=== PATIENT | female | born 1980 | race Caucasian/White ===

== ENCOUNTER 2016-11-30 18:49 | Emergency (ER) | payer MEDICARE, MEDICAID ==
[~2016-11-30] VITALS: Ht 172.7 cm; Wt 117.9 kg
[~2016-11-30 18:49] MED LIST: ESOM40CA PO; LEVO125T5 PO; NORG1TAB10 PO; PRED20TA PO; PROAIR HFA8.5 GM INH; SERT100T PO; SULF1TAB24 PO; UNABLE MC
[2016-11-30 20:35] LABS: BILIRUBIN,URINE SMALL (NEG); GLUCOSE,URINE NEGATIVE (NEG); NITRITE,URINE NEGATIVE (NEG); PROTEIN,URINE 30 mg/dL (NEG-TRACE)
[2016-11-30 20:41] VITALS: BP 133/77
[2016-11-30 20:45] LABS: BACTERIA,URINE FEW /HPF (0-FEW); RBC,URINE 20-40 /HPF (0-2); SQUAMOUS EPITHELIAL CELL,UR MANY /LPF
== END 2016-11-30 20:42 | disposition left against medical advice (07) ==
LOC: ER 18:49
DX: R10.9 Unspecified abdominal pain (principal); R11.10 Vomiting, unspecified
CPT/HCPCS: 81001; 81025; 87086

== ENCOUNTER → 2017-01-07 | Outpatient (CLI) | payer MEDICARE, MEDICAID ==
--- NOTE | 2017-01-07 10:45 | KCIC ---
PROCEDURE Upper GI HISTORY Nausea and vomiting after eating and drinking for 1 year, gastroesophageal reflux disease without esophagitis COMPARISON None FINDINGS Upper GI examination was performed. Patient had difficulty swallowing the crystals as well as slow to drink the barium. Esophageal caliber and motility is considered within normal limits. There were a few episodes of reflux of contrast into the esophagus during the exam, most notable to the level of the proximal 1/3 of the esophagus. No esophageal stricture was identified. There is no significant hiatal hernia. No appreciable duodenal or gastric ulcer was identified. Fluoroscopy time: 5 minutes 25 seconds; 29 images IMPRESSION 1. There were episodes of reflux of contrast into the esophagus, most notable to the proximal 1/3 of the esophagus. Electronically signed by: Jens Hills MD (Jan 07, 2017 10:44:23)
== END | disposition home or self-care (01) ==
LOC: KCIC 07:44
PROVIDERS: ATTEND Family Medicine
DX: K21.9 Gastro-esophageal reflux disease without esophagitis (principal)
CPT/HCPCS: 74246

== ENCOUNTER 2017-01-11 12:24 | Emergency (ER) | payer MEDICARE, MEDICAID ==
[~2017-01-11] VITALS: Ht 175.3 cm; Wt 116.1 kg
[2017-01-11 12:28] VITALS: BP 120/86
[2017-01-11] MEDS ORDERED: HYDROCODONE/APAP 5/325MG TABLET. PO ONE (13:30)
--- NOTE | 2017-01-11 14:06 | RAD ---
Indication injury yesterday. Pain particularly associated with the fourth metacarpal. AP oblique and lateral views of the left hand were obtained. No bony abnormality is seen
--- NOTE | 2017-01-11 14:57 | PHYS DOC ---
Past Medical History Past Medical History: Depression, GERD, Hypothyroid Additional Past Medical Histor: OVARIAN CYST Past Surgical History: Tubal ligation Additional Past Surgical Histo: THYROIDECTOMY "with a pill" Alcohol Use: None Drug Use: None Adult General Chief Complaint Chief Complaint: WRIST PAIN HPI HPI Patient is a 36 year old female who presents with moderate left lateral hand pain that began after she tripped on a cord while running at [place] and fell. Patient denies any loss of consciousness. Review of Systems Review of Systems Constitutional: Denies fever or chills [] Eyes: Denies change in visual acuity, redness, or eye pain [] Musculoskeletal: Left lateral hand pain Integument: Denies rash or skin lesions [] Neurologic: Denies headache, focal weakness or sensory changes [] Endocrine: Denies polyuria or polydipsia [] Current Medications Current Medications Current Medications Medications (Trade) Dose Ordered Sig/Shirley Start Time Stop Time Status Last Admin Dose Admin Acetaminophen/ Hydrocodone Bitart (Lortab 5/325) 1 tab 1X ONCE 01/11/17 13:30 01/11/17 13:31 DC Allergies Allergies Allergies Coded Allergies Type Severity Reaction Last Updated Verified No Known Drug Allergies 12/14/13 No Physical Exam Physical Exam Constitutional: Well developed, well nourished, no acute distress, non-toxic appearance. [] HENT: Normocephalic, atraumatic, bilateral external ears normal, oropharynx moist, no oral exudates, nose normal. [] Eyes: PERRLA, EOMI, conjunctiva normal, no discharge. [] Skin: Warm, dry, no erythema, no rash. [] Back: No tenderness, no CVA tenderness. [] Extremities: Left hand with no obvious deformity. Slight soft tissue swelling noted on the left lateral hand. Full range of motion to the left hand and fingers. Adequate ulnar medial radial sensation to the left hand and fingers. + 2 left radial pulse. Cap refill less than 2 seconds the left upper extremity. Sensation intact Neurologic: Alert and oriented X 3, normal motor function, normal sensory function, no focal deficits noted. [] Psychologic: Affect normal, judgement normal, mood normal. [] Current Patient Data Vital Signs Vital Signs Date Time Temp Pulse Resp B/P Pulse Ox O2 Delivery O2 Flow Rate FiO2 01/11/17 12:28 98.1 82 16 120/86 99 Room Air 98.1 EKG EKG [] Radiology/Procedures Radiology/Procedures []PROCEDURE: HAND LEFT 3V Indication injury yesterday. Pain particularly associated with the fourth metacarpal. AP oblique and lateral views of the left hand were obtained. No bony abnormality is seen DICTATED and SIGNED BY: ROSITA MCNEAL MD DATE: 01/11/17 1401 CC: MARSHALL PITT MD; ALEKSANDR HAWTHORNE APRN ~ Course & Med Decision Making Course & Med Decision Making Pertinent Labs and Imaging studies reviewed. (See chart for details) Patient is in the ED with left hand contusion after falling on the hand. Left hand x-rays interpreted by radiologist are negative for any acute findings. Tarun wrap applied to the left eye by the ED RN, neurovascular exam done by me is normal, cap refill is 2 seconds. Ice elevation encouraged. Naproxen for pain. Follow-up with orthopedic doctor in a week if pain continues. Dragon Disclaimer Dragon Disclaimer This electronic medical record was generated, in whole or in part, using a voice recognition dictation system. Departure Departure Impression: Primary Impression: Contusion of hand, left Additional Impression: Fall from standing Disposition: 01 HOME, SELF-CARE Condition: STABLE Referrals: MARSHALL PITT MD (PCP) Follow-up with him in one week if pain ELY DAWSON II, MD Patient Instructions: Contusion, Fall Prevention and Home Safety Additional Instructions: You were seen for left hand contusion after falling on it. Your X-rays of the left hand are negative for any acute findings. Wear the Tarun wrap as tolerated and needed. Ice and elevate the extremity. Follow-up with orthopedic doctor in a week if pain continues. Problem Qualifiers Additional Impression: Fall from standing Encounter type: initial encounter Qualified Code: W19.XXXA - Unspecified fall, initial encounter ALEKSANDR HAWTHORNE APRN Jan 11, 2017 14:56
== END 2017-01-11 15:13 | disposition home or self-care (01) ==
LOC: ER 12:24
DX: S60.222A Contusion of left hand, initial encounter (principal); F32.9 Major depressive disorder, single episode, unspecified; K21.9 Gastro-esophageal reflux disease without esophagitis; E89.0 Postprocedural hypothyroidism; Z98.51 Tubal ligation status; W01.0XXA Fall on same level from slipping, tripping and stumbling without subsequent striking against object, initial encounter; Y93.89 Activity, other specified; Y92.89 Other specified places as the place of occurrence of the external cause; Y99.8 Other external cause status
CPT/HCPCS: 73130; 99284

== ENCOUNTER → 2017-02-01 | Outpatient (CLI) | payer MEDICARE, MEDICAID ==
[2017-01-11 12:28] VITALS: BP 120/86
[~2017-02-01] MED LIST changes: +ONDA4TAB10 PO; +OXYC-323 PO
--- NOTE | 2017-02-01 11:24 | KCIC ---
PROCEDURE Limited abdomen ultrasound HISTORY Right upper quadrant pain and nausea for 1 year. COMPARISON None FINDINGS The exam is limited due to body habitus and bowel gas. Liver unremarkable Inferior vena cava is poorly visualized. No evidence of cholelithiasis or gallbladder wall thickening. Note that pressure applied to the gallbladder with transducer did elicit tenderness from the patient. Common bile duct measures 6 millimeters Pancreas is poorly visualized Right kidney measures 9.7 cm longitudinal without hydronephrosis. IMPRESSION No evidence of cholelithiasis. However, there is a positive sonographic Coburn sign. Mild common bile duct dilatation at 6 mm. Electronically signed by: Brandon Alejandre MD (February 01, 2017 11:22:32)
== END | disposition home or self-care (01) ==
LOC: KCIC US 10:44
PROVIDERS: ATTEND Family Medicine
DX: R10.11 Right upper quadrant pain (principal)
CPT/HCPCS: 76705

== ENCOUNTER 2017-02-04 11:58 | Emergency (ER) | payer MEDICARE, MEDICAID ==
[~2017-02-04] VITALS: Ht 177.8 cm; Wt 117.9 kg
[~2017-02-04 11:58] MED LIST changes: -ONDA4TAB10 PO; -OXYC-323 PO
--- NOTE | 2017-02-04 12:28 | PHYS DOC ---
Past Medical History Past Medical History: Depression, GERD, Hypothyroid Additional Past Medical Histor: OVARIAN CYST Past Surgical History: Tonsillectomy, Tubal ligation Additional Past Surgical Histo: THYROIDECTOMY "with a pill" Alcohol Use: None Drug Use: None Adult General Chief Complaint Chief Complaint: CONSTIPATION HPI HPI Patient is a 36 year old female presenting to the emergency department for evaluation of right upper quadrant pain nausea and vomiting that has been ongoing issue for months. She says that very shortly after she eats within minutes she has nonbloody nonbilious emesis and that she even pretreats with Zofran but still has emesis. She says that her pain is primarily in her right upper quadrant but also occurs in her epigastrium as well. She feels constipated but denies any dysuria hematuria vaginal bleeding and vaginal discharge or diarrhea. She has had a tubal ligation but no other abdominal surgeries. She has not had any workup for this pain. She is in no obvious distress with normal vital signs. Review of Systems Review of Systems Constitutional: Denies fever or chills [] Eyes: Denies change in visual acuity, redness, or eye pain [] HENT: Denies nasal congestion or sore throat [] Respiratory: Denies cough or shortness of breath [] Cardiovascular: No additional information not addressed in HPI [] GI: + abdominal pain, nausea, vomiting. No diarrhea [] : Denies dysuria or hematuria [] Musculoskeletal: Denies back pain or joint pain [] Integument: Denies rash or skin lesions [] Neurologic: Denies headache, focal weakness or sensory changes [] Current Medications Current Medications Current Medications Medications (Trade) Dose Ordered Sig/Shirley Start Time Stop Time Status Last Admin Dose Admin Info (Do NOT chart on this entry -- for MONITORING) 1 each PRN DAILY PRN 02/04/17 12:45 02/04/17 14:18 DC Iohexol (Omnipaque 300 Mg/ml) 75 ml 1X ONCE 02/04/17 12:45 02/04/17 12:46 DC 02/04/17 12:50 75 ML Morphine Sulfate 5 mg 1X ONCE 02/04/17 12:30 02/04/17 12:31 DC 02/04/17 12:38 5 MG Ondansetron HCl (Zofran) 4 mg 1X ONCE 02/04/17 12:30 02/04/17 12:31 DC 02/04/17 12:36 4 MG Sodium Chloride 1,000 ml @ 1,000 mls/hr 1X ONCE 02/04/17 12:30 02/04/17 13:29 DC 02/04/17 12:34 1,000 MLS/HR Allergies Allergies Allergies Coded Allergies Type Severity Reaction Last Updated Verified No Known Drug Allergies 12/14/13 No Physical Exam Physical Exam Constitutional: Well developed, well nourished, no acute distress, non-toxic appearance. [] HENT: Normocephalic, atraumatic, bilateral external ears normal, oropharynx moist, no oral exudates, nose normal. [] Eyes: PERRLA, EOMI, conjunctiva normal, no discharge. [] Neck: Normal range of motion, no tenderness, supple, no stridor. [] Cardiovascular:Heart rate regular rhythm, no murmur [] Lungs & Thorax: Bilateral breath sounds clear to auscultation [] Abdomen: Bowel sounds normal, soft, + epigastric and RUQ tenderness, no masses, no pulsatile masses. [] Skin: Warm, dry, no erythema, no rash. [] Back: No tenderness, no CVA tenderness. [] Extremities: No tenderness, no cyanosis, no clubbing, ROM intact, no edema. [] Neurologic: Alert and oriented X 3, normal motor function, normal sensory function, no focal deficits noted. [] Current Patient Data Vital Signs Vital Signs Date Time Temp Pulse Resp B/P (MAP) Pulse Ox O2 Delivery O2 Flow Rate FiO2 02/04/17 12:41 70 12 132/72 (92) 99 Room Air 02/04/17 12:07 99.1 99.1 Lab Values Laboratory Tests Test 02/04/17 11:14 02/04/17 12:20 POC Urine HCG, Qualitative Hcg negative (Negative) White Blood Count 11.9 x10^3/uL (4.0-11.0) H Red Blood Count 4.27 x10^6/uL (3.50-5.40) Hemoglobin 13.2 g/dL (12.0-15.5) Hematocrit 38.8 % (36.0-47.0) Mean Corpuscular Volume 91 fL (79-100) Mean Corpuscular Hemoglobin 31 pg (25-35) Mean Corpuscular Hemoglobin Concent 34 g/dL (31-37) Red Cell Distribution Width 13.1 % (11.5-14.5) Platelet Count 254 x10^3/uL (140-400) Neutrophils (%) (Auto) 64 % (31-73) Lymphocytes (%) (Auto) 27 % (24-48) Monocytes (%) (Auto) 7 % (0-9) Eosinophils (%) (Auto) 1 % (0-3) Basophils (%) (Auto) 1 % (0-3) Neutrophils # (Auto) 7.6 x10^3uL (1.8-7.7) Lymphocytes # (Auto) 3.2 x10^3/uL (1.0-4.8) Monocytes # (Auto) 0.8 x10^3/uL (0.0-1.1) Eosinophils # (Auto) 0.1 x10^3/uL (0.0-0.7) Basophils # (Auto) 0.1 x10^3/uL (0.0-0.2) Urine Collection Type Unknown Urine Color Yellow Urine Clarity Clear Urine pH 6.0 Urine Specific [place] 1.025 Urine Protein Negative mg/dL (NEG-TRACE) Urine Glucose (UA) Negative mg/dL (NEG) Urine Ketones (Stick) Negative mg/dL (NEG) Urine Blood Large (NEG) Urine Nitrite Negative (NEG) Urine Bilirubin Negative (NEG) Urine Urobilinogen Dipstick 1.0 mg/dL (0.2 mg/dL) Urine Leukocyte Esterase Small (NEG) Urine RBC 6-10 /HPF (0-2) Urine WBC 1-4 /HPF (0-4) Urine Squamous Epithelial Cells Mod /LPF Urine Bacteria Few /HPF (0-FEW) Urine Mucus Slight /LPF Sodium Level 135 mmol/L (136-145) L Potassium Level 3.7 mmol/L (3.5-5.1) Chloride Level 101 mmol/L (98-107) Carbon Dioxide Level 27 mmol/L (21-32) Anion Gap 7 (6-14) Blood Urea Nitrogen 13 mg/dL (7-20) Creatinine 0.9 mg/dL (0.6-1.0) Estimated GFR (Cockcroft-Gault) 71.3 BUN/Creatinine Ratio 14 (6-20) Glucose Level 94 mg/dL (70-99) Calcium Level 8.6 mg/dL (8.5-10.1) Total Bilirubin 0.3 mg/dL (0.2-1.0) Aspartate Amino Transferase (AST) 14 U/L (15-37) L Alanine Aminotransferase (ALT) 16 U/L (14-59) Alkaline Phosphatase 62 U/L (46-116) Total Protein 7.4 g/dL (6.4-8.2) Albumin 3.0 g/dL (3.4-5.0) L Albumin/Globulin Ratio 0.7 (1.0-1.7) L Lipase 212 U/L (73-393) Laboratory Tests 02/04/17 12:20 Laboratory Tests 02/04/17 12:20 EKG EKG [] Radiology/Procedures Radiology/Procedures Exam performed: CT scan of the abdomen and pelvis with contrast Clinical Indication:Right upper quadrant abdominal pain, constipation Date of Service:02/04/17 Limited abdominal ultrasound from 02/01/17 was reviewed. Technique: Contiguous helical acquisitions are obtained from the lung bases to the pelvis during intravenous administration of [75 mL of Isovue-320]. Sagittal and coronal reformatted images were obtained and reviewed. CT abdomen findings: The lung bases appear essentially clear. Visualized heart is normal. The liver, spleen ,gall bladder and pancreas appears unremarkable. Both adrenal glands and bilateral kidneys appear normal with symmetric excretion of contrast via both kidneys. Aorta is normal in caliber without aneurysm. No retroperitoneal or mesenteric lymphadenopathy is seen. The small bowel loops appear nondilated and unremarkable. There is no retroperitoneal lymphadenopathy or mass lesions. Visualized appendix is normal. There is a small appendicolith. No bowel related inflammatory stranding is noted. No obvious stranding is seen in the pericecal region. There is diffuse scattered stool throughout the colon. CT pelvis findings: The pelvic bowel loops are nondilated and unremarkable. The urinary bladder is well distended and normal . Uterus is anteverted. No adnexal masses seen. Trace amount of free fluid in the posterior cul-de-sac is likely physiological. Interrogation of bone windows demonstrates no obvious bony abnormality. Sagittal and coronal reformatted images were obtained and reviewed which demonstrate no additional findings. Impression abdomen and pelvis : 1. No acute intra-abdominal or pelvic process is detected. PQRS Compliance Statement: One or more of the following individualized dose reduction techniques were utilized for this examination: 1. Automated exposure control 2. Adjustment of the mA and/or kV according to patient size 3. Use of iterative reconstruction technique DICTATED and SIGNED BY: KEDAR SAWYER MD DATE: 02/04/17 1310 Course & Med Decision Making Course & Med Decision Making Patient with right upper quadrant pain and epigastric pain which is possibly gallbladder related and may be ulcer or gastritis as well as she will get labs CT have her symptoms treated and then be reassessed. I asked patient initially on my exam if she had seen anyone for this pain and she explicitly said no. I told her that her workup was unremarkable and she has no emergent need for surgery or inpatient admission. Patient became very upset and said that she was sent here by Dr. Ching to get her gallbladder taken out. I asked why and she said that she had an ultrasound several days ago the came back positive and she needs to have her gallbladder taken out. I was able to find the report and it appears that she had no abnormality on her sonogram except for she had a positive Coburn sign. I asked her why she didn't tell me this and she said that she forgot initially. I then spoke to Dr. Ching about her request to be admitted and have surgery and he said that this was false and that he said she needs to have a PIPIDA scan and follow with her general surgeon as an outpatient. Patient was told this and said that she couldn't talk with Dr. Ching about her further planning and I gave her the information for the general surgeon and will provide her pain and nausea medications as an outpatient. Shouldn't aware and agreeable with plan and verbalized understanding of the above instructions. Dragon Disclaimer Dragon Disclaimer This electronic medical record was generated, in whole or in part, using a voice recognition dictation system. Departure Departure Impression: Primary Impression: Abdominal pain Additional Impression: Leukocytosis Disposition: 01 HOME, SELF-CARE Condition: GOOD Referrals: MARSHALL CHING MD (PCP) UMESH FERRARO MD Patient Instructions: Abdominal Pain Additional Instructions: EAT SOFT, NOT FATTY FOODS. Scripts Ondansetron (ZOFRAN ODT) 4 Mg Tab.rapdis 4 MG PO BID Y for NAUSEA/VOMITING, #20 TAB Prov: ELISE GOODMAN DO 02/04/17 Oxycodone/Apap 5-325 (PERCOCET 5-325 MG TABLET) 1 Each Tablet 1 TAB PO PRN Q6HRS Y for PAIN, #30 TAB 0 Refills Prov: ELISE GOODMAN DO 02/04/17 Problem Qualifiers Primary Impression: Abdominal pain Abdominal location: right upper quadrant Qualified Codes: R10.11 - Right upper quadrant pain ELISE GOODMAN DO February 04, 2017 12:28
[2017-02-04] MEDS ORDERED: ONDANSETRON PF 4 MG/2 ML VIAL. IV ONE (12:30)
[2017-02-04] MEDS ORDERED: IV NORMAL SALINE 1000ML BAG 1,000 ML IV ONE (12:30)
[2017-02-04] MEDS ORDERED: MORPHINE SULFATE 10 MG/ML VIAL. IV ONE (12:30)
[2017-02-04 12:33] LABS: BASO # 0.1 x10^3/uL (0.0-0.2); BASO % 1 % (0-3); EOS % 1 % (0-3); HEMATOCRIT 38.8 % (36.0-47.0); HEMOGLOBIN 13.2 g/dL (12.0-15.5); LYMPH # 3.2 x10^3/uL (1.0-4.8); LYMPH % 27 % (24-48); MEAN CORPUSCULAR HEMOGLOBIN 31 pg (25-35); MEAN CORPUSCULAR HGB CONC 34 g/dL (31-37); MEAN CORPUSCULAR VOLUME 91 fL (79-100); MONO % 7 % (0-9); NEUT % 64 % (31-73); PLATELET COUNT 254 x10^3/uL (140-400); RED BLOOD COUNT 4.27 x10^6/uL (3.50-5.40); RED CELL DISTRIBUTION WIDTH 13.1 % (11.5-14.5); WHITE BLOOD COUNT 11.9 x10^3/uL (4.0-11.0)
[2017-02-04 12:40] LABS: CALCIUM 8.6 mg/dL (8.5-10.1); CREATININE 0.9 mg/dL (0.6-1.0); GFR 71.3; POTASSIUM 3.7 mmol/L (3.5-5.1)
[2017-02-04 12:41] VITALS: BP 132/72
[2017-02-04 12:42] LABS: BILIRUBIN,URINE NEGATIVE (NEG); GLUCOSE,URINE NEGATIVE (NEG); NITRITE,URINE NEGATIVE (NEG); PROTEIN,URINE NEGATIVE (NEG-TRACE)
[2017-02-04 12:45] LABS: ALBUMIN/GLOBULIN RATIO 0.7 (1.0-1.7); TOTAL BILIRUBIN 0.3 mg/dL (0.2-1.0); TOTAL PROTEIN 7.4 g/dL (6.4-8.2)
[2017-02-04] MEDS ORDERED: IOHEXOL 300 MG/ML 75 ML VIAL IV ONE (12:45)
[2017-02-04] MEDS ORDERED: CONTRAST GIVEN MC PRN (12:45)
[2017-02-04 12:48] LABS: BACTERIA,URINE FEW /HPF (0-FEW); SQUAMOUS EPITHELIAL CELL,UR MOD /LPF
--- NOTE | 2017-02-04 13:21 | RAD ---
Exam performed: CT scan of the abdomen and pelvis with contrast Clinical Indication:Right upper quadrant abdominal pain, constipation Date of Service:02/04/17 Limited abdominal ultrasound from 02/01/17 was reviewed. Technique: Contiguous helical acquisitions are obtained from the lung bases to the pelvis during intravenous administration of [75 mL of Isovue-320]. Sagittal and coronal reformatted images were obtained and reviewed. CT abdomen findings: The lung bases appear essentially clear. Visualized heart is normal. The liver, spleen ,gall bladder and pancreas appears unremarkable. Both adrenal glands and bilateral kidneys appear normal with symmetric excretion of contrast via both kidneys. Aorta is normal in caliber without aneurysm. No retroperitoneal or mesenteric lymphadenopathy is seen. The small bowel loops appear nondilated and unremarkable. There is no retroperitoneal lymphadenopathy or mass lesions. Visualized appendix is normal. There is a small appendicolith. No bowel related inflammatory stranding is noted. No obvious stranding is seen in the pericecal region. There is diffuse scattered stool throughout the colon. CT pelvis findings: The pelvic bowel loops are nondilated and unremarkable. The urinary bladder is well distended and normal . Uterus is anteverted. No adnexal masses seen. Trace amount of free fluid in the posterior cul-de-sac is likely physiological. Interrogation of bone windows demonstrates no obvious bony abnormality. Sagittal and coronal reformatted images were obtained and reviewed which demonstrate no additional findings. Impression abdomen and pelvis : 1. No acute intra-abdominal or pelvic process is detected. PQRS Compliance Statement: One or more of the following individualized dose reduction techniques were utilized for this examination: 1. Automated exposure control 2. Adjustment of the mA and/or kV according to patient size 3. Use of iterative reconstruction technique
[2017-02-04] MEDS ORDERED: ONDA4TAB10 PO (14:05)
[2017-02-04] MEDS ORDERED: OXYC-323 PO (14:05)
== END 2017-02-04 14:16 | disposition home or self-care (01) ==
LOC: ER 11:58
DX: R10.11 Right upper quadrant pain (principal); D72.829 Elevated white blood cell count, unspecified; F32.9 Major depressive disorder, single episode, unspecified; K21.9 Gastro-esophageal reflux disease without esophagitis; E03.9 Hypothyroidism, unspecified; Z98.51 Tubal ligation status
CPT/HCPCS: 36415; 74177; 80053; 81001; 83690; 84703; 85027; 87086; 96361; 96374; 96375; 99285; J2270; J2405; J7030; Q9967; 81025

== ENCOUNTER → 2017-03-12 | Outpatient (CLI) | payer MEDICARE, MEDICAID ==
[~2017-03-12] VITALS: Ht 172.7 cm; Wt 113.4 kg
[~2017-03-12] MED LIST changes: +ONDA4TAB10 PO; +OXYC-323 PO; +SINCALIDE 2.27 MCG in IV NORMAL SALINE 50ML 30 ML IV ONE
--- NOTE | 2017-03-12 13:04 | RAD ---
Hepatobiliary scan with gallbladder ejection fraction calculation 03/12/2017 Clinical History: Abdominal pain with nausea and vomiting for one year.. Technique: After the intravenous administration of 5.0 mCi of Technetium 99m Choletec, imaging of the right upper quadrant of the abdomen was performed using the gamma camera for 60 minutes. 2.27 mcg of CCK was then infused intravenously over 30 minutes. Continued imaging of the right upper quadrant abdomen was performed. A gallbladder ejection fraction was calculated. Findings: Normal uptake and excretion of the radionuclide by the liver is seen. There is no evidence of cystic or common bile duct obstruction. The gallbladder is within normal limits in size and configuration. During the infusion CCK mild emptying of the gallbladder is seen. The gallbladder ejection fraction is 35.5 % which is borderline diminished. Impression: The gallbladder ejection fraction is 35.5% which is borderline diminished.
== END | disposition home or self-care (01) ==
LOC: NM 08:16
PROVIDERS: ATTEND Internal Medicine Gastroenterology
DX: R10.13 Epigastric pain (principal); R11.2 Nausea with vomiting, unspecified
CPT/HCPCS: 78226; 96374; 96375; A9537; J2805

== ENCOUNTER → 2017-03-19 | Day surgery (SDC) | payer MEDICARE, MEDICAID ==
[~2017-03-19] VITALS: Ht 172.7 cm; Wt 113.4 kg
[~2017-03-19] MED LIST changes: +BUPIVACAINE-EPI 0.5%-1:200000 50 ML VIAL. ONE; +DESFLURANE 61 TO 120 MINUTES IH ONE; +DEXAMETHASONE SOD PHOS 20 MG/5 ML VIAL. ONE; +GLYCOPYRROLATE 1 MG/5 ML VIAL. ONE; +HYDROmorphone 2 MG/ML VIAL IV PRN; +IOHEXOL 300 MG/ML 50 ML VIAL. ONE; +IV RINGERS,LACTATED 1000ML 1,000 ML IV SCH; +LIDOCAINE 1% 1 ML SYRINGE. ID PRN; +LIDOCAINE 2% PF Vial for OR 5 ML VIAL. ONE; +MIDAZOLAM HCL/PF 2 MG/2 ML VIAL. ONE; +MORPHINE SULFATE 2 MG/ML DISP.SYRIN. IV PRN; +NEOSTIGMINE METHYLSULFATE 5 MG/5 ML SYRINGE. ONE; +ONDANSETRON PF 4 MG/2 ML VIAL. IV PRN; +ONDANSETRON PF 4 MG/2 ML VIAL. ONE; +PROCHLORPERAZINE 10 MG/2 ML VIAL. IV PRN; +PROPOFOL 20 ML IV ONE; +ROCURONIUM 50 MG/5 ML VIAL. ONE; -SINCALIDE 2.27 MCG in IV NORMAL SALINE 50ML 30 ML IV ONE; +fentaNYL PF VIAL 100 MCG/2 ML VIAL IV PRN; +fentaNYL PF VIAL 100 MCG/2 ML VIAL ONE
[2017-03-19 10:33] LABS: NEG OBC UR NEG; POS OBC UR POS
--- NOTE | 2017-03-19 12:15 | RAD ---
Intraoperative cholangiogram, 03/19/2017: History: Cholecystectomy A single spot films from surgery is presented for review. Contrast has been injected into the cystic duct remnant. 4 seconds of fluoroscopy time was utilized. There is good flow of contrast into the duodenum at the ampulla. No filling defect is seen in the common duct to suggest a retained calculus. The intrahepatic ducts are incompletely opacified on this single image. IMPRESSION: No significant abnormality is detected.
--- NOTE | 2017-03-19 12:34 | PDOC ---
BRIEF OPERATIVE NOTE Pre-Op Diagnosis biliary dyskinesia lap aj, ioc k antonio spence ebl 10 ivf 1300 tana well to rr stable #[id number] UMESH FERRARO MD Mar 19, 2017 12:34
[2017-03-19 13:29] VITALS: BP 19/69
--- NOTE | 2017-03-19 15:34 | OP ---
DATE OF SURGERY: 03/19/2017 PREOPERATIVE DIAGNOSIS: Biliary dyskinesia. POSTOPERATIVE DIAGNOSIS: Biliary dyskinesia. PROCEDURE: Laparoscopic cholecystectomy with intraoperative cholangiogram. SURGEON: Umesh Ferraro MD ANESTHESIA: General. ESTIMATED BLOOD LOSS: 10 mL. INTRAVENOUS FLUIDS: 1300 mL. INDICATIONS: The patient is a 36-year-old female with a history of abdominal pain, nausea, vomiting. Her ultrasound was negative for cholelithiasis. EGD was unrevealing and PIPIDA scan showed gallbladder ejection fraction that was marginal at 35%. FINDINGS: Intraoperative cholangiogram is normal. PROCEDURE IN DETAIL: After informed consent was obtained, the patient was taken to the operating room and placed in the supine position. After adequate induction of general anesthesia, an umbilical skin incision was made with a scalpel, subcutaneous tissues with a hemostat. [facility] was used to grab the fascia and lift it anteriorly. Veress was used to gain access to the peritoneal cavity. Low opening pressures confirmed intraperitoneal placement of Veress. Pneumoperitoneum to 15 mmHg was established followed by placement of 5 mm port. A 5-mm 30-degree lens was inserted, which revealed good port placement. No evidence of entry trauma. She was placed head up, rotated towards her left. Three additional ports were placed under direct vision. The sites were injected with local anesthetic. Skin incisions were made and then an epigastric 11 mm and two 5 mm right lateral ports were placed. The fundus of the gallbladder was retracted over liver and slightly towards the right. Infundibulum was retracted towards the right and towards her toes to open the triangle of Calot. The leading peritoneal edge was scored with cautery medially and laterally and carried back towards the liver. [place] dissector was then used to dissect out the triangle of Calot. At the level of the infundibulum and the completion of dissection, 2 structures were seen leading directly to the gallbladder, one was a cystic artery and one was a cystic duct. The gallbladder had been dissected away from the cystic plate. The liver could be seen behind the gallbladder and base of the gallbladder was free of extraneous tissue. Two clips were placed on cystic artery proximally, one distally and a clip was placed on cystic duct adjacent to the gallbladder. Ductotomy was made with scissors. Intraoperative cholangiogram showed free flow of contrast through the cystic duct, common bile duct, common hepatic, left and right hepatics, intrahepatic radicles, free flow of contrast into the duodenum with no filling defects. The catheter was removed, the cholangiogram was interpreted as normal. Three clips were placed on the cystic duct distal to the ductotomy. Ductotomy completed with scissors. Cystic artery transected sharply. The gallbladder was removed from the bed of the liver with cautery and placed in laparoscopic bag and brought out through the epigastric incision. The right upper quadrant was irrigated. Irrigant returned clear. There was no bleeding or bile leakage noted. Fascial closure device was used to close the fascia at the epigastric incision with an 0 Vicryl suture. The ports removed under direct vision. They were hemostatic. Pneumoperitoneum was desufflated. Skin incisions were closed with 4-0 Monocryl in subcuticular fashion. Sterile dressings were placed. Of note, prior to removing the ports, the one final look at the liver bed revealed it to be hemostatic and without bile leakage. After removal of the ports, the incisions were closed with 4-0 Monocryl in subcuticular fashion. Additional local was injected. Sterile dressings were placed. She tolerated the procedure well. There were no apparent complications. She is in the process of being transferred in stable condition to the recovery room. UMESH FERRARO MD DR: JOSE M/georges JOB#: [id number] / [id number] Dr. BARRY Holman SCOTT MD
--- NOTE | 2017-03-22 13:37 | PATHOLOGY ---
PATHOLOGY REPORT * * * * * * * * FINAL DIAGNOSIS: Gallbladder, laparoscopic cholecystectomy: - Cholesterolosis, extensive. - Chronic cholecystitis. COMMENT: There are no calculi identified within the gallbladder lumen or specimen container. There is no evidence of malignancy. (JPM:; d/t: 03/22/2017) REPORT ELECTRONICALLY SIGNED BY: Duke Rios M.D. DATE/TIME: 03/22/2017 13:37 * * * * * * * * GROSS PATHOLOGY: Received in formalin labeled "Estelita Lau, gallbladder," is an 8.0 x 4.0 x 1.8 cm, intact gallbladder with yellow red, fatty appearing serosal surfaces. Opening the gallbladder reveals yellow red velvety mucosa which is nearly completely covered with lam yellow striations, suggestive of cholesterolosis and an average wall thickness of 0.4 cm. Calculi are not present and no masses are noted grossly. [employer] Tester sections from the body and fundus are submitted along with the proximal margin in cassette A1. ([facility]; 03/19/17) INITIAL CPT CODE(S): A; 73890 Professional services performed [place] [facility] [address] Technical services performed by [facility] at [address] [place] [address], [facility] [address] [address]. SPECIMEN(S) RECEIVED: A.Gallbladder sac with contents CLINICAL HISTORY: Biliary dyskinesia PATIENT: ESTELITA LAU /AGE: 9 1980 (Age: 36) PATIENT #: [id number] ALT CASE #: SPECIMEN COLLECTION DATE: 03/19/2017 SPECIMEN RECEIVED DATE: 03/19/2017 [facility] - [id number] [place] [id number] - PHONE: [phone] * * * END OF REPORT * * *
== END | disposition home or self-care (01) ==
LOC: SURG 09:37
PROVIDERS: ATTEND Surgery
DX: K82.8 Other specified diseases of gallbladder (principal); E66.9 Obesity, unspecified; Z68.35 Body mass index [BMI] 35.0-35.9, adult; E03.9 Hypothyroidism, unspecified; K21.9 Gastro-esophageal reflux disease without esophagitis; F41.9 Anxiety disorder, unspecified; F32.9 Major depressive disorder, single episode, unspecified; Z98.51 Tubal ligation status; Z86.39 Personal history of other endocrine, nutritional and metabolic disease
CPT/HCPCS: 47563; 74300; 81025; J0690; J0780; J1100; J2250; J2405; J2704; J2710; J3010; J3490; J7030; J7120; Q9967

== ENCOUNTER 2017-03-27 11:56 | Emergency (ER) | payer MEDICARE, MEDICAID ==
[~2017-03-27] VITALS: Ht 177.8 cm; Wt 112.9 kg
[~2017-03-27 11:56] MED LIST changes: -BUPIVACAINE-EPI 0.5%-1:200000 50 ML VIAL. ONE; -DESFLURANE 61 TO 120 MINUTES IH ONE; -DEXAMETHASONE SOD PHOS 20 MG/5 ML VIAL. ONE; -GLYCOPYRROLATE 1 MG/5 ML VIAL. ONE; -HYDROmorphone 2 MG/ML VIAL IV PRN; -IOHEXOL 300 MG/ML 50 ML VIAL. ONE; -IV RINGERS,LACTATED 1000ML 1,000 ML IV SCH; -LIDOCAINE 1% 1 ML SYRINGE. ID PRN; -LIDOCAINE 2% PF Vial for OR 5 ML VIAL. ONE; -MIDAZOLAM HCL/PF 2 MG/2 ML VIAL. ONE; -MORPHINE SULFATE 2 MG/ML DISP.SYRIN. IV PRN; -NEOSTIGMINE METHYLSULFATE 5 MG/5 ML SYRINGE. ONE; -ONDANSETRON PF 4 MG/2 ML VIAL. IV PRN; -ONDANSETRON PF 4 MG/2 ML VIAL. ONE; -PROCHLORPERAZINE 10 MG/2 ML VIAL. IV PRN; -PROPOFOL 20 ML IV ONE; -ROCURONIUM 50 MG/5 ML VIAL. ONE; -fentaNYL PF VIAL 100 MCG/2 ML VIAL IV PRN; -fentaNYL PF VIAL 100 MCG/2 ML VIAL ONE
[2017-03-27 12:03] VITALS: BP 149/78
[2017-03-27] MEDS ORDERED: IV NORMAL SALINE 1000ML BAG 1,000 ML IV ONE (12:15)
[2017-03-27] MEDS ORDERED: ONDANSETRON PF 4 MG/2 ML VIAL. IV ONE (12:15)
--- NOTE | 2017-03-27 12:20 | PHYS DOC ---
Past Medical History Past Medical History: Depression, GERD, Hypothyroid Additional Past Medical Histor: OVARIAN CYST Past Surgical History: Tonsillectomy, Tubal ligation Additional Past Surgical Histo: THYROIDECTOMY "with a pill" Alcohol Use: None Drug Use: None Adult General Chief Complaint Chief Complaint: ABDOMINAL PAIN HPI HPI Patient is a 36 year old female who presents with nausea and vomiting since her gallbladder removal on March 23, 2017. Patient returns to the emergency room today for persistent nausea and vomiting since her gallbladder surgery however denies any fevers or increased abdominal pain since the surgery. Patient denies any chest pain or shortness of breath. Patient states the incisions have had no purulent drainage from them. Patient denies any dysuria. Patient states she is unable to keep any food down however prior to coming to the emergency room she was eating a Meri cheese steak sounds and vomited. Patient states last night for dinner she had mashed potatoes and gravy and vomited that. Patient denies any diarrhea or cause patient. Patient denies any other symptoms. Pertinent exam findings: Abdomen was soft, bowel sounds heard in all 4 quadrants, generalized tenderness over the port holes from the laparoscopic cholecystectomy ED course: Patient was seen and examined, CBC, CMP, lipase, UA, urine , CT scan abdomen and pelvis with contrast, IV fluids, Zofran were ordered 1415: Discussed CC/HP/PMH with Dr. Birmingham and recommends HIDA scan to rule out a biliary leak 1821: Updated patient on results of the HIDA scan and will discharge her home. I discussed with the patient about her diet and recommended short-term follow- up. Pertinent results: WBC [address] scan abdomen pelvis shows no acute abnormality with trace amount of free fluid that is physiological Skin negative for biliary leak MDM: After reviewing the chart, CC/HPI/PMH, physical exam, [lab results], [ radiological results], I do not believe the patient has intra-abdominal emergency or hepatobiliary leak warranting further workup and/or admission at this time. The patient is stable for discharge. How long discussion with patient about her diet which could be tripping to her nausea and vomiting since she is able to keep down liquids without problems. Recommended patient follow- up with PCP in one to 2 days. Additional verbal discharge instructions were provided to the patient and that if symptoms get worse or any new symptoms arise that are worrisome to the patient she is to return to the emergency room immediately Review of Systems Review of Systems GEN: Denies fevers, chills, sweats HEENT: Denies blurred vision, sore throat CV: Denies chest pain RESP: Denies shortness of air, cough GI: Positive n/v NEURO: Denies confusion, dizziness MSK: Denies weakness, joint pain/swelling Current Medications Current Medications Current Medications Medications (Trade) Dose Ordered Sig/Shirley Start Time Stop Time Status Last Admin Dose Admin Info (Do NOT chart on this entry -- for MONITORING) 1 each PRN DAILY PRN 03/27/17 12:30 03/29/17 12:29 Iohexol (Omnipaque 300 Mg/ml) 75 ml 1X ONCE 03/27/17 12:30 03/27/17 12:31 DC Ondansetron HCl (Zofran) 4 mg 1X ONCE 03/27/17 12:15 03/27/17 12:17 DC 03/27/17 12:37 4 MG Sodium Chloride 1,000 ml @ 1,000 mls/hr 1X ONCE 03/27/17 12:15 03/27/17 13:14 DC 03/27/17 12:37 1,000 MLS/HR Allergies Allergies Allergies Coded Allergies Type Severity Reaction Last Updated Verified No Known Drug Allergies 03/19/17 No Physical Exam Physical Exam GEN.: No apparent distress. Alert and oriented. HEENT: Head is normocephalic, atraumatic NECK: Supple. LUNGS: CTAB. HEART: RRR, S1, S2 present. Peripheral pulses intact ABDOMEN: Soft, generalized tenderness over her port holes from her laparoscopic procedure. Positive bowel sounds. EXTREMITIES: Without any cyanosis. NEUROLOGIC: Normal speech, normal tone PSYCHIATRIC: Normal affect, normal mood. SKIN: No ulcerations Current Patient Data Vital Signs Vital Signs Date Time Temp Pulse Resp B/P (MAP) Pulse Ox O2 Delivery O2 Flow Rate FiO2 03/27/17 12:03 97.7 85 18 149/78 (101) 98 Room Air 97.7 Lab Values Laboratory Tests Test 03/27/17 12:03 03/27/17 12:26 Urine Collection Type Unknown Urine Color Yellow Urine Clarity Clear Urine pH 7.0 Urine Specific [place] 1.025 Urine Protein Negative mg/dL (NEG-TRACE) Urine Glucose (UA) Negative mg/dL (NEG) Urine Ketones (Stick) Negative mg/dL (NEG) Urine Blood Large (NEG) Urine Nitrite Negative (NEG) Urine Bilirubin Negative (NEG) Urine Urobilinogen Dipstick 1.0 mg/dL (0.2 mg/dL) Urine Leukocyte Esterase Negative (NEG) Urine RBC 6-10 /HPF (0-2) Urine WBC 1-4 /HPF (0-4) Urine Squamous Epithelial Cells Mod /LPF Urine Bacteria Few /HPF (0-FEW) Urine Mucus Mod /LPF Urine Test Negative (NEG) White Blood Count 12.4 x10^3/uL (4.0-11.0) H Red Blood Count 4.16 x10^6/uL (3.50-5.40) Hemoglobin 12.7 g/dL (12.0-15.5) Hematocrit 38.8 % (36.0-47.0) Mean Corpuscular Volume 93 fL (79-100) Mean Corpuscular Hemoglobin 31 pg (25-35) Mean Corpuscular Hemoglobin Concent 33 g/dL (31-37) Red Cell Distribution Width 13.0 % (11.5-14.5) Platelet Count 251 x10^3/uL (140-400) Neutrophils (%) (Auto) 73 % (31-73) Lymphocytes (%) (Auto) 19 % (24-48) L Monocytes (%) (Auto) 5 % (0-9) Eosinophils (%) (Auto) 1 % (0-3) Basophils (%) (Auto) 1 % (0-3) Neutrophils # (Auto) 9.1 x10^3uL (1.8-7.7) H Lymphocytes # (Auto) 2.4 x10^3/uL (1.0-4.8) Monocytes # (Auto) 0.7 x10^3/uL (0.0-1.1) Eosinophils # (Auto) 0.2 x10^3/uL (0.0-0.7) Basophils # (Auto) 0.1 x10^3/uL (0.0-0.2) Sodium Level 139 mmol/L (136-145) Potassium Level 3.8 mmol/L (3.5-5.1) Chloride Level 103 mmol/L (98-107) Carbon Dioxide Level 28 mmol/L (21-32) Anion Gap 8 (6-14) Blood Urea Nitrogen 16 mg/dL (7-20) Creatinine 0.9 mg/dL (0.6-1.0) Estimated GFR (Cockcroft-Gault) 71.3 BUN/Creatinine Ratio 18 (6-20) Glucose Level 122 mg/dL (70-99) H Calcium Level 8.6 mg/dL (8.5-10.1) Total Bilirubin 0.3 mg/dL (0.2-1.0) Aspartate Amino Transferase (AST) 13 U/L (15-37) L Alanine Aminotransferase (ALT) 15 U/L (14-59) Alkaline Phosphatase 73 U/L (46-116) Total Protein 7.2 g/dL (6.4-8.2) Albumin 3.0 g/dL (3.4-5.0) L Albumin/Globulin Ratio 0.7 (1.0-1.7) L Lipase 252 U/L (73-393) Laboratory Tests 03/27/17 12:26 Laboratory Tests 03/27/17 12:26 EKG EKG [] Radiology/Procedures Radiology/Procedures [] Course & Med Decision Making Course & Med Decision Making Pertinent Labs and Imaging studies reviewed. (See chart for details) [] Dragon Disclaimer Dragon Disclaimer This electronic medical record was generated, in whole or in part, using a voice recognition dictation system. Departure Departure Impression: Primary Impression: Abdominal pain Additional Impression: Nausea and vomiting Disposition: 01 HOME, SELF-CARE Condition: IMPROVED Referrals: MARSHALL PITT MD (PCP) Patient Instructions: Nausea and Vomiting, [id number] Additional Instructions: Is follow-up with her family doctor next 1-2 days Problem Qualifiers JANNET DOUGHERTY DO Mar 27, 2017 12:20
[2017-03-27] MEDS ORDERED: CONTRAST GIVEN MC PRN (12:30)
[2017-03-27] MEDS ORDERED: IOHEXOL 300 MG/ML 75 ML VIAL IV ONE ×2 (12:30)
[2017-03-27 12:37] LABS: BASO # 0.1 x10^3/uL (0.0-0.2); BASO % 1 % (0-3); EOS % 1 % (0-3); HEMATOCRIT 38.8 % (36.0-47.0); HEMOGLOBIN 12.7 g/dL (12.0-15.5); LYMPH # 2.4 x10^3/uL (1.0-4.8); LYMPH % 19 % (24-48); MEAN CORPUSCULAR HEMOGLOBIN 31 pg (25-35); MEAN CORPUSCULAR HGB CONC 33 g/dL (31-37); MEAN CORPUSCULAR VOLUME 93 fL (79-100); MONO % 5 % (0-9); NEUT % 73 % (31-73); PLATELET COUNT 251 x10^3/uL (140-400); RED BLOOD COUNT 4.16 x10^6/uL (3.50-5.40); WHITE BLOOD COUNT 12.4 x10^3/uL (4.0-11.0)
[2017-03-27 12:49] LABS: CALCIUM 8.6 mg/dL (8.5-10.1); CREATININE 0.9 mg/dL (0.6-1.0); GFR 71.3; POTASSIUM 3.8 mmol/L (3.5-5.1)
[2017-03-27 12:56] LABS: ALBUMIN/GLOBULIN RATIO 0.7 (1.0-1.7); TOTAL BILIRUBIN 0.3 mg/dL (0.2-1.0); TOTAL PROTEIN 7.2 g/dL (6.4-8.2)
[2017-03-27 13:10] LABS: BILIRUBIN,URINE NEGATIVE (NEG); GLUCOSE,URINE NEGATIVE (NEG); NITRITE,URINE NEGATIVE (NEG); PROTEIN,URINE NEGATIVE (NEG-TRACE)
[2017-03-27 13:13] LABS: NEG OBC UR NEG; POS OBC UR POS
[2017-03-27 13:18] LABS: BACTERIA,URINE FEW /HPF (0-FEW); SQUAMOUS EPITHELIAL CELL,UR MOD /LPF
--- NOTE | 2017-03-27 13:37 | RAD ---
CT of the abdomen and pelvis with contrast, 03/27/2017: History: Nausea and vomiting after gallbladder removal Multidetector CT imaging was performed following an IV bolus injection of iodinated contrast material. No oral contrast material was administered for this study. The gallbladder is surgically absent. No abnormal fluid collection is seen in the gallbladder fossa region. No hepatic abnormality is seen. The pancreas is unremarkable. The spleen is of normal size. No renal or adrenal abnormality is detected. No abdominal or pelvic adenopathy is seen. The uterus is unremarkable. There is a small 2 cm cyst in the right ovary. Small bilateral pelvic surgical clips are presumably from a previous tubal ligation. There is a trace amount of free fluid in the pelvis. The bowel loops are not dilated. There is a moderate amount retained food in the stomach. A portion of the appendix is visible and it is not dilated. There is a tiny appendicolith in the appendix. No free air is evident in the abdomen or pelvis. IMPRESSION: 1. Trace amount of free fluid in the pelvis which may be on a physiologic basis. 2. Small right ovarian cyst. 3. Small appendicolith without evidence of acute appendicitis. PQRS Compliance Statement: One or more of the following individualized dose reduction techniques were utilized for this examination: 1. Automated exposure control 2. Adjustment of the mA and/or kV according to patient size 3. Use of iterative reconstruction technique
--- NOTE | 2017-03-27 17:50 | RAD ---
Hepatobiliary Scan: History: Bile leak. Technique: 5.0 mCi technetium 99m Choletec was administered intravenously and spot views were obtained on the gamma camera for a Nuclear Medicine hepatobiliary scan. Findings: There is rapid uptake of activity from the blood pool and concentration in the liver. Activity seen in the small bowel. No evidence of bile leak identified. Impression: 1. No evidence of bile leak. Electronically signed by: José Burris MD (03/27/2017 5:47 PM)
== END 2017-03-27 18:23 | disposition home or self-care (01) ==
LOC: ER 11:56
DX: R10.84 Generalized abdominal pain (principal); R11.2 Nausea with vomiting, unspecified; F32.9 Major depressive disorder, single episode, unspecified; K21.9 Gastro-esophageal reflux disease without esophagitis; E89.0 Postprocedural hypothyroidism; Z98.51 Tubal ligation status; Z90.49 Acquired absence of other specified parts of digestive tract
CPT/HCPCS: 36415; 74177; 78226; 80053; 81001; 81025; 83690; 85027; 96361; 96374; 99285; A9537; J2405; J7030; Q9967

== ENCOUNTER 2017-05-04 14:24 | Emergency (ER) | payer MEDICARE, MEDICAID ==
[~2017-05-04] VITALS: Ht 175.3 cm; Wt 117.9 kg
[2017-05-04 14:30] VITALS: BP 125/81
[2017-05-04] MEDS ORDERED: CETIRIZINE HCL 10 MG TABLET. PO STA (14:44)
[2017-05-04] MEDS ORDERED: IPRATRPIUM/ALBUTEROL 0.5/2.5MG 3 ML NEBU. NEB ONE (14:45)
[2017-05-04] MEDS ORDERED: CETI10TA22 PO (15:02)
[2017-05-04] MEDS ORDERED: PROAIR RESPICL90 MCG IH (15:02)
--- NOTE | 2017-05-04 15:02 | PHYS DOC ---
Past Medical History Past Medical History: Depression, GERD, Hypothyroid, Other Additional Past Medical Histor: OVARIAN CYST Past Surgical History: Cholecystectomy, Tonsillectomy, Tubal ligation Additional Past Surgical Histo: THYROIDECTOMY "with a pill" Alcohol Use: None Drug Use: None Adult General Chief Complaint Chief Complaint: ALLERGIES HPI HPI Patient is a 36 year old female with history of depression, hypothyroidism, who presents today with multiple complaints. Patient states whenever she passes by somebody cutting grass she usually gets short of air and chest pain. Patient unable to provide to describe the pain right now or rate her chest pain. She states it only occurs when she is around people cutting grass. Patient states she is supposed to use an inhaler but does not have one. Patient does not take any allergy medications. Patient denies any fever. She states she wants a prescription for an inhaler. PCP Dr. Pitt Review of Systems Review of Systems Constitutional: Denies fever or chills [] Eyes: Denies change in visual acuity, redness, or eye pain [] HENT: Denies nasal congestion or sore throat [] Respiratory: shortness of breath [] Cardiovascular: Chest pain GI: Denies abdominal pain, nausea, vomiting, bloody stools or diarrhea [] : Denies dysuria or hematuria [] Musculoskeletal: Denies back pain or joint pain [] Integument: Denies rash or skin lesions [] Neurologic: Denies headache, focal weakness or sensory changes [] Endocrine: Denies polyuria or polydipsia [] Allergies Allergies Allergies Coded Allergies Type Severity Reaction Last Updated Verified No Known Drug Allergies 03/19/17 No Physical Exam Physical Exam Constitutional: Well developed, well nourished, no acute distress, non-toxic appearance. [] HENT: Normocephalic, atraumatic, bilateral external ears normal, oropharynx moist, no oral exudates, nose normal. [] Eyes: PERRLA, EOMI, conjunctiva normal, no discharge. [] Neck: Normal range of motion, no tenderness, supple, no stridor. [] Cardiovascular:Heart rate regular rhythm, no murmur [] Lungs & Thorax: Bilateral breath sounds clear to auscultation [] Abdomen: Bowel sounds normal, soft, no tenderness, no masses, no pulsatile masses. [] Skin: Warm, dry, no erythema, no rash. [] Back: No tenderness, no CVA tenderness. [] Extremities: No tenderness, no cyanosis, no clubbing, ROM intact, no edema. [] Neurologic: Alert and oriented X 3, normal motor function, normal sensory function, no focal deficits noted. [] Psychologic: Affect normal, judgement normal, mood normal. [] Current Patient Data Vital Signs Vital Signs Date Time Temp Pulse Resp B/P (MAP) Pulse Ox O2 Delivery O2 Flow Rate FiO2 05/04/17 14:30 98.4 85 18 125/81 (96) 98 Room Air 98.4 EKG EKG Interpreted by Dr. Da Silva, sinus rhythm, HR 79 no STEMI[] Radiology/Procedures Radiology/Procedures [] Course & Med Decision Making Course & Med Decision Making Pertinent Labs and Imaging studies reviewed. (See chart for details) This is a well-appearing 36-year-old female patient presenting to the ED with multiple complaints including what sounds like allergic reactions she is complaining of shortness of breath and chest pain that typically occurs when she passes around people cutting grass. She is supposed to use an inhaler but she doesn't have one. She is in no distress. Her vitals are normal. EKG was normal. She was given a DuoNeb treatment and Zyrtec in the ED. She was discharged with albuterol inhaler and I recommended taking an allergy pill every day. She was provided return precautions and discharged in stable condition. Dragon Disclaimer Dragon Disclaimer This electronic medical record was generated, in whole or in part, using a voice recognition dictation system. Departure Departure Impression: Primary Impression: Chest pain Additional Impressions: Dizziness Seasonal allergies Disposition: 01 HOME, SELF-CARE Condition: STABLE Referrals: Inocente PITT MD (PCP) Follow-up with your doctor in one week Patient Instructions: Allergies, Generic Additional Instructions: You were seen with multiple complaints. We highly recommend you take an allergy pill every day. We also recommend you use the inhaler as needed for shortness of breath. Follow-up with your doctor in the next 7 days. Come back to the ED if symptoms worsen. Scripts Albuterol Sulfate (Proair Respiclick) 90 Mcg Aer.pow.ba 1 PUFF IH PRN Q6HRS Y for SHORTNESS OF BREATH, #1 INHALER Prov: BUCKAALEKSANDR LOAN PROCESSOR 05/04/17 Cetirizine Hcl (ZYRTEC) 10 Mg Tablet 1 TAB PO DAILY, #30 TAB 2 Refills Prov: ALEKSANDR HAWTHORNE KACI 05/04/17 Problem Qualifiers Primary Impression: Chest pain Chest pain type: unspecified Qualified Codes: R07.9 - Chest pain, unspecified Additional Impressions: Seasonal allergies Chronicity: chronic Allergic rhinitis trigger: pollen Qualified Codes: J30.1 - Allergic rhinitis due to pollen ALEKSANDR HAWTHORNE KACI May 04, 2017 15:02
--- NOTE | 2017-05-04 15:42 | EKG ---
[facility] [address] [place] [address] Test Date: 2017-05-04 Test Time: 14:34:55 Pat Name: ESTELITA BULL Department: Room: Gender: F Tow Operator: : 1980 Requested By: ALEKSANDR HAWTHORNE Order Number: [id number] Reading MD: Measurements Intervals [place] Rate: 79 P: 0 GA: 128 QRS: 26 QRSD: 88 T: 39 QT: 374 QTc: 430 Interpretive Statements SINUS RHYTHM QRS(T) CONTOUR ABNORMALITY CONSIDER ANTEROSEPTAL MYOCARDIAL DAMAGE RI6.01 Unconfirmed report No previous ECG available for comparison
== END 2017-05-04 15:17 | disposition home or self-care (01) ==
LOC: ER 14:24
DX: R07.9 Chest pain, unspecified (principal); R42 Dizziness and giddiness; J30.1 Allergic rhinitis due to pollen; K21.9 Gastro-esophageal reflux disease without esophagitis; E03.9 Hypothyroidism, unspecified; F32.9 Major depressive disorder, single episode, unspecified
CPT/HCPCS: 93005; 94640; 99283; J7620

== ENCOUNTER 2017-09-18 12:44 | Emergency (ER) | payer MEDICARE, OTHER, MEDICAID ==
[2017-09-18 13:27] LABS: ADD MAN DIFF? NO
[2017-09-18 13:31] LABS: BASO # 0.2 x10^3/uL (0.0-0.2); BASO % 2 % (0-3); EOS % 1 % (0-3); HEMATOCRIT 40.2 % (36.0-47.0); HEMOGLOBIN 13.4 g/dL (12.0-15.5); LYMPH # 2.4 x10^3/uL (1.0-4.8); LYMPH % 22 % (24-48); MEAN CORPUSCULAR HEMOGLOBIN 31 pg (25-35); MEAN CORPUSCULAR HGB CONC 33 g/dL (31-37); MEAN CORPUSCULAR VOLUME 93 fL (79-100); MONO % 8 % (0-9); NEUT % 67 % (31-73); PLATELET COUNT 230 x10^3/uL (140-400); RED BLOOD COUNT 4.32 x10^6/uL (3.50-5.40); RED CELL DISTRIBUTION WIDTH 12.7 % (11.5-14.5); WHITE BLOOD COUNT 10.6 x10^3/uL (4.0-11.0)
[2017-09-18 13:40] LABS: ANION GAP 6 (6-14); BLOOD UREA NITROGEN 12 mg/dL (7-20); CALCIUM 8.4 mg/dL (8.5-10.1); CARBON DIOXIDE 30 mmol/L (21-32); CHLORIDE 103 mmol/L (98-107); CREATININE 0.9 mg/dL (0.6-1.0); GFR 70.8; GLUCOSE 104 mg/dL (70-99); POTASSIUM 3.8 mmol/L (3.5-5.1); SODIUM 139 mmol/L (136-145)
[2017-09-18 13:46] LABS: ALK PHOS 59 U/L (46-116); ALT (SGPT) 14 U/L (14-59); AST (SGOT) 14 U/L (15-37); DIRECT BILIRUBIN 0.1 mg/dL (0.0-0.2); TOTAL BILIRUBIN 0.2 mg/dL (0.2-1.0)
[2017-09-18 13:50] LABS: TROPONINI < 0.017 ng/mL (0.000-0.055)
== END 2017-09-18 15:23 | disposition home or self-care (01) ==
LOC: ER 12:44
DX: R07.89 Other chest pain (principal); R06.02 Shortness of breath; K21.9 Gastro-esophageal reflux disease without esophagitis; E03.9 Hypothyroidism, unspecified; Z90.49 Acquired absence of other specified parts of digestive tract; Z98.51 Tubal ligation status
CPT/HCPCS: 36415; 71010; 80048; 80076; 83690; 84484; 85025; 85379; 93005; 99285-25

== ENCOUNTER 2017-10-25 15:25 | Emergency (ER) | payer MEDICARE, OTHER ==
[2017-10-25 16:11] LABS: URINE HCG POC HCG NEGATIVE (Negative)
== END 2017-10-25 17:33 | disposition home or self-care (01) ==
LOC: ER 15:25
DX: S06.0X0A Concussion without loss of consciousness, initial encounter (principal); M54.2 Cervicalgia; K21.9 Gastro-esophageal reflux disease without esophagitis; E03.9 Hypothyroidism, unspecified; W00.0XXA Fall on same level due to ice and snow, initial encounter; Y93.89 Activity, other specified; Y99.8 Other external cause status; Y92.89 Other specified places as the place of occurrence of the external cause
CPT/HCPCS: 70450; 72125; 81025; 99284-25

== ENCOUNTER 2017-11-06 13:59 | Emergency (ER) | payer MEDICARE, OTHER ==
[2017-11-06 15:09] LABS: ADD MAN DIFF? NO
[2017-11-06 15:14] LABS: BASO # 0.2 x10^3/uL (0.0-0.2); BASO % 1 % (0-3); EOS # 0.2 x10^3/uL (0.0-0.7); EOS % 2 % (0-3); HEMATOCRIT 42.6 % (36.0-47.0); HEMOGLOBIN 14.1 g/dL (12.0-15.5); LYMPH # 2.7 x10^3/uL (1.0-4.8); LYMPH % 23 % (24-48); MEAN CORPUSCULAR HEMOGLOBIN 31 pg (25-35); MEAN CORPUSCULAR HGB CONC 33 g/dL (31-37); MEAN CORPUSCULAR VOLUME 93 fL (79-100); MONO # 0.8 x10^3/uL (0.0-1.1); MONO % 7 % (0-9); NEUT % 67 % (31-73); PLATELET COUNT 263 x10^3/uL (140-400); RED BLOOD COUNT 4.56 x10^6/uL (3.50-5.40); RED CELL DISTRIBUTION WIDTH 12.5 % (11.5-14.5)
[2017-11-06 15:17] LABS: BILIRUBIN,URINE SMALL (NEG); CLARITY,URINE CLEAR; COLOR,URINE YELLOW; GLUCOSE,URINE NEGATIVE (NEG); NITRITE,URINE NEGATIVE (NEG); PH,URINE 5.5; PROTEIN,URINE NEGATIVE (NEG-TRACE)
[2017-11-06] MEDS: ONDANSETRON PF 4 MG/2 ML VIAL. IV ×2 (15:19)
[2017-11-06] MEDS: KETOROLAC 30 MG/ML INJ. IV ×2 (15:20)
[2017-11-06 15:21] LABS: ANION GAP 10 (6-14); BLOOD UREA NITROGEN 13 mg/dL (7-20); BUN/CREATININE RATIO 14 (6-20); CALCIUM 9.1 mg/dL (8.5-10.1); CARBON DIOXIDE 29 mmol/L (21-32); CHLORIDE 96 mmol/L (98-107); CREATININE 0.9 mg/dL (0.6-1.0); GFR 70.8; GLUCOSE 92 mg/dL (70-99); POTASSIUM 3.6 mmol/L (3.5-5.1); SODIUM 135 mmol/L (136-145)
[2017-11-06 15:27] LABS: BACTERIA,URINE FEW /HPF (0-FEW); SQUAMOUS EPITHELIAL CELL,UR MANY /LPF; WBC,URINE OCC /HPF (0-4)
[2017-11-06 15:30] LABS: ALBUMIN 3.2 g/dL (3.4-5.0); ALBUMIN/GLOBULIN RATIO 0.7 (1.0-1.7); ALK PHOS 72 U/L (46-116); ALT (SGPT) 13 U/L (14-59); AST (SGOT) 16 U/L (15-37); LIPASE 262 U/L (73-393); TOTAL BILIRUBIN 0.3 mg/dL (0.2-1.0); TOTAL PROTEIN 7.8 g/dL (6.4-8.2)
[2017-11-06] MEDS ORDERED: CONTRAST GIVEN MC ×2 (15:30)
[2017-11-06] MEDS ORDERED: IOHEXOL 240 MG/ML 50ML VIAL. PO ×2 (15:30)
[2017-11-06 15:33] LABS: NEG OBC SER NEG; POS OBC SER POS; PREG TEST PT QUAL NEGATIVE (NEG)
[2017-11-06] MEDS: IOHEXOL 300 MG/ML 100ML VIAL. IV ×2 (16:12)
== END 2017-11-06 17:17 | disposition home or self-care (01) ==
LOC: ER 13:59
DX: R10.31 Right lower quadrant pain (principal); R11.10 Vomiting, unspecified; E03.9 Hypothyroidism, unspecified; K21.9 Gastro-esophageal reflux disease without esophagitis; Z90.49 Acquired absence of other specified parts of digestive tract; Z98.51 Tubal ligation status
CPT/HCPCS: 36415; 74177; 80053; 81001; 83690; 84703; 85025; 96374; 96375; 99285-25; J1885; J2405; Q9967

== ENCOUNTER 2018-01-13 10:37 | Emergency (ER) | payer MEDICARE, OTHER ==
[2018-01-13 10:57] LABS: URINE HCG POC HCG NEGATIVE (Negative)
[2018-01-13] MEDS: KETOROLAC 30 MG/ML INJ. IV (11:29)
[2018-01-13 11:34] LABS: ADD MAN DIFF? NO
[2018-01-13 11:40] LABS: BASO # 0.1 x10^3/uL (0.0-0.2); BASO % 1 % (0-3); BILIRUBIN,URINE NEGATIVE (NEG); CLARITY,URINE CLEAR; COLOR,URINE YELLOW; EOS # 0.1 x10^3/uL (0.0-0.7); EOS % 1 % (0-3); GLUCOSE,URINE NEGATIVE (NEG); HEMATOCRIT 42.3 % (36.0-47.0); HEMOGLOBIN 14.3 g/dL (12.0-15.5); LYMPH # 2.3 x10^3/uL (1.0-4.8); LYMPH % 16 % (24-48); MEAN CORPUSCULAR HEMOGLOBIN 31 pg (25-35); MEAN CORPUSCULAR HGB CONC 34 g/dL (31-37); MEAN CORPUSCULAR VOLUME 93 fL (79-100); MONO # 0.7 x10^3/uL (0.0-1.1); MONO % 5 % (0-9); NEUT % 77 % (31-73); NITRITE,URINE NEGATIVE (NEG); PH,URINE 6.5; PLATELET COUNT 306 x10^3/uL (140-400); PROTEIN,URINE NEGATIVE (NEG-TRACE); RED BLOOD COUNT 4.55 x10^6/uL (3.50-5.40); RED CELL DISTRIBUTION WIDTH 12.3 % (11.5-14.5); UROBILINOGEN,URINE 0.2 mg/dL (0.2 mg/dL); WHITE BLOOD COUNT 14.3 x10^3/uL (4.0-11.0)
[2018-01-13 11:51] LABS: SQUAMOUS EPITHELIAL CELL,UR MANY /LPF
[2018-01-13 11:52] LABS: BACTERIA,URINE MOD /HPF (0-FEW)
[2018-01-13 11:55] LABS: ANION GAP 12 (6-14); BLOOD UREA NITROGEN 18 mg/dL (7-20); BUN/CREATININE RATIO 18 (6-20); CALCIUM 8.7 mg/dL (8.5-10.1); CARBON DIOXIDE 25 mmol/L (21-32); CHLORIDE 102 mmol/L (98-107); GFR 62.7; GLUCOSE 93 mg/dL (70-99); POTASSIUM 3.7 mmol/L (3.5-5.1); SODIUM 139 mmol/L (136-145)
[2018-01-13 12:01] LABS: ALBUMIN/GLOBULIN RATIO 0.6 (1.0-1.7); ALK PHOS 71 U/L (46-116); ALT (SGPT) 19 U/L (14-59); AST (SGOT) 15 U/L (15-37); TOTAL BILIRUBIN 0.2 mg/dL (0.2-1.0); TOTAL PROTEIN 7.9 g/dL (6.4-8.2)
[2018-01-13] MEDS: IOHEXOL 300 MG/ML 100ML VIAL. IV (13:26)
[2018-01-13] MEDS ORDERED: CONTRAST GIVEN MC (13:30)
[2018-01-14 14:30] LABS: CHLAMYDIA PROBE Negative (Negative); GC PROBE Negative (Negative)
== END 2018-01-13 14:10 | disposition home or self-care (01) ==
LOC: ER 10:37
DX: N83.202 Unspecified ovarian cyst, left side (principal); K21.9 Gastro-esophageal reflux disease without esophagitis; E03.9 Hypothyroidism, unspecified; F31.9 Bipolar disorder, unspecified; Z98.51 Tubal ligation status; Z90.49 Acquired absence of other specified parts of digestive tract
CPT/HCPCS: 36415; 74177; 76830; 76856; 80053; 81001; 81025; 85025; 87491; 87591; 96374; 99285-25; J1885; Q0111; Q9967

== ENCOUNTER → 2018-04-01 | Outpatient (CLI) | payer MEDICARE, OTHER ==
[2018-04-01] MEDS: BARIUM SULFATE 60% 355 ML SUSP PO (09:02)
[2018-04-01] MEDS: SIMETHICONE/SOD BICARB/CITRIC ACID PACKET. PO (09:02)
[2018-04-01] MEDS: BARIUM SULFATE 340 GM SUSPENSION. PO (09:02)
== END | disposition home or self-care (01) ==
LOC: RAD 08:20
DX: K31.7 Polyp of stomach and duodenum (principal); E03.9 Hypothyroidism, unspecified; K21.9 Gastro-esophageal reflux disease without esophagitis
CPT/HCPCS: 74249

== ENCOUNTER → 2018-04-11 | Outpatient (CLI) | payer MEDICARE, OTHER | END | disposition home or self-care (01) | LOC: NM 08:15 | DX: K21.9 Gastro-esophageal reflux disease without esophagitis (principal); R11.0 Nausea | CPT/HCPCS: 78264; A9541 ==

== ENCOUNTER 2018-05-17 10:06 | Inpatient (IN) | payer MEDICARE, OTHER ==
[~2018-05-17] VITALS: Ht 177.8 cm; Wt 116.2 kg
[~2018-05-17 10:06] MED LIST changes: +CETI10TA22 PO; +HYDR-971 PO; +IBUP-1060 PO; +PROAIR RESPICL90 MCG IH
[2018-05-17] MEDS ORDERED: KETOROLAC 30 MG/ML VIAL. ONE (10:53)
--- NOTE | 2018-05-17 11:01 | RAD ---
EXAM: Chest, single view. HISTORY: Chest pain. COMPARISON: 09/18/2017 FINDINGS: A frontal view of the chest is obtained. There is no infiltrate, pleural effusion or pneumothorax. The heart is normal in size. IMPRESSION: No acute pulmonary finding. Electronically signed by: Kayla Sommers MD (05/17/2018 10:58 AM) [facility]
[2018-05-17 11:22] LABS: BASO # 0.1 x10^3/uL (0.0-0.2); BASO % 1 % (0-3); EOS # 0.3 x10^3/uL (0.0-0.7); EOS % 2 % (0-3); HEMATOCRIT 40.3 % (36.0-47.0); HEMOGLOBIN 13.8 g/dL (12.0-15.5); LYMPH # 1.6 x10^3/uL (1.0-4.8); LYMPH % 12 % (24-48); MEAN CORPUSCULAR HEMOGLOBIN 32 pg (25-35); MEAN CORPUSCULAR HGB CONC 34 g/dL (31-37); MEAN CORPUSCULAR VOLUME 92 fL (79-100); MONO # 1.1 x10^3/uL (0.0-1.1); MONO % 8 % (0-9); NEUT # 10.4 x10^3uL (1.8-7.7); NEUT % 77 % (31-73); PLATELET COUNT 253 x10^3/uL (140-400); RED BLOOD COUNT 4.36 x10^6/uL (3.50-5.40); WHITE BLOOD COUNT 13.5 x10^3/uL (4.0-11.0)
[2018-05-17 11:34] LABS: CREATININE 1.8 mg/dL (0.6-1.0); GFR 31.8; POTASSIUM 4.2 mmol/L (3.5-5.1)
[2018-05-17 11:40] LABS: ALBUMIN 3.2 g/dL (3.4-5.0); DIRECT BILIRUBIN 0.1 mg/dL (0.0-0.2); TOTAL BILIRUBIN 0.4 mg/dL (0.2-1.0); TOTAL PROTEIN 7.2 g/dL (6.4-8.2)
[2018-05-17] MEDS ORDERED: IV NORMAL SALINE 1000ML BAG 1,000 ML IV ONE (14:15)
--- NOTE | 2018-05-17 14:22 | PHYS DOC ---
Past Medical History Past Medical History: Bipolar, Depression, GERD, Hypothyroid, Other Additional Past Medical Histor: OVARIAN CYST,MOOD SWINGS Past Surgical History: Cholecystectomy, Hysterectomy, Tonsillectomy, Tubal ligation Additional Past Surgical Histo: THYROIDECTOMY "with a pill" Alcohol Use: None Drug Use: None Adult General Chief Complaint Chief Complaint: CHEST PAIN HPI HPI Patient is a 37-year-old female who presents with complaint of left-sided chest pain that radiates into her back that started last night. She describes pain as sharp and stabbing in nature and states pain is worsened with breathing. She rates pain at a 9 out of 10. She denies any nausea, vomiting or diaphoresis. Patient does indicate that she had recent hysterectomy and has been taking prescription ibuprofen for the pain. She states that nothing helps with the pain. Review of Systems Review of Systems Constitutional: Denies fever or chills [] Respiratory: Denies cough or shortness of breath [] Cardiovascular: Complains of left-sided chest pain[] GI: Admits to lower abdominal discomfort associated with recent hysterectomy. Denies vomiting or diarrhea.[] Musculoskeletal: Admits to mid back pain[] Integument: Denies rash or skin lesions [] All other systems were reviewed and found to be within normal limits, except as documented in this note. Current Medications Current Medications Current Medications Medications (Trade) Dose Ordered Sig/Shirley Start Time Stop Time Status Last Admin Dose Admin Ketorolac Tromethamine (Toradol 30mg Vial) 30 mg STK-MED ONCE 05/17/18 10:53 05/17/18 10:54 DC Morphine Sulfate (Morphine Sulfate) 2 mg PRN Q2HR PRN 05/17/18 14:30 05/18/18 14:29 Ondansetron HCl (Zofran) 4 mg PRN Q8HRS PRN 05/17/18 14:30 05/18/18 14:29 Sodium Chloride 1,000 ml @ 1,000 mls/hr 1X ONCE 05/17/18 14:15 05/17/18 15:14 DC 05/17/18 14:29 1,000 MLS/HR Allergies Allergies Allergies Coded Allergies Type Severity Reaction Last Updated Verified No Known Drug Allergies 03/19/17 No Physical Exam Physical Exam Constitutional: Well developed, well nourished, no acute distress, non-toxic appearance. [] HENT: Normocephalic, atraumatic, bilateral external ears normal, oropharynx moist, no oral exudates, nose normal. [] Eyes: PERRLA, EOMI, conjunctiva normal, no discharge. [] Neck: Normal range of motion, no tenderness, supple, no stridor. [] Cardiovascular:Heart rate regular rhythm. There is reproducible chest wall tenderness in the left mid to upper sternal margin [] Lungs & Thorax: Bilateral breath sounds clear to auscultation [] Abdomen: Bowel sounds normal, soft. [] Skin: Warm, dry, no erythema, no rash. [] Extremities: No tenderness, no cyanosis, no clubbing, ROM intact, no edema. [] Neurologic: Alert and oriented X 3, normal motor function, normal sensory function, no focal deficits noted. [] Current Patient Data Vital Signs Vital Signs Date Time Temp Pulse Resp B/P (MAP) Pulse Ox O2 Delivery O2 Flow Rate FiO2 05/17/18 12:13 76 15 115/58 (77) 97 Room Air 05/17/18 10:13 98.4 98.4 Lab Values Laboratory Tests Test 05/17/18 11:05 05/17/18 13:50 White Blood Count 13.5 x10^3/uL (4.0-11.0) H Red Blood Count 4.36 x10^6/uL (3.50-5.40) Hemoglobin 13.8 g/dL (12.0-15.5) Hematocrit 40.3 % (36.0-47.0) Mean Corpuscular Volume 92 fL (79-100) Mean Corpuscular Hemoglobin 32 pg (25-35) Mean Corpuscular Hemoglobin Concent 34 g/dL (31-37) Red Cell Distribution Width 13.0 % (11.5-14.5) Platelet Count 253 x10^3/uL (140-400) Neutrophils (%) (Auto) 77 % (31-73) H Lymphocytes (%) (Auto) 12 % (24-48) L Monocytes (%) (Auto) 8 % (0-9) Eosinophils (%) (Auto) 2 % (0-3) Basophils (%) (Auto) 1 % (0-3) Neutrophils # (Auto) 10.4 x10^3uL (1.8-7.7) H Lymphocytes # (Auto) 1.6 x10^3/uL (1.0-4.8) Monocytes # (Auto) 1.1 x10^3/uL (0.0-1.1) Eosinophils # (Auto) 0.3 x10^3/uL (0.0-0.7) Basophils # (Auto) 0.1 x10^3/uL (0.0-0.2) D-Dimer (Nany) 0.34 ug/mlFEU (0.00-0.50) Sodium Level 139 mmol/L (136-145) Potassium Level 4.2 mmol/L (3.5-5.1) Chloride Level 103 mmol/L (98-107) Carbon Dioxide Level 26 mmol/L (21-32) Anion Gap 10 (6-14) Blood Urea Nitrogen 22 mg/dL (7-20) H Creatinine 1.8 mg/dL (0.6-1.0) H Estimated GFR (Cockcroft-Gault) 31.8 Glucose Level 88 mg/dL (70-99) Calcium Level 9.0 mg/dL (8.5-10.1) Total Bilirubin 0.4 mg/dL (0.2-1.0) Direct Bilirubin 0.1 mg/dL (0.0-0.2) Aspartate Amino Transferase (AST) 23 U/L (15-37) Alanine Aminotransferase (ALT) 26 U/L (14-59) Alkaline Phosphatase 78 U/L (46-116) Troponin I Quantitative < 0.017 ng/mL (0.000-0.055) < 0.017 ng/mL (0.000-0.055) Total Protein 7.2 g/dL (6.4-8.2) Albumin 3.2 g/dL (3.4-5.0) L Laboratory Tests 05/17/18 11:05 Laboratory Tests 05/17/18 11:05 EKG EKG [] Interpretation Time: EKG demonstrates normal sinus rhythm with rate of 67. Radiology/Procedures Radiology/Procedures [] Impressions: Chest x-ray demonstrates no acute process Course & Med Decision Making Course & Med Decision Making Pertinent Labs and Imaging studies reviewed. (See chart for details) [] Dragon Disclaimer Dragon Disclaimer This electronic medical record was generated, in whole or in part, using a voice recognition dictation system. Departure Departure Impression: Primary Impression: Chest pain Additional Impression: Acute kidney injury Disposition: 09 ADMITTED INPATIENT Condition: GOOD Referrals: ALEX FUNEZ MD (PCP) Problem Qualifiers Primary Impression: Chest pain Chest pain type: unspecified Qualified Codes: R07.9 - Chest pain, unspecified LULU SAM Jr. DO May 17, 2018 14:22
[2018-05-17] MEDS ORDERED: MORPHINE SULFATE 2 MG/ML VIAL. IV PRN (14:30)
[2018-05-17] MEDS ORDERED: ONDANSETRON PF 4 MG/2 ML VIAL. IV PRN (14:30)
[2018-05-17] MEDS: IV NORMAL SALINE 1000ML BAG 1,000 ML IV SCH ×2 (15:00→19:00)
--- NOTE | 2018-05-17 15:40 | EKG ---
[facility] [address] [place] [address] Test Date: 2018-05-17 Test Time: 10:14:00 Pat Name: ESTELITA BULL Department: Room: 521 1 Gender: F [place] Operator: : 1980 Requested By: LULU SAM Order Number: [id number] Reading MD: Donaldo Marquez MD Measurements Intervals [place] Rate: 67 P: 0 AK: 134 QRS: 31 QRSD: 92 T: 50 QT: 392 QTc: 417 Interpretive Statements SINUS RHYTHM Electronically Signed On 05-18-2018 8:21:39 CDT by Donaldo Marquez MD
--- NOTE | 2018-05-17 16:38 | PDOC1 ---
History and Physical Date of Admission Date of Admission DATE: 05/17/18 TIME: 16:38 Identification/Chief Complaint Chief Complaint CC chest pain that radiates into her back that started , sharp and stabbing in nature and states pain is worsened with breathing. rates pain at a 9 out of 10. She denies any nausea, vomiting or diaphoresis. Patient does indicate that she had recent hysterectomy and has been taking prescription ibuprofen 800MG Q DAY for the pain. SHE ALSO DRINKS 8-10 PEPSI' S A DAY in er labs c/w ARF Past Medical History Past Medical History family hx obesity Past Medical History Past Medical History Past Medical History: Bipolar, Depression, GERD, Hypothyroid, Other Additional Past Medical Histor: OVARIAN CYST,MOOD SWINGS Past Surgical History: Cholecystectomy, Hysterectomy, Tonsillectomy, Tubal ligation Additional Past Surgical Histo: THYROIDECTOMY "with a pill" Alcohol Use: None Drug Use: None Cardiovascular: Hyperlipidemia Pulmonary: No pertinent hx Hepatobiliary: No pertinent hx Musculoskeletal: low back pain Renal/: No pertinent hx Family History Family History: Hypertension, Other (OBESITY) Social History Smoke: <1 pack per day ALCOHOL: none Drugs: None Current Problem List Problem List Problems Medical Problems: (1) Acute kidney injury Status: Acute (2) Chest pain Status: Acute Current Medications Current Medications Current Medications Ketorolac Tromethamine (Toradol 30mg Vial) 30 mg STK-MED ONCE .ROUTE ; Start at 10:53; Stop 05/17/18 at 10:54; Status DC Sodium Chloride 1,000 ml @ 1,000 mls/hr 1X ONCE IV Last administered on at 14:29; Start 05/17/18 at 14:15; Stop 05/17/18 at 15:14; Status DC Ondansetron HCl (Zofran) 4 mg PRN Q8HRS PRN IV NAUSEA/VOMITING Last administered on 05/17/18at 15:48; Start 05/17/18 at 14:30; Stop 05/18/18 at 14:29 Morphine Sulfate (Morphine Sulfate) 2 mg PRN Q2HR PRN IV PAIN Last administered on 05/17/18at 15:53; Start 05/17/18 at 14:30; Stop 05/18/18 at 14:29 Sodium Chloride 1,000 ml @ 250 mls/hr Q4H IV ; Start 05/17/18 at 15:00; Stop at 14:59 Active Scripts Active Ibuprofen 800 Mg Tablet 800 Mg PO PRN Q6HRS PRN [place] 5-325 Tablet (Acetaminophen/Hydrocodone Bitart) 1 Each Tablet 1 Tab PO TID Proair Respiclick (Albuterol Sulfate) 90 Mcg Aer.pow.ba 1 Puff IH PRN Q6HRS PRN Zyrtec (Cetirizine Hcl) 10 Mg Tablet 1 Tab PO DAILY Zofran Odt (Ondansetron) 4 Mg Tab.rapdis 4 Mg PO BID PRN Percocet 5-325 Mg Tablet (Oxycodone/Acetaminophen) 1 Each Tablet 1 Tab PO PRN Q6HRS PRN Proair Hfa Inhaler (Albuterol Sulfate) 8.5 Gm Hfa.aer.ad 1 Puff INH PRN Q6HRS PRN Bactrim Ds Tablet (Sulfamethoxazole/Trimethoprim) 1 Each Tablet 1 Tab PO BID Reported Previfem (Norgestimate-Ethinyl Estradiol) 1 Each Tablet 1 Each PO DAILY Zoloft (Sertraline Hcl) 100 Mg Tablet 100 Mg PO DAILY Nexium Capsule (Esomeprazole Magnesium) 40 Mg Capsule.dr 40 Mg PO DAILYAC Levothyroxine Sodium 125 Mcg Tablet 125 Mcg PO DAILYAC Allergies Allergies: Coded Allergies: No Known Drug Allergies (Unverified , 03/19/17) ROS Review of System Review of Systems Review of Systems Constitutional: Denies fever or chills [] Respiratory: Denies cough or shortness of breath [] Cardiovascular: Complains of left-sided chest pain[] GI: Admits to lower abdominal discomfort associated with recent hysterectomy. Denies vomiting or diarrhea.[] Musculoskeletal: Admits to mid back pain[] Integument: Denies rash or skin lesions [] 14 pt systems were reviewed and found to be within normal limits, except as documented Respiratory: No: Cough, Hemoptysis, Orthopnea, Pleuritic Pain, Shortness of breath, SOB with excertion, Sputum Changes, Stridor, Tachypnea, Wheezing, Other Cardiovascular: yes Chest Pain, yes Palpitations Genitourinary: No Dysuria, No Frequency, No Incontinence, No Hematuria, No Retention, No Discharge, No Urgency, No Pain, No Flank Pain, No Other, No , No , No , No , No , No , No Skin: Yes Dry Skin Physical Exam Physical Exam Physical Exam Physical Exam Constitutional: Well developed, well nourished, no acute distress, non-toxic appearance. [] HENT: Normocephalic, atraumatic, bilateral external ears normal, oropharynx moist, no oral exudates, nose normal. [] Eyes: PERRLA, EOMI, conjunctiva normal, no discharge. [] Neck: Normal range of motion, no tenderness, supple, no stridor. [] Cardiovascular:Heart rate regular rhythm. There is reproducible chest wall tenderness in the left mid to upper sternal margin [] Lungs & Thorax: Bilateral breath sounds clear to auscultation [] Abdomen: Bowel sounds normal, soft. [] Skin: Warm, dry, no erythema, no rash. [] Extremities: No tenderness, no cyanosis, no clubbing, ROM intact, no edema. [] Neurologic: Alert and oriented X 3, normal motor function, normal sensory function, no focal deficits noted. [] General: Oriented X3, Cooperative HEENT: PERRLA, EOMI Breasts: Not examined Rectal Exam: not examined PELVIC: Examination not indicated Neuro: Cranial nerves 3-12 NL Psych/Mental Status: Mental status NL, Mood NL Vitals Vitals Vital Signs Date Time Temp Pulse Resp B/P (MAP) Pulse Ox O2 Delivery O2 Flow Rate FiO2 05/17/18 15:53 16 99 Room Air 05/17/18 15:53 78 127/86 (100) 05/17/18 10:13 98.4 98.4 Labs Labs Laboratory Tests Test 05/17/18 11:05 05/17/18 13:50 White Blood Count 13.5 x10^3/uL (4.0-11.0) Red Blood Count 4.36 x10^6/uL (3.50-5.40) Hemoglobin 13.8 g/dL (12.0-15.5) Hematocrit 40.3 % (36.0-47.0) Mean Corpuscular Volume 92 fL (79-100) Mean Corpuscular Hemoglobin 32 pg (25-35) Mean Corpuscular Hemoglobin Concent 34 g/dL (31-37) Red Cell Distribution Width 13.0 % (11.5-14.5) Platelet Count 253 x10^3/uL (140-400) Neutrophils (%) (Auto) 77 % (31-73) Lymphocytes (%) (Auto) 12 % (24-48) Monocytes (%) (Auto) 8 % (0-9) Eosinophils (%) (Auto) 2 % (0-3) Basophils (%) (Auto) 1 % (0-3) Neutrophils # (Auto) 10.4 x10^3uL (1.8-7.7) Lymphocytes # (Auto) 1.6 x10^3/uL (1.0-4.8) Monocytes # (Auto) 1.1 x10^3/uL (0.0-1.1) Eosinophils # (Auto) 0.3 x10^3/uL (0.0-0.7) Basophils # (Auto) 0.1 x10^3/uL (0.0-0.2) D-Dimer (Nany) 0.34 ug/mlFEU (0.00-0.50) Sodium Level 139 mmol/L (136-145) Potassium Level 4.2 mmol/L (3.5-5.1) Chloride Level 103 mmol/L (98-107) Carbon Dioxide Level 26 mmol/L (21-32) Anion Gap 10 (6-14) Blood Urea Nitrogen 22 mg/dL (7-20) Creatinine 1.8 mg/dL (0.6-1.0) Estimated GFR (Cockcroft-Gault) 31.8 Glucose Level 88 mg/dL (70-99) Calcium Level 9.0 mg/dL (8.5-10.1) Total Bilirubin 0.4 mg/dL (0.2-1.0) Direct Bilirubin 0.1 mg/dL (0.0-0.2) Aspartate Amino Transf (AST/SGOT) 23 U/L (15-37) Alanine Aminotransferase (ALT/SGPT) 26 U/L (14-59) Alkaline Phosphatase 78 U/L (46-116) Troponin I Quantitative < 0.017 ng/mL (0.000-0.055) < 0.017 ng/mL (0.000-0.055) Total Protein 7.2 g/dL (6.4-8.2) Albumin 3.2 g/dL (3.4-5.0) Laboratory Tests Test 05/17/18 11:05 05/17/18 13:50 White Blood Count 13.5 x10^3/uL (4.0-11.0) Red Blood Count 4.36 x10^6/uL (3.50-5.40) Hemoglobin 13.8 g/dL (12.0-15.5) Hematocrit 40.3 % (36.0-47.0) Mean Corpuscular Volume 92 fL (79-100) Mean Corpuscular Hemoglobin 32 pg (25-35) Mean Corpuscular Hemoglobin Concent 34 g/dL (31-37) Red Cell Distribution Width 13.0 % (11.5-14.5) Platelet Count 253 x10^3/uL (140-400) Neutrophils (%) (Auto) 77 % (31-73) Lymphocytes (%) (Auto) 12 % (24-48) Monocytes (%) (Auto) 8 % (0-9) Eosinophils (%) (Auto) 2 % (0-3) Basophils (%) (Auto) 1 % (0-3) Neutrophils # (Auto) 10.4 x10^3uL (1.8-7.7) Lymphocytes # (Auto) 1.6 x10^3/uL (1.0-4.8) Monocytes # (Auto) 1.1 x10^3/uL (0.0-1.1) Eosinophils # (Auto) 0.3 x10^3/uL (0.0-0.7) Basophils # (Auto) 0.1 x10^3/uL (0.0-0.2) D-Dimer (Nany) 0.34 ug/mlFEU (0.00-0.50) Sodium Level 139 mmol/L (136-145) Potassium Level 4.2 mmol/L (3.5-5.1) Chloride Level 103 mmol/L (98-107) Carbon Dioxide Level 26 mmol/L (21-32) Anion Gap 10 (6-14) Blood Urea Nitrogen 22 mg/dL (7-20) Creatinine 1.8 mg/dL (0.6-1.0) Estimated GFR (Cockcroft-Gault) 31.8 Glucose Level 88 mg/dL (70-99) Calcium Level 9.0 mg/dL (8.5-10.1) Total Bilirubin 0.4 mg/dL (0.2-1.0) Direct Bilirubin 0.1 mg/dL (0.0-0.2) Aspartate Amino Transf (AST/SGOT) 23 U/L (15-37) Alanine Aminotransferase (ALT/SGPT) 26 U/L (14-59) Alkaline Phosphatase 78 U/L (46-116) Troponin I Quantitative < 0.017 ng/mL (0.000-0.055) < 0.017 ng/mL (0.000-0.055) Total Protein 7.2 g/dL (6.4-8.2) Albumin 3.2 g/dL (3.4-5.0) VTE Prophylaxis Ordered VTE Prophylaxis Devices: Yes VTE Pharmacological Prophylaxi: Yes Assessment/Plan Assessment/Plan impression 1. acute renal failure sec to NSAID 2. Morbid obesity 3. chest pain 4. CAFFEINE ABUSE 5. post-op pain plan 1. iv hydration 2. tele 3. echo 4. renal consult 5. FREQUENT LABS 6. ADMIT 7. Counseled on diet provided 8. no NSAIDS 9. LOVENOX 30MG SQ DVT prophylaxis MANOJ JO MD May 17, 2018 16:38
[2018-05-17] MEDS ORDERED: NON FORMULARY ITEM (Albuterol Sulfate (Proair Respiclick) 1 PUFF) IH PRN (18:30)
[2018-05-17] MEDS ORDERED: NON FORMULARY ITEM (Albuterol Sulfate (Proair Hfa Inhaler) 1 PUFF) INH PRN (18:30)
[2018-05-17] MEDS ORDERED: ALBUTEROL SULFATE 2.5 MG/3 ML NEBU. NEB PRN (18:45)
[2018-05-17 19:00] VITALS: BP 113/79
[2018-05-17] MEDS ORDERED: CITA40TA12 PO (21:44)
[2018-05-17] MEDS ORDERED: TOPI25TA7 PO (21:44)
[2018-05-17 22:49] VITALS: BP 110/86
[2018-05-18] MEDS: IV NORMAL SALINE 1000ML BAG 1,000 ML IV SCH ×4 (00:40→10:49)
[2018-05-18] MEDS ORDERED: LEVO112T4 PO (02:23)
[2018-05-18 02:45] VITALS: BP 100/71
[2018-05-18 07:00] VITALS: BP 123/92
[2018-05-18] MEDS ORDERED: LEVOTHYROXINE 125 MCG TABLET PO SCH (07:00)
[2018-05-18] MEDS: PANTOPRAZOLE 40 MG TABLET.DR. PO SCH (07:30)
[2018-05-18] MEDS ORDERED: NORGESTIMATE ETHINYL ESTRADIOL PO SCH (09:00)
[2018-05-18 09:27] LABS: BASO # 0.1 x10^3/uL (0.0-0.2); BASO % 1 % (0-3); EOS # 0.2 x10^3/uL (0.0-0.7); EOS % 2 % (0-3); HEMATOCRIT 39.4 % (36.0-47.0); HEMOGLOBIN 13.4 g/dL (12.0-15.5); LYMPH # 1.7 x10^3/uL (1.0-4.8); LYMPH % 17 % (24-48); MEAN CORPUSCULAR HEMOGLOBIN 32 pg (25-35); MEAN CORPUSCULAR HGB CONC 34 g/dL (31-37); MEAN CORPUSCULAR VOLUME 94 fL (79-100); MONO # 0.5 x10^3/uL (0.0-1.1); MONO % 5 % (0-9); NEUT # 7.9 x10^3uL (1.8-7.7); NEUT % 75 % (31-73); PLATELET COUNT 236 x10^3/uL (140-400); RED BLOOD COUNT 4.21 x10^6/uL (3.50-5.40); WHITE BLOOD COUNT 10.5 x10^3/uL (4.0-11.0)
[2018-05-18 09:48] LABS: ALBUMIN 2.9 g/dL (3.4-5.0); CALCIUM 8.2 mg/dL (8.5-10.1); CREATININE 1.6 mg/dL (0.6-1.0); GFR 36.5; PHOSPHORUS 3.4 mg/dL (2.6-4.7); POTASSIUM 3.9 mmol/L (3.5-5.1)
--- NOTE | 2018-05-18 10:14 | PDOC ---
PROGRESS NOTES Chief Complaint Chief Complaint 1. acute renal failure sec to NSAID 2. Morbid obesity 3. chest pain 4. CAFFEINE ABUSE 5. post-op pain History of Present Illness History of Present Illness . tele echo pending IV fluid to continue consult physiatry, back pain, try lidoderm patch for chest pain . LOVENOX 30MG SQ DVT prophylaxis Vitals Vitals Vital Signs Date Time Temp Pulse Resp B/P (MAP) Pulse Ox O2 Delivery O2 Flow Rate FiO2 05/18/18 08:00 Room Air 05/18/18 07:00 96.6 63 17 123/92 (102) 98 96.6 Physical Exam General: Alert, Oriented X3, Cooperative, mild distress Lungs: Clear Abdomen: Normal bowel sounds, Soft Extremities: No clubbing Skin: No rashes Labs LABS Laboratory Tests Test 05/17/18 11:05 05/17/18 13:50 05/17/18 18:30 05/18/18 08:58 White Blood Count 13.5 x10^3/uL (4.0-11.0) 10.5 x10^3/uL (4.0-11.0) Red Blood Count 4.36 x10^6/uL (3.50-5.40) 4.21 x10^6/uL (3.50-5.40) Hemoglobin 13.8 g/dL (12.0-15.5) 13.4 g/dL (12.0-15.5) Hematocrit 40.3 % (36.0-47.0) 39.4 % (36.0-47.0) Mean Corpuscular Volume 92 fL (79-100) 94 fL (79-100) Mean Corpuscular Hemoglobin 32 pg (25-35) 32 pg (25-35) Mean Corpuscular Hemoglobin Concent 34 g/dL (31-37) 34 g/dL (31-37) Red Cell Distribution Width 13.0 % (11.5-14.5) 13.0 % (11.5-14.5) Platelet Count 253 x10^3/uL (140-400) 236 x10^3/uL (140-400) Neutrophils (%) (Auto) 77 % (31-73) 75 % (31-73) Lymphocytes (%) (Auto) 12 % (24-48) 17 % (24-48) Monocytes (%) (Auto) 8 % (0-9) 5 % (0-9) Eosinophils (%) (Auto) 2 % (0-3) 2 % (0-3) Basophils (%) (Auto) 1 % (0-3) 1 % (0-3) Neutrophils # (Auto) 10.4 x10^3uL (1.8-7.7) 7.9 x10^3uL (1.8-7.7) Lymphocytes # (Auto) 1.6 x10^3/uL (1.0-4.8) 1.7 x10^3/uL (1.0-4.8) Monocytes # (Auto) 1.1 x10^3/uL (0.0-1.1) 0.5 x10^3/uL (0.0-1.1) Eosinophils # (Auto) 0.3 x10^3/uL (0.0-0.7) 0.2 x10^3/uL (0.0-0.7) Basophils # (Auto) 0.1 x10^3/uL (0.0-0.2) 0.1 x10^3/uL (0.0-0.2) D-Dimer (Nany) 0.34 ug/mlFEU (0.00-0.50) Sodium Level 139 mmol/L (136-145) 137 mmol/L (136-145) Potassium Level 4.2 mmol/L (3.5-5.1) 3.9 mmol/L (3.5-5.1) Chloride Level 103 mmol/L (98-107) 105 mmol/L (98-107) Carbon Dioxide Level 26 mmol/L (21-32) 27 mmol/L (21-32) Anion Gap 10 (6-14) 5 (6-14) Blood Urea Nitrogen 22 mg/dL (7-20) 17 mg/dL (7-20) Creatinine 1.8 mg/dL (0.6-1.0) 1.6 mg/dL (0.6-1.0) Estimated GFR (Cockcroft-Gault) 31.8 36.5 Glucose Level 88 mg/dL (70-99) 114 mg/dL (70-99) Calcium Level 9.0 mg/dL (8.5-10.1) 8.2 mg/dL (8.5-10.1) Total Bilirubin 0.4 mg/dL (0.2-1.0) Direct Bilirubin 0.1 mg/dL (0.0-0.2) Aspartate Amino Transf (AST/SGOT) 23 U/L (15-37) Alanine Aminotransferase (ALT/SGPT) 26 U/L (14-59) Alkaline Phosphatase 78 U/L (46-116) Troponin I Quantitative < 0.017 ng/mL (0.000-0.055) < 0.017 ng/mL (0.000-0.055) < 0.017 ng/mL (0.000-0.055) Total Protein 7.2 g/dL (6.4-8.2) Albumin 3.2 g/dL (3.4-5.0) 2.9 g/dL (3.4-5.0) Phosphorus Level 3.4 mg/dL (2.6-4.7) Assessment and Plan Assessmemt and Plan Problems Medical Problems: (1) Acute kidney injury Status: Acute (2) Chest pain Status: Acute Comment Review of Relevant I have reviewed the following items kwaku (where applicable) has been applied. Labs Laboratory Tests Test 05/17/18 11:05 05/17/18 13:50 05/17/18 18:30 05/18/18 08:58 White Blood Count 13.5 x10^3/uL (4.0-11.0) 10.5 x10^3/uL (4.0-11.0) Red Blood Count 4.36 x10^6/uL (3.50-5.40) 4.21 x10^6/uL (3.50-5.40) Hemoglobin 13.8 g/dL (12.0-15.5) 13.4 g/dL (12.0-15.5) Hematocrit 40.3 % (36.0-47.0) 39.4 % (36.0-47.0) Mean Corpuscular Volume 92 fL (79-100) 94 fL (79-100) Mean Corpuscular Hemoglobin 32 pg (25-35) 32 pg (25-35) Mean Corpuscular Hemoglobin Concent 34 g/dL (31-37) 34 g/dL (31-37) Red Cell Distribution Width 13.0 % (11.5-14.5) 13.0 % (11.5-14.5) Platelet Count 253 x10^3/uL (140-400) 236 x10^3/uL (140-400) Neutrophils (%) (Auto) 77 % (31-73) 75 % (31-73) Lymphocytes (%) (Auto) 12 % (24-48) 17 % (24-48) Monocytes (%) (Auto) 8 % (0-9) 5 % (0-9) Eosinophils (%) (Auto) 2 % (0-3) 2 % (0-3) Basophils (%) (Auto) 1 % (0-3) 1 % (0-3) Neutrophils # (Auto) 10.4 x10^3uL (1.8-7.7) 7.9 x10^3uL (1.8-7.7) Lymphocytes # (Auto) 1.6 x10^3/uL (1.0-4.8) 1.7 x10^3/uL (1.0-4.8) Monocytes # (Auto) 1.1 x10^3/uL (0.0-1.1) 0.5 x10^3/uL (0.0-1.1) Eosinophils # (Auto) 0.3 x10^3/uL (0.0-0.7) 0.2 x10^3/uL (0.0-0.7) Basophils # (Auto) 0.1 x10^3/uL (0.0-0.2) 0.1 x10^3/uL (0.0-0.2) D-Dimer (Nany) 0.34 ug/mlFEU (0.00-0.50) Sodium Level 139 mmol/L (136-145) 137 mmol/L (136-145) Potassium Level 4.2 mmol/L (3.5-5.1) 3.9 mmol/L (3.5-5.1) Chloride Level 103 mmol/L (98-107) 105 mmol/L (98-107) Carbon Dioxide Level 26 mmol/L (21-32) 27 mmol/L (21-32) Anion Gap 10 (6-14) 5 (6-14) Blood Urea Nitrogen 22 mg/dL (7-20) 17 mg/dL (7-20) Creatinine 1.8 mg/dL (0.6-1.0) 1.6 mg/dL (0.6-1.0) Estimated GFR (Cockcroft-Gault) 31.8 36.5 Glucose Level 88 mg/dL (70-99) 114 mg/dL (70-99) Calcium Level 9.0 mg/dL (8.5-10.1) 8.2 mg/dL (8.5-10.1) Total Bilirubin 0.4 mg/dL (0.2-1.0) Direct Bilirubin 0.1 mg/dL (0.0-0.2) Aspartate Amino Transf (AST/SGOT) 23 U/L (15-37) Alanine Aminotransferase (ALT/SGPT) 26 U/L (14-59) Alkaline Phosphatase 78 U/L (46-116) Troponin I Quantitative < 0.017 ng/mL (0.000-0.055) < 0.017 ng/mL (0.000-0.055) < 0.017 ng/mL (0.000-0.055) Total Protein 7.2 g/dL (6.4-8.2) Albumin 3.2 g/dL (3.4-5.0) 2.9 g/dL (3.4-5.0) Phosphorus Level 3.4 mg/dL (2.6-4.7) Laboratory Tests Test 05/17/18 11:05 05/17/18 13:50 05/17/18 18:30 05/18/18 08:58 White Blood Count 13.5 x10^3/uL (4.0-11.0) 10.5 x10^3/uL (4.0-11.0) Red Blood Count 4.36 x10^6/uL (3.50-5.40) 4.21 x10^6/uL (3.50-5.40) Hemoglobin 13.8 g/dL (12.0-15.5) 13.4 g/dL (12.0-15.5) Hematocrit 40.3 % (36.0-47.0) 39.4 % (36.0-47.0) Mean Corpuscular Volume 92 fL (79-100) 94 fL (79-100) Mean Corpuscular Hemoglobin 32 pg (25-35) 32 pg (25-35) Mean Corpuscular Hemoglobin Concent 34 g/dL (31-37) 34 g/dL (31-37) Red Cell Distribution Width 13.0 % (11.5-14.5) 13.0 % (11.5-14.5) Platelet Count 253 x10^3/uL (140-400) 236 x10^3/uL (140-400) Neutrophils (%) (Auto) 77 % (31-73) 75 % (31-73) Lymphocytes (%) (Auto) 12 % (24-48) 17 % (24-48) Monocytes (%) (Auto) 8 % (0-9) 5 % (0-9) Eosinophils (%) (Auto) 2 % (0-3) 2 % (0-3) Basophils (%) (Auto) 1 % (0-3) 1 % (0-3) Neutrophils # (Auto) 10.4 x10^3uL (1.8-7.7) 7.9 x10^3uL (1.8-7.7) Lymphocytes # (Auto) 1.6 x10^3/uL (1.0-4.8) 1.7 x10^3/uL (1.0-4.8) Monocytes # (Auto) 1.1 x10^3/uL (0.0-1.1) 0.5 x10^3/uL (0.0-1.1) Eosinophils # (Auto) 0.3 x10^3/uL (0.0-0.7) 0.2 x10^3/uL (0.0-0.7) Basophils # (Auto) 0.1 x10^3/uL (0.0-0.2) 0.1 x10^3/uL (0.0-0.2) D-Dimer (Nany) 0.34 ug/mlFEU (0.00-0.50) Sodium Level 139 mmol/L (136-145) 137 mmol/L (136-145) Potassium Level 4.2 mmol/L (3.5-5.1) 3.9 mmol/L (3.5-5.1) Chloride Level 103 mmol/L (98-107) 105 mmol/L (98-107) Carbon Dioxide Level 26 mmol/L (21-32) 27 mmol/L (21-32) Anion Gap 10 (6-14) 5 (6-14) Blood Urea Nitrogen 22 mg/dL (7-20) 17 mg/dL (7-20) Creatinine 1.8 mg/dL (0.6-1.0) 1.6 mg/dL (0.6-1.0) Estimated GFR (Cockcroft-Gault) 31.8 36.5 Glucose Level 88 mg/dL (70-99) 114 mg/dL (70-99) Calcium Level 9.0 mg/dL (8.5-10.1) 8.2 mg/dL (8.5-10.1) Total Bilirubin 0.4 mg/dL (0.2-1.0) Direct Bilirubin 0.1 mg/dL (0.0-0.2) Aspartate Amino Transf (AST/SGOT) 23 U/L (15-37) Alanine Aminotransferase (ALT/SGPT) 26 U/L (14-59) Alkaline Phosphatase 78 U/L (46-116) Troponin I Quantitative < 0.017 ng/mL (0.000-0.055) < 0.017 ng/mL (0.000-0.055) < 0.017 ng/mL (0.000-0.055) Total Protein 7.2 g/dL (6.4-8.2) Albumin 3.2 g/dL (3.4-5.0) 2.9 g/dL (3.4-5.0) Phosphorus Level 3.4 mg/dL (2.6-4.7) Medications Current Medications Ketorolac Tromethamine (Toradol 30mg Vial) 30 mg STK-MED ONCE .ROUTE ; Start at 10:53; Stop 05/17/18 at 10:54; Status DC Sodium Chloride 1,000 ml @ 1,000 mls/hr 1X ONCE IV Last administered on at 14:29; Start 05/17/18 at 14:15; Stop 05/17/18 at 15:14; Status DC Ondansetron HCl (Zofran) 4 mg PRN Q8HRS PRN IV NAUSEA/VOMITING Last administered on 05/17/18at 15:48; Start 05/17/18 at 14:30; Stop 05/18/18 at 14:29 Morphine Sulfate (Morphine Sulfate) 2 mg PRN Q2HR PRN IV PAIN Last administered on 05/17/18at 15:53; Start 05/17/18 at 14:30; Stop 05/18/18 at 14:29 Sodium Chloride 1,000 ml @ 250 mls/hr Q4H IV Last administered on 05/18/18at 00 :40; Start 05/17/18 at 15:00; Stop 05/18/18 at 14:59 Non-Formulary Medication (Albuterol Sulfate (Proair Hfa Inhaler)) 1 puff PRN Q6HRS PRN INH SHORTNESS OF BREATH; Start 05/17/18 at 18:30; Status UNV Non-Formulary Medication (Albuterol Sulfate (Proair Respiclick)) 1 puff PRN Q6HRS PRN IH SHORTNESS OF BREATH; Start 05/17/18 at 18:30; Status UNV Pantoprazole Sodium (Protonix) 40 mg DAILYAC PO Last administered on 05/18/18at 07:30; Start 05/18/18 at 07:30 Levothyroxine Sodium (Synthroid) 125 mcg DAILY07 PO Last administered on at 06:09; Start 05/18/18 at 07:00 Non-Formulary Medication (Norgestimate-Ethinyl Estradiol (Previfem)) 1 each DAILY PO ; Start 05/18/18 at 09:00; Status UNV Albuterol Sulfate (Ventolin Neb Soln) 2.5 mg PRN Q6HRS PRN NEB SHORTNESS OF BREATH; Start 05/17/18 at 18:45 Active Scripts Active Proair Respiclick (Albuterol Sulfate) 90 Mcg Aer.pow.ba 1 Puff IH PRN Q6HRS PRN Proair Hfa Inhaler (Albuterol Sulfate) 8.5 Gm Hfa.aer.ad 1 Puff INH PRN Q6HRS PRN Reported Levothyroxine Sodium 112 Mcg Tablet 1 Tab PO DAILY Celexa (Citalopram Hydrobromide) 40 Mg Tablet 1 Tab PO HS Topiramate 25 Mg Tablet 1 Tab PO BID Vitals/I & O Vital Sign - Last 24 Hours 05/17/18 05/17/18 05/17/18 05/17/18 10:43 11:13 11:43 12:13 Pulse 64 70 76 Resp 14 21 15 B/P (MAP) 126/73 (90) 127/78 (94) 127/82 (97) 115/58 (77) Pulse Ox 98 97 97 97 O2 Delivery Room Air Room Air Room Air Room Air 05/17/18 05/17/18 05/17/18 05/17/18 13:15 13:45 14:15 14:45 Pulse 68 74 70 70 Resp 16 20 20 20 B/P (MAP) 108/59 (75) 113/64 (80) 121/73 (89) 124/73 (90) Pulse Ox 99 97 99 99 O2 Delivery Room Air Room Air Room Air Room Air 05/17/18 05/17/18 05/17/18 05/17/18 15:15 15:45 15:53 15:53 Pulse 78 76 78 Resp 20 14 22 16 B/P (MAP) 124/80 (95) 117/74 (88) 127/86 (100) Pulse Ox 99 99 100 99 O2 Delivery Room Air Room Air Room Air Room Air 05/17/18 05/17/18 05/17/18 05/17/18 16:23 16:53 19:00 20:00 Temp 97.9 97.9 Pulse 86 Resp 18 B/P (MAP) 113/79 (90) Pulse Ox 99 97 O2 Delivery Room Air Room Air Room Air Room Air 05/17/18 05/18/18 05/18/18 05/18/18 22:49 02:45 07:00 08:00 Temp 97.7 97.5 96.6 97.7 97.5 96.6 Pulse 70 71 63 Resp 18 18 17 B/P (MAP) 110/86 (94) 100/71 (81) 123/92 (102) Pulse Ox 96 97 98 O2 Delivery Room Air Room Air Room Air Room Air Intake and Output 05/17/18 05/17/18 05/18/18 15:00 23:00 07:00 Intake Total 600 ml Balance 600 ml GILBERT TORRES MD May 18, 2018 10:14
[2018-05-18 11:00] VITALS: BP 153/96
[2018-05-18] MEDS ORDERED: oxyCODONE IR 5 MG TABLET PO PRN (11:00)
[2018-05-18] MEDS ORDERED: DEXTROSE 50% 25 GM / 50ML DISP.SYRIN. IV PRN (11:00)
[2018-05-18] MEDS ORDERED: oxyCODONE IR 5 MG TABLET PO ONE (11:00)
[2018-05-18] MEDS: TOPIRAMATE 25 MG TABLET. PO SCH ×2 (11:21→21:06)
[2018-05-18] MEDS: LIDOCAINE (700MG/PATCH) PATCH. TD SCH (11:23)
[2018-05-18 15:00] VITALS: BP 120/85
--- NOTE | 2018-05-18 15:35 | CARD ---
MR#: [id number] Date of Study: 05/18/2018 Ordering Physician: MANOJ JO, Referring Physician: MANOJ JO, Tech: Araceli Corral RDCS APPROVED REPORT EXAM: Two-dimensional and M-mode echocardiogram with Doppler and color Doppler. Other Information Quality : Good INDICATION Chest Pain 2D DIMENSIONS RVDd3.0 (2.9-3.5cm)Left Atrium(2D)3.8 (1.6-4.0cm) IVSd1.0 (0.7-1.1cm)Aortic Root(2D)2.7 (2.0-3.7cm) LVDd5.0 (3.9-5.9cm)LVOT Diameter2.0 (1.8-2.4cm) PWd1.0 (0.7-1.1cm)LVDs3.5 (2.5-4.0cm) FS (%) 29.4 %SV66.8 ml LVEF(%)56.1 (>50%) Aortic Valve AoV Peak Arias.138.9cm/sAoV VTI29.4cm AO Peak GR.7.7mmHgLVOT Peak Arias.125.9cm/s AO Mean GR.5mmHgAVA (VMAX)2.75cm2 HANNAH (VTI)2.70cm2 Mitral Valve MV E Wjwhmyhw899.2cm/sMV DECEL FEVP687to MV A Hqgujciz72.4cm/sE/A Ratio1.1 Tricuspid Valve TR P. Hxyaqwpa899yw/sRAP PZBIHCPI4qiFj TR Peak Gr.47mlJtFNMR77loQg Pulmonary Vein S1 Qwzogvnx94.1cm/sD2 Qgkphxvz25.0cm/s LEFT VENTRICLE The left ventricle is normal size. There is normal left ventricular wall thickness. The left ventricu lar systolic function is normal. The Ejection Fraction is 55-60%. There is normal LV segmental wall m otion. RIGHT VENTRICLE The right ventricle is normal size. The right ventricular systolic function is normal. ATRIA The left atrium size is normal. The right atrium size is normal. The interatrial septum is intact wit h no evidence for an atrial septal defect or patent foramen ovale as noted on 2-D or Doppler imaging. AORTIC VALVE The aortic valve is normal in structure and function. Doppler and Color Flow revealed no significant aortic regurgitation. There is no significant aortic valvular stenosis. MITRAL VALVE The mitral valve is normal in structure and function. There is no evidence of mitral valve prolapse. There is no mitral valve stenosis. Doppler and Color Flow revealed no mitral valve regurgitation note d. TRICUSPID VALVE The tricuspid valve is normal in structure and function. Doppler and Color Flow revealed no tricuspid valve regurgitation noted. There is no tricuspid valve stenosis. PULMONIC VALVE The pulmonic valve is not well visualized. Doppler and Color Flow revealed no pulmonic valvular regur gitation. There is no pulmonic valvular stenosis. GREAT VESSELS The aortic root is normal in size. The ascending aorta is normal in size. The IVC is normal in size a nd collapses >50% with inspiration. PERICARDIAL EFFUSION There is no evidence of significant pericardial effusion. Critical Notification Critical Value: No <Conclusion> The left ventricular systolic function is normal. The Ejection Fraction is 55-60%. There is normal LV segmental wall motion. No significant valvular abnormalities. There is no evidence of significant pericardial effusion. Signed by : Evan Espana, Electronically Approved : 05/18/2018 15:35:13
--- NOTE | 2018-05-18 15:45 | PDOC2 ---
CONSULT Date of Consult Date of Consult DATE: 05/18/18 TIME: 15:29 Reason for Consult Reason for Consult: Renal failure Source Source: Chart review, Patient History of Present Illness Reason for Visit: Pt is 37 yo Female with CC chest pain that radiates into her back that started , sharp and stabbing in nature and states pain is worsened with breathing. She denies any nausea, vomiting or diaphoresis.She had recent hysterectomy 2017 and has been taking prescription ibuprofen up to TID for the pain. She drinks 8-10 pepsi's/day , doesnt drink enough water . She reports she was having vomitings prior to her surgery Denies any urinary complaints , No hematuria, dysuria Past Medical History Cardiovascular: Hyperlipidemia Pulmonary: No pertinent hx Hepatobiliary: No pertinent hx Musculoskeletal: low back pain Renal/: No pertinent hx Family History Family History: Hypertension, Other (OBESITY) Social History <1 pack per day ALCOHOL: none Drugs: None Current Problem List Problem List Problems Medical Problems: (1) Acute kidney injury Status: Acute (2) Chest pain Status: Acute Current Medications Current Medications Current Medications Ketorolac Tromethamine (Toradol 30mg Vial) 30 mg STK-MED ONCE .ROUTE ; Start at 10:53; Stop 05/17/18 at 10:54; Status DC Sodium Chloride 1,000 ml @ 1,000 mls/hr 1X ONCE IV Last administered on at 14:29; Start 05/17/18 at 14:15; Stop 05/17/18 at 15:14; Status DC Ondansetron HCl (Zofran) 4 mg PRN Q8HRS PRN IV NAUSEA/VOMITING Last administered on 05/17/18at 15:48; Start 05/17/18 at 14:30; Stop 05/18/18 at 14:29 ; Status DC Morphine Sulfate (Morphine Sulfate) 2 mg PRN Q2HR PRN IV PAIN Last administered on 05/17/18at 15:53; Start 05/17/18 at 14:30; Stop 05/18/18 at 14:29 ; Status DC Sodium Chloride 1,000 ml @ 250 mls/hr Q4H IV Last administered on 05/18/18at 10 :49; Start 05/17/18 at 15:00; Stop 05/18/18 at 14:59; Status DC Non-Formulary Medication (Albuterol Sulfate (Proair Hfa Inhaler)) 1 puff PRN Q6HRS PRN INH SHORTNESS OF BREATH; Start 05/17/18 at 18:30; Status UNV Non-Formulary Medication (Albuterol Sulfate (Proair Respiclick)) 1 puff PRN Q6HRS PRN IH SHORTNESS OF BREATH; Start 05/17/18 at 18:30; Status UNV Pantoprazole Sodium (Protonix) 40 mg DAILYAC PO Last administered on 05/18/18at 07:30; Start 05/18/18 at 07:30 Levothyroxine Sodium (Synthroid) 125 mcg DAILY07 PO Last administered on at 06:09; Start 05/18/18 at 07:00; Stop 05/18/18 at 10:54; Status DC Non-Formulary Medication (Norgestimate-Ethinyl Estradiol (Previfem)) 1 each DAILY PO ; Start 05/18/18 at 09:00; Status UNV Albuterol Sulfate (Ventolin Neb Soln) 2.5 mg PRN Q6HRS PRN NEB SHORTNESS OF BREATH; Start 05/17/18 at 18:45 Dextrose (Dextrose 50%-Water Syringe) 12.5 gm PRN Q15MIN PRN IV SEE COMMENTS; Start 05/18/18 at 11:00 Lidocaine (Lidoderm) 1 patch DAILY TD Last administered on 05/18/18at 11:23; Start 05/18/18 at 11:00 Miscellaneous (Lidoderm Patch Removal) 1 ea QHS MC ; Start 05/18/18 at 21:00 Oxycodone HCl (Roxicodone) 5 mg PRN Q6HRS PRN PO PAIN; Start 05/18/18 at 11:00 Oxycodone HCl (Roxicodone) 5 mg 1X ONCE PO Last administered on 05/18/18at 11: 22; Start 05/18/18 at 11:00; Stop 05/18/18 at 11:01; Status DC Levothyroxine Sodium (Synthroid) 112 mcg DAILY06 PO ; Start 05/19/18 at 06:00 Citalopram Hydrobromide (CeleXA) 40 mg QHS PO ; Start 05/18/18 at 21:00 Topiramate (Topamax) 25 mg BID PO Last administered on 05/18/18at 11:21; Start 05/18/18 at 11:00 Active Scripts Active Proair Respiclick (Albuterol Sulfate) 90 Mcg Aer.pow.ba 1 Puff IH PRN Q6HRS PRN Proair Hfa Inhaler (Albuterol Sulfate) 8.5 Gm Hfa.aer.ad 1 Puff INH PRN Q6HRS PRN Reported Levothyroxine Sodium 112 Mcg Tablet 1 Tab PO DAILY Celexa (Citalopram Hydrobromide) 40 Mg Tablet 1 Tab PO HS Topiramate 25 Mg Tablet 1 Tab PO BID Allergies Allergies: Coded Allergies: No Known Drug Allergies (Unverified , 03/19/17) ROS Review of System As per HPI Physical Exam Physical Exam Gen- no acute distress HENT: oropharynx moist, Neck: supple, Cardiovascular:RRR Lungs: CTA Abdomen:NT, soft Skin: No rash Extremities:No edema Neurologic: Alert and oriented X 3, - No Pan, No CVA or SP tenderness Vital Signs Vital Signs Date Time Temp Pulse Resp B/P (MAP) Pulse Ox O2 Delivery O2 Flow Rate FiO2 05/18/18 15:00 97.5 69 17 120/85 (97) 97 Room Air 97.5 Assessment & Plan RENO- likely prerenal and use of NSAID's Electrolytes and Acid base stable Continue to monitor , Chest pain Morbid obesity Discussed a/p with patient Labs Labs Laboratory Tests Test 05/17/18 11:05 05/17/18 13:50 05/17/18 18:30 05/18/18 08:58 White Blood Count 13.5 x10^3/uL (4.0-11.0) 10.5 x10^3/uL (4.0-11.0) Red Blood Count 4.36 x10^6/uL (3.50-5.40) 4.21 x10^6/uL (3.50-5.40) Hemoglobin 13.8 g/dL (12.0-15.5) 13.4 g/dL (12.0-15.5) Hematocrit 40.3 % (36.0-47.0) 39.4 % (36.0-47.0) Mean Corpuscular Volume 92 fL (79-100) 94 fL (79-100) Mean Corpuscular Hemoglobin 32 pg (25-35) 32 pg (25-35) Mean Corpuscular Hemoglobin Concent 34 g/dL (31-37) 34 g/dL (31-37) Red Cell Distribution Width 13.0 % (11.5-14.5) 13.0 % (11.5-14.5) Platelet Count 253 x10^3/uL (140-400) 236 x10^3/uL (140-400) Neutrophils (%) (Auto) 77 % (31-73) 75 % (31-73) Lymphocytes (%) (Auto) 12 % (24-48) 17 % (24-48) Monocytes (%) (Auto) 8 % (0-9) 5 % (0-9) Eosinophils (%) (Auto) 2 % (0-3) 2 % (0-3) Basophils (%) (Auto) 1 % (0-3) 1 % (0-3) Neutrophils # (Auto) 10.4 x10^3uL (1.8-7.7) 7.9 x10^3uL (1.8-7.7) Lymphocytes # (Auto) 1.6 x10^3/uL (1.0-4.8) 1.7 x10^3/uL (1.0-4.8) Monocytes # (Auto) 1.1 x10^3/uL (0.0-1.1) 0.5 x10^3/uL (0.0-1.1) Eosinophils # (Auto) 0.3 x10^3/uL (0.0-0.7) 0.2 x10^3/uL (0.0-0.7) Basophils # (Auto) 0.1 x10^3/uL (0.0-0.2) 0.1 x10^3/uL (0.0-0.2) D-Dimer (Nany) 0.34 ug/mlFEU (0.00-0.50) Sodium Level 139 mmol/L (136-145) 137 mmol/L (136-145) Potassium Level 4.2 mmol/L (3.5-5.1) 3.9 mmol/L (3.5-5.1) Chloride Level 103 mmol/L (98-107) 105 mmol/L (98-107) Carbon Dioxide Level 26 mmol/L (21-32) 27 mmol/L (21-32) Anion Gap 10 (6-14) 5 (6-14) Blood Urea Nitrogen 22 mg/dL (7-20) 17 mg/dL (7-20) Creatinine 1.8 mg/dL (0.6-1.0) 1.6 mg/dL (0.6-1.0) Estimated GFR (Cockcroft-Gault) 31.8 36.5 Glucose Level 88 mg/dL (70-99) 114 mg/dL (70-99) Calcium Level 9.0 mg/dL (8.5-10.1) 8.2 mg/dL (8.5-10.1) Total Bilirubin 0.4 mg/dL (0.2-1.0) Direct Bilirubin 0.1 mg/dL (0.0-0.2) Aspartate Amino Transf (AST/SGOT) 23 U/L (15-37) Alanine Aminotransferase (ALT/SGPT) 26 U/L (14-59) Alkaline Phosphatase 78 U/L (46-116) Troponin I Quantitative < 0.017 ng/mL (0.000-0.055) < 0.017 ng/mL (0.000-0.055) < 0.017 ng/mL (0.000-0.055) Total Protein 7.2 g/dL (6.4-8.2) Albumin 3.2 g/dL (3.4-5.0) 2.9 g/dL (3.4-5.0) Phosphorus Level 3.4 mg/dL (2.6-4.7) Laboratory Tests Test 05/17/18 18:30 05/18/18 08:58 Troponin I Quantitative < 0.017 ng/mL (0.000-0.055) White Blood Count 10.5 x10^3/uL (4.0-11.0) Red Blood Count 4.21 x10^6/uL (3.50-5.40) Hemoglobin 13.4 g/dL (12.0-15.5) Hematocrit 39.4 % (36.0-47.0) Mean Corpuscular Volume 94 fL (79-100) Mean Corpuscular Hemoglobin 32 pg (25-35) Mean Corpuscular Hemoglobin Concent 34 g/dL (31-37) Red Cell Distribution Width 13.0 % (11.5-14.5) Platelet Count 236 x10^3/uL (140-400) Neutrophils (%) (Auto) 75 % (31-73) Lymphocytes (%) (Auto) 17 % (24-48) Monocytes (%) (Auto) 5 % (0-9) Eosinophils (%) (Auto) 2 % (0-3) Basophils (%) (Auto) 1 % (0-3) Neutrophils # (Auto) 7.9 x10^3uL (1.8-7.7) Lymphocytes # (Auto) 1.7 x10^3/uL (1.0-4.8) Monocytes # (Auto) 0.5 x10^3/uL (0.0-1.1) Eosinophils # (Auto) 0.2 x10^3/uL (0.0-0.7) Basophils # (Auto) 0.1 x10^3/uL (0.0-0.2) Sodium Level 137 mmol/L (136-145) Potassium Level 3.9 mmol/L (3.5-5.1) Chloride Level 105 mmol/L (98-107) Carbon Dioxide Level 27 mmol/L (21-32) Anion Gap 5 (6-14) Blood Urea Nitrogen 17 mg/dL (7-20) Creatinine 1.6 mg/dL (0.6-1.0) Estimated GFR (Cockcroft-Gault) 36.5 Glucose Level 114 mg/dL (70-99) Calcium Level 8.2 mg/dL (8.5-10.1) Phosphorus Level 3.4 mg/dL (2.6-4.7) Albumin 2.9 g/dL (3.4-5.0) Review All relevant outside records, renal labs, imaging studies, telemetry/EKG's were reviewed. ROSELIA MENDEZ MD May 18, 2018 15:45
--- NOTE | 2018-05-18 17:53 | PDOC2 ---
CONSULT Date of Consult Date of Consult DATE: 05/18/18 TIME: 17:49 Reason for Consult Reason for Consult: Chest pain Referring Physician Referring Physician: Dr. Overton Identification/Chief Complaint Chief Complaint Chest pain History of Present Illness Reason for Visit: This patient is a 37-year-old lady that is above her ideal body weight and has a history of hyperlipidemia as well as a positive family history for coronary artery disease. I have seen her in the past several years ago and a stress test was done that was normal. I have not seen her since then. The patient has had problems with thyroid disease and had a hysterectomy. She comes in after developing a sharp chest pain that radiated from the chest around to the back, no palpitations, no significant dyspnea. Pain was worse if she took a deep breath at times. This went on and off for 2 days until finally her brought her into the emergency room. After her arrival the initial troponins were normal and there were no changes in her EKG. At the time that I saw her she was not having chest pain. Past Medical History Cardiovascular: Hyperlipidemia Pulmonary: No pertinent hx, Other (patient is a smoker) Hepatobiliary: No pertinent hx Musculoskeletal: low back pain Renal/: No pertinent hx Family History Family History: Hypertension, Other (OBESITY) Social History <1 pack per day ALCOHOL: none Drugs: None Current Problem List Problem List Problems Medical Problems: (1) Acute kidney injury Status: Acute (2) Chest pain Status: Acute Current Medications Current Medications Current Medications Ketorolac Tromethamine (Toradol 30mg Vial) 30 mg STK-MED ONCE .ROUTE ; Start at 10:53; Stop 05/17/18 at 10:54; Status DC Sodium Chloride 1,000 ml @ 1,000 mls/hr 1X ONCE IV Last administered on at 14:29; Start 05/17/18 at 14:15; Stop 05/17/18 at 15:14; Status DC Ondansetron HCl (Zofran) 4 mg PRN Q8HRS PRN IV NAUSEA/VOMITING Last administered on 05/17/18at 15:48; Start 05/17/18 at 14:30; Stop 05/18/18 at 14:29 ; Status DC Morphine Sulfate (Morphine Sulfate) 2 mg PRN Q2HR PRN IV PAIN Last administered on 05/17/18at 15:53; Start 05/17/18 at 14:30; Stop 05/18/18 at 14:29 ; Status DC Sodium Chloride 1,000 ml @ 250 mls/hr Q4H IV Last administered on 05/18/18at 10 :49; Start 05/17/18 at 15:00; Stop 05/18/18 at 14:59; Status DC Non-Formulary Medication (Albuterol Sulfate (Proair Hfa Inhaler)) 1 puff PRN Q6HRS PRN INH SHORTNESS OF BREATH; Start 05/17/18 at 18:30; Status UNV Non-Formulary Medication (Albuterol Sulfate (Proair Respiclick)) 1 puff PRN Q6HRS PRN IH SHORTNESS OF BREATH; Start 05/17/18 at 18:30; Status UNV Pantoprazole Sodium (Protonix) 40 mg DAILYAC PO Last administered on 05/18/18at 07:30; Start 05/18/18 at 07:30 Levothyroxine Sodium (Synthroid) 125 mcg DAILY07 PO Last administered on at 06:09; Start 05/18/18 at 07:00; Stop 05/18/18 at 10:54; Status DC Non-Formulary Medication (Norgestimate-Ethinyl Estradiol (Previfem)) 1 each DAILY PO ; Start 05/18/18 at 09:00; Status UNV Albuterol Sulfate (Ventolin Neb Soln) 2.5 mg PRN Q6HRS PRN NEB SHORTNESS OF BREATH; Start 05/17/18 at 18:45 Dextrose (Dextrose 50%-Water Syringe) 12.5 gm PRN Q15MIN PRN IV SEE COMMENTS; Start 05/18/18 at 11:00 Lidocaine (Lidoderm) 1 patch DAILY TD Last administered on 05/18/18at 11:23; Start 05/18/18 at 11:00 Miscellaneous (Lidoderm Patch Removal) 1 ea QHS MC ; Start 05/18/18 at 21:00 Oxycodone HCl (Roxicodone) 5 mg PRN Q6HRS PRN PO PAIN; Start 05/18/18 at 11:00 Oxycodone HCl (Roxicodone) 5 mg 1X ONCE PO Last administered on 05/18/18at 11: 22; Start 05/18/18 at 11:00; Stop 05/18/18 at 11:01; Status DC Levothyroxine Sodium (Synthroid) 112 mcg DAILY06 PO ; Start 05/19/18 at 06:00 Citalopram Hydrobromide (CeleXA) 40 mg QHS PO ; Start 05/18/18 at 21:00 Topiramate (Topamax) 25 mg BID PO Last administered on 05/18/18at 11:21; Start 05/18/18 at 11:00 Active Scripts Active Proair Respiclick (Albuterol Sulfate) 90 Mcg Aer.pow.ba 1 Puff IH PRN Q6HRS PRN Proair Hfa Inhaler (Albuterol Sulfate) 8.5 Gm Hfa.aer.ad 1 Puff INH PRN Q6HRS PRN Reported Levothyroxine Sodium 112 Mcg Tablet 1 Tab PO DAILY Celexa (Citalopram Hydrobromide) 40 Mg Tablet 1 Tab PO HS Topiramate 25 Mg Tablet 1 Tab PO BID Allergies Allergies: Coded Allergies: No Known Drug Allergies (Unverified , 03/19/17) Physical Exam General: Alert, Oriented X3, Cooperative, No acute distress HEENT: PERRLA Lungs: Clear to auscultation Heart: Regular rate, Normal S1, Normal S2 Abdomen: Normal bowel sounds, Soft Extremities: No edema Vitals VITALS Vital Signs Date Time Temp Pulse Resp B/P (MAP) Pulse Ox O2 Delivery O2 Flow Rate FiO2 05/18/18 15:00 97.5 69 17 120/85 (97) 97 Room Air 97.5 Labs Labs Laboratory Tests Test 05/17/18 11:05 05/17/18 13:50 05/17/18 18:30 05/18/18 08:58 White Blood Count 13.5 x10^3/uL (4.0-11.0) 10.5 x10^3/uL (4.0-11.0) Red Blood Count 4.36 x10^6/uL (3.50-5.40) 4.21 x10^6/uL (3.50-5.40) Hemoglobin 13.8 g/dL (12.0-15.5) 13.4 g/dL (12.0-15.5) Hematocrit 40.3 % (36.0-47.0) 39.4 % (36.0-47.0) Mean Corpuscular Volume 92 fL (79-100) 94 fL (79-100) Mean Corpuscular Hemoglobin 32 pg (25-35) 32 pg (25-35) Mean Corpuscular Hemoglobin Concent 34 g/dL (31-37) 34 g/dL (31-37) Red Cell Distribution Width 13.0 % (11.5-14.5) 13.0 % (11.5-14.5) Platelet Count 253 x10^3/uL (140-400) 236 x10^3/uL (140-400) Neutrophils (%) (Auto) 77 % (31-73) 75 % (31-73) Lymphocytes (%) (Auto) 12 % (24-48) 17 % (24-48) Monocytes (%) (Auto) 8 % (0-9) 5 % (0-9) Eosinophils (%) (Auto) 2 % (0-3) 2 % (0-3) Basophils (%) (Auto) 1 % (0-3) 1 % (0-3) Neutrophils # (Auto) 10.4 x10^3uL (1.8-7.7) 7.9 x10^3uL (1.8-7.7) Lymphocytes # (Auto) 1.6 x10^3/uL (1.0-4.8) 1.7 x10^3/uL (1.0-4.8) Monocytes # (Auto) 1.1 x10^3/uL (0.0-1.1) 0.5 x10^3/uL (0.0-1.1) Eosinophils # (Auto) 0.3 x10^3/uL (0.0-0.7) 0.2 x10^3/uL (0.0-0.7) Basophils # (Auto) 0.1 x10^3/uL (0.0-0.2) 0.1 x10^3/uL (0.0-0.2) D-Dimer (Nany) 0.34 ug/mlFEU (0.00-0.50) Sodium Level 139 mmol/L (136-145) 137 mmol/L (136-145) Potassium Level 4.2 mmol/L (3.5-5.1) 3.9 mmol/L (3.5-5.1) Chloride Level 103 mmol/L (98-107) 105 mmol/L (98-107) Carbon Dioxide Level 26 mmol/L (21-32) 27 mmol/L (21-32) Anion Gap 10 (6-14) 5 (6-14) Blood Urea Nitrogen 22 mg/dL (7-20) 17 mg/dL (7-20) Creatinine 1.8 mg/dL (0.6-1.0) 1.6 mg/dL (0.6-1.0) Estimated GFR (Cockcroft-Gault) 31.8 36.5 Glucose Level 88 mg/dL (70-99) 114 mg/dL (70-99) Calcium Level 9.0 mg/dL (8.5-10.1) 8.2 mg/dL (8.5-10.1) Total Bilirubin 0.4 mg/dL (0.2-1.0) Direct Bilirubin 0.1 mg/dL (0.0-0.2) Aspartate Amino Transf (AST/SGOT) 23 U/L (15-37) Alanine Aminotransferase (ALT/SGPT) 26 U/L (14-59) Alkaline Phosphatase 78 U/L (46-116) Troponin I Quantitative < 0.017 ng/mL (0.000-0.055) < 0.017 ng/mL (0.000-0.055) < 0.017 ng/mL (0.000-0.055) Total Protein 7.2 g/dL (6.4-8.2) Albumin 3.2 g/dL (3.4-5.0) 2.9 g/dL (3.4-5.0) Phosphorus Level 3.4 mg/dL (2.6-4.7) Test 05/18/18 15:52 Glucose (Fingerstick) 82 mg/dL (70-99) Laboratory Tests Test 05/17/18 18:30 05/18/18 08:58 05/18/18 15:52 Troponin I Quantitative < 0.017 ng/mL (0.000-0.055) White Blood Count 10.5 x10^3/uL (4.0-11.0) Red Blood Count 4.21 x10^6/uL (3.50-5.40) Hemoglobin 13.4 g/dL (12.0-15.5) Hematocrit 39.4 % (36.0-47.0) Mean Corpuscular Volume 94 fL (79-100) Mean Corpuscular Hemoglobin 32 pg (25-35) Mean Corpuscular Hemoglobin Concent 34 g/dL (31-37) Red Cell Distribution Width 13.0 % (11.5-14.5) Platelet Count 236 x10^3/uL (140-400) Neutrophils (%) (Auto) 75 % (31-73) Lymphocytes (%) (Auto) 17 % (24-48) Monocytes (%) (Auto) 5 % (0-9) Eosinophils (%) (Auto) 2 % (0-3) Basophils (%) (Auto) 1 % (0-3) Neutrophils # (Auto) 7.9 x10^3uL (1.8-7.7) Lymphocytes # (Auto) 1.7 x10^3/uL (1.0-4.8) Monocytes # (Auto) 0.5 x10^3/uL (0.0-1.1) Eosinophils # (Auto) 0.2 x10^3/uL (0.0-0.7) Basophils # (Auto) 0.1 x10^3/uL (0.0-0.2) Sodium Level 137 mmol/L (136-145) Potassium Level 3.9 mmol/L (3.5-5.1) Chloride Level 105 mmol/L (98-107) Carbon Dioxide Level 27 mmol/L (21-32) Anion Gap 5 (6-14) Blood Urea Nitrogen 17 mg/dL (7-20) Creatinine 1.6 mg/dL (0.6-1.0) Estimated GFR (Cockcroft-Gault) 36.5 Glucose Level 114 mg/dL (70-99) Calcium Level 8.2 mg/dL (8.5-10.1) Phosphorus Level 3.4 mg/dL (2.6-4.7) Albumin 2.9 g/dL (3.4-5.0) Glucose (Fingerstick) 82 mg/dL (70-99) Assessment/Plan Assessment/Plan This patient comes in with chest pain that is atypical for angina but she has some risk factors for heart disease and is a smoker therefore I would like to do a Lexiscan MPI and then depending on the results of the MPI we will make further recommendations. Thank you very much for asking me to participate in the care of this patient. HERMELINDA BANDA MD May 18, 2018 17:53
[2018-05-18 19:00] VITALS: BP 121/81
[2018-05-18] MEDS ORDERED: PATCH REMOVAL. MC SCH (21:00)
[2018-05-18] MEDS ORDERED: CITALOPRAM 20 MG TABLET. PO SCH (21:00)
[2018-05-18 23:00] VITALS: BP 121/88
[2018-05-19 03:00] VITALS: BP 114/83
--- NOTE | 2018-05-19 03:00 | CONS ---
DATE OF CONSULTATION: 05/18/2018 REQUESTING PHYSICIAN: 05/18/2018 ATTENDING PHYSICIAN: Dr. Overton. HISTORY OF PRESENT ILLNESS: This is a 37-year-old female, apparently on disability with chronic lower back pain without any known diagnosis. The patient was admitted on 05/17/2018 with chest pain that radiates into her back, sharp and stabbing in nature, worsening with breathing. The patient had recent hysterectomy and had been taking ibuprofen 800 mg on as needed basis for pain and she also drinks Pepsi about 8-10 bottles per day. She was admitted with a tentative diagnosis of acute renal failure. The patient with known bipolar disorder, depression, gastroesophageal reflux disease, hypothyroidism, ovarian cyst, mood swings, cholecystectomy, hysterectomy, tonsillectomy, tubal ligation, thyroidectomy, hyperlipidemia, obesity. FAMILY HISTORY: Hypertension and obesity. ALLERGIES: Not known allergic to any medication. SOCIAL HISTORY: She smokes less than 1 pack of cigarettes per day. She never worked in her life outside her house. She lives alone. The patient admits urinary frequency without dysuria since she had been drinking Pepsi frequently at home. The patient denies any numbness and tingling sensation of the extremities. PHYSICAL EXAMINATION: Today revealed young female patient, who is alert, oriented to time, place, person and circumstance and follows commands appropriately. Moves all 4 extremities voluntarily where she had 5/5 grade muscle strength and deep tendon reflexes are 2+ and symmetrical and she had equal perception of touch and pinprick sensation bilaterally. She had tenderness to palpation over lumbar paraspinal muscles extending over to sacroiliac joint area and straight leg raising test is negative bilaterally. She had painful range of motion of all four extremity joints. Deep tendon reflexes are 2+ and symmetrical and she had equal perception of touch and pinprick sensation bilaterally. She is independent with her mobility and most of the aspects of her self-care. ASSESSMENT: Young female with chronic lower back pain, most probably from degenerative disk disease of lumbar vertebrae without any clinical evidence of ongoing lumbar radiculopathy, obesity, recent admission for acute renal failure, and chest pain. RECOMMENDATIONS: I have tried to instruct her in a home program of physical modalities and stretching exercises, but she feels like she is not interested to learn about taking care of her back. She is more concerned about her kidney failure. Home if medically stable. To consider trigger point injections or lumbar corset if she is interested. Dr. Elizabeth, I appreciate asking me to participate in the care of this interesting patient. I will be glad to follow her with you as needed for her rehabilitation. FAUSTINO DIETZ MD DR: [email or web address] JOB#: [id number] / [id number] TATYANA
[2018-05-19 04:26] LABS: BASO # 0.1 x10^3/uL (0.0-0.2); BASO % 1 % (0-3); EOS # 0.5 x10^3/uL (0.0-0.7); EOS % 4 % (0-3); HEMATOCRIT 36.3 % (36.0-47.0); HEMOGLOBIN 12.2 g/dL (12.0-15.5); LYMPH # 3.1 x10^3/uL (1.0-4.8); LYMPH % 27 % (24-48); MEAN CORPUSCULAR HEMOGLOBIN 32 pg (25-35); MEAN CORPUSCULAR HGB CONC 34 g/dL (31-37); MEAN CORPUSCULAR VOLUME 94 fL (79-100); MONO # 0.8 x10^3/uL (0.0-1.1); MONO % 7 % (0-9); NEUT # 6.9 x10^3uL (1.8-7.7); NEUT % 61 % (31-73); PLATELET COUNT 232 x10^3/uL (140-400); RED BLOOD COUNT 3.85 x10^6/uL (3.50-5.40); RED CELL DISTRIBUTION WIDTH 13.1 % (11.5-14.5); WHITE BLOOD COUNT 11.3 x10^3/uL (4.0-11.0)
[2018-05-19 04:54] LABS: ALBUMIN 2.6 g/dL (3.4-5.0); ALBUMIN/GLOBULIN RATIO 0.7 (1.0-1.7); CALCIUM 8.4 mg/dL (8.5-10.1); CREATININE 1.3 mg/dL (0.6-1.0); GFR 46.3; TOTAL BILIRUBIN 0.3 mg/dL (0.2-1.0); TOTAL PROTEIN 6.2 g/dL (6.4-8.2)
[2018-05-19] MEDS ORDERED: LEVOTHYROXINE 112 MCG TABLET PO SCH (06:00)
[2018-05-19 07:00] VITALS: BP 109/68
[2018-05-19] MEDS: TOPIRAMATE 25 MG TABLET. PO SCH (07:22)
[2018-05-19] MEDS: PANTOPRAZOLE 40 MG TABLET.DR. PO SCH (07:22)
[2018-05-19] MEDS ORDERED: REGADENOSON 0.4 MG/5 ML DISP.SYRIN. IV ONE (08:00)
[2018-05-19] MEDS: LIDOCAINE (700MG/PATCH) PATCH. TD SCH (08:43)
[2018-05-19] MEDS ORDERED: ACETAMINOPHEN 325 MG TABLET. PO PRN (09:30)
[2018-05-19] MEDS ORDERED: traMADol 50 MG TABLET PO PRN (09:30)
--- NOTE | 2018-05-19 10:09 | PDOC ---
PROGRESS NOTES Subjective Subjective No new complaints. Objective Objective Vital Signs Date Time Temp Pulse Resp B/P (MAP) Pulse Ox O2 Delivery O2 Flow Rate FiO2 05/19/18 07:00 97.7 67 18 109/68 (82) 97 Room Air 97.7 Intake and Output 05/19/18 07:00 Intake Total 3220 ml Balance 3220 ml Intake Oral 2220 ml IV Total 1000 ml # Voids 4 Physical Exam Physical Exam She is alert,supine in bed and she remains independent with her mobility and self care and he rlow back pain is not interfering with her activity. Assessment Assessment Problems Medical Problems: (1) Acute kidney injury Status: Acute (2) Chest pain Status: Acute Plan [facility] when medically stable. Comment Review of Relevant I have reviewed the following items kwaku (where applicable) has been applied. Labs Laboratory Tests Test 05/17/18 11:05 05/17/18 13:50 05/17/18 18:30 05/18/18 08:58 White Blood Count 13.5 x10^3/uL (4.0-11.0) 10.5 x10^3/uL (4.0-11.0) Red Blood Count 4.36 x10^6/uL (3.50-5.40) 4.21 x10^6/uL (3.50-5.40) Hemoglobin 13.8 g/dL (12.0-15.5) 13.4 g/dL (12.0-15.5) Hematocrit 40.3 % (36.0-47.0) 39.4 % (36.0-47.0) Mean Corpuscular Volume 92 fL (79-100) 94 fL (79-100) Mean Corpuscular Hemoglobin 32 pg (25-35) 32 pg (25-35) Mean Corpuscular Hemoglobin Concent 34 g/dL (31-37) 34 g/dL (31-37) Red Cell Distribution Width 13.0 % (11.5-14.5) 13.0 % (11.5-14.5) Platelet Count 253 x10^3/uL (140-400) 236 x10^3/uL (140-400) Neutrophils (%) (Auto) 77 % (31-73) 75 % (31-73) Lymphocytes (%) (Auto) 12 % (24-48) 17 % (24-48) Monocytes (%) (Auto) 8 % (0-9) 5 % (0-9) Eosinophils (%) (Auto) 2 % (0-3) 2 % (0-3) Basophils (%) (Auto) 1 % (0-3) 1 % (0-3) Neutrophils # (Auto) 10.4 x10^3uL (1.8-7.7) 7.9 x10^3uL (1.8-7.7) Lymphocytes # (Auto) 1.6 x10^3/uL (1.0-4.8) 1.7 x10^3/uL (1.0-4.8) Monocytes # (Auto) 1.1 x10^3/uL (0.0-1.1) 0.5 x10^3/uL (0.0-1.1) Eosinophils # (Auto) 0.3 x10^3/uL (0.0-0.7) 0.2 x10^3/uL (0.0-0.7) Basophils # (Auto) 0.1 x10^3/uL (0.0-0.2) 0.1 x10^3/uL (0.0-0.2) D-Dimer (Nany) 0.34 ug/mlFEU (0.00-0.50) Sodium Level 139 mmol/L (136-145) 137 mmol/L (136-145) Potassium Level 4.2 mmol/L (3.5-5.1) 3.9 mmol/L (3.5-5.1) Chloride Level 103 mmol/L (98-107) 105 mmol/L (98-107) Carbon Dioxide Level 26 mmol/L (21-32) 27 mmol/L (21-32) Anion Gap 10 (6-14) 5 (6-14) Blood Urea Nitrogen 22 mg/dL (7-20) 17 mg/dL (7-20) Creatinine 1.8 mg/dL (0.6-1.0) 1.6 mg/dL (0.6-1.0) Estimated GFR (Cockcroft-Gault) 31.8 36.5 Glucose Level 88 mg/dL (70-99) 114 mg/dL (70-99) Calcium Level 9.0 mg/dL (8.5-10.1) 8.2 mg/dL (8.5-10.1) Total Bilirubin 0.4 mg/dL (0.2-1.0) Direct Bilirubin 0.1 mg/dL (0.0-0.2) Aspartate Amino Transf (AST/SGOT) 23 U/L (15-37) Alanine Aminotransferase (ALT/SGPT) 26 U/L (14-59) Alkaline Phosphatase 78 U/L (46-116) Troponin I Quantitative < 0.017 ng/mL (0.000-0.055) < 0.017 ng/mL (0.000-0.055) < 0.017 ng/mL (0.000-0.055) Total Protein 7.2 g/dL (6.4-8.2) Albumin 3.2 g/dL (3.4-5.0) 2.9 g/dL (3.4-5.0) Phosphorus Level 3.4 mg/dL (2.6-4.7) Test 05/18/18 15:52 05/19/18 03:40 Glucose (Fingerstick) 82 mg/dL (70-99) White Blood Count 11.3 x10^3/uL (4.0-11.0) Red Blood Count 3.85 x10^6/uL (3.50-5.40) Hemoglobin 12.2 g/dL (12.0-15.5) Hematocrit 36.3 % (36.0-47.0) Mean Corpuscular Volume 94 fL (79-100) Mean Corpuscular Hemoglobin 32 pg (25-35) Mean Corpuscular Hemoglobin Concent 34 g/dL (31-37) Red Cell Distribution Width 13.1 % (11.5-14.5) Platelet Count 232 x10^3/uL (140-400) Neutrophils (%) (Auto) 61 % (31-73) Lymphocytes (%) (Auto) 27 % (24-48) Monocytes (%) (Auto) 7 % (0-9) Eosinophils (%) (Auto) 4 % (0-3) Basophils (%) (Auto) 1 % (0-3) Neutrophils # (Auto) 6.9 x10^3uL (1.8-7.7) Lymphocytes # (Auto) 3.1 x10^3/uL (1.0-4.8) Monocytes # (Auto) 0.8 x10^3/uL (0.0-1.1) Eosinophils # (Auto) 0.5 x10^3/uL (0.0-0.7) Basophils # (Auto) 0.1 x10^3/uL (0.0-0.2) Sodium Level 139 mmol/L (136-145) Potassium Level 4.0 mmol/L (3.5-5.1) Chloride Level 105 mmol/L (98-107) Carbon Dioxide Level 29 mmol/L (21-32) Anion Gap 5 (6-14) Blood Urea Nitrogen 15 mg/dL (7-20) Creatinine 1.3 mg/dL (0.6-1.0) Estimated GFR (Cockcroft-Gault) 46.3 BUN/Creatinine Ratio 12 (6-20) Glucose Level 88 mg/dL (70-99) Calcium Level 8.4 mg/dL (8.5-10.1) Total Bilirubin 0.3 mg/dL (0.2-1.0) Aspartate Amino Transf (AST/SGOT) 18 U/L (15-37) Alanine Aminotransferase (ALT/SGPT) 23 U/L (14-59) Alkaline Phosphatase 61 U/L (46-116) Total Protein 6.2 g/dL (6.4-8.2) Albumin 2.6 g/dL (3.4-5.0) Albumin/Globulin Ratio 0.7 (1.0-1.7) Laboratory Tests Test 05/18/18 15:52 05/19/18 03:40 Glucose (Fingerstick) 82 mg/dL (70-99) White Blood Count 11.3 x10^3/uL (4.0-11.0) Red Blood Count 3.85 x10^6/uL (3.50-5.40) Hemoglobin 12.2 g/dL (12.0-15.5) Hematocrit 36.3 % (36.0-47.0) Mean Corpuscular Volume 94 fL (79-100) Mean Corpuscular Hemoglobin 32 pg (25-35) Mean Corpuscular Hemoglobin Concent 34 g/dL (31-37) Red Cell Distribution Width 13.1 % (11.5-14.5) Platelet Count 232 x10^3/uL (140-400) Neutrophils (%) (Auto) 61 % (31-73) Lymphocytes (%) (Auto) 27 % (24-48) Monocytes (%) (Auto) 7 % (0-9) Eosinophils (%) (Auto) 4 % (0-3) Basophils (%) (Auto) 1 % (0-3) Neutrophils # (Auto) 6.9 x10^3uL (1.8-7.7) Lymphocytes # (Auto) 3.1 x10^3/uL (1.0-4.8) Monocytes # (Auto) 0.8 x10^3/uL (0.0-1.1) Eosinophils # (Auto) 0.5 x10^3/uL (0.0-0.7) Basophils # (Auto) 0.1 x10^3/uL (0.0-0.2) Sodium Level 139 mmol/L (136-145) Potassium Level 4.0 mmol/L (3.5-5.1) Chloride Level 105 mmol/L (98-107) Carbon Dioxide Level 29 mmol/L (21-32) Anion Gap 5 (6-14) Blood Urea Nitrogen 15 mg/dL (7-20) Creatinine 1.3 mg/dL (0.6-1.0) Estimated GFR (Cockcroft-Gault) 46.3 BUN/Creatinine Ratio 12 (6-20) Glucose Level 88 mg/dL (70-99) Calcium Level 8.4 mg/dL (8.5-10.1) Total Bilirubin 0.3 mg/dL (0.2-1.0) Aspartate Amino Transf (AST/SGOT) 18 U/L (15-37) Alanine Aminotransferase (ALT/SGPT) 23 U/L (14-59) Alkaline Phosphatase 61 U/L (46-116) Total Protein 6.2 g/dL (6.4-8.2) Albumin 2.6 g/dL (3.4-5.0) Albumin/Globulin Ratio 0.7 (1.0-1.7) Medications Current Medications Ketorolac Tromethamine (Toradol 30mg Vial) 30 mg STK-MED ONCE .ROUTE ; Start at 10:53; Stop 05/17/18 at 10:54; Status DC Sodium Chloride 1,000 ml @ 1,000 mls/hr 1X ONCE IV Last administered on at 14:29; Start 05/17/18 at 14:15; Stop 05/17/18 at 15:14; Status DC Ondansetron HCl (Zofran) 4 mg PRN Q8HRS PRN IV NAUSEA/VOMITING Last administered on 05/17/18at 15:48; Start 05/17/18 at 14:30; Stop 05/18/18 at 14:29 ; Status DC Morphine Sulfate (Morphine Sulfate) 2 mg PRN Q2HR PRN IV PAIN Last administered on 05/17/18at 15:53; Start 05/17/18 at 14:30; Stop 05/18/18 at 14:29 ; Status DC Sodium Chloride 1,000 ml @ 250 mls/hr Q4H IV Last administered on 05/18/18at 10 :49; Start 05/17/18 at 15:00; Stop 05/18/18 at 14:59; Status DC Non-Formulary Medication (Albuterol Sulfate (Proair Hfa Inhaler)) 1 puff PRN Q6HRS PRN INH SHORTNESS OF BREATH; Start 05/17/18 at 18:30; Status UNV Non-Formulary Medication (Albuterol Sulfate (Proair Respiclick)) 1 puff PRN Q6HRS PRN IH SHORTNESS OF BREATH; Start 05/17/18 at 18:30; Status UNV Pantoprazole Sodium (Protonix) 40 mg DAILYAC PO Last administered on 05/18/18at 07:30; Start 05/18/18 at 07:30 Levothyroxine Sodium (Synthroid) 125 mcg DAILY07 PO Last administered on at 06:09; Start 05/18/18 at 07:00; Stop 05/18/18 at 10:54; Status DC Non-Formulary Medication (Norgestimate-Ethinyl Estradiol (Previfem)) 1 each DAILY PO ; Start 05/18/18 at 09:00; Status UNV Albuterol Sulfate (Ventolin Neb Soln) 2.5 mg PRN Q6HRS PRN NEB SHORTNESS OF BREATH; Start 05/17/18 at 18:45 Dextrose (Dextrose 50%-Water Syringe) 12.5 gm PRN Q15MIN PRN IV SEE COMMENTS; Start 05/18/18 at 11:00 Lidocaine (Lidoderm) 1 patch DAILY TD Last administered on 05/18/18at 11:23; Start 05/18/18 at 11:00 Miscellaneous (Lidoderm Patch Removal) 1 ea QHS MC Last administered on at 21:00; Start 05/18/18 at 21:00 Oxycodone HCl (Roxicodone) 5 mg PRN Q6HRS PRN PO MODERATE TO SEVERE PAIN Last administered on 05/18/18at 18:36; Start 05/18/18 at 11:00 Oxycodone HCl (Roxicodone) 5 mg 1X ONCE PO Last administered on 05/18/18at 11: 22; Start 05/18/18 at 11:00; Stop 05/18/18 at 11:01; Status DC Levothyroxine Sodium (Synthroid) 112 mcg DAILY06 PO Last administered on at 06:09; Start 05/19/18 at 06:00 Citalopram Hydrobromide (CeleXA) 40 mg QHS PO Last administered on 05/18/18at 21 :06; Start 05/18/18 at 21:00 Topiramate (Topamax) 25 mg BID PO Last administered on 05/18/18at 21:06; Start 05/18/18 at 11:00 Regadenoson (Lexiscan) 0.4 mg 1X ONCE IV Last administered on 05/19/18at 08:48 ; Start 05/19/18 at 08:00; Stop 05/19/18 at 08:01; Status DC Acetaminophen (Tylenol) 650 mg PRN Q6HRS PRN PO MILD PAIN Last administered on 05/19/18at 09:46; Start 05/19/18 at 09:30 Tramadol HCl (Ultram) 50 mg PRN Q6HRS PRN PO MILD TO MODERATE PAIN; Start 05/19 at 09:30 Active Scripts Active Proair Respiclick (Albuterol Sulfate) 90 Mcg Aer.pow.ba 1 Puff IH PRN Q6HRS PRN Proair Hfa Inhaler (Albuterol Sulfate) 8.5 Gm Hfa.aer.ad 1 Puff INH PRN Q6HRS PRN Reported Levothyroxine Sodium 112 Mcg Tablet 1 Tab PO DAILY Celexa (Citalopram Hydrobromide) 40 Mg Tablet 1 Tab PO HS Topiramate 25 Mg Tablet 1 Tab PO BID Vitals/I & O Vital Sign - Last 24 Hours 05/18/18 05/18/18 05/18/18 05/18/18 11:00 11:22 12:28 15:00 Temp 97.5 97.5 97.5 97.5 Pulse 74 69 Resp 20 17 B/P (MAP) 153/96 (115) 120/85 (97) Pulse Ox 98 98 98 97 O2 Delivery Room Air Room Air Room Air Room Air 05/18/18 05/18/18 05/18/18 05/18/18 18:36 19:00 20:00 23:00 Temp 97.5 96.3 97.5 96.3 Pulse 64 76 Resp 17 17 B/P (MAP) 121/81 (94) 121/88 (99) Pulse Ox 97 98 96 O2 Delivery Room Air Room Air Room Air Room Air 05/19/18 05/19/18 03:00 07:00 Temp 96.4 97.7 96.4 97.7 Pulse 74 67 Resp 17 18 B/P (MAP) 114/83 (93) 109/68 (82) Pulse Ox 97 97 O2 Delivery Room Air Room Air Intake and Output 05/18/18 05/18/18 05/19/18 15:00 23:00 07:00 Intake Total 1600 ml 1620 ml Balance 1600 ml 1620 ml FAUSTINO DIETZ MD May 19, 2018 10:09
[2018-05-19 11:00] VITALS: BP 137/99
--- NOTE | 2018-05-19 11:20 | RAD ---
MR#: [id number] Date of Study: 05/19/2018 Ordering Physician: HERMELINDA BANDA, Referring Physician: LUZMARIA RUFFIN Tech: ARMANI Suarez, ARRT (R) (N) APPROVED REPORT Test Type: Pharmacological Stress Nurse/Tech: Suyapa Nowak RN Test Indications: chest pain Cardiac History: No known cardiac Medications: See Electronic Medical Record Medical History: See Electronic Medical Record Resting ECG: SR with possible BBB Resting Heart Rate: 68 bpm Resting Blood Pressure: 121/77mmHg Pretest Chest Pain: None Nurse/Tech Notes S1,S2 and lungs are clear to auscultation. Patient stated she had a sharp pain in her left chest this morning prior to coming down for the test. Consent: The procedure was explained to the patient in lay terms. Informed consent was witnessed. Demarco eout was entered into [facility]. History and Stress Test performed by RT Milagros (R) (N) Pharm. Details Pharmacologic stress testing was performed using 0.4mg per 5ml of regadenoson given intravenously ove r 7-10 seconds. Stress Symptoms Nausea and patient stated she felt "funny". POST EXERCISE Reason for Termination: Infusion complete Target HR: No Max HR: 137 bpm Max Blood Pressure: 148/88mmHg Blood Pressure response to exercise: Normal blood pressure response during stress. Heart Rate response to exercise: WNL Chest Pain: No. Arrhythmia: No. ST Change: No. INTERPRETATION Stress EKG Conclusion: No evidence of stress induced EKG changes. Imaging Protocol IMAGE PROTOCOL: Rest Tc-99m/stress Tc-99m 2 days Rest: Stress: Viability: Radiopharm.Tc99m [id number] Sestamibi Dose34.2mCi 34.6mCi Img Date 05/18/2018 05/19/2018 Inj-Img [id number]. 60min. Rest Admin Site:IV - Right HandAdministrator:RT Alexey LinaresR)(N) Stress Admin Site: IV - Right HandAdministrator: RT Milagros (Gracy)(N) STRESS DATA End Diast. Vol.89.0mlAv. Heart Rate81.0bpm End Syst. Vol.22.0mlCO Index BSA0.0L/min Myocardial Yafy251.0gEject. Mkwterpg60.0% Stress Rates Pk. Fill Rate4.14EDV/secLVtime Pk. Fill 210.96msec Pk. Empty Rate4.85ESV/secLVtime Pk. Dmzsp731.57msec 1/3 Pk. Fill1.10EDV/sec Stress Scores Regional WT0.00Summed WT0.00 Regional WM0.00Summed WM0.00 The rest and stress images show normal perfusion, normal contraction and thickening. LV Perf. Quant 17 Seg. SSS0.00 17 Seg. SRS2.00 17 Seg. SDS0.00 Stress Defect Extent (% LAD)0.00Rest Defect Extent (% LAD)0.00Rev. Defect Extent (% LAD)0.00 Stress Defect Extent (% LCX) 0.00Rest Defect Extent (% LCX)17.50Rev. Defect Extent (% LCX)0.00 Stress Defect Extent (% RCA)0.00Rest Defect Extent (% RCA)0.00Rev. Defect Extent (% RCA)0.00 Stress Defect Extent (% SMITH)0.00Rest Defect Extent (% SMITH)4.10Rev. Defect Extent (% SMITH)0.00 Other Information Quality:Good Risk Assessment: Low Risk Conclusion 1. No evidence of EKG changes with stress testing. 2. Normal perfusion at stress/rest. 3. Low risk study. 4. EF > 60%. Signed by : Donaldo Marquez, Electronically Approved : 05/19/2018 11:19:36
[2018-05-19] MEDS ORDERED: TRAM50TA PO (11:52)
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
--- NOTE | 2018-05-19 12:44 | PDOC ---
SUBJECTIVE ROS No complaints today OBJECTIVE Vital Signs Vital Signs Date Time Temp Pulse Resp B/P (MAP) Pulse Ox O2 Delivery O2 Flow Rate FiO2 05/19/18 11:00 97.9 85 19 137/99 (112) 99 Room Air 97.9 I & 0 Intake and Output 05/19/18 07:00 Intake Total 3220 ml Balance 3220 ml Intake Oral 2220 ml IV Total 1000 ml # Voids 4 PHYSICAL EXAM Physical Exam Gen- no acute distress HENT: oropharynx moist, Neck: supple, Cardiovascular:RRR Lungs: CTA Abdomen:NT, soft Skin: No rash Extremities:No edema Neurologic: Alert and oriented X 3, - No Pan, No CVA or SP tenderness DIAGNOSIS/ASSESSMENT Assessment & Plan [place]- likely prerenal and use of NSAID's Electrolytes and Acid base stable Improving , avoid NSAID's Chest pain - cardiology following Morbid obesity Follow with PCP and in nephrology office (next available ) Problems: COMMENT/RELEVANT DATA Meds Current Medications Medications (Trade) Dose Ordered Sig/Shirley Start Time Stop Time Status Last Admin Dose Admin Acetaminophen (Tylenol) 650 mg PRN Q6HRS PRN 05/19/18 09:30 05/19/18 09:46 650 MG Albuterol Sulfate (Ventolin Neb Soln) 2.5 mg PRN Q6HRS PRN 05/17/18 18:45 Citalopram Hydrobromide (CeleXA) 40 mg QHS 05/18/18 21:00 05/18/18 21:06 40 MG Dextrose (Dextrose 50%-Water Syringe) 12.5 gm PRN Q15MIN PRN 05/18/18 11:00 Ketorolac Tromethamine (Toradol 30mg Vial) 30 mg STK-MED ONCE 05/17/18 10:53 05/17/18 10:54 DC Levothyroxine Sodium (Synthroid) 112 mcg DAILY06 05/19/18 06:00 05/19/18 06:09 112 MCG Lidocaine (Lidoderm) 1 patch DAILY 05/18/18 11:00 05/18/18 11:23 1 PATCH Miscellaneous (Lidoderm Patch Removal) 1 ea QHS 05/18/18 21:00 05/18/18 21:00 1 EA Morphine Sulfate (Morphine Sulfate) 2 mg PRN Q2HR PRN 05/17/18 14:30 05/18/18 14:29 DC 05/17/18 15:53 2 MG Non-Formulary Medication (Albuterol Sulfate (Proair Hfa Inhaler)) 1 puff PRN Q6HRS PRN 05/17/18 18:30 UNV Non-Formulary Medication (Albuterol Sulfate (Proair Respiclick)) 1 puff PRN Q6HRS PRN 05/17/18 18:30 UNV Non-Formulary Medication (Norgestimate-Ethinyl Estradiol (Previfem)) 1 each DAILY 05/18/18 09:00 UNV Ondansetron HCl (Zofran) 4 mg PRN Q8HRS PRN 05/17/18 14:30 05/18/18 14:29 DC 05/17/18 15:48 4 MG Oxycodone HCl (Roxicodone) 5 mg 1X ONCE 05/18/18 11:00 05/18/18 11:01 DC 05/18/18 11:22 5 MG Pantoprazole Sodium (Protonix) 40 mg DAILYAC 05/18/18 07:30 05/18/18 07:30 40 MG Regadenoson (Lexiscan) 0.4 mg 1X ONCE 05/19/18 08:00 05/19/18 08:01 DC 05/19/18 08:48 0.4 MG Sodium Chloride 1,000 ml @ 250 mls/hr Q4H 05/17/18 15:00 05/18/18 14:59 DC 05/18/18 10:49 250 MLS/HR Topiramate (Topamax) 25 mg BID 05/18/18 11:00 05/18/18 21:06 25 MG Tramadol HCl (Ultram) 50 mg PRN Q6HRS PRN 05/19/18 09:30 Lab Laboratory Tests Test 05/18/18 15:52 05/19/18 03:40 Glucose (Fingerstick) 82 mg/dL (70-99) White Blood Count 11.3 x10^3/uL (4.0-11.0) Red Blood Count 3.85 x10^6/uL (3.50-5.40) Hemoglobin 12.2 g/dL (12.0-15.5) Hematocrit 36.3 % (36.0-47.0) Mean Corpuscular Volume 94 fL (79-100) Mean Corpuscular Hemoglobin 32 pg (25-35) Mean Corpuscular Hemoglobin Concent 34 g/dL (31-37) Red Cell Distribution Width 13.1 % (11.5-14.5) Platelet Count 232 x10^3/uL (140-400) Neutrophils (%) (Auto) 61 % (31-73) Lymphocytes (%) (Auto) 27 % (24-48) Monocytes (%) (Auto) 7 % (0-9) Eosinophils (%) (Auto) 4 % (0-3) Basophils (%) (Auto) 1 % (0-3) Neutrophils # (Auto) 6.9 x10^3uL (1.8-7.7) Lymphocytes # (Auto) 3.1 x10^3/uL (1.0-4.8) Monocytes # (Auto) 0.8 x10^3/uL (0.0-1.1) Eosinophils # (Auto) 0.5 x10^3/uL (0.0-0.7) Basophils # (Auto) 0.1 x10^3/uL (0.0-0.2) Sodium Level 139 mmol/L (136-145) Potassium Level 4.0 mmol/L (3.5-5.1) Chloride Level 105 mmol/L (98-107) Carbon Dioxide Level 29 mmol/L (21-32) Anion Gap 5 (6-14) Blood Urea Nitrogen 15 mg/dL (7-20) Creatinine 1.3 mg/dL (0.6-1.0) Estimated GFR (Cockcroft-Gault) 46.3 BUN/Creatinine Ratio 12 (6-20) Glucose Level 88 mg/dL (70-99) Calcium Level 8.4 mg/dL (8.5-10.1) Total Bilirubin 0.3 mg/dL (0.2-1.0) Aspartate Amino Transf (AST/SGOT) 18 U/L (15-37) Alanine Aminotransferase (ALT/SGPT) 23 U/L (14-59) Alkaline Phosphatase 61 U/L (46-116) Total Protein 6.2 g/dL (6.4-8.2) Albumin 2.6 g/dL (3.4-5.0) Albumin/Globulin Ratio 0.7 (1.0-1.7) Results All relevant outside records, renal labs, imaging studies, telemetry/EKG's were reviewed. ROSELIA MENDEZ MD May 19, 2018 12:43
[2018-05-20 05:18] LABS: HEMOGLOBIN A1C 5.1 % (4.8-5.6)
== END 2018-05-19 14:14 | disposition home or self-care (01) | DRG 391 ==
LOC: ER 10:06 → 5 NORTH 14:30
PROVIDERS: ADMIT Family Medicine; ATTEND Family Medicine
DX: K21.9 Gastro-esophageal reflux disease without esophagitis (principal); N17.0 Acute kidney failure with tubular necrosis; R07.9 Chest pain, unspecified; E66.01 Morbid (severe) obesity due to excess calories; E78.5 Hyperlipidemia, unspecified; E89.0 Postprocedural hypothyroidism; F17.210 Nicotine dependence, cigarettes, uncomplicated; F31.9 Bipolar disorder, unspecified; G89.29 Other chronic pain; M54.5 Low back pain; T39.395A Adverse effect of other nonsteroidal anti-inflammatory drugs [NSAID], initial encounter; F15.10 Other stimulant abuse, uncomplicated; G89.18 Other acute postprocedural pain; Z82.49 Family history of ischemic heart disease and other diseases of the circulatory system; Z90.710 Acquired absence of both cervix and uterus; Z90.49 Acquired absence of other specified parts of digestive tract; Z98.51 Tubal ligation status; Z90.89 Acquired absence of other organs; Y92.89 Other specified places as the place of occurrence of the external cause; Z79.899 Other long term (current) drug therapy; Z68.36 Body mass index [BMI] 36.0-36.9, adult
CPT/HCPCS: 36415; 71045; 78452; 80048; 80053; 80069; 80076; 82962; 83036; 84484; 85025; 85379; 93005; 93017; 93306; 96361; 96374; 96375; 96376; A9500; J2270; J2405; J2785; J7030; 99285-25

== ENCOUNTER 2018-05-23 11:01 | Emergency (ER) | payer MEDICARE, OTHER ==
[~2018-05-23] VITALS: Ht 177.8 cm; Wt 120.2 kg
[~2018-05-23 11:01] MED LIST changes: +CITA40TA12 PO; +LEVO112T4 PO; +TOPI25TA7 PO; +TRAM50TA PO
--- NOTE | 2018-05-23 11:33 | PHYS DOC ---
Past Medical History Past Medical History: Bipolar, Depression, GERD, Hypothyroid, Other Additional Past Medical Histor: OVARIAN CYST,MOOD SWINGS Past Surgical History: Cholecystectomy, Hysterectomy, Tonsillectomy, Tubal ligation Additional Past Surgical Histo: THYROIDECTOMY "with a pill" Alcohol Use: None Drug Use: None Adult General Chief Complaint Chief Complaint: CHEST PAIN [facility] HPI Patient is a 37 old female who presents to the emergency department for evaluation of left anterior chest discomfort. She states that the chest pain has been present for a week, and has not changed or resolved. She was admitted to the hospital on 05/17, spent several days in the hospital undergoing evaluation for her chest pain. She had a negative stress test, as well as a negative d-dimer. She did have a hysterectomy done at the beginning of this month. She does not take any oral contraceptive pills. She states the pain sometimes is worsened with deep breathing but not persistently. She has not had any shortness of breath. Her main reason for coming to the emergency department today that her pain just didn't go away. The pain did not resolve and then return, she has been having ongoing pain since she was admitted to the hospital. Palpation of the affected area does seem to worsen her pain. There are no alleviating factors to her symptoms. The patient was also found to have acute renal insufficiency, with an elevated creatinine upon her recent hospital admission, thought to be due to the postoperative use of NSAIDs. She has not had any nausea or vomiting. She denies any abdominal pain. She has not had any fevers or chills. Other than as stated above, there are no alleviating or exacerbating factors to her symptoms. Review of Systems Review of Systems Constitutional: Denies fever or chills [] Eyes: Denies change in visual acuity, redness, or eye pain [] HENT: Denies nasal congestion or sore throat [] Respiratory: Denies cough or shortness of breath [] Cardiovascular: No additional information not addressed in HPI [] GI: Denies abdominal pain, nausea, vomiting, bloody stools or diarrhea [] : Denies dysuria or hematuria [] Musculoskeletal: Denies back pain or joint pain [] Integument: Denies rash or skin lesions [] Neurologic: Denies headache, focal weakness or sensory changes [] Endocrine: Denies polyuria or polydipsia [] All other systems were reviewed and found to be within normal limits, except as documented in this note. Allergies Allergies Allergies Coded Allergies Type Severity Reaction Last Updated Verified No Known Drug Allergies 03/19/17 No Physical Exam Physical Exam PHYSICAL EXAM: CONSTITUTIONAL: Well developed, well nourished HEAD: normocephalic, atraumatic EENT: PERRL, EOMI. Conjunctivae normal color, sclerae non-icteric; moist mucous membranes. NECK: Supple, non-tender; no meningismus. LUNGS: Lungs CTA, breathing even and unlabored. Normal air movement. HEART: Regular rate and rhythm, no murmur CHEST: No deformity; palpation of the left upper anterior chest wall reproduces the patient's pain. ABDOMEN: The abdomen is soft, and non-tender, no masses or bruits. EXTREM: Normal ROM; no deformity, no calf tenderness. Normal pulses palpable in all extremities. There is no pedal edema. SKIN: No rash; no diaphoresis NEURO: Alert; normal speech and cognition; CN's grossly intact; strength grossly intact without focal deficit. BACK: No CVA TTP. Current Patient Data Vital Signs Vital Signs Date Time Temp Pulse Resp B/P (MAP) Pulse Ox O2 Delivery O2 Flow Rate FiO2 05/23/18 11:05 98.7 77 16 145/70 (95) 96 Room Air 98.7 Lab Values Laboratory Tests Test 05/23/18 11:18 White Blood Count 9.4 x10^3/uL (4.0-11.0) Red Blood Count 4.39 x10^6/uL (3.50-5.40) Hemoglobin 13.8 g/dL (12.0-15.5) Hematocrit 40.6 % (36.0-47.0) Mean Corpuscular Volume 93 fL (79-100) Mean Corpuscular Hemoglobin 32 pg (25-35) Mean Corpuscular Hemoglobin Concent 34 g/dL (31-37) Red Cell Distribution Width 13.1 % (11.5-14.5) Platelet Count 283 x10^3/uL (140-400) Neutrophils (%) (Auto) 66 % (31-73) Lymphocytes (%) (Auto) 23 % (24-48) L Monocytes (%) (Auto) 7 % (0-9) Eosinophils (%) (Auto) 3 % (0-3) Basophils (%) (Auto) 1 % (0-3) Neutrophils # (Auto) 6.2 x10^3uL (1.8-7.7) Lymphocytes # (Auto) 2.2 x10^3/uL (1.0-4.8) Monocytes # (Auto) 0.6 x10^3/uL (0.0-1.1) Eosinophils # (Auto) 0.3 x10^3/uL (0.0-0.7) Basophils # (Auto) 0.1 x10^3/uL (0.0-0.2) Sodium Level 136 mmol/L (136-145) Potassium Level 3.9 mmol/L (3.5-5.1) Chloride Level 104 mmol/L (98-107) Carbon Dioxide Level 24 mmol/L (21-32) Anion Gap 8 (6-14) Blood Urea Nitrogen 13 mg/dL (7-20) Creatinine 1.1 mg/dL (0.6-1.0) H Estimated GFR (Cockcroft-Gault) 56.2 Glucose Level 96 mg/dL (70-99) Calcium Level 8.6 mg/dL (8.5-10.1) Creatine Kinase 40 U/L (26-192) Creatine Kinase MB (Mass) < 0.5 ng/mL (0.0-3.6) Creatine Kinase MB Relative Index % (0-4) Troponin I Quantitative < 0.017 ng/mL (0.000-0.055) Laboratory Tests 05/23/18 11:18 Laboratory Tests 05/23/18 11:18 EKG EKG [Normal sinus rhythm at a rate of 76 bpm, normal axis, normal intervals, nonspecific ST/T changes, with Q waves present in lead III only. There are no acute ischemic ST/T changes on the patient's EKG is unchanged from her EKG from last week.] Radiology/Procedures Radiology/Procedures [PROCEDURE: CHEST PA & LATERAL CHEST PA LATERAL dated 05/23/2018 11:26 AM. Comparison: 05/17/2018 Clinical Indication: Chest pain for a few days. Findings: PA and lateral views were obtained. Heart and mediastinal contours are stable. Lungs are clear without focal consolidation. Vascular interstitium within normal limits. No pleural effusion or pneumothorax. Impression: No acute radiographic abnormality.] Course & Med Decision Making Course & Med Decision Making Pertinent Labs and Imaging studies reviewed. (See chart for details) [12:40 PM:Patient remains stable. I discussed test results, the need for close follow-up, and return precautions. The patient's symptoms are suggestive of musculoskeletal chest pain, not cardiac chest pain, especially given her negative workup. I recommended her using Tylenol, heat, and I will prescribe her some Lidoderm.] Dragon Disclaimer Dragon Disclaimer This electronic medical record was generated, in whole or in part, using a voice recognition dictation system. Departure Departure Impression: Primary Impression: Musculoskeletal chest pain Disposition: HOME, SELF-CARE Condition: STABLE Referrals: ALEX FUNEZ MD (PCP) Patient Instructions: Chest Wall Pain, Costochondritis Scripts Lidocaine (Lidocaine) 1 Each Adh..patch 1 EACH TP DAILY, #15 PATCH Prov: ELISE BENZ MD 05/23/18 ELISE BENZ MD May 23, 2018 11:33
[2018-05-23 11:38] LABS: BASO # 0.1 x10^3/uL (0.0-0.2); BASO % 1 % (0-3); EOS # 0.3 x10^3/uL (0.0-0.7); EOS % 3 % (0-3); HEMATOCRIT 40.6 % (36.0-47.0); HEMOGLOBIN 13.8 g/dL (12.0-15.5); LYMPH # 2.2 x10^3/uL (1.0-4.8); LYMPH % 23 % (24-48); MEAN CORPUSCULAR HEMOGLOBIN 32 pg (25-35); MEAN CORPUSCULAR HGB CONC 34 g/dL (31-37); MEAN CORPUSCULAR VOLUME 93 fL (79-100); MONO # 0.6 x10^3/uL (0.0-1.1); MONO % 7 % (0-9); NEUT # 6.2 x10^3uL (1.8-7.7); NEUT % 66 % (31-73); PLATELET COUNT 283 x10^3/uL (140-400); RED BLOOD COUNT 4.39 x10^6/uL (3.50-5.40); RED CELL DISTRIBUTION WIDTH 13.1 % (11.5-14.5); WHITE BLOOD COUNT 9.4 x10^3/uL (4.0-11.0)
[2018-05-23 11:46] LABS: CALCIUM 8.6 mg/dL (8.5-10.1); CREATININE 1.1 mg/dL (0.6-1.0); GFR 56.2; POTASSIUM 3.9 mmol/L (3.5-5.1)
--- NOTE | 2018-05-23 11:47 | EKG ---
[facility] [address] [place] [address] Test Date: 2018-05-23 Test Time: 11:08:43 Pat Name: ESTELITA BULL Department: Room: Gender: F Tearer: : 1980 Requested By: ELISE BENZ Order Number: [id number] Reading MD: Donaldo Marquez MD Measurements Intervals [place] Rate: 76 P: 0 GA: 128 QRS: 28 QRSD: 90 T: 62 QT: 386 QTc: 438 Interpretive Statements SINUS RHYTHM Electronically Signed On 05-24-2018 11:24:28 CDT by Donaldo Marquez MD
[2018-05-23 12:01] LABS: CREATINE KINASE 40 U/L (26-192)
--- NOTE | 2018-05-23 12:14 | RAD ---
CHEST PA LATERAL dated 05/23/2018 11:26 AM. Comparison: 05/17/2018 Clinical Indication: Chest pain for a few days. Findings: PA and lateral views were obtained. Heart and mediastinal contours are stable. Lungs are clear without focal consolidation. Vascular interstitium within normal limits. No pleural effusion or pneumothorax. Impression: No acute radiographic abnormality. Electronically signed by: Brandon Robledo MD (05/23/2018 12:12 PM) [id number]
[2018-05-23] MEDS ORDERED: LIDO700A39 TP (12:39)
[2018-05-23 13:03] VITALS: BP 123/88
== END 2018-05-23 13:08 | disposition home or self-care (01) ==
LOC: ER 11:01
DX: R07.89 Other chest pain (principal); E03.9 Hypothyroidism, unspecified; K21.9 Gastro-esophageal reflux disease without esophagitis; F31.9 Bipolar disorder, unspecified
CPT/HCPCS: 36415; 71046; 80048; 82553; 84484; 85025; 93005; 99285-25

== ENCOUNTER 2018-05-28 15:59 | Emergency (ER) | payer MEDICARE, OTHER ==
[~2018-05-28] VITALS: Ht 177.8 cm; Wt 120.2 kg
[~2018-05-28 15:59] MED LIST changes: +LIDO700A39 TP
[2018-05-28 16:20] VITALS: BP 125/73
[2018-05-28 16:52] LABS: BILIRUBIN,URINE NEGATIVE (NEG); CLARITY,URINE CLEAR; COLOR,URINE ORANGE; NITRITE,URINE POSITIVE (NEG); PROTEIN,URINE NEGATIVE (NEG-TRACE)
--- NOTE | 2018-05-28 16:53 | PHYS DOC ---
Past Medical History Past Medical History: Bipolar, Depression, GERD, Hypothyroid, Other Additional Past Medical Histor: OVARIAN CYST,MOOD SWINGS Past Surgical History: Cholecystectomy, Hysterectomy, Tonsillectomy, Tubal ligation Additional Past Surgical Histo: THYROIDECTOMY "with a pill" Alcohol Use: None Drug Use: None Adult General Chief Complaint Chief Complaint: MULTIPLE COMPLAINTS [facility] Patient is a 37 year old female who presents with ongoing MSK chest pain complaints and some mild lower abdominal pain. The patient underwent a vaginal and lumbar scopic hysterectomy on May 05. Following that, she had an admission to this hospital when she was worked up entirely for chest pain. Her workup included a negative d-dimer. She also had a stress test which was normal. The patient was ultimately discharged from the hospital. She subsequently had another ER visit for chest pain. At that time, she was prescribed Lidoderm patch but the patient's insurance did not cover this medication and she was unable to pay for it. She continues to complain of left- sided chest wall pain. The pain is worse when she takes a deep breath and when she moves. She does not have dyspnea or palpitations. She has had no fever or cough. Today, she also complains of some mild lower abdominal pain. She is having normal bowel movements. She denies urinary symptoms. She is not having vaginal bleeding. She does have scheduled follow-up with her OB doctor but not until 9 days from now. Review of Systems Review of Systems Constitutional: Denies fever Eyes: Denies change in visual acuity, redness, or eye pain HENT: Denies nasal congestion Respiratory: Denies cough or shortness of breath Cardiovascular: No additional information not addressed in HPI GI: Denies nausea, vomiting, constipation, diarrhea : Denies dysuria Musculoskeletal: Denies back pain Integument: Denies rash Neurologic: Denies headache Endocrine: Denies polyuria All other systems were reviewed and found to be within normal limits, except as documented in this note. Allergies Allergies Allergies Coded Allergies Type Severity Reaction Last Updated Verified No Known Drug Allergies 03/19/17 No Physical Exam Physical Exam Constitutional: Well developed, well nourished, no acute distress HENT: Normocephalic, atraumatic, bilateral external ears normal, oropharynx moist Eyes: PERRLA, EOMI Neck: Normal range of motion, no tenderness, supple, no stridor Cardiovascular:Heart rate regular rhythm, no murmur Lungs & Thorax: Bilateral breath sounds clear to auscultation Abdomen: Bowel sounds normal, soft, mild subjective TTP over right LQ. no guarding or rebound. Skin: Warm, dry, no erythema, no rash Back: No tenderness Extremities: No tenderness, no edema Neurologic: Alert and oriented X 3 Psychologic: Affect normal Current Patient Data Vital Signs Vital Signs Date Time Temp Pulse Resp B/P (MAP) Pulse Ox O2 Delivery O2 Flow Rate FiO2 05/28/18 16:20 98.1 86 20 125/73 (90) 97 Room Air 98.1 Lab Values Laboratory Tests Test 05/28/18 16:40 Urine Collection Type Unknown Urine Color [place] Urine Clarity Clear Urine pH 7.0 Urine Specific [place] 1.020 Urine Protein Negative mg/dL (NEG-TRACE) Urine Glucose (UA) Negative mg/dL (NEG) Urine Ketones (Stick) Negative mg/dL (NEG) Urine Blood Moderate (NEG) Urine Nitrite Positive (NEG) Urine Bilirubin Negative (NEG) Urine Urobilinogen Dipstick 1.0 mg/dL (0.2 mg/dL) Urine Leukocyte Esterase Moderate (NEG) Urine RBC 11-20 /HPF (0-2) Urine WBC 20-40 /HPF (0-4) Urine Squamous Epithelial Cells Mod /LPF Urine Bacteria Many /HPF (0-FEW) Urine Mucus Mod /LPF EKG EKG [] Radiology/Procedures Radiology/Procedures [] Course & Med Decision Making Course & Med Decision Making Pertinent Labs and Imaging studies reviewed. (See chart for details) Patient presents for ongoing skilled skeletal type chest pain. She also has some vague diffuse abdominal pain. On her physical exam, however, her abdomen seems nontender or at least appropriately tender given that she is 3 weeks postop. Her exam is not peritoneal. She is very well appearing and nontoxic. She has moist mucous membranes and brisk capillary refill. Her vital signs are normal. Plan is to check urinalysis and treat her chest pain. 17:20: All results are reviewed. The patient has significant pyuria although it is a contaminated sample. She does give some history now of urinary frequency. Plan is to discharge the patient home. She is placed on Macrobid for treatment of UTI. She is given some pain medications to use at home as well for her musculoskeletal chest pain. Patient is agreeable to this plan of care. She will keep her already scheduled follow-up appointment next week with her drum tender. She is accompanied by her fianc today who is driving her home. Dragon Disclaimer Dragon Disclaimer This electronic medical record was generated, in whole or in part, using a voice recognition dictation system. Departure Departure Referrals: ALEX FUNEZ MD (PCP) Scripts Nitrofurantoin Monohyd/M-Cryst (MACROBID 100 MG CAPSULE) 100 Mg Capsule 1 CAP PO BID, #10 CAP Prov: MARYCARMEN BARRERA DO 05/28/18 Hydrocodone/Apap 5-325 (NORCO 5-325 TABLET) 1 Each Tablet 1-2 EACH PO PRN Q6HRS PRN for severe pain, #15 as needed for pain Prov: MARYCARMEN BARRERA DO 05/28/18 Ibuprofen (IBUPROFEN) 800 Mg Tablet 800 MG PO PRN TID PRN for PAIN, #21 TAB take with food or milk to avoid upsetting stomach Prov: MARYCARMEN BARRERA DO 05/28/18 MARYCARMEN BARRERA DO May 28, 2018 16:53
[2018-05-28 16:58] LABS: BACTERIA,URINE MANY /HPF (0-FEW); SQUAMOUS EPITHELIAL CELL,UR MOD /LPF
[2018-05-28 16:59] LABS: WBC,URINE 20-40 /HPF (0-4)
[2018-05-28] MEDS ORDERED: IBUP-1060 PO (17:15)
[2018-05-28] MEDS ORDERED: NITR100C62 PO (17:15)
[2018-05-28] MEDS ORDERED: HYDR-971 PO (17:15)
[2018-05-28] MEDS ORDERED: HYDROcodone/APAP 5/325MG 1 TAB TABLET PO ONE (17:30)
[2018-05-28] MEDS ORDERED: NITROFURANTOIN MONOHYD/M-CRYST 100 MG CAPSULE. PO ONE (17:30)
[2018-05-28] MEDS ORDERED: IBUPROFEN 800 MG TABLET. PO ONE (17:30)
== END 2018-05-28 17:45 | disposition home or self-care (01) ==
LOC: ER 15:59
DX: R10.31 Right lower quadrant pain (principal); R07.89 Other chest pain; K21.9 Gastro-esophageal reflux disease without esophagitis; E03.9 Hypothyroidism, unspecified; Z90.710 Acquired absence of both cervix and uterus; Z90.49 Acquired absence of other specified parts of digestive tract; Z90.89 Acquired absence of other organs
CPT/HCPCS: 81001; 99284

== ENCOUNTER 2018-06-08 14:53 | Emergency (ER) | payer MEDICARE, OTHER ==
[~2018-06-08] VITALS: Ht 177.8 cm; Wt 120.2 kg
[~2018-06-08 14:53] MED LIST changes: +NITR100C62 PO
--- NOTE | 2018-06-08 15:27 | EKG ---
[facility] [address] [place] [address] Test Date: 2018-06-08 Test Time: 14:57:03 Pat Name: ESTELITA BULL Department: Room: Gender: F Biological Science Aide: : 1980 Requested By: EDWARD DUBOSE Order Number: [id number] Reading MD: Donaldo Marquez MD Measurements Intervals [place] Rate: 76 P: 0 AR: 128 QRS: 36 QRSD: 88 T: 39 QT: 362 QTc: 411 Interpretive Statements SINUS RHYTHM Electronically Signed On 06-09-2018 13:50:29 CDT by Donaldo Marquez MD
--- NOTE | 2018-06-08 15:29 | PHYS DOC ---
Past Medical History Past Medical History: Bipolar, Depression, GERD, Hypothyroid, Other Additional Past Medical Histor: OVARIAN CYST,MOOD SWINGS Past Surgical History: Cholecystectomy, Hysterectomy, Tonsillectomy, Tubal ligation Additional Past Surgical Histo: THYROIDECTOMY "with a pill" Alcohol Use: None Drug Use: None Adult General Chief Complaint Chief Complaint: CHEST PAIN HPI HPI Patient is a 38 year old female who presents with sharp left chest pain that at times radiates to her left arm and through her back since last night. Patient states that she has had shortness of breath that has been going on for months and states that it sometimes when she is talking or when she walks. Patient did have a hysterectomy on May 05 at [facility]. Patient has no extremity edema and denies any numbness or tingling. Review of Systems Review of Systems Constitutional: Denies fever or chills [] Eyes: Denies change in visual acuity, redness, or eye pain [] HENT: Denies nasal congestion or sore throat [] Respiratory: Denies cough or shortness of breath [] Cardiovascular: Chest pain that is sharp and radiates to her back. GI: Denies abdominal pain, nausea, vomiting, bloody stools or diarrhea [] : Urinary frequency and dribbling when goes to restroom x 2 days. Denies dysuria or hematuria [] Musculoskeletal: Denies back pain or joint pain [] Integument: Denies rash or skin lesions [] Neurologic: Denies headache, focal weakness or sensory changes [] Endocrine: Denies polyuria or polydipsia [] All other systems were reviewed and found to be within normal limits, except as documented in this note. Current Medications Current Medications Current Medications Medications (Trade) Dose Ordered Sig/Shirley Start Time Stop Time Status Last Admin Dose Admin Famotidine (Pepcid Vial) 20 mg 1X ONCE 06/08/18 15:45 06/08/18 15:46 DC 06/08/18 15:55 20 MG Fentanyl Citrate (Fentanyl 2ml Vial) 50 mcg 1X ONCE 06/08/18 15:45 06/08/18 15:46 DC 06/08/18 15:59 50 MCG Allergies Allergies Allergies Coded Allergies Type Severity Reaction Last Updated Verified No Known Drug Allergies 03/19/17 No Physical Exam Physical Exam Constitutional: Well developed, well nourished, no acute distress, non-toxic appearance. [] HENT: Normocephalic, atraumatic, bilateral external ears normal, oropharynx moist, no oral exudates, nose normal. [] Eyes: PERRLA, EOMI, conjunctiva normal, no discharge. [] Neck: Normal range of motion, no tenderness, supple, no stridor. [] Cardiovascular:Heart rate regular rhythm, no murmur [] Lungs & Thorax: Bilateral breath sounds clear to auscultation [] Abdomen: Bowel sounds normal, soft, no tenderness, no masses, no pulsatile masses. [] Skin: Warm, dry, no erythema, no rash. [] Back: No tenderness, no CVA tenderness. [] Extremities: No tenderness, no cyanosis, no clubbing, ROM intact, no edema. [] Neurologic: Alert and oriented X 3, normal motor function, normal sensory function, no focal deficits noted. [] Psychologic: Affect normal, judgement normal, mood normal. [] Current Patient Data Vital Signs Vital Signs Date Time Temp Pulse Resp B/P (MAP) Pulse Ox O2 Delivery O2 Flow Rate FiO2 06/08/18 15:59 16 97 Room Air 06/08/18 15:57 68 120/83 (95) 06/08/18 14:54 98.8 98.8 Lab Values Laboratory Tests Test 06/08/18 15:45 06/08/18 16:00 Urine Collection Type Unknown Urine Color Yellow Urine Clarity Cloudy Urine pH 7.5 Urine Specific [place] 1.015 Urine Protein Negative mg/dL (NEG-TRACE) Urine Glucose (UA) Negative mg/dL (NEG) Urine Ketones (Stick) Negative mg/dL (NEG) Urine Blood Moderate (NEG) Urine Nitrite Negative (NEG) Urine Bilirubin Negative (NEG) Urine Urobilinogen Dipstick 0.2 mg/dL (0.2 mg/dL) Urine Leukocyte Esterase Negative (NEG) Urine RBC 1-2 /HPF (0-2) Urine WBC 0 /HPF (0-4) Urine Squamous Epithelial Cells Few /LPF Urine Bacteria Few /HPF (0-FEW) Urine Opiates Screen Neg (NEG) Urine Methadone Screen Neg (NEG) Urine Barbiturates Neg (NEG) Urine Phencyclidine Screen Neg (NEG) Urine Amphetamine/Methamphetamine Neg (NEG) Urine Benzodiazepines Screen Neg (NEG) Urine Cocaine Screen Neg (NEG) Urine Cannabinoids Screen Neg (NEG) Urine Ethyl Alcohol Neg (NEG) White Blood Count 13.9 x10^3/uL (4.0-11.0) H Red Blood Count 4.56 x10^6/uL (3.50-5.40) Hemoglobin 14.6 g/dL (12.0-15.5) Hematocrit 42.0 % (36.0-47.0) Mean Corpuscular Volume 92 fL (79-100) Mean Corpuscular Hemoglobin 32 pg (25-35) Mean Corpuscular Hemoglobin Concent 35 g/dL (31-37) Red Cell Distribution Width 12.7 % (11.5-14.5) Platelet Count 268 x10^3/uL (140-400) Neutrophils (%) (Auto) 65 % (31-73) Lymphocytes (%) (Auto) 24 % (24-48) Monocytes (%) (Auto) 8 % (0-9) Eosinophils (%) (Auto) 2 % (0-3) Basophils (%) (Auto) 1 % (0-3) Neutrophils # (Auto) 9.1 x10^3uL (1.8-7.7) H Lymphocytes # (Auto) 3.4 x10^3/uL (1.0-4.8) Monocytes # (Auto) 1.1 x10^3/uL (0.0-1.1) Eosinophils # (Auto) 0.3 x10^3/uL (0.0-0.7) Basophils # (Auto) 0.2 x10^3/uL (0.0-0.2) D-Dimer (Nany) 0.37 ug/mlFEU (0.00-0.50) Sodium Level 133 mmol/L (136-145) L Potassium Level 3.8 mmol/L (3.5-5.1) Chloride Level 101 mmol/L (98-107) Carbon Dioxide Level 28 mmol/L (21-32) Anion Gap 4 (6-14) L Blood Urea Nitrogen 18 mg/dL (7-20) Creatinine 1.2 mg/dL (0.6-1.0) H Estimated GFR (Cockcroft-Gault) 50.6 BUN/Creatinine Ratio 15 (6-20) Glucose Level 89 mg/dL (70-99) Calcium Level 8.3 mg/dL (8.5-10.1) L Total Bilirubin 0.3 mg/dL (0.2-1.0) Aspartate Amino Transferase (AST) 19 U/L (15-37) Alanine Aminotransferase (ALT) 39 U/L (14-59) Alkaline Phosphatase 65 U/L (46-116) Troponin I Quantitative < 0.017 ng/mL (0.000-0.055) Total Protein 7.1 g/dL (6.4-8.2) Albumin 3.3 g/dL (3.4-5.0) L Albumin/Globulin Ratio 0.9 (1.0-1.7) L Laboratory Tests 06/08/18 16:00 Laboratory Tests 06/08/18 16:00 EKG EKG Sinus Rhythm, No STEMI Interpretation Time: [address] Gil Radiology/Procedures Radiology/Procedures Chest x ray Impressions: [facility] [address] [place] [address] IMAGING REPORT Signed PATIENT: ESTELITA BULL ACCOUNT: [id number] : 1980 LOCATION: ER AGE: 38 SEX: F EXAM STATUS: REG ER ORD. PHYSICIAN: EDWARD DUBOSE APRN REASON: chest pain PROCEDURE: CHEST PA & LATERAL PA and lateral chest radiograph. History: Chest pain radiating to left shoulder for one day. Comparison: May 23, 2018. Findings: Cardiomediastinal silhouette is within normal limits for size. Bilateral lung sparks appear clear without evidence of infiltrate, effusion, or pneumothorax. Impression: 1. No acute cardiopulmonary process. Electronically signed by: Brandon Ronquillo MD (06/08/2018 3:41 PM) [facility] DICTATED and SIGNED BY: BRANDON RONQUILLO MD DATE: 06/08/18 4642 Course & Med Decision Making Course & Med Decision Making Patient is a 38 year old female who presents with sharp left chest pain that at times radiates to her left arm and through her back since last night. Patient rates her pain 9 out of 10. Patient states that she has had shortness of breath that has been going on for months and states that it sometimes when she is talking or when she walks. Patient did have a hysterectomy on May 05 at [facility]. Patient has no extremity edema and denies any numbness or tingling. He shouldn' t also complains of urinary frequency but denies any kind of burning with urination and states that sometimes when she goes to the restroom is just miserable and has been there for 2 days. Patient denies any fever, nausea, vomiting, diarrhea. Upon examination patient's lungs are clear to auscultation. Patient speaks in full sentences. Patient is neurologically intact. Patient has no known drug allergies and states that she can't remember what her medications are cold but takes a thyroid medication, antidepressants. A mood swing medication and omeprazole. Patient states she has a history of GERD and was once told that her kidney level is were high. Patient has no CVA tenderness. Patient has no abdominal tenderness. Patient EKG is sinus rhythm without STEMI and was read by Dr. Pacheco. Patient states that the pain has no real rhyme or reason to when it comes. Patient skin is pink warm and dry. Patient denies any headache or weaknesses. Chest x-ray shows no acute findings. Blood work and urine is unremarkable and I have consulted with Dr Gil on this patient. Patient to be sent home and to follow up with her primary care. [] Dragon Disclaimer Dragon Disclaimer This electronic medical record was generated, in whole or in part, using a voice recognition dictation system. Departure Departure Impression: Primary Impression: Chest pain Disposition: 01 HOME, SELF-CARE Condition: STABLE Referrals: ALEX FUNEZ MD (PCP) Patient Instructions: Chest Pain (Nonspecific) Additional Instructions: Follow up with your primary care physician. Problem Qualifiers Primary Impression: Chest pain Chest pain type: unspecified Qualified Codes: R07.9 - Chest pain, unspecified EDWARD DUBOSE INSTRUMENT AND ELECTRICAL TECHNICIAN Jun 08, 2018 15:29
--- NOTE | 2018-06-08 15:44 | RAD ---
PA and lateral chest radiograph. History: Chest pain radiating to left shoulder for one day. Comparison: May 23, 2018. Findings: Cardiomediastinal silhouette is within normal limits for size. Bilateral lung sparks appear clear without evidence of infiltrate, effusion, or pneumothorax. Impression: 1. No acute cardiopulmonary process. Electronically signed by: Brandon Malone MD (06/08/2018 3:41 PM) [place] [id number]
[2018-06-08] MEDS ORDERED: FAMOTIDINE 20 MG/2 ML VIAL IVP ONE (15:45)
[2018-06-08] MEDS ORDERED: fentaNYL PF VIAL 100 MCG/2 ML VIAL IV ONE (15:45)
[2018-06-08 15:54] LABS: BILIRUBIN,URINE NEGATIVE (NEG); CLARITY,URINE CLOUDY; COLOR,URINE YELLOW; NITRITE,URINE NEGATIVE (NEG); PH,URINE 7.5; PROTEIN,URINE NEGATIVE (NEG-TRACE); UROBILINOGEN,URINE 0.2 mg/dL (0.2 mg/dL)
[2018-06-08 15:59] LABS: BACTERIA,URINE FEW /HPF (0-FEW); BARBITURATES NEG (NEG); BENZODIAZEPINES NEG (NEG); CANNABINOIDS NEG (NEG); COCAINE NEG (NEG); METHADONE NEG (NEG); OPIATES NEG (NEG); PHENCYCLIDINE NEG (NEG); SQUAMOUS EPITHELIAL CELL,UR FEW /LPF; WBC,URINE 0 /HPF (0-4)
[2018-06-08 16:01] LABS: AMPHETAMINE/METHAMPHETAMINE NEG (NEG)
[2018-06-08 16:08] LABS: BASO # 0.2 x10^3/uL (0.0-0.2); BASO % 1 % (0-3); EOS # 0.3 x10^3/uL (0.0-0.7); EOS % 2 % (0-3); HEMOGLOBIN 14.6 g/dL (12.0-15.5); LYMPH # 3.4 x10^3/uL (1.0-4.8); LYMPH % 24 % (24-48); MEAN CORPUSCULAR HEMOGLOBIN 32 pg (25-35); MEAN CORPUSCULAR HGB CONC 35 g/dL (31-37); MEAN CORPUSCULAR VOLUME 92 fL (79-100); MONO # 1.1 x10^3/uL (0.0-1.1); MONO % 8 % (0-9); NEUT # 9.1 x10^3uL (1.8-7.7); NEUT % 65 % (31-73); PLATELET COUNT 268 x10^3/uL (140-400); RED BLOOD COUNT 4.56 x10^6/uL (3.50-5.40); RED CELL DISTRIBUTION WIDTH 12.7 % (11.5-14.5); WHITE BLOOD COUNT 13.9 x10^3/uL (4.0-11.0)
[2018-06-08 16:19] LABS: CALCIUM 8.3 mg/dL (8.5-10.1); CREATININE 1.2 mg/dL (0.6-1.0); GFR 50.6; POTASSIUM 3.8 mmol/L (3.5-5.1)
[2018-06-08 16:26] LABS: ALBUMIN 3.3 g/dL (3.4-5.0); ALBUMIN/GLOBULIN RATIO 0.9 (1.0-1.7); TOTAL BILIRUBIN 0.3 mg/dL (0.2-1.0); TOTAL PROTEIN 7.1 g/dL (6.4-8.2)
[2018-06-08 17:27] VITALS: BP 111/72
== END 2018-06-08 17:39 | disposition home or self-care (01) ==
LOC: ER 14:53
DX: R07.89 Other chest pain (principal); K21.9 Gastro-esophageal reflux disease without esophagitis; F31.9 Bipolar disorder, unspecified; E03.9 Hypothyroidism, unspecified
CPT/HCPCS: 36415; 71046; 80053; 80307; 81001; 84484; 85025; 85379; 93005; 96374; 96375; 99285; J3010; S0028; G0479

== ENCOUNTER 2018-06-25 15:04 | Emergency (ER) | payer MEDICARE, OTHER ==
[~2018-06-25] VITALS: Ht 172.7 cm; Wt 120.2 kg
[2018-06-25 15:32] LABS: BILIRUBIN,URINE NEGATIVE (NEG); CLARITY,URINE CLEAR; COLOR,URINE YELLOW; NITRITE,URINE NEGATIVE (NEG); PROTEIN,URINE NEGATIVE (NEG-TRACE)
[2018-06-25 15:35] VITALS: BP 142/95
[2018-06-25 15:37] LABS: BACTERIA,URINE MANY /HPF (0-FEW); SQUAMOUS EPITHELIAL CELL,UR MANY /LPF
[2018-06-25 15:39] LABS: BASO # 0.1 x10^3/uL (0.0-0.2); BASO % 1 % (0-3); EOS # 0.2 x10^3/uL (0.0-0.7); EOS % 2 % (0-3); HEMATOCRIT 41.6 % (36.0-47.0); HEMOGLOBIN 14.3 g/dL (12.0-15.5); LYMPH # 2.5 x10^3/uL (1.0-4.8); LYMPH % 29 % (24-48); MEAN CORPUSCULAR HEMOGLOBIN 32 pg (25-35); MEAN CORPUSCULAR HGB CONC 34 g/dL (31-37); MEAN CORPUSCULAR VOLUME 93 fL (79-100); MONO # 0.8 x10^3/uL (0.0-1.1); MONO % 9 % (0-9); NEUT % 58 % (31-73); PLATELET COUNT 261 x10^3/uL (140-400); RED BLOOD COUNT 4.49 x10^6/uL (3.50-5.40); RED CELL DISTRIBUTION WIDTH 12.8 % (11.5-14.5); WHITE BLOOD COUNT 8.7 x10^3/uL (4.0-11.0)
[2018-06-25 15:53] LABS: CALCIUM 9.1 mg/dL (8.5-10.1); CREATININE 1.3 mg/dL (0.6-1.0); GFR 46.1
[2018-06-25 16:00] LABS: ALBUMIN 3.4 g/dL (3.4-5.0); ALBUMIN/GLOBULIN RATIO 0.8 (1.0-1.7); TOTAL BILIRUBIN 0.3 mg/dL (0.2-1.0); TOTAL PROTEIN 7.5 g/dL (6.4-8.2)
[2018-06-25] MEDS ORDERED: ONDANSETRON PF 4 MG/2 ML VIAL. IV ONE (16:00)
[2018-06-25] MEDS ORDERED: IV NORMAL SALINE 1000ML BAG 1,000 ML IV ONE (16:00)
[2018-06-25] MEDS ORDERED: MORPHINE SULFATE 4 MG/ML VIAL. IV ONE (16:00)
--- NOTE | 2018-06-25 16:05 | PHYS DOC ---
Past Medical History Past Medical History: Bipolar, Depression, GERD, Hypothyroid, Other Additional Past Medical Histor: OVARIAN CYST,MOOD SWINGS Past Surgical History: Cholecystectomy, Hysterectomy, Tonsillectomy, Tubal ligation Additional Past Surgical Histo: THYROIDECTOMY "with a pill" Alcohol Use: None Drug Use: None Adult General Chief Complaint Chief Complaint: ABDOMINAL PAIN HPI HPI Patient is a 38 year old female who presents to the ER with complaints of vomiting bright red blood twice this morning. Pt states she has been vomiting after she eats for the last 4-5 months. Two months ago she had an upper and lower GI and was diagnosed with polyps. Pt denies any diarrhea, fever, back pain , dysuria, increased urinary frequency, hematuria, or swelling of extremities. She reports having constant pain in her chest that is no different from her previous visit, nausea, right lower abdominal pain, and a cough. She also reports feeling short of breath with ambulation for several weeks. She has been previously diagnosed with an ovarian cyst on the right and states she has an appointment with an OBGYN next month to schedule surgery for removal of the cyst. Currently, she rates her pain as a 9 out of 10 on the pain scale. Review of Systems Review of Systems Constitutional: Denies fever or chills [] HENT: Denies nasal congestion or sore throat [] Respiratory: reports cough x 2-3 days and shortness of breath with ambulation Cardiovascular: Reports left upper chest pain that is constant denies palpitations or dizziness GI: Denies bloody stools or diarrhea; reports RLQ abdominal pain that is the same as the pain she has experienced with a known ovarian cyst and nausea/ vomiting x2 today with blood streaks in vomit : Denies increased frequency, dysuria or hematuria [] Musculoskeletal: Denies back pain or joint pain [] Integument: Denies rash or skin lesions [] Neurologic: Denies headache, focal weakness or sensory changes [] All other systems were reviewed and found to be within normal limits, except as documented in this note. Current Medications Current Medications Current Medications Medications (Trade) Dose Ordered Sig/Shirley Start Time Stop Time Status Last Admin Dose Admin Ceftriaxone Sodium 50 ml @ 100 mls/hr 1X ONCE 06/25/18 17:15 06/25/18 17:44 06/25/18 17:15 100 MLS/HR Morphine Sulfate (Morphine Sulfate) 4 mg 1X ONCE 06/25/18 16:00 06/25/18 16:04 DC 06/25/18 16:20 4 MG Ondansetron HCl (Zofran) 4 mg 1X ONCE 06/25/18 16:00 06/25/18 16:04 DC 06/25/18 16:19 4 MG Sodium Chloride 1,000 ml @ 1,000 mls/hr 1X ONCE 06/25/18 16:00 06/25/18 16:59 DC 06/25/18 16:20 1,000 MLS/HR Allergies Allergies Allergies Coded Allergies Type Severity Reaction Last Updated Verified No Known Drug Allergies 03/19/17 No Physical Exam Physical Exam Constitutional: Well developed, well nourished, no acute distress, non-toxic appearance, obese [] HENT: Normocephalic, atraumatic, bilateral external ears normal, oropharynx moist, no oral exudates, nose normal. [] Eyes: PERRLA, conjunctiva normal, no discharge. [] Neck: Normal range of motion, no tenderness, supple, no stridor. [] Cardiovascular: Heart rate regular rhythm, no murmur; [] Lungs & Thorax: Bilateral breath sounds clear to auscultation [] Abdomen: Bowel sounds normal, soft, no masses, no pulsatile masses; RLQ tenderness to palpation. [] Skin: Warm, dry, no erythema, no rash. [] Back: No CVA tenderness. [] Extremities: No tenderness, no cyanosis, no clubbing, ROM intact, no edema. [] Neurologic: Alert and oriented X 3, normal motor function, normal sensory function, no focal deficits noted. [] Psychologic: Affect normal, judgement normal, mood normal. [] Current Patient Data Vital Signs Vital Signs Date Time Temp Pulse Resp B/P (MAP) Pulse Ox O2 Delivery O2 Flow Rate FiO2 06/25/18 16:20 16 06/25/18 15:35 98.8 78 142/95 (111) 99 Room Air 98.8 Lab Values Laboratory Tests Test 06/25/18 15:15 06/25/18 15:20 06/25/18 15:25 Urine Collection Type Unknown Urine Color Yellow Urine Clarity Clear Urine pH 6.0 Urine Specific [place] 1.025 Urine Protein Negative mg/dL (NEG-TRACE) Urine Glucose (UA) Negative mg/dL (NEG) Urine Ketones (Stick) Negative mg/dL (NEG) Urine Blood Moderate (NEG) Urine Nitrite Negative (NEG) Urine Bilirubin Negative (NEG) Urine Urobilinogen Dipstick 1.0 mg/dL (0.2 mg/dL) Urine Leukocyte Esterase Moderate (NEG) Urine RBC 11-20 /HPF (0-2) Urine WBC 11-20 /HPF (0-4) Urine Squamous Epithelial Cells Many /LPF Urine Bacteria Many /HPF (0-FEW) Urine Mucus Mod /LPF POC Urine HCG, Qualitative Hcg negative (Negative) White Blood Count 8.7 x10^3/uL (4.0-11.0) Red Blood Count 4.49 x10^6/uL (3.50-5.40) Hemoglobin 14.3 g/dL (12.0-15.5) Hematocrit 41.6 % (36.0-47.0) Mean Corpuscular Volume 93 fL (79-100) Mean Corpuscular Hemoglobin 32 pg (25-35) Mean Corpuscular Hemoglobin Concent 34 g/dL (31-37) Red Cell Distribution Width 12.8 % (11.5-14.5) Platelet Count 261 x10^3/uL (140-400) Neutrophils (%) (Auto) 58 % (31-73) Lymphocytes (%) (Auto) 29 % (24-48) Monocytes (%) (Auto) 9 % (0-9) Eosinophils (%) (Auto) 2 % (0-3) Basophils (%) (Auto) 1 % (0-3) Neutrophils # (Auto) 5.0 x10^3uL (1.8-7.7) Lymphocytes # (Auto) 2.5 x10^3/uL (1.0-4.8) Monocytes # (Auto) 0.8 x10^3/uL (0.0-1.1) Eosinophils # (Auto) 0.2 x10^3/uL (0.0-0.7) Basophils # (Auto) 0.1 x10^3/uL (0.0-0.2) Sodium Level 138 mmol/L (136-145) Potassium Level 4.0 mmol/L (3.5-5.1) Chloride Level 103 mmol/L (98-107) Carbon Dioxide Level 26 mmol/L (21-32) Anion Gap 9 (6-14) Blood Urea Nitrogen 12 mg/dL (7-20) Creatinine 1.3 mg/dL (0.6-1.0) H Estimated GFR (Cockcroft-Gault) 46.1 BUN/Creatinine Ratio 9 (6-20) Glucose Level 89 mg/dL (70-99) Calcium Level 9.1 mg/dL (8.5-10.1) Total Bilirubin 0.3 mg/dL (0.2-1.0) Aspartate Amino Transferase (AST) 26 U/L (15-37) Alanine Aminotransferase (ALT) 42 U/L (14-59) Alkaline Phosphatase 59 U/L (46-116) Troponin I Quantitative < 0.017 ng/mL (0.000-0.055) IQ-Urq-M-Type Natriuretic Peptide 94 pg/mL (0-124) Total Protein 7.5 g/dL (6.4-8.2) Albumin 3.4 g/dL (3.4-5.0) Albumin/Globulin Ratio 0.8 (1.0-1.7) L Laboratory Tests 06/25/18 15:25 Laboratory Tests 06/25/18 15:25 EKG EKG NSR no STEMI read by Dr. Mancera[] Radiology/Procedures Radiology/Procedures PROCEDURE: CHEST PA & LATERAL Chest, PA and Lateral: Technique: PA and lateral views of the chest were obtained. History: Chest pain. Comparison: 06/08/2018. Findings: The heart and pulmonary vasculature appear within normal limits. The lungs are clear. The pleural margins are clear. Impression: No acute chest process is seen. [] Course & Med Decision Making Course & Med Decision Making Pertinent Labs and Imaging studies reviewed. (See chart for details) Dx: hemoptysis, UTI Chest pain- not concerning for ACS, pt has negative troponin and normal EKG. RLQ pain- pa reports known ovarian cyst pt has an appointment with OB specialist on 07/04 pr 07/05- pt encouraged to keep this appointment for further management of her ovarian cyst. UTI- pt given one dose of rocephin in the ER, rx written for bactrim, encouraged pt to increase clear fluids and avoid bladder irritants such as caffeine and carbonated beverages. Hemoptysis, N/V- pt encouraged to keep diary of foods and beverages and to follow up with her GI specialist for further evaluation. Pt advised of normal labs including Hgb and Hct today. Patient verbalized an understanding of home care, medications, follow-up, and return to ED instructions and was in agreement with the plan of care. [] Dragon Disclaimer Dragon Disclaimer This electronic medical record was generated, in whole or in part, using a voice recognition dictation system. Departure Departure Impression: Primary Impression: Urinary tract infection Additional Impression: Hemoptysis, unspecified Disposition: HOME, SELF-CARE Condition: STABLE Referrals: ALEX FUNEZ MD (PCP) Patient Instructions: Hemoptysis-Brief, Urinary Tract Infection, [id number] Additional Instructions: Fill the prescription and use as directed. Increase clear fluids, avoid bladder irritants including spicy foods, carbonated beverages, and caffeine. Follow up with your OBGyn as scheduled next month about your ovarian cyst. Keep a food diary of any food and beverages to bring with you to your next appointment with GI for further evaluation of your nausea and vomiting. Return to the ER if your symptoms worsen. Scripts Sulfamethoxazole/Trimethoprim (BACTRIM DS TABLET) 1 Each Tablet 1 TAB PO BID, #14 TAB Prov: VÍCTOR COLEMAN APRN 06/25/18 Problem Qualifiers Primary Impression: Urinary tract infection Urinary tract infection type: site unspecified Hematuria presence: with hematuria Qualified Codes: N39.0 - Urinary tract infection, site not specified ; R31.9 - Hematuria, unspecified VÍCTOR COLEMAN APRN Jun 25, 2018 16:05
--- NOTE | 2018-06-25 17:02 | RAD ---
Chest, PA and Lateral: Technique: PA and lateral views of the chest were obtained. History: Chest pain. Comparison: 06/08/2018. Findings: The heart and pulmonary vasculature appear within normal limits. The lungs are clear. The pleural margins are clear. Impression: No acute chest process is seen. Electronically signed by: José Burris MD (06/25/2018 4:58 PM) [facility]
[2018-06-25] MEDS ORDERED: SULF1TAB24 PO (17:36)
--- NOTE | 2018-06-26 07:26 | EKG ---
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
== END 2018-06-25 17:49 | disposition home or self-care (01) ==
LOC: ER 15:04
DX: N39.0 Urinary tract infection, site not specified (principal); R04.2 Hemoptysis; R07.89 Other chest pain; R06.02 Shortness of breath; K21.9 Gastro-esophageal reflux disease without esophagitis; F31.9 Bipolar disorder, unspecified; E03.9 Hypothyroidism, unspecified; Z90.49 Acquired absence of other specified parts of digestive tract; Z90.710 Acquired absence of both cervix and uterus; Z98.51 Tubal ligation status; E66.9 Obesity, unspecified; Z68.41 Body mass index [BMI] 40.0-44.9, adult
CPT/HCPCS: 36415; 71046; 80053; 81001; 81025; 83880; 84484; 85025; 93005; 96361; 96365; 96375; 99285; J0690; J2270; J2405; J7030

== ENCOUNTER 2018-07-21 15:07 | Emergency (ER) | payer MEDICARE, OTHER ==
[~2018-07-21] VITALS: Ht 177.8 cm; Wt 120.2 kg
[2018-07-21 15:37] VITALS: BP 142/72
[2018-07-21] MEDS ORDERED: ASPIRIN CHEWABLE 81 MG TABLET. PO ONE (15:45)
[2018-07-21] MEDS ORDERED: IV NORMAL SALINE 1000ML BAG 1,000 ML IV ONE (15:45)
[2018-07-21] MEDS ORDERED: MORPHINE SULFATE 10 MG/ML VIAL. IV ONE (15:45)
[2018-07-21] MEDS ORDERED: LIDO:MAALOX 1:1 20 ML SINGLE DOSE. SWSW ONE (15:45)
[2018-07-21 15:58] LABS: BASO # 0.1 x10^3/uL (0.0-0.2); BASO % 1 % (0-3); EOS # 0.2 x10^3/uL (0.0-0.7); EOS % 2 % (0-3); HEMATOCRIT 40.9 % (36.0-47.0); LYMPH # 2.8 x10^3/uL (1.0-4.8); LYMPH % 28 % (24-48); MEAN CORPUSCULAR HEMOGLOBIN 32 pg (25-35); MEAN CORPUSCULAR HGB CONC 34 g/dL (31-37); MEAN CORPUSCULAR VOLUME 92 fL (79-100); MONO # 0.7 x10^3/uL (0.0-1.1); MONO % 7 % (0-9); NEUT # 6.1 x10^3uL (1.8-7.7); NEUT % 61 % (31-73); PLATELET COUNT 240 x10^3/uL (140-400); RED BLOOD COUNT 4.43 x10^6/uL (3.50-5.40); RED CELL DISTRIBUTION WIDTH 12.3 % (11.5-14.5); WHITE BLOOD COUNT 9.9 x10^3/uL (4.0-11.0)
--- NOTE | 2018-07-21 15:59 | EKG ---
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
[2018-07-21 16:11] LABS: CALCIUM 9.3 mg/dL (8.5-10.1); GFR 62.4; POTASSIUM 3.8 mmol/L (3.5-5.1)
[2018-07-21 16:17] LABS: ALBUMIN 3.4 g/dL (3.4-5.0); ALBUMIN/GLOBULIN RATIO 0.9 (1.0-1.7); TOTAL BILIRUBIN 0.4 mg/dL (0.2-1.0); TOTAL PROTEIN 7.1 g/dL (6.4-8.2)
--- NOTE | 2018-07-21 16:33 | RAD ---
CHEST PA LATERAL History: LT SIDED CHEST PAIN SINCE YESTERDAY, WORSE WITH INHALATION Comparison: Two-view chest June 25, 2018. Findings: The cardiomediastinal silhouette is normal. Pulmonary vasculature is normal. The lungs are clear. No pleural effusion or pneumothorax is seen. There is no acute bone abnormality. IMPRESSION: No acute cardiopulmonary process. Electronically signed by: Antony Moreno MD (07/21/2018 4:30 PM) [id number]
[2018-07-21 17:00] LABS: BILIRUBIN,URINE NEGATIVE (NEG); CLARITY,URINE CLEAR; COLOR,URINE YELLOW; NITRITE,URINE NEGATIVE (NEG); PH,URINE 7.5; PROTEIN,URINE NEGATIVE (NEG-TRACE)
[2018-07-21 17:09] LABS: BACTERIA,URINE FEW /HPF (0-FEW); SQUAMOUS EPITHELIAL CELL,UR MANY /LPF
--- NOTE | 2018-07-21 17:34 | PHYS DOC ---
Past Medical History Past Medical History: Anxiety, Bipolar, Depression, GERD, Hypothyroid, Other Additional Past Medical Histor: OVARIAN CYST,MOOD SWINGS Past Surgical History: Cholecystectomy, Hysterectomy, Tonsillectomy, Tubal ligation Additional Past Surgical Histo: THYROIDECTOMY "with a pill" Alcohol Use: None Drug Use: None Adult General Chief Complaint Chief Complaint: CHEST PAIN-NON CARDIAC NATURE HPI HPI Patient is a 38 year old female who presents with complaints of chest pain that is sharp, worse with eating. Lateral has been surgically removed as well as having hysterectomy. She denied having previously had symptoms like this but upon chart review is been found that she has been seen at this facility numerous times for the exact same complaint, with her last workup one month ago. She is complaining of 10 out of 10 pain that is sitting up in bed in no apparent distress. She states that she has had nausea with her pain. She denies any previous diagnosis of GERD. Review of Systems Review of Systems Constitutional: Denies fever or chills [] Eyes: Denies change in visual acuity, redness, or eye pain [] HENT: Denies nasal congestion or sore throat [] Respiratory: Denies cough or shortness of breath [] Cardiovascular: No additional information not addressed in HPI [] GI: See history of present illness : Denies dysuria or hematuria [] Musculoskeletal: Denies back pain or joint pain [] Integument: Denies rash or skin lesions [] Neurologic: Denies headache, focal weakness or sensory changes [] Endocrine: Denies polyuria or polydipsia [] All other systems were reviewed and found to be within normal limits, except as documented in this note. Current Medications Current Medications Current Medications Medications (Trade) Dose Ordered Sig/Shirley Start Time Stop Time Status Last Admin Dose Admin Aspirin (Children'S Aspirin) 324 mg 1X ONCE 07/21/18 15:45 07/21/18 15:46 DC 07/21/18 15:45 324 MG Morphine Sulfate (Morphine Sulfate) 5 mg 1X ONCE 07/21/18 15:45 07/21/18 15:46 DC Multi-Ingredient Mouthwash/Gargle (Gi Cocktail) 20 ml 1X ONCE 07/21/18 15:45 07/21/18 15:46 DC 07/21/18 16:01 20 ML Sodium Chloride 1,000 ml @ 1,000 mls/hr 1X ONCE 07/21/18 15:45 07/21/18 16:44 DC 07/21/18 16:01 1,000 MLS/HR Allergies Allergies Allergies Coded Allergies Type Severity Reaction Last Updated Verified No Known Drug Allergies 03/19/17 No Physical Exam Physical Exam Constitutional: Well developed, well nourished, no acute distress, non-toxic appearance. [] HENT: Normocephalic, atraumatic, bilateral external ears normal, oropharynx moist, no oral exudates, nose normal. [] Eyes: PERRLA, EOMI, conjunctiva normal, no discharge. [] Neck: Normal range of motion, no tenderness, supple, no stridor. [] Cardiovascular:Heart rate regular rhythm, no murmur [] Lungs & Thorax: Bilateral breath sounds clear to auscultation [] Abdomen: Bowel sounds normal, soft, no tenderness, no masses, no pulsatile masses. [] Skin: Warm, dry, no erythema, no rash. [] Back: No tenderness, no CVA tenderness. [] Extremities: No tenderness, no cyanosis, no clubbing, ROM intact, no edema. [] Neurologic: Alert and oriented X 3, normal motor function, normal sensory function, no focal deficits noted. [] Psychologic: Affect normal, judgement normal, mood normal. [] Current Patient Data Vital Signs Vital Signs Date Time Temp Pulse Resp B/P (MAP) Pulse Ox O2 Delivery O2 Flow Rate FiO2 07/21/18 15:37 98.6 84 20 142/72 (95) 99 Room Air 98.6 Lab Values Laboratory Tests Test 07/21/18 15:25 07/21/18 15:55 Urine Collection Type Unknown Urine Color Yellow Urine Clarity Clear Urine pH 7.5 Urine Specific [place] 1.020 Urine Protein Negative mg/dL (NEG-TRACE) Urine Glucose (UA) Negative mg/dL (NEG) Urine Ketones (Stick) Negative mg/dL (NEG) Urine Blood Small (NEG) Urine Nitrite Negative (NEG) Urine Bilirubin Negative (NEG) Urine Urobilinogen Dipstick 1.0 mg/dL (0.2 mg/dL) Urine Leukocyte Esterase Moderate (NEG) Urine RBC 6-10 /HPF (0-2) Urine WBC 1-4 /HPF (0-4) Urine Squamous Epithelial Cells Many /LPF Urine Bacteria Few /HPF (0-FEW) Urine Mucus Marked /LPF White Blood Count 9.9 x10^3/uL (4.0-11.0) Red Blood Count 4.43 x10^6/uL (3.50-5.40) Hemoglobin 14.0 g/dL (12.0-15.5) Hematocrit 40.9 % (36.0-47.0) Mean Corpuscular Volume 92 fL (79-100) Mean Corpuscular Hemoglobin 32 pg (25-35) Mean Corpuscular Hemoglobin Concent 34 g/dL (31-37) Red Cell Distribution Width 12.3 % (11.5-14.5) Platelet Count 240 x10^3/uL (140-400) Neutrophils (%) (Auto) 61 % (31-73) Lymphocytes (%) (Auto) 28 % (24-48) Monocytes (%) (Auto) 7 % (0-9) Eosinophils (%) (Auto) 2 % (0-3) Basophils (%) (Auto) 1 % (0-3) Neutrophils # (Auto) 6.1 x10^3uL (1.8-7.7) Lymphocytes # (Auto) 2.8 x10^3/uL (1.0-4.8) Monocytes # (Auto) 0.7 x10^3/uL (0.0-1.1) Eosinophils # (Auto) 0.2 x10^3/uL (0.0-0.7) Basophils # (Auto) 0.1 x10^3/uL (0.0-0.2) Sodium Level 136 mmol/L (136-145) Potassium Level 3.8 mmol/L (3.5-5.1) Chloride Level 103 mmol/L (98-107) Carbon Dioxide Level 24 mmol/L (21-32) Anion Gap 9 (6-14) Blood Urea Nitrogen 16 mg/dL (7-20) Creatinine 1.0 mg/dL (0.6-1.0) Estimated GFR (Cockcroft-Gault) 62.4 BUN/Creatinine Ratio 16 (6-20) Glucose Level 105 mg/dL (70-99) H Calcium Level 9.3 mg/dL (8.5-10.1) Total Bilirubin 0.4 mg/dL (0.2-1.0) Aspartate Amino Transferase (AST) 29 U/L (15-37) Alanine Aminotransferase (ALT) 40 U/L (14-59) Alkaline Phosphatase 50 U/L (46-116) Troponin I Quantitative < 0.017 ng/mL (0.000-0.055) Total Protein 7.1 g/dL (6.4-8.2) Albumin 3.4 g/dL (3.4-5.0) Albumin/Globulin Ratio 0.9 (1.0-1.7) L Laboratory Tests 07/21/18 15:55 Laboratory Tests 07/21/18 15:55 EKG EKG [] Radiology/Procedures Radiology/Procedures []PATIENT: ESTELITA BULLACCOUNT: [id number]#: [id number] : 1980 LOCATION: ER AGE: 38 SEX: F EXAM STATUS: REG ER ORD. PHYSICIAN: SOSA CARVALHO APRN REASON: chest pain PROCEDURE: CHEST PA & LATERAL CHEST PA LATERAL History: LT SIDED CHEST PAIN SINCE YESTERDAY, WORSE WITH INHALATION Comparison: Two-view chest June 25, 2018. Findings: The cardiomediastinal silhouette is normal. Pulmonary vasculature is normal. The lungs are clear. No pleural effusion or pneumothorax is seen. There is no acute bone abnormality. IMPRESSION: No acute cardiopulmonary process. Electronically signed by: Antony Moreno MD (07/21/2018 4:30 PM) [id number] DICTATED and SIGNED BY: ANTONY MORENO MD DATE: 07/21/18 1629 Course & Med Decision Making Course & Med Decision Making Pertinent Labs and Imaging studies reviewed. (See chart for details) []The patient's EKG and electrolytes were normal. The patient has a negative troponin. She is to follow-up outpatient for a referral to cardiology. Dragon Disclaimer Dragon Disclaimer This electronic medical record was generated, in whole or in part, using a voice recognition dictation system. Departure Departure Impression: Primary Impression: Chest pain Disposition: 01 HOME, SELF-CARE Condition: STABLE Referrals: ALEX FUNEZ MD (PCP) Patient Instructions: Chest Pain (Nonspecific) Additional Instructions: No cardiac cause was found for your pain today. Follow-up with your primary care provider for referral to cardiology for an outpatient stress test. If worsening return to the emergency department. SOSA CARVALHO APRN Jul 21, 2018 17:33
--- NOTE | 2018-07-22 07:22 | EKG ---
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
== END 2018-07-21 17:58 | disposition home or self-care (01) ==
LOC: ER 15:07
DX: R07.89 Other chest pain (principal); F31.9 Bipolar disorder, unspecified; K21.9 Gastro-esophageal reflux disease without esophagitis; F41.9 Anxiety disorder, unspecified; E03.9 Hypothyroidism, unspecified; Z90.49 Acquired absence of other specified parts of digestive tract; Z90.710 Acquired absence of both cervix and uterus; Z98.51 Tubal ligation status
CPT/HCPCS: 36415; 71046; 80053; 81001; 84484; 85025; 87086; 93005; 99285; J7030

== ENCOUNTER 2018-08-08 11:46 | Emergency (ER) | payer MEDICARE, OTHER ==
[~2018-08-08] VITALS: Ht 177.8 cm; Wt 120.2 kg
[~2018-08-08 11:46] MED LIST changes: +HYDR-3164 PO; -HYDR-971 PO
[2018-08-08 12:18] VITALS: BP 137/77
[2018-08-08] MEDS ORDERED: MECLIZINE HCL 12.5 MG TABLET. PO ONE (12:45)
[2018-08-08] MEDS ORDERED: KETOROLAC 30 MG/ML VIAL. IV ONE (12:45)
[2018-08-08] MEDS ORDERED: ONDANSETRON PF 4 MG/2 ML VIAL. IV ONE (12:45)
[2018-08-08] MEDS ORDERED: DEXAMETHASONE SOD PHOS 20 MG/5 ML VIAL. IV ONE (12:45)
[2018-08-08] MEDS ORDERED: IV NORMAL SALINE 1000ML BAG 1,000 ML IV ONE (12:45)
[2018-08-08 12:57] LABS: BILIRUBIN,URINE NEGATIVE (NEG); CLARITY,URINE CLEAR; COLOR,URINE YELLOW; NITRITE,URINE NEGATIVE (NEG); PROTEIN,URINE NEGATIVE (NEG-TRACE); UROBILINOGEN,URINE 0.2 mg/dL (0.2 mg/dL)
[2018-08-08 13:02] LABS: BASO # 0.1 x10^3/uL (0.0-0.2); BASO % 1 % (0-3); EOS # 0.2 x10^3/uL (0.0-0.7); EOS % 2 % (0-3); HEMATOCRIT 44.3 % (36.0-47.0); LYMPH # 2.3 x10^3/uL (1.0-4.8); LYMPH % 23 % (24-48); MEAN CORPUSCULAR HEMOGLOBIN 31 pg (25-35); MEAN CORPUSCULAR HGB CONC 34 g/dL (31-37); MEAN CORPUSCULAR VOLUME 92 fL (79-100); MONO # 0.8 x10^3/uL (0.0-1.1); MONO % 8 % (0-9); NEUT # 6.5 x10^3uL (1.8-7.7); NEUT % 66 % (31-73); PLATELET COUNT 280 x10^3/uL (140-400); RED BLOOD COUNT 4.83 x10^6/uL (3.50-5.40); RED CELL DISTRIBUTION WIDTH 12.5 % (11.5-14.5); WHITE BLOOD COUNT 9.9 x10^3/uL (4.0-11.0)
[2018-08-08 13:12] LABS: CALCIUM 9.2 mg/dL (8.5-10.1); CREATININE 1.1 mg/dL (0.6-1.0); GFR 55.9
[2018-08-08 13:13] LABS: BACTERIA,URINE FEW /HPF (0-FEW); RBC,URINE OCC /HPF (0-2); SQUAMOUS EPITHELIAL CELL,UR FEW /LPF; WBC,URINE OCC /HPF (0-4)
[2018-08-08 13:18] LABS: ALBUMIN 3.5 g/dL (3.4-5.0); ALBUMIN/GLOBULIN RATIO 0.9 (1.0-1.7); TOTAL BILIRUBIN 0.4 mg/dL (0.2-1.0); TOTAL PROTEIN 7.6 g/dL (6.4-8.2)
[2018-08-08] MEDS ORDERED: MECL25TA3 PO (14:33)
[2018-08-08] MEDS ORDERED: ONDA4TAB10 SL (14:33)
--- NOTE | 2018-08-08 14:33 | PHYS DOC ---
Past Medical History Past Medical History: Anxiety, Bipolar, Depression, GERD, Hypothyroid, Other Additional Past Medical Histor: OVARIAN CYST,MOOD SWINGS Past Surgical History: Cholecystectomy, Hysterectomy, Tonsillectomy, Tubal ligation Additional Past Surgical Histo: THYROIDECTOMY "with a pill" Alcohol Use: None Drug Use: None Adult General Chief Complaint Chief Complaint: HEADACHE HPI HPI Patient is a 38 year old female with a history of depression, bipolar, anxiety , who presents today complaining of 8 out of 10 frontal headache described as throbbing and intermittent for the last 2 days. Patient is also complaining of occasional episodes of dizziness. Patient denies anything exacerbating or making her symptoms better. Denies any nausea/vomiting. She states she had a hysterectomy 4 days ago. Denies any vaginal bleeding. Denies any abdominal pain. Denies any nausea or vomiting. Denies any urgency frequency dysuria. Review of Systems Review of Systems Constitutional: Denies fever or chills [] Eyes: Denies change in visual acuity, redness, or eye pain [] HENT: Denies nasal congestion or sore throat [] Respiratory: Denies cough or shortness of breath [] Cardiovascular: No additional information not addressed in HPI [] GI: Denies abdominal pain, nausea, vomiting, bloody stools or diarrhea [] : Denies dysuria or hematuria [] Musculoskeletal: Denies back pain or joint pain [] Integument: Denies rash or skin lesions [] Neurologic: Reports headache, and dizziness denies focal weakness or sensory changes [] All other systems were reviewed and found to be within normal limits, except as documented in this note. Current Medications Current Medications Current Medications Medications (Trade) Dose Ordered Sig/[facility] Start Time Stop Time Status Last Admin Dose Admin Dexamethasone Sodium Phosphate (Decadron) 10 mg 1X ONCE 08/08/18 12:45 08/08/18 12:46 DC 08/08/18 13:25 10 MG Ketorolac Tromethamine (Toradol 30mg Vial) 30 mg 1X ONCE 08/08/18 12:45 08/08/18 12:46 DC 08/08/18 13:24 30 MG Meclizine HCl (Antivert) 25 mg 1X ONCE 08/08/18 12:45 08/08/18 12:46 DC 08/08/18 13:26 25 MG Ondansetron HCl (Zofran) 4 mg 1X ONCE 08/08/18 12:45 08/08/18 12:46 DC 08/08/18 13:22 4 MG Sodium Chloride 1,000 ml @ 1,000 mls/hr 1X ONCE 08/08/18 12:45 08/08/18 13:44 DC 08/08/18 13:19 1,000 MLS/HR Allergies Allergies Allergies Coded Allergies Type Severity Reaction Last Updated Verified No Known Drug Allergies 03/19/17 No Physical Exam Physical Exam Constitutional: Well developed, well nourished, no acute distress, non-toxic appearance. [] HENT: Normocephalic, atraumatic, bilateral external ears normal, oropharynx moist, no oral exudates, nose normal. [] Eyes: PERRLA, EOMI, conjunctiva normal, no discharge. [] Neck: Normal range of motion, no tenderness, supple, no stridor. [] Cardiovascular:Heart rate regular rhythm, no murmur [] Lungs & Thorax: Bilateral breath sounds clear to auscultation, laparoscopic incisions noted on the abdomen consistent with laparoscopic hysterectomy, no signs of infection. Abdomen: Bowel sounds normal, soft, no tenderness, no masses, no pulsatile masses. [] Skin: Warm, dry, no erythema, no rash. [] Back: No tenderness, no CVA tenderness. [] Extremities: No tenderness, no cyanosis, no clubbing, ROM intact, no edema. [] Neurologic: Alert and oriented X 3, normal motor function, normal sensory function, no focal deficits noted. Cranial nerves II through XII intact Psychologic: Affect normal, judgement normal, mood normal. [] Current Patient Data Vital Signs Vital Signs Date Time Temp Pulse Resp B/P (MAP) Pulse Ox O2 Delivery O2 Flow Rate FiO2 08/08/18 12:18 97.7 98 18 137/77 (97) 99 Room Air 97.7 Lab Values Laboratory Tests Test 08/08/18 12:40 08/08/18 12:50 Urine Collection Type Void Urine Color Yellow Urine Clarity Clear Urine pH 7.0 Urine Specific [place] 1.015 Urine Protein Negative mg/dL (NEG-TRACE) Urine Glucose (UA) Negative mg/dL (NEG) Urine Ketones (Stick) Negative mg/dL (NEG) Urine Blood Small (NEG) Urine Nitrite Negative (NEG) Urine Bilirubin Negative (NEG) Urine Urobilinogen Dipstick 0.2 mg/dL (0.2 mg/dL) Urine Leukocyte Esterase Negative (NEG) Urine RBC Occ /HPF (0-2) Urine WBC Occ /HPF (0-4) Urine Squamous Epithelial Cells Few /LPF Urine Bacteria Few /HPF (0-FEW) White Blood Count 9.9 x10^3/uL (4.0-11.0) Red Blood Count 4.83 x10^6/uL (3.50-5.40) Hemoglobin 15.0 g/dL (12.0-15.5) Hematocrit 44.3 % (36.0-47.0) Mean Corpuscular Volume 92 fL (79-100) Mean Corpuscular Hemoglobin 31 pg (25-35) Mean Corpuscular Hemoglobin Concent 34 g/dL (31-37) Red Cell Distribution Width 12.5 % (11.5-14.5) Platelet Count 280 x10^3/uL (140-400) Neutrophils (%) (Auto) 66 % (31-73) Lymphocytes (%) (Auto) 23 % (24-48) L Monocytes (%) (Auto) 8 % (0-9) Eosinophils (%) (Auto) 2 % (0-3) Basophils (%) (Auto) 1 % (0-3) Neutrophils # (Auto) 6.5 x10^3uL (1.8-7.7) Lymphocytes # (Auto) 2.3 x10^3/uL (1.0-4.8) Monocytes # (Auto) 0.8 x10^3/uL (0.0-1.1) Eosinophils # (Auto) 0.2 x10^3/uL (0.0-0.7) Basophils # (Auto) 0.1 x10^3/uL (0.0-0.2) Sodium Level 136 mmol/L (136-145) Potassium Level 4.0 mmol/L (3.5-5.1) Chloride Level 100 mmol/L (98-107) Carbon Dioxide Level 28 mmol/L (21-32) Anion Gap 8 (6-14) Blood Urea Nitrogen 16 mg/dL (7-20) Creatinine 1.1 mg/dL (0.6-1.0) H Estimated GFR (Cockcroft-Gault) 55.9 BUN/Creatinine Ratio 15 (6-20) Glucose Level 87 mg/dL (70-99) Calcium Level 9.2 mg/dL (8.5-10.1) Total Bilirubin 0.4 mg/dL (0.2-1.0) Aspartate Amino Transferase (AST) 22 U/L (15-37) Alanine Aminotransferase (ALT) 35 U/L (14-59) Alkaline Phosphatase 63 U/L (46-116) Total Protein 7.6 g/dL (6.4-8.2) Albumin 3.5 g/dL (3.4-5.0) Albumin/Globulin Ratio 0.9 (1.0-1.7) L Laboratory Tests 08/08/18 12:50 Laboratory Tests 08/08/18 12:50 EKG EKG [] Radiology/Procedures Radiology/Procedures [] Course & Med Decision Making Course & Med Decision Making Pertinent Labs and Imaging studies reviewed. (See chart for details) This is a 38-year-old female patient well known to this ED presenting today with headache and dizziness for 2 days. Patient's lab work is negative for any acute findings. Vitals are stable. Given IV fluids, Solu-Medrol, Toradol and Zofran. Patient feels better discharged to home. Instructed to push fluids and follow-up with primary care doctor. Discharged with Zofran and meclizine. Dragon Disclaimer Dragon Disclaimer This electronic medical record was generated, in whole or in part, using a voice recognition dictation system. Departure Departure Impression: Primary Impression: Headache Additional Impression: Dizziness Disposition: 01 HOME, SELF-CARE Condition: STABLE Referrals: ALEX FUNEZ MD (PCP) Follow-up in the course of this week or next week Patient Instructions: Dizziness, [id number], Headache, FAQs Additional Instructions: You were evaluated in the emergency room for headache and dizziness. Your lab work was negative for any acute findings. Push fluids. Follow-up with your doctor in the course of this week or next week. Scripts Meclizine Hcl (MECLIZINE HCL) 25 Mg Tablet 1 TAB PO TID, #30 TAB Prov: MUTUNGA,ALEKSANDR SYSTEMS SECURITY CONSULTANT 08/08/18 Ondansetron (ZOFRAN ODT) 4 Mg Tab.rapdis 1 TAB SL Q8HRS, #15 TAB Prov: MUTUNGA,ALEKSANDR SYSTEMS SECURITY CONSULTANT 08/08/18 Problem Qualifiers Primary Impression: Headache Headache type: unspecified Headache chronicity pattern: acute headache Intractability: not intractable Qualified Codes: R51 - Headache ALEKSANDR HAWTHORNE APRN Aug 08, 2018 14:33
== END 2018-08-08 14:52 | disposition home or self-care (01) ==
LOC: ER 11:46
DX: R51 Headache (principal); R42 Dizziness and giddiness; F41.9 Anxiety disorder, unspecified; F31.9 Bipolar disorder, unspecified; K21.9 Gastro-esophageal reflux disease without esophagitis; E03.9 Hypothyroidism, unspecified
CPT/HCPCS: 36415; 80053; 81001; 85025; 96361; 96374; 96375; 99284; J1100; J1885; J2405; J7030; J8597

== ENCOUNTER 2018-09-01 14:45 | Emergency (ER) | payer MEDICARE, OTHER ==
[~2018-09-01] VITALS: Ht 152.4 cm; Wt 104.3 kg
[~2018-09-01 14:45] MED LIST changes: +ALBU2.5V8 INH; +LIDO700A21 TP; -LIDO700A39 TP; +MECL25TA3 PO; +ONDA4TAB10 SL; -OXYC-323 PO; +OXYC1TAB15 PO; -PROAIR HFA8.5 GM INH
--- NOTE | 2018-09-01 15:09 | PHYS DOC ---
Past Medical History Past Medical History: Anxiety, Bipolar, Depression, GERD, Hypothyroid, Other Additional Past Medical Histor: OVARIAN CYST,MOOD SWINGS Past Surgical History: Cholecystectomy, Hysterectomy, Tonsillectomy, Tubal ligation Additional Past Surgical Histo: THYROIDECTOMY "with a pill" Alcohol Use: None Drug Use: None Adult General Chief Complaint Chief Complaint: ABDOMINAL PAIN HPI HPI Patient is a 38-year-old female presents to the emergency department for evaluation. The patient states that for the past several days she has developed lower abdominal discomfort, more on the right than the left side. She has not had any vomiting or diarrhea, or urinary symptoms. She has not had any abnormal vaginal discharge. She is about 1 month postoperative from a hysterectomy. Palpation of her abdomen and movement seems to worsen her pain. There are no alleviating factors to her symptoms. She has not had any fevers or chills. The pain is described as a constant achy/cramp. Review of Systems Review of Systems Constitutional: Denies fever or chills [] Eyes: Denies change in visual acuity, redness, or eye pain [] HENT: Denies nasal congestion or sore throat [] Respiratory: Denies cough or shortness of breath [] Cardiovascular: The patient denies any shortness of breath, chest pain, palpitations, or orthopnea [] GI: No additional information not addressed in HPI [] : Denies dysuria or hematuria [] Musculoskeletal: Denies back pain or joint pain [] Integument: Denies rash or skin lesions [] Neurologic: Denies headache, focal weakness or sensory changes [] Endocrine: Denies polyuria or polydipsia [] All other systems were reviewed and found to be within normal limits, except as documented in this note. Current Medications Current Medications Current Medications Medications (Trade) Dose Ordered Sig/Shirley Start Time Stop Time Status Last Admin Dose Admin Info (CONTRAST GIVEN -- Rx MONITORING) 1 each PRN DAILY PRN 09/01/18 16:00 09/03/18 15:59 Iohexol (Omnipaque 300 Mg/ml) 60 ml 1X ONCE 09/01/18 16:00 09/01/18 16:01 DC 09/01/18 16:02 60 ML Morphine Sulfate (Morphine Sulfate) 4 mg PRN Q15MIN PRN 09/01/18 15:00 09/02/18 14:59 09/01/18 16:20 4 MG Allergies Allergies Allergies Coded Allergies Type Severity Reaction Last Updated Verified No Known Drug Allergies 03/19/17 No Physical Exam Physical Exam PHYSICAL EXAM: CONSTITUTIONAL: Well developed, well nourished HEAD: normocephalic, atraumatic EENT: PERRL, EOMI. Conjunctivae normal color, sclerae non-icteric; moist mucous membranes. NECK: Supple, non-tender; no meningismus. LUNGS: Lungs CTA, breathing even and unlabored. Normal air movement. HEART: Regular rate and rhythm, no murmur CHEST: No deformity; non-tender ABDOMEN: The abdomen is soft, There is mild diffuse tenderness to palpation of the lower abdomen, more right than left, without focal tenderness, rebound, or guarding. Normal bowel sounds are present. no masses or bruits. EXTREM: Normal ROM; no deformity, no calf tenderness. Normal pulses palpable in all extremities. There is no pedal edema. SKIN: No rash; no diaphoresis NEURO: Alert; normal speech and cognition; CN's grossly intact; strength grossly intact without focal deficit. BACK: No CVA TTP. Current Patient Data Vital Signs Vital Signs Date Time Temp Pulse Resp B/P (MAP) Pulse Ox O2 Delivery O2 Flow Rate FiO2 09/01/18 17:00 78 108/64 (79) 97 Room Air 09/01/18 16:20 16 09/01/18 15:05 98.3 98.3 Lab Values Laboratory Tests Test 09/01/18 14:55 09/01/18 15:15 Urine Collection Type Unknown Urine Color Yellow Urine Clarity Clear Urine pH 7.5 Urine Specific [place] 1.020 Urine Protein Negative mg/dL (NEG-TRACE) Urine Glucose (UA) Negative mg/dL (NEG) Urine Ketones (Stick) Negative mg/dL (NEG) Urine Blood Trace (NEG) Urine Nitrite Negative (NEG) Urine Bilirubin Negative (NEG) Urine Urobilinogen Dipstick 0.2 mg/dL (0.2 mg/dL) Urine Leukocyte Esterase Negative (NEG) Urine RBC 3-5 /HPF (0-2) Urine WBC Occ /HPF (0-4) Urine Squamous Epithelial Cells Few /LPF Urine Bacteria Few /HPF (0-FEW) Urine Mucus Mod /LPF White Blood Count 10.0 x10^3/uL (4.0-11.0) Red Blood Count 4.48 x10^6/uL (3.50-5.40) Hemoglobin 14.0 g/dL (12.0-15.5) Hematocrit 40.7 % (36.0-47.0) Mean Corpuscular Volume 91 fL (79-100) Mean Corpuscular Hemoglobin 31 pg (25-35) Mean Corpuscular Hemoglobin Concent 35 g/dL (31-37) Red Cell Distribution Width 12.4 % (11.5-14.5) Platelet Count 249 x10^3/uL (140-400) Neutrophils (%) (Auto) 61 % (31-73) Lymphocytes (%) (Auto) 27 % (24-48) Monocytes (%) (Auto) 8 % (0-9) Eosinophils (%) (Auto) 3 % (0-3) Basophils (%) (Auto) 2 % (0-3) Neutrophils # (Auto) 6.1 x10^3uL (1.8-7.7) Lymphocytes # (Auto) 2.7 x10^3/uL (1.0-4.8) Monocytes # (Auto) 0.8 x10^3/uL (0.0-1.1) Eosinophils # (Auto) 0.3 x10^3/uL (0.0-0.7) Basophils # (Auto) 0.1 x10^3/uL (0.0-0.2) Sodium Level 139 mmol/L (136-145) Potassium Level 4.1 mmol/L (3.5-5.1) Chloride Level 104 mmol/L (98-107) Carbon Dioxide Level 27 mmol/L (21-32) Anion Gap 8 (6-14) Blood Urea Nitrogen 15 mg/dL (7-20) Creatinine 1.2 mg/dL (0.6-1.0) H Estimated GFR (Cockcroft-Gault) 50.6 BUN/Creatinine Ratio 13 (6-20) Glucose Level 91 mg/dL (70-99) Calcium Level 8.6 mg/dL (8.5-10.1) Total Bilirubin 0.2 mg/dL (0.2-1.0) Aspartate Amino Transferase (AST) 20 U/L (15-37) Alanine Aminotransferase (ALT) 37 U/L (14-59) Alkaline Phosphatase 62 U/L (46-116) Total Protein 7.1 g/dL (6.4-8.2) Albumin 3.3 g/dL (3.4-5.0) L Albumin/Globulin Ratio 0.9 (1.0-1.7) L Lipase 318 U/L (73-393) Laboratory Tests 09/01/18 15:15 Laboratory Tests 09/01/18 15:15 EKG EKG [] Radiology/Procedures Radiology/Procedures [] Impressions: REASON: lower abd pain, 1 month post hyst. PROCEDURE: CT ABD PELV W/ IV CONTRST ONLY CT ABD PELV W/ IV CONTRST ONLY Indication: LOWER ABD PAIN X 1 MONTH POST HYSTERECTOMY INJ 60ML OMNI 300 PREV SENT Exposure: One or more of the following individualized dose reduction techniques were utilized for this examination: 1. Automated exposure control 2. Adjustment of the mA and/or kV according to patient size 3. Use of iterative reconstruction technique. Comparison: January 13, 2018 Contrast: Intravenous contrast was given. No oral contrast per request. FINDINGS: Lower thorax: Lung bases are clear. Liver: Unremarkable Spleen: Unremarkable Pancreas: Unremarkable Adrenals: No evidence of mass. Kidneys: No obvious mass. Urinary tracts: No hydronephrosis. Gallbladder: Surgically absent Lymph nodes: No significant enlargement Vessels: Aorta is nonaneurysmal. GI tract: Mild retained stool in the colon. No bowel obstruction. No abnormal distention or wall thickening. There is a small appendicolith measuring about 4 mm, appears unchanged. Reproductive organs:No evidence of mass. Urinary bladder: Unremarkable. Peritoneum: No evidence of pneumoperitoneum. No free fluid. Abdominal wall:Unremarkable Spine: Spondylolysis bilaterally identified at L5. Mild left convexity lumbar scoliosis. Bones: No destructive process identified. External Soft Tissue: No acute findings. IMPRESSION: 1. No acute findings are identified. 2. Small appendicolith again identified, without evidence to suggest acute appendicitis. 3. L5 spondylolysis. Course & Med Decision Making Course & Med Decision Making 4:00 PM: The patient's condition remains a stable. Care has been turned over to Dr. Pacheco at shift change, pending CT and final disposition.Report given. Pertinent Labs and Imaging studies reviewed. (See chart for details) [ED course: Evaluation is unrevealing laboratory studies and CT scan were unremarkable. Patient feels much better affiliates safe for her to be discharged home at this time. Her abdominal exam is completely benign.] Dragon Disclaimer Dragon Disclaimer This electronic medical record was generated, in whole or in part, using a voice recognition dictation system. Departure Departure Impression: Primary Impression: Abdominal pain Disposition: HOME, SELF-CARE Condition: STABLE Referrals: ALEX FUNEZ MD (PCP) Patient Instructions: Abdominal Pain Additional Instructions: Return to the emergency department with any new or concerning symptoms Scripts Naproxen (NAPROXEN) 500 Mg Tablet 1 TAB PO BID PRN for PAIN, #30 TAB 1 Refill Prov: QUINN FINLEY DO 09/01/18 Problem Qualifiers Primary Impression: Abdominal pain Abdominal location: right lower quadrant Qualified Codes: R10.31 - Right lower quadrant pain ELISE BENZ MD Sep 01, 2018 15:09 QUINN FINLEY DO Sep 01, 2018 17:39
[2018-09-01 15:15] LABS: BILIRUBIN,URINE NEGATIVE (NEG); CLARITY,URINE CLEAR; COLOR,URINE YELLOW; NITRITE,URINE NEGATIVE (NEG); PH,URINE 7.5; PROTEIN,URINE NEGATIVE (NEG-TRACE); UROBILINOGEN,URINE 0.2 mg/dL (0.2 mg/dL)
[2018-09-01 15:28] LABS: BASO # 0.1 x10^3/uL (0.0-0.2); BASO % 2 % (0-3); EOS # 0.3 x10^3/uL (0.0-0.7); EOS % 3 % (0-3); HEMATOCRIT 40.7 % (36.0-47.0); LYMPH # 2.7 x10^3/uL (1.0-4.8); LYMPH % 27 % (24-48); MEAN CORPUSCULAR HEMOGLOBIN 31 pg (25-35); MEAN CORPUSCULAR HGB CONC 35 g/dL (31-37); MEAN CORPUSCULAR VOLUME 91 fL (79-100); MONO # 0.8 x10^3/uL (0.0-1.1); MONO % 8 % (0-9); NEUT # 6.1 x10^3uL (1.8-7.7); NEUT % 61 % (31-73); PLATELET COUNT 249 x10^3/uL (140-400); RED BLOOD COUNT 4.48 x10^6/uL (3.50-5.40); RED CELL DISTRIBUTION WIDTH 12.4 % (11.5-14.5)
[2018-09-01 15:35] LABS: BACTERIA,URINE FEW /HPF (0-FEW); SQUAMOUS EPITHELIAL CELL,UR FEW /LPF; WBC,URINE OCC /HPF (0-4)
[2018-09-01] MEDS: MORPHINE SULFATE 4 MG/ML VIAL. IV/SQ PRN ×2 (15:37→16:20)
[2018-09-01 15:48] LABS: CALCIUM 8.6 mg/dL (8.5-10.1); CREATININE 1.2 mg/dL (0.6-1.0); GFR 50.6; POTASSIUM 4.1 mmol/L (3.5-5.1)
[2018-09-01 15:51] LABS: ALBUMIN 3.3 g/dL (3.4-5.0); ALBUMIN/GLOBULIN RATIO 0.9 (1.0-1.7); TOTAL BILIRUBIN 0.2 mg/dL (0.2-1.0); TOTAL PROTEIN 7.1 g/dL (6.4-8.2)
[2018-09-01] MEDS ORDERED: IOHEXOL 300 MG/ML 100ML VIAL. IV ONE (16:00)
[2018-09-01] MEDS ORDERED: CONTRAST GIVEN. MC PRN (16:00)
--- NOTE | 2018-09-01 16:24 | RAD ---
CT ABD PELV W/ IV CONTRST ONLY Indication: LOWER ABD PAIN X 1 MONTH POST HYSTERECTOMY INJ 60ML OMNI 300 PREV SENT Exposure: One or more of the following individualized dose reduction techniques were utilized for this examination: 1. Automated exposure control 2. Adjustment of the mA and/or kV according to patient size 3. Use of iterative reconstruction technique. Comparison: January 13, 2018 Contrast: Intravenous contrast was given. No oral contrast per request. FINDINGS: Lower thorax: Lung bases are clear. Liver: Unremarkable Spleen: Unremarkable Pancreas: Unremarkable Adrenals: No evidence of mass. Kidneys: No obvious mass. Urinary tracts: No hydronephrosis. Gallbladder: Surgically absent Lymph nodes: No significant enlargement Vessels: Aorta is nonaneurysmal. GI tract: Mild retained stool in the colon. No bowel obstruction. No abnormal distention or wall thickening. There is a small appendicolith measuring about 4 mm, appears unchanged. Reproductive organs:No evidence of mass. Urinary bladder: Unremarkable. Peritoneum: No evidence of pneumoperitoneum. No free fluid. Abdominal wall:Unremarkable Spine: Spondylolysis bilaterally identified at L5. Mild left convexity lumbar scoliosis. Bones: No destructive process identified. External Soft Tissue: No acute findings. IMPRESSION: 1. No acute findings are identified. 2. Small appendicolith again identified, without evidence to suggest acute appendicitis. 3. L5 spondylolysis. Electronically signed by: Brandon Alejandre MD (09/01/2018 4:20 PM) [facility]
[2018-09-01 17:00] VITALS: BP 108/64
[2018-09-01] MEDS ORDERED: NAPR-514 PO (17:38)
== END 2018-09-01 17:40 | disposition home or self-care (01) ==
LOC: ER 14:45
DX: R10.31 Right lower quadrant pain (principal); K37 Unspecified appendicitis; M43.06 Spondylolysis, lumbar region; F31.9 Bipolar disorder, unspecified; K21.9 Gastro-esophageal reflux disease without esophagitis; E03.9 Hypothyroidism, unspecified; Z90.710 Acquired absence of both cervix and uterus; Z90.49 Acquired absence of other specified parts of digestive tract; Z98.51 Tubal ligation status
CPT/HCPCS: 36415; 74177; 80053; 81001; 83690; 85025; 96374; 96376; 99284; J2270; Q9967

== ENCOUNTER 2018-09-24 13:42 | Emergency (ER) | payer MEDICARE, OTHER ==
[~2018-09-24] VITALS: Ht 177.8 cm; Wt 117.9 kg
[~2018-09-24 13:42] MED LIST changes: -LIDO700A21 TP; +LIDO700A39 TP; +NAPR-514 PO
[2018-09-24 13:56] LABS: BILIRUBIN,URINE NEGATIVE (NEG); CLARITY,URINE CLEAR; COLOR,URINE YELLOW; NITRITE,URINE NEGATIVE (NEG); PROTEIN,URINE NEGATIVE (NEG-TRACE); UROBILINOGEN,URINE 0.2 mg/dL (0.2 mg/dL)
[2018-09-24 14:12] LABS: BACTERIA,URINE FEW /HPF (0-FEW); SQUAMOUS EPITHELIAL CELL,UR MANY /LPF; WBC,URINE 0 /HPF (0-4)
[2018-09-24] MEDS ORDERED: KETOROLAC 30 MG/ML VIAL. IV ONE (15:15)
[2018-09-24] MEDS ORDERED: ONDANSETRON PF 4 MG/2 ML VIAL. IV ONE (15:15)
[2018-09-24] MEDS ORDERED: FAMOTIDINE 20 MG/2 ML VIAL IVP ONE (15:15)
[2018-09-24 15:24] LABS: BASO # 0.1 x10^3/uL (0.0-0.2); BASO % 1 % (0-3); EOS # 0.3 x10^3/uL (0.0-0.7); EOS % 3 % (0-3); HEMATOCRIT 40.9 % (36.0-47.0); LYMPH # 2.3 x10^3/uL (1.0-4.8); LYMPH % 26 % (24-48); MEAN CORPUSCULAR HEMOGLOBIN 31 pg (25-35); MEAN CORPUSCULAR HGB CONC 34 g/dL (31-37); MEAN CORPUSCULAR VOLUME 91 fL (79-100); MONO # 0.7 x10^3/uL (0.0-1.1); MONO % 8 % (0-9); NEUT # 5.3 x10^3uL (1.8-7.7); NEUT % 61 % (31-73); PLATELET COUNT 238 x10^3/uL (140-400); RED CELL DISTRIBUTION WIDTH 12.5 % (11.5-14.5); WHITE BLOOD COUNT 8.7 x10^3/uL (4.0-11.0)
[2018-09-24] MEDS ORDERED: IOHEXOL 300 MG/ML 100ML VIAL. IV ONE (15:30)
[2018-09-24 15:34] LABS: CALCIUM 8.2 mg/dL (8.5-10.1); CREATININE 1.1 mg/dL (0.6-1.0); GFR 55.9; POTASSIUM 3.9 mmol/L (3.5-5.1)
[2018-09-24 15:40] LABS: ALBUMIN 3.2 g/dL (3.4-5.0); ALBUMIN/GLOBULIN RATIO 0.8 (1.0-1.7); TOTAL BILIRUBIN 0.2 mg/dL (0.2-1.0); TOTAL PROTEIN 7.1 g/dL (6.4-8.2)
[2018-09-24] MEDS ORDERED: CONTRAST GIVEN. MC PRN (15:45)
[2018-09-24] MEDS ORDERED: IV NORMAL SALINE 1000ML BAG 1,000 ML IV ONE (16:15)
--- NOTE | 2018-09-24 16:23 | PHYS DOC ---
Past Medical History Past Medical History: Anxiety, Bipolar, Depression, GERD, Hypothyroid, Other Additional Past Medical Histor: OVARIAN CYST,MOOD SWINGS,Chronic Pain Past Surgical History: Cholecystectomy, Hysterectomy, Tonsillectomy, Tubal ligation Additional Past Surgical Histo: THYROIDECTOMY "with a pill" Alcohol Use: None Drug Use: None Adult General Chief Complaint Chief Complaint: GI PROBLEM HPI HPI Patient is a 38 year old female who presents with right-sided upper and lower abdominal pain that is chronic. She states this is gotten especially worse over the last couple days. States it happened right after states Sumner's. She states that sharp. She states she's had some nausea and has heat but has not vomited. She has seen Dr. Hernandez in the past for her GI problems. Patient was here earlier this month and received CT scan and they can't find the wrong with her. She has a history of GERD, gallbladder bladder removal, hysterectomy, no known drug allergies. Rates pain a 10 out of 10. Review of Systems Review of Systems Constitutional: Denies fever or chills [] Eyes: Denies change in visual acuity, redness, or eye pain [] HENT: Denies nasal congestion or sore throat [] Respiratory: Denies cough or shortness of breath [] Cardiovascular: No additional information not addressed in HPI [] GI: Right mid and right side lower abdominal pain, nausea, denies vomiting, bloody stools or diarrhea [] : Denies dysuria or hematuria [] Musculoskeletal: Denies back pain or joint pain [] Integument: Denies rash or skin lesions [] Neurologic: Denies headache, focal weakness or sensory changes [] All other systems were reviewed and found to be within normal limits, except as documented in this note. Current Medications Current Medications Current Medications Medications (Trade) Dose Ordered Sig/Shirley Start Time Stop Time Status Last Admin Dose Admin Famotidine (Pepcid Vial) 20 mg 1X ONCE 09/24/18 15:15 09/24/18 15:16 DC 09/24/18 15:34 20 MG Info (CONTRAST GIVEN -- Rx MONITORING) 1 each PRN DAILY PRN 09/24/18 15:45 09/26/18 15:44 Iohexol (Omnipaque 300 Mg/ml) 75 ml 1X ONCE 09/24/18 15:30 09/24/18 15:31 DC 09/24/18 15:30 60 ML Ketorolac Tromethamine (Toradol 30mg Vial) 30 mg 1X ONCE 09/24/18 15:15 09/24/18 15:16 DC 09/24/18 15:45 30 MG Ondansetron HCl (Zofran) 4 mg 1X ONCE 09/24/18 15:15 09/24/18 15:16 DC 09/24/18 15:43 4 MG Sodium Chloride 1,000 ml @ 1,000 mls/hr 1X ONCE 09/24/18 16:15 09/24/18 17:14 09/24/18 16:42 1,000 MLS/HR Allergies Allergies Allergies Coded Allergies Type Severity Reaction Last Updated Verified No Known Drug Allergies 03/19/17 No Physical Exam Physical Exam Constitutional: Well developed, well nourished, no acute distress, non-toxic appearance. [] HENT: Normocephalic, atraumatic, bilateral external ears normal, oropharynx moist, no oral exudates, nose normal. [] Eyes: PERRLA, EOMI, conjunctiva normal, no discharge. [] Neck: Normal range of motion, no tenderness, supple, no stridor. [] Cardiovascular:Heart rate regular rhythm, no murmur [] Lungs & Thorax: Bilateral breath sounds clear to auscultation [] Abdomen: Bowel sounds normal, soft, right mid and lower tenderness, no masses, no pulsatile masses. [] Skin: Warm, dry, no erythema, no rash. [] Back: No tenderness, no CVA tenderness. [] Extremities: No tenderness, no cyanosis, no clubbing, ROM intact, no edema. [] Neurologic: Alert and oriented X 3, normal motor function, normal sensory function, no focal deficits noted. [] Psychologic: Affect normal, judgement normal, mood normal. [] Current Patient Data Vital Signs Vital Signs Date Time Temp Pulse Resp B/P (MAP) Pulse Ox O2 Delivery O2 Flow Rate FiO2 09/24/18 14:48 98.1 84 18 114/73 (87) 99 Room Air 98.1 Lab Values Laboratory Tests Test 09/24/18 13:50 09/24/18 15:10 Urine Collection Type Unknown Urine Color Yellow Urine Clarity Clear Urine pH 8.0 Urine Specific [place] 1.020 Urine Protein Negative mg/dL (NEG-TRACE) Urine Glucose (UA) Negative mg/dL (NEG) Urine Ketones (Stick) Negative mg/dL (NEG) Urine Blood Small (NEG) Urine Nitrite Negative (NEG) Urine Bilirubin Negative (NEG) Urine Urobilinogen Dipstick 0.2 mg/dL (0.2 mg/dL) Urine Leukocyte Esterase Negative (NEG) Urine RBC 1-2 /HPF (0-2) Urine WBC 0 /HPF (0-4) Urine Squamous Epithelial Cells Many /LPF Urine Bacteria Few /HPF (0-FEW) White Blood Count 8.7 x10^3/uL (4.0-11.0) Red Blood Count 4.50 x10^6/uL (3.50-5.40) Hemoglobin 14.0 g/dL (12.0-15.5) Hematocrit 40.9 % (36.0-47.0) Mean Corpuscular Volume 91 fL (79-100) Mean Corpuscular Hemoglobin 31 pg (25-35) Mean Corpuscular Hemoglobin Concent 34 g/dL (31-37) Red Cell Distribution Width 12.5 % (11.5-14.5) Platelet Count 238 x10^3/uL (140-400) Neutrophils (%) (Auto) 61 % (31-73) Lymphocytes (%) (Auto) 26 % (24-48) Monocytes (%) (Auto) 8 % (0-9) Eosinophils (%) (Auto) 3 % (0-3) Basophils (%) (Auto) 1 % (0-3) Neutrophils # (Auto) 5.3 x10^3uL (1.8-7.7) Lymphocytes # (Auto) 2.3 x10^3/uL (1.0-4.8) Monocytes # (Auto) 0.7 x10^3/uL (0.0-1.1) Eosinophils # (Auto) 0.3 x10^3/uL (0.0-0.7) Basophils # (Auto) 0.1 x10^3/uL (0.0-0.2) Sodium Level 140 mmol/L (136-145) Potassium Level 3.9 mmol/L (3.5-5.1) Chloride Level 104 mmol/L (98-107) Carbon Dioxide Level 26 mmol/L (21-32) Anion Gap 10 (6-14) Blood Urea Nitrogen 15 mg/dL (7-20) Creatinine 1.1 mg/dL (0.6-1.0) H Estimated GFR (Cockcroft-Gault) 55.9 BUN/Creatinine Ratio 14 (6-20) Glucose Level 106 mg/dL (70-99) H Calcium Level 8.2 mg/dL (8.5-10.1) L Total Bilirubin 0.2 mg/dL (0.2-1.0) Aspartate Amino Transferase (AST) 24 U/L (15-37) Alanine Aminotransferase (ALT) 40 U/L (14-59) Alkaline Phosphatase 67 U/L (46-116) Total Protein 7.1 g/dL (6.4-8.2) Albumin 3.2 g/dL (3.4-5.0) L Albumin/Globulin Ratio 0.8 (1.0-1.7) L Lipase 350 U/L (73-393) Laboratory Tests 09/24/18 15:10 Laboratory Tests 09/24/18 15:10 EKG EKG [address] Hill[] Interpretation Time: Sinus rhythm no STEMI Radiology/Procedures Radiology/Procedures CT abdomen pelvis Impressions: [facility] [address] [place], [place] [id number] IMAGING REPORT Signed PATIENT: ESTELITA BULL ACCOUNT: [id number] : 1980 LOCATION: ER AGE: 38 SEX: F EXAM STATUS: REG ER ORD. PHYSICIAN: EDWARD DUBOSE APRN REASON: right sided abdominal pain PROCEDURE: CT ABD PELV W/ IV CONTRST ONLY PQRS Compliance Statement: One or more of the following individualized dose reduction techniques were utilized for this examination: 1. Automated exposure control 2. Adjustment of the mA and/or kV according to patient size 3. Use of iterative reconstruction technique CT ABD PELV W/ IV CONTRST ONLY Clinical Indication: PERSISTeNT RIGHT LOWER ABD PAIN WITH NAUSEA Comparison: CT abdomen and pelvis with contrast as over 60,018. Technique: Helical CT imaging of the abdomen and pelvis is performed after 60 cc of Omnipaque 300 IV contrast. Oral contrast not given. Findings: The dome of the liver is excluded. Lung bases are clear. Cardiac size normal. Cholecystectomy. Borderline fatty infiltration of the liver. Liver is homogeneous. Spleen, pancreas, adrenal glands, abdominal aorta, and kidneys are normal. Stomach unremarkable. No dilated small bowel. The appendix is normal caliber. No periappendiceal inflammation. Appendicolith redemonstrated. There are a few diverticula of the distal colon without inflammation. No colon wall thickening. No abdominal adenopathy or free fluid. Urinary bladder is normal. Hysterectomy. Tubal ligation clip is seen in the pelvis, stable. No pelvic free fluid. No inguinal adenopathy. Bilateral L5 spondylolysis. There is minimal grade 1 retrolisthesis of L4 on L5. Minimal left convexity lumbar scoliosis. IMPRESSION: 1. No acute abdominal or pelvic abnormality. 2. Mild distal colon diverticulosis without diverticulitis. Electronically signed by: Antony Moreno MD (09/24/2018 4:34 PM) [facility] DICTATED and SIGNED BY: ANTONY MORENO MD DATE: 09/24/18 162 Course & Med Decision Making Course & Med Decision Making Patient is a 38 year old female who presents with right-sided upper and lower abdominal pain that is chronic. She states this is gotten especially worse over the last couple days. States it happened right after states Sumner's. She states that sharp. She states she's had some nausea and has heat but has not vomited. She has seen Dr. Hernandez in the past for her GI problems. Patient was here earlier this month and received CT scan and they can't find the wrong with her. She has a history of GERD, gallbladder bladder removal, hysterectomy, no known drug allergies. Rates pain a 10 out of 10. Skin is pink warm and dry. Mucous members are moist. Alert and oriented. Speaks in full clear sentences. Abdomen is soft and tender on the right mid and lower side. Patient states it hurts worse when she lays flat. Negative Rovsing and obturator sign. No rebound tenderness. Abdomen pelvis CT shows 1. No acute abdominal or pelvic abnormality. 2. Mild distal colon diverticulosis without diverticulitis. Patient will be told that she needs to follow-up with Dr. Gonzales she has had in the past. Patient is stable and in no distress. Dragon Disclaimer Dragon Disclaimer This electronic medical record was generated, in whole or in part, using a voice recognition dictation system. Departure Departure Impression: Primary Impression: Abdominal pain Disposition: HOME, SELF-CARE Condition: STABLE Referrals: ALEX FUNEZ MD (PCP) Patient Instructions: Abdominal Pain (Nonspecific) Additional Instructions: CALL DR GONZALES OFFICE ON WEDNESDAY FOR FOLLOW UP. Problem Qualifiers Primary Impression: Abdominal pain Abdominal location: right lower quadrant Qualified Codes: R10.31 - Right lower quadrant pain EDWARD DUBOSE APRN Sep 24, 2018 16:23
--- NOTE | 2018-09-24 16:37 | RAD ---
PQRS Compliance Statement: One or more of the following individualized dose reduction techniques were utilized for this examination: 1. Automated exposure control 2. Adjustment of the mA and/or kV according to patient size 3. Use of iterative reconstruction technique CT ABD PELV W/ IV CONTRST ONLY Clinical Indication: PERSISTeNT RIGHT LOWER ABD PAIN WITH NAUSEA Comparison: CT abdomen and pelvis with contrast as over 60,018. Technique: Helical CT imaging of the abdomen and pelvis is performed after 60 cc of Omnipaque 300 IV contrast. Oral contrast not given. Findings: The dome of the liver is excluded. Lung bases are clear. Cardiac size normal. Cholecystectomy. Borderline fatty infiltration of the liver. Liver is homogeneous. Spleen, pancreas, adrenal glands, abdominal aorta, and kidneys are normal. Stomach unremarkable. No dilated small bowel. The appendix is normal caliber. No periappendiceal inflammation. Appendicolith redemonstrated. There are a few diverticula of the distal colon without inflammation. No colon wall thickening. No abdominal adenopathy or free fluid. Urinary bladder is normal. Hysterectomy. Tubal ligation clip is seen in the pelvis, stable. No pelvic free fluid. No inguinal adenopathy. Bilateral L5 spondylolysis. There is minimal grade 1 retrolisthesis of L4 on L5. Minimal left convexity lumbar scoliosis. IMPRESSION: 1. No acute abdominal or pelvic abnormality. 2. Mild distal colon diverticulosis without diverticulitis. Electronically signed by: Antony Moreno MD (09/24/2018 4:34 PM) [facility]
[2018-09-24 16:42] VITALS: BP 112/74
--- NOTE | 2018-09-25 04:41 | EKG ---
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
== END 2018-09-24 17:34 | disposition home or self-care (01) ==
LOC: ER 13:42
DX: G89.29 Other chronic pain (principal); R10.31 Right lower quadrant pain; K57.30 Diverticulosis of large intestine without perforation or abscess without bleeding; K21.9 Gastro-esophageal reflux disease without esophagitis; E03.9 Hypothyroidism, unspecified; F31.9 Bipolar disorder, unspecified; Z90.49 Acquired absence of other specified parts of digestive tract; Z90.710 Acquired absence of both cervix and uterus; Z98.51 Tubal ligation status
CPT/HCPCS: 36415; 74177; 80053; 81001; 83690; 85025; 93005; 96374; 96375; 99284; J1885; J2405; J3490; J7030; Q9967; 96361

== ENCOUNTER 2018-12-04 13:44 | Emergency (ER) | payer MEDICARE, OTHER ==
[~2018-12-04] VITALS: Ht 154.9 cm; Wt 117.9 kg
[2018-12-04] MEDS ORDERED: IV NORMAL SALINE 1000ML BAG 1,000 ML IV SCH (14:55)
[2018-12-04] MEDS ORDERED: HYOSCYAMINE 0.125 MG TAB.RAPDIS PO ONE (15:00)
--- NOTE | 2018-12-04 15:05 | PHYS DOC ---
Past Medical History Past Medical History: Anxiety, Bipolar, Depression, GERD, Hypothyroid, Other Additional Past Medical Histor: OVARIAN CYST,MOOD SWINGS,CHRONIC PAIN Past Surgical History: Cholecystectomy, Hysterectomy, Tonsillectomy, Tubal ligation, Other Additional Past Surgical Histo: THYROIDECTOMY "with a pill" Alcohol Use: None Drug Use: Marijuana Adult General Chief Complaint Chief Complaint: CHEST WALL PAIN HPI HPI Patient is a 38 year old female who presents with several complaints 1. Lightheadedness with standing. This has been going on for the past 2 days. Patient has a long-standing history of nausea and vomiting for the past several years and this is not changed. Patient has not actually passed out but feels close to it. Especially with standing. No diarrhea. No head trauma. Second complaint is some right-sided chest discomfort. Worse with deep breaths. No cough. No fever. Third complaint is right-sided abdominal pain that has been present for the past month. Nothing seems to make it better or worse. Patient has had a previous cholecystectomy. Patient has not seen anyone for evaluation of this pain. There has been no trauma. No worsening vomiting than her usual baseline. No diarrhea. No blood in the emesis.[] Review of Systems Review of Systems Constitutional: Denies fever or chills [] Eyes: Denies change in visual acuity, redness, or eye pain [] HENT: Denies nasal congestion or sore throat [] Respiratory: Denies cough or shortness of breath [] Cardiovascular: No additional information not addressed in HPI [] GI: See history of present illness[] : Denies dysuria or hematuria [] Musculoskeletal: Denies back pain or joint pain [] Integument: Denies rash or skin lesions [] Neurologic: Denies headache, focal weakness or sensory changes [] Endocrine: Denies polyuria or polydipsia [] All other systems were reviewed and found to be within normal limits, except as documented in this note. Current Medications Current Medications Current Medications Medications (Trade) Dose Ordered Sig/Shirley Start Time Stop Time Status Last Admin Dose Admin Hyoscyamine (Anaspaz) 0.125 mg ONCE ONCE 12/04/18 15:00 12/04/18 15:01 DC 12/04/18 15:13 0.125 MG Sodium Chloride 1,000 ml @ 1,000 mls/hr Q1H 12/04/18 14:55 12/04/18 15:54 DC 12/04/18 15:14 1,000 MLS/HR Allergies Allergies Allergies Coded Allergies Type Severity Reaction Last Updated Verified No Known Drug Allergies 03/19/17 No Physical Exam Physical Exam Constitutional: Well developed, well nourished, no acute distress, non-toxic appearance. [] HENT: Normocephalic, atraumatic, bilateral external ears normal, oropharynx moist, no oral exudates, nose normal. [] Eyes: PERRLA, EOMI, conjunctiva normal, no discharge. [] Neck: Normal range of motion, no tenderness, supple, no stridor. [] Cardiovascular:Heart rate regular rhythm, no murmur [] Lungs & Thorax: Bilateral breath sounds clear to auscultation [] Abdomen: Bowel sounds normal, soft, diffuse right-sided tenderness, no rebound, no rigidity no McBurney's point tenderness, no masses, no pulsatile masses. [] Skin: Warm, dry, no erythema, no rash. [] Back: No tenderness, no CVA tenderness. [] Extremities: No tenderness, no cyanosis, no clubbing, ROM intact, no edema. [] Neurologic: Alert and oriented X 3, normal motor function, normal sensory function, no focal deficits noted. [] Psychologic: Affect normal, judgement normal, mood normal. [] Current Patient Data Vital Signs Vital Signs Date Time Temp Pulse Resp B/P (MAP) Pulse Ox O2 Delivery O2 Flow Rate FiO2 12/04/18 14:14 97.9 94 16 115/86 (96) 99 Room Air 97.9 Lab Values Laboratory Tests Test 12/04/18 14:20 12/04/18 14:38 Urine Collection Type Unknown Urine Color Yellow Urine Clarity Clear Urine pH 7.[address] [place] 1.020 Urine Protein Negative mg/dL (NEG-TRACE) Urine Glucose (UA) Negative mg/dL (NEG) Urine Ketones (Stick) Negative mg/dL (NEG) Urine Blood Negative (NEG) Urine Nitrite Negative (NEG) Urine Bilirubin Negative (NEG) Urine Urobilinogen Dipstick 0.2 mg/dL (0.2 mg/dL) Urine Leukocyte Esterase Small (NEG) Urine RBC Occ /HPF (0-2) Urine WBC 1-4 /HPF (0-4) Urine Squamous Epithelial Cells Many /LPF Urine Bacteria Many /HPF (0-FEW) Urine Mucus Mod /LPF Urine Opiates Screen Neg (NEG) Urine Methadone Screen Neg (NEG) Urine Barbiturates Neg (NEG) Urine Phencyclidine Screen Neg (NEG) Urine Amphetamine/Methamphetamine Neg (NEG) Urine Benzodiazepines Screen Neg (NEG) Urine Cocaine Screen Neg (NEG) Urine Cannabinoids Screen Neg (NEG) Urine Ethyl Alcohol Neg (NEG) White Blood Count 8.4 x10^3/uL (4.0-11.0) Red Blood Count 4.75 x10^6/uL (3.50-5.40) Hemoglobin 14.2 g/dL (12.0-15.5) Hematocrit 43.2 % (36.0-47.0) Mean Corpuscular Volume 91 fL (79-100) Mean Corpuscular Hemoglobin 30 pg (25-35) Mean Corpuscular Hemoglobin Concent 33 g/dL (31-37) Red Cell Distribution Width 13.9 % (11.5-14.5) Platelet Count 240 x10^3/uL (140-400) Neutrophils (%) (Auto) 62 % (31-73) Lymphocytes (%) (Auto) 25 % (24-48) Monocytes (%) (Auto) 10 % (0-9) H Eosinophils (%) (Auto) 3 % (0-3) Basophils (%) (Auto) 1 % (0-3) Neutrophils # (Auto) 5.2 x10^3uL (1.8-7.7) Lymphocytes # (Auto) 2.1 x10^3/uL (1.0-4.8) Monocytes # (Auto) 0.9 x10^3/uL (0.0-1.1) Eosinophils # (Auto) 0.2 x10^3/uL (0.0-0.7) Basophils # (Auto) 0.1 x10^3/uL (0.0-0.2) Sodium Level 140 mmol/L (136-145) Potassium Level 4.1 mmol/L (3.5-5.1) Chloride Level 102 mmol/L (98-107) Carbon Dioxide Level 26 mmol/L (21-32) Anion Gap 12 (6-14) Blood Urea Nitrogen 20 mg/dL (7-20) Creatinine 1.2 mg/dL (0.6-1.0) H Estimated GFR (Cockcroft-Gault) 50.6 BUN/Creatinine Ratio 17 (6-20) Glucose Level 89 mg/dL (70-99) Calcium Level 8.6 mg/dL (8.5-10.1) Total Bilirubin 0.3 mg/dL (0.2-1.0) Aspartate Amino Transferase (AST) 27 U/L (15-37) Alanine Aminotransferase (ALT) 44 U/L (14-59) Alkaline Phosphatase 83 U/L (46-116) Troponin I Quantitative < 0.017 ng/mL (0.000-0.055) Total Protein 7.5 g/dL (6.4-8.2) Albumin 3.4 g/dL (3.4-5.0) Albumin/Globulin Ratio 0.8 (1.0-1.7) L Lipase 415 U/L (73-393) H Laboratory Tests 12/04/18 14:38 Laboratory Tests 12/04/18 14:38 EKG EKG EKG shows a sinus rhythm at 91 bpm, normal axis, normal QTC, no ST elevations, interpreted by me at 1435[] Radiology/Procedures Radiology/Procedures EXAM: Abdomen acute complete. HISTORY: Pain. COMPARISON: CT dated 1219 90,018 FINDINGS: A frontal view the chest and frontal upright and supine views the abdomen are obtained. There is no infiltrate, pleural effusion or pneumothorax. The heart is normal in size. There is moderate colonic stool. No abnormally dilated air-filled loop of small bowel seen. There is no transition point to suggest obstruction. There is no free air. There are calcifications and clips. There is a surgical clip within the left hemipelvis. IMPRESSION: 1. No acute pulmonary finding. 2. Nonspecific bowel gas pattern, without evidence of obstruction.[] Course & Med Decision Making Course & Med Decision Making Pertinent Labs and Imaging studies reviewed. (See chart for details) ED course: Patient arrived, was placed in bed, and tolerated exam well. She received IV fluids. She was transported to and from [facility] with any complications. After the return of the laboratory and imaging findings, these were discussed with the patient who voiced understanding. All questions were answered. Patient was discharged in improved condition. Medical decision making: There is no evidence of an acute appendicitis, obstruction, perforation, acute coronary syndrome, significant dehydration, nor other emergent resin. Her old records were reviewed, including her visit from August 2018 where she also had this right-sided abdominal pain and had a negative CT scan at that time so additional imaging was not performed beyond the abdominal series today. Her lipase noted to be slightly elevated however it does not reach the laboratory criteria for pancreatitis, and she does not have any pain in the upper abdomen.[] Dragon Disclaimer Dragon Disclaimer This electronic medical record was generated, in whole or in part, using a voice recognition dictation system. Departure Departure Impression: Primary Impression: Abdominal pain Additional Impressions: Chest pain Lightheadedness Disposition: HOME, SELF-CARE Condition: IMPROVED Referrals: ALEX FUNEZ MD (PCP) Follow-up in 2 days Patient Instructions: Abdominal Pain (Nonspecific), Chest Pain (Nonspecific), Dizziness Additional Instructions: Drink plenty of fluids. Do not use any drugs or medications that are not prescribed for you, they may kill you. Follow-up with your regular doctor in 2 days. Return to the ER if any concerns. Scripts Meloxicam (MELOXICAM) 7.5 Mg Tablet 7.5 MG PO DAILY, #20 TAB Prov: LIAT CASIANO DO 12/04/18 Hyoscyamine Sulfate (LEVSIN) 0.125 Mg Tablet 0.125 MG PO QID, #30 TAB Prov: LIAT CASIANO DO 12/04/18 Problem Qualifiers Primary Impression: Abdominal pain Abdominal location: unspecified location Qualified Codes: R10.9 - Unspecified abdominal pain Additional Impressions: Chest pain Chest pain type: unspecified Qualified Codes: R07.9 - Chest pain, unspecified LIAT CASIANO DO Dec 04, 2018 15:05
[2018-12-04 15:07] LABS: BASO # 0.1 x10^3/uL (0.0-0.2); BASO % 1 % (0-3); EOS # 0.2 x10^3/uL (0.0-0.7); EOS % 3 % (0-3); HEMATOCRIT 43.2 % (36.0-47.0); HEMOGLOBIN 14.2 g/dL (12.0-15.5); LYMPH # 2.1 x10^3/uL (1.0-4.8); LYMPH % 25 % (24-48); MEAN CORPUSCULAR HEMOGLOBIN 30 pg (25-35); MEAN CORPUSCULAR HGB CONC 33 g/dL (31-37); MEAN CORPUSCULAR VOLUME 91 fL (79-100); MONO # 0.9 x10^3/uL (0.0-1.1); MONO % 10 % (0-9); NEUT # 5.2 x10^3uL (1.8-7.7); NEUT % 62 % (31-73); PLATELET COUNT 240 x10^3/uL (140-400); RED BLOOD COUNT 4.75 x10^6/uL (3.50-5.40); RED CELL DISTRIBUTION WIDTH 13.9 % (11.5-14.5); WHITE BLOOD COUNT 8.4 x10^3/uL (4.0-11.0)
[2018-12-04 15:09] LABS: BILIRUBIN,URINE NEGATIVE (NEG); CLARITY,URINE CLEAR; COLOR,URINE YELLOW; NITRITE,URINE NEGATIVE (NEG); PROTEIN,URINE NEGATIVE (NEG-TRACE); UROBILINOGEN,URINE 0.2 mg/dL (0.2 mg/dL)
[2018-12-04 15:14] LABS: BARBITURATES NEG (NEG); BENZODIAZEPINES NEG (NEG); CANNABINOIDS NEG (NEG); COCAINE NEG (NEG); METHADONE NEG (NEG); OPIATES NEG (NEG); PHENCYCLIDINE NEG (NEG)
[2018-12-04 15:15] LABS: CALCIUM 8.6 mg/dL (8.5-10.1); CREATININE 1.2 mg/dL (0.6-1.0); GFR 50.6; POTASSIUM 4.1 mmol/L (3.5-5.1)
[2018-12-04 15:16] LABS: AMPHETAMINE/METHAMPHETAMINE NEG (NEG)
[2018-12-04 15:17] LABS: BACTERIA,URINE MANY /HPF (0-FEW); RBC,URINE OCC /HPF (0-2); SQUAMOUS EPITHELIAL CELL,UR MANY /LPF
[2018-12-04 15:20] LABS: ALBUMIN 3.4 g/dL (3.4-5.0); ALBUMIN/GLOBULIN RATIO 0.8 (1.0-1.7); TOTAL BILIRUBIN 0.3 mg/dL (0.2-1.0); TOTAL PROTEIN 7.5 g/dL (6.4-8.2)
--- NOTE | 2018-12-04 16:07 | RAD ---
EXAM: Abdomen acute complete. HISTORY: Pain. COMPARISON: CT dated 122 90,018 FINDINGS: A frontal view the chest and frontal upright and supine views the abdomen are obtained. There is no infiltrate, pleural effusion or pneumothorax. The heart is normal in size. There is moderate colonic stool. No abnormally dilated air-filled loop of small bowel seen. There is no transition point to suggest obstruction. There is no free air. There are calcifications and clips. There is a surgical clip within the left hemipelvis. IMPRESSION: 1. No acute pulmonary finding. 2. Nonspecific bowel gas pattern, without evidence of obstruction. Electronically signed by: Kayla Sommers MD (12/04/2018 4:04 PM) [facility]
[2018-12-04] MEDS ORDERED: MELO7.5T29 PO (16:18)
[2018-12-04] MEDS ORDERED: HYOS0.1264 PO (16:18)
[2018-12-04 16:21] VITALS: BP 137/79
--- NOTE | 2018-12-05 07:07 | EKG ---
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
== END 2018-12-04 17:03 | disposition home or self-care (01) ==
LOC: ER 13:44
DX: R42 Dizziness and giddiness (principal); R07.89 Other chest pain; R10.31 Right lower quadrant pain; R10.11 Right upper quadrant pain; R11.2 Nausea with vomiting, unspecified; F41.9 Anxiety disorder, unspecified; F31.9 Bipolar disorder, unspecified; K21.9 Gastro-esophageal reflux disease without esophagitis; E03.9 Hypothyroidism, unspecified; G89.29 Other chronic pain; Z90.49 Acquired absence of other specified parts of digestive tract; Z90.710 Acquired absence of both cervix and uterus; Z90.89 Acquired absence of other organs; Z98.51 Tubal ligation status
CPT/HCPCS: 36415; 74022; 80053; 80307; 81001; 83690; 84484; 85025; 87086; 93005; 96360; 99284; J7030

== ENCOUNTER 2019-01-06 09:23 | Emergency (ER) | payer OTHER, MEDICAID ==
[~2019-01-06] VITALS: Ht 180.3 cm; Wt 124.3 kg
[~2019-01-06 09:23] MED LIST changes: +HYOS0.1264 PO; +MELO7.5T29 PO
[2019-01-06 10:09] LABS: BASO # 0.1 x10^3/uL (0.0-0.2); BASO % 1 % (0-3); EOS # 0.1 x10^3/uL (0.0-0.7); EOS % 2 % (0-3); HEMATOCRIT 44.2 % (36.0-47.0); HEMOGLOBIN 14.5 g/dL (12.0-15.5); LYMPH # 1.5 x10^3/uL (1.0-4.8); LYMPH % 17 % (24-48); MEAN CORPUSCULAR HEMOGLOBIN 30 pg (25-35); MEAN CORPUSCULAR HGB CONC 33 g/dL (31-37); MEAN CORPUSCULAR VOLUME 90 fL (79-100); MONO # 0.7 x10^3/uL (0.0-1.1); MONO % 8 % (0-9); NEUT # 6.2 x10^3uL (1.8-7.7); NEUT % 72 % (31-73); PLATELET COUNT 237 x10^3/uL (140-400); RED BLOOD COUNT 4.89 x10^6/uL (3.50-5.40); RED CELL DISTRIBUTION WIDTH 13.8 % (11.5-14.5); WHITE BLOOD COUNT 8.7 x10^3/uL (4.0-11.0)
[2019-01-06] MEDS ORDERED: ASPIRIN 325 MG TABLET PO ONE (10:15)
[2019-01-06 10:23] LABS: CALCIUM 8.7 mg/dL (8.5-10.1); CREATININE 1.1 mg/dL (0.6-1.0); GFR 55.9; POTASSIUM 3.9 mmol/L (3.5-5.1)
[2019-01-06 10:29] LABS: ALBUMIN 3.5 g/dL (3.4-5.0); ALBUMIN/GLOBULIN RATIO 0.9 (1.0-1.7); MAGNESIUM 1.9 mg/dL (1.8-2.4); TOTAL BILIRUBIN 0.3 mg/dL (0.2-1.0); TOTAL PROTEIN 7.6 g/dL (6.4-8.2)
--- NOTE | 2019-01-06 10:35 | PHYS DOC ---
Past Medical History Past Medical History: Anxiety, Depression, GERD, Hypothyroid, Other Additional Past Medical Histor: OVARIAN CYST,MOOD SWINGS,CHRONIC PAIN Past Surgical History: Cholecystectomy, Hysterectomy, Tonsillectomy, Tubal ligation, Other Additional Past Surgical Histo: THYROIDECTOMY "with a pill" Alcohol Use: None Drug Use: Marijuana Social History Narrative: occasionally Adult General Chief Complaint Chief Complaint: URINARY FREQUENCY HPI HPI Patient is a 38 year old female with a history of anxiety, hypothyroidism, depression, acid reflex, who presents to the ED today complaining of urinary hesitancy for the last 1 week, patient states when she tries to void she is not able to empty her bladder. Patient denies any abdominal pain but states her whole body hurts. She is also complaining of nausea and vomiting. Denies any diarrhea or fever. She states she was admitted around December 04 2018 for UTI. She states this feels similar to the last time she was admitted. Review of Systems Review of Systems Constitutional: Denies fever or chills [] Eyes: Denies change in visual acuity, redness, or eye pain [] HENT: Denies nasal congestion or sore throat [] Respiratory: Denies cough or shortness of breath [] Cardiovascular: No additional information not addressed in HPI [] GI: Reports nausea and vomiting. Denies abdominal pain, bloody stools or diarrhea [] : Reports urinary hesitancy, Denies dysuria or hematuria [] Musculoskeletal: Denies back pain or joint pain [] Integument: Denies rash or skin lesions [] Neurologic: Denies headache, focal weakness or sensory changes [] All other systems were reviewed and found to be within normal limits, except as documented in this note. Current Medications Current Medications Current Medications Medications (Trade) Dose Ordered Sig/[facility] Start Time Stop Time Status Last Admin Dose Admin Aspirin (Sebastián Aspirin) 325 mg 1X ONCE 01/06/19 10:15 01/06/19 10:16 DC 01/06/19 09:50 325 MG Sodium Chloride 1,000 ml @ 1,000 mls/hr 1X ONCE 01/06/19 12:00 01/06/19 12:59 DC 01/06/19 11:51 1,000 MLS/HR Allergies Allergies Allergies Coded Allergies Type Severity Reaction Last Updated Verified No Known Drug Allergies 03/19/17 No Physical Exam Physical Exam Constitutional: Well developed, well nourished, no acute distress, non-toxic appearance. [] HENT: Normocephalic, atraumatic, bilateral external ears normal, oropharynx moist, no oral exudates, nose normal. [] Eyes: PERRLA, EOMI, conjunctiva normal, no discharge. [] Neck: Normal range of motion, no tenderness, supple, no stridor. [] Cardiovascular:Heart rate regular rhythm, no murmur [] Lungs & Thorax: Bilateral breath sounds clear to auscultation [] Abdomen: Bowel sounds normal, soft, no tenderness, no masses, no pulsatile masses. [] Skin: Warm, dry, no erythema, no rash. [] Back: No tenderness, no CVA tenderness. [] Extremities: No tenderness, no cyanosis, no clubbing, ROM intact, no edema. [] Neurologic: Alert and oriented X 3, normal motor function, normal sensory function, no focal deficits noted. [] Psychologic: Affect normal, judgement normal, mood normal. [] Current Patient Data Vital Signs Vital Signs Date Time Temp Pulse Resp B/P (MAP) Pulse Ox O2 Delivery O2 Flow Rate FiO2 01/06/19 13:02 73 18 127/68 (87) 100 Room Air 01/06/19 09:36 99.3 99.3 Lab Values Laboratory Tests Test 01/06/19 10:00 01/06/19 10:32 White Blood Count 8.7 x10^3/uL (4.0-11.0) Red Blood Count 4.89 x10^6/uL (3.50-5.40) Hemoglobin 14.5 g/dL (12.0-15.5) Hematocrit 44.2 % (36.0-47.0) Mean Corpuscular Volume 90 fL (79-100) Mean Corpuscular Hemoglobin 30 pg (25-35) Mean Corpuscular Hemoglobin Concent 33 g/dL (31-37) Red Cell Distribution Width 13.8 % (11.5-14.5) Platelet Count 237 x10^3/uL (140-400) Neutrophils (%) (Auto) 72 % (31-73) Lymphocytes (%) (Auto) 17 % (24-48) L Monocytes (%) (Auto) 8 % (0-9) Eosinophils (%) (Auto) 2 % (0-3) Basophils (%) (Auto) 1 % (0-3) Neutrophils # (Auto) 6.2 x10^3uL (1.8-7.7) Lymphocytes # (Auto) 1.5 x10^3/uL (1.0-4.8) Monocytes # (Auto) 0.7 x10^3/uL (0.0-1.1) Eosinophils # (Auto) 0.1 x10^3/uL (0.0-0.7) Basophils # (Auto) 0.1 x10^3/uL (0.0-0.2) Sodium Level 139 mmol/L (136-145) Potassium Level 3.9 mmol/L (3.5-5.1) Chloride Level 103 mmol/L (98-107) Carbon Dioxide Level 23 mmol/L (21-32) Anion Gap 13 (6-14) Blood Urea Nitrogen 20 mg/dL (7-20) Creatinine 1.1 mg/dL (0.6-1.0) H Estimated GFR (Cockcroft-Gault) 55.9 BUN/Creatinine Ratio 18 (6-20) Glucose Level 96 mg/dL (70-99) Calcium Level 8.7 mg/dL (8.5-10.1) Magnesium Level 1.9 mg/dL (1.8-2.4) Total Bilirubin 0.3 mg/dL (0.2-1.0) Aspartate Amino Transferase (AST) 26 U/L (15-37) Alanine Aminotransferase (ALT) 33 U/L (14-59) Alkaline Phosphatase 87 U/L (46-116) Creatine Kinase 70 U/L (26-192) Creatine Kinase MB (Mass) 0.5 ng/mL (0.0-3.6) Creatine Kinase MB Relative Index % (0-4) Troponin I Quantitative < 0.017 ng/mL (0.000-0.055) DX-Sqf-N-Type Natriuretic Peptide 13 pg/mL (0-124) Total Protein 7.6 g/dL (6.4-8.2) Albumin 3.5 g/dL (3.4-5.0) Albumin/Globulin Ratio 0.9 (1.0-1.7) L Lipase 353 U/L (73-393) Thyroid Stimulating Hormone (TSH) 0.131 uIU/mL (0.358-3.74) L Urine Collection Type U cath Urine Color Yellow Urine Clarity Clear Urine pH 7.5 Urine Specific [place] 1.020 Urine Protein Negative mg/dL (NEG-TRACE) Urine Glucose (UA) Negative mg/dL (NEG) Urine Ketones (Stick) Negative mg/dL (NEG) Urine Blood Trace (NEG) Urine Nitrite Negative (NEG) Urine Bilirubin Negative (NEG) Urine Urobilinogen Dipstick 1.0 mg/dL (0.2 mg/dL) Urine Leukocyte Esterase Negative (NEG) Urine RBC 3-5 /HPF (0-2) Urine WBC Occ /HPF (0-4) Urine Squamous Epithelial Cells Few /LPF Urine Amorphous Sediment Present /HPF Urine Bacteria Few /HPF (0-FEW) Urine Mucus Mod /LPF Urine Opiates Screen Neg (NEG) Urine Methadone Screen Neg (NEG) Urine Barbiturates Neg (NEG) Urine Phencyclidine Screen Neg (NEG) Urine Amphetamine/Methamphetamine Neg (NEG) Urine Benzodiazepines Screen Neg (NEG) Urine Cocaine Screen Neg (NEG) Urine Cannabinoids Screen Neg (NEG) Urine Ethyl Alcohol Neg (NEG) Laboratory Tests 01/06/19 10:00 Laboratory Tests 01/06/19 10:00 EKG EKG [] Radiology/Procedures Radiology/Procedures []PROCEDURE: CT ABDOMEN PELVIS WO CONTRAST PQRS Compliance Statement: One or more of the following individualized dose reduction techniques were utilized for this examination: 1. Automated exposure control 2. Adjustment of the mA and/or kV according to patient size 3. Use of iterative reconstruction technique CT abdomen/pelvis without contrast 01/06/2019 11:15 AM INDICATION: Urinary retention, painful urination COMPARISON: CT abdomen/pelvis September 24, 2018 TECHNIQUE: Multiple axial CT images of the abdomen and pelvis were obtained without intravenous contrast. Coronal and sagittal reformats are provided. FINDINGS: Lung bases are clear. Heart size is within normal limits. There is diffuse hypoattenuation of the hepatic parenchyma suggestive of hepatic steatosis. Evaluation of the solid abdominal viscera is limited by lack of intravenous contrast. No suspicious hepatic masses. Spleen, bilateral adrenal glands and pancreas are normal in appearance. Gallbladder is surgically absent. Abdominal aorta is normal in course and caliber. There are no pathologically enlarged lymph nodes in abdomen and pelvis. There is no free fluid or free intraperitoneal air. The kidneys are relatively symmetric in appearance. There is no suspicious renal mass within the limitations of a noncontrast examination. There is no hydronephrosis. There are no calculi within the kidneys, ureters or urinary bladder. Nonenlarged left common iliac lymph nodes are identified measuring up to 6 mm. There is a surgical clip within the deep pelvis, likely from prior cholecystectomy. Few scattered colonic diverticula are present. No adjacent inflammation is noted. An appendicolith is present measuring 4 mm. No periappendiceal inflammatory changes are identified. Urinary bladder is suboptimally distended limiting evaluation. No suspicious pelvic masses are identified. Levoconvex curvature of the lumbar spine is present without suspicious osseous abnormality. IMPRESSION: 1. No acute abnormality is identified in the abdomen and pelvis. Specifically, no evidence for obstructive uropathy. 2. 4 mm appendicolith is present. No periappendiceal inflammatory changes are noted. 3. Few scattered colonic diverticula without adjacent inflammation. 4. Diffuse hepatic steatosis. Electronically signed by: Wesley Phipps MD (01/06/2019 12:40 PM) [id number] DICTATED and SIGNED BY: WESLEY PHIPPS MD DATE: 01/06/19 1240 Course & Med Decision Making Course & Med Decision Making Pertinent Labs and Imaging studies reviewed. (See chart for details) This is a 38-year-old female patient presenting to the ED today with urinary hesitancy, inability to empty her bladder all the way with no injury, nausea and vomiting, symptoms began a week ago, she states the last time she had similar symptoms was around December 04 2018 when she was admitted for UTI. Patient 's cardiac workup is negative, CBC, CMP, lipase negative, urine analysis is negative for infection. Chest x-ray is negative, CT of the abdomen and pelvic was negative for any acute findings. Patient was discharged to home. Follow-up with PCP as well as urologist. Given prescription for Flomax. Dragon Disclaimer Dragon Disclaimer This electronic medical record was generated, in whole or in part, using a voice recognition dictation system. Departure Departure Impression: Primary Impression: Urinary hesitancy Additional Impression: Nausea & vomiting Disposition: 01 HOME, SELF-CARE Condition: STABLE Referrals: ALEX FUNEZ MD (PCP) follow up in 1 week NERIS LYLES MD follow up in one week Patient Instructions: Nausea and Vomiting, [id number] Additional Instructions: You were evaluated in the emergency room your work up was negative for any acute findings, we encourage you to follow-up with the primary care doctor as well as the provided urologist. Take the prescribed Flomax as ordered. Scripts Ondansetron (ONDANSETRON ODT) 4 Mg Tab.rapdis 1 TAB PO PRN Q6-8HRS, #16 TAB Prov: ALEKSANDR HAWTHORNE APRN 01/06/19 Tamsulosin Hcl (FLOMAX) 0.4 Mg Cap.er.24h 1 CAP PO DAILY, #7 CAP 0 Refills Prov: ALEKSANDR HAWTHORNE APRN 01/06/19 Problem Qualifiers Additional Impression: Nausea & vomiting Vomiting type: unspecified Vomiting Intractability: unspecified Qualified Codes: R11.2 - Nausea with vomiting, unspecified ALEKSANDR HAWTHORNE APRN Jan 06, 2019 10:35
[2019-01-06 10:37] LABS: CREATINE KINASE 70 U/L (26-192)
[2019-01-06 10:44] LABS: BILIRUBIN,URINE NEGATIVE (NEG); CLARITY,URINE CLEAR; COLOR,URINE YELLOW; NITRITE,URINE NEGATIVE (NEG); PH,URINE 7.5; PROTEIN,URINE NEGATIVE (NEG-TRACE)
--- NOTE | 2019-01-06 10:45 | RAD ---
PORTABLE CHEST 1V Clinical indications: URINARY RETENTION and chest pain. COMPARISON: December 04, 2018. Findings: No acute lung infiltrate or pleural effusion or pulmonary edema or lung mass or pneumothorax is seen. The heart size, pulmonary vasculature, mediastinum and both laurie are unremarkable. Impression: No acute radiographic abnormality is seen. Electronically signed by: Arnulfo Estrada MD (01/06/2019 10:42 AM) [id number]
[2019-01-06 10:48] LABS: AMORPHOUS SEDIMENT,UR PRESENT /HPF; SQUAMOUS EPITHELIAL CELL,UR FEW /LPF
[2019-01-06 10:50] LABS: BACTERIA,URINE FEW /HPF (0-FEW); WBC,URINE OCC /HPF (0-4)
[2019-01-06 10:52] LABS: AMPHETAMINE/METHAMPHETAMINE NEG (NEG); BARBITURATES NEG (NEG); BENZODIAZEPINES NEG (NEG); CANNABINOIDS NEG (NEG); COCAINE NEG (NEG); METHADONE NEG (NEG); OPIATES NEG (NEG); PHENCYCLIDINE NEG (NEG)
[2019-01-06] MEDS ORDERED: IV NORMAL SALINE 1000ML BAG 1,000 ML IV ONE (12:00)
--- NOTE | 2019-01-06 12:43 | RAD ---
PQRS Compliance Statement: One or more of the following individualized dose reduction techniques were utilized for this examination: 1. Automated exposure control 2. Adjustment of the mA and/or kV according to patient size 3. Use of iterative reconstruction technique CT abdomen/pelvis without contrast 01/06/2019 11:15 AM INDICATION: Urinary retention, painful urination COMPARISON: CT abdomen/pelvis September 24, 2018 TECHNIQUE: Multiple axial CT images of the abdomen and pelvis were obtained without intravenous contrast. Coronal and sagittal reformats are provided. FINDINGS: Lung bases are clear. Heart size is within normal limits. There is diffuse hypoattenuation of the hepatic parenchyma suggestive of hepatic steatosis. Evaluation of the solid abdominal viscera is limited by lack of intravenous contrast. No suspicious hepatic masses. Spleen, bilateral adrenal glands and pancreas are normal in appearance. Gallbladder is surgically absent. Abdominal aorta is normal in course and caliber. There are no pathologically enlarged lymph nodes in abdomen and pelvis. There is no free fluid or free intraperitoneal air. The kidneys are relatively symmetric in appearance. There is no suspicious renal mass within the limitations of a noncontrast examination. There is no hydronephrosis. There are no calculi within the kidneys, ureters or urinary bladder. Nonenlarged left common iliac lymph nodes are identified measuring up to 6 mm. There is a surgical clip within the deep pelvis, likely from prior cholecystectomy. Few scattered colonic diverticula are present. No adjacent inflammation is noted. An appendicolith is present measuring 4 mm. No periappendiceal inflammatory changes are identified. Urinary bladder is suboptimally distended limiting evaluation. No suspicious pelvic masses are identified. Levoconvex curvature of the lumbar spine is present without suspicious osseous abnormality. IMPRESSION: 1. No acute abnormality is identified in the abdomen and pelvis. Specifically, no evidence for obstructive uropathy. 2. 4 mm appendicolith is present. No periappendiceal inflammatory changes are noted. 3. Few scattered colonic diverticula without adjacent inflammation. 4. Diffuse hepatic steatosis. Electronically signed by: Rosa Kothari MD (01/06/2019 12:40 PM) [id number]
[2019-01-06 13:02] VITALS: BP 127/68
--- NOTE | 2019-01-06 13:11 | EKG ---
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
[2019-01-06] MEDS ORDERED: ONDA4TAB12 PO (13:27)
[2019-01-06] MEDS ORDERED: TAMS0.4C97 PO (13:27)
== END 2019-01-06 13:20 | disposition home or self-care (01) ==
LOC: ER 09:23
DX: R39.11 Hesitancy of micturition (principal); R11.2 Nausea with vomiting, unspecified; F41.9 Anxiety disorder, unspecified; F32.9 Major depressive disorder, single episode, unspecified; K21.9 Gastro-esophageal reflux disease without esophagitis; G89.29 Other chronic pain; E89.0 Postprocedural hypothyroidism; Z79.82 Long term (current) use of aspirin; Z90.49 Acquired absence of other specified parts of digestive tract; Z90.710 Acquired absence of both cervix and uterus; Z90.89 Acquired absence of other organs; Z98.51 Tubal ligation status
CPT/HCPCS: 36415; 71045; 74176; 80053; 80307; 81001; 82553; 83690; 83735; 83880; 84443; 84484; 85025; 93005; 96360; 99285; J7030

== ENCOUNTER 2019-01-28 18:56 | Emergency (ER) | payer OTHER, MEDICAID ==
[~2019-01-28] VITALS: Ht 177.8 cm; Wt 117.9 kg
[~2019-01-28 18:56] MED LIST changes: +ONDA4TAB12 PO; +TAMS0.4C97 PO
[2019-01-28 19:08] VITALS: BP 124/75
--- NOTE | 2019-01-28 20:08 | PHYS DOC ---
Past Medical History Past Medical History: No Pertinent History Additional Past Medical Histor: OVARIAN CYST,MOOD SWINGS,CHRONIC PAIN Past Surgical History: Cholecystectomy, Hysterectomy Additional Past Surgical Histo: THYROIDECTOMY "with a pill" Alcohol Use: None Drug Use: Marijuana Adult General Chief Complaint Chief Complaint: ABDOMINAL PAIN [facility] HPI Patient is a 38 year old F who presents with abdominal pain. She states that this began yesterday. She reports vomiting since yesterday without blood. Diarrhea started today also without blood. She states that she does have an appetite but is unable to keep food down. She denies fever or chills. She states the pain is worse in the RLQ without radiation. It is both a dull and sharp pain. She has a previous surgical history of an cholecystectomy and a hysterectomy. Review of Systems Review of Systems Constitutional: Denies fever or chills [] Eyes: Denies change in visual acuity, redness, or eye pain [] HENT: Denies nasal congestion or sore throat [] Respiratory: Denies cough or shortness of breath [] Cardiovascular: No additional information not addressed in HPI [] GI: Reports abdominal pain, nausea, vomiting, bloody stools or diarrhea [] : Denies dysuria or hematuria [] Musculoskeletal: Denies back pain or joint pain [] Integument: Denies rash or skin lesions [] Neurologic: Denies headache, focal weakness or sensory changes [] Endocrine: Denies polyuria or polydipsia [] All other systems were reviewed and found to be within normal limits, except as documented in this note. Current Medications Current Medications Current Medications Medications (Trade) Dose Ordered Sig/[facility] Start Time Stop Time Status Last Admin Dose Admin Ondansetron HCl (Zofran) 4 mg 1X ONCE 01/28/19 20:30 01/28/19 20:31 DC 01/28/19 21:10 4 MG Sodium Chloride 1,000 ml @ 1,000 mls/hr 1X ONCE 01/28/19 20:30 01/28/19 21:29 DC 01/28/19 21:11 1,000 MLS/HR Allergies Allergies Allergies Coded Allergies Type Severity Reaction Last Updated Verified No Known Drug Allergies 03/19/17 No Physical Exam Physical Exam Constitutional: Well developed, well nourished, no acute distress, non-toxic appearance. [] HENT: Normocephalic, atraumatic, bilateral external ears normal, oropharynx moist, no oral exudates, nose normal. [] Eyes: PERRLA, EOMI, conjunctiva normal, no discharge. [] Neck: Normal range of motion, no tenderness, supple, no stridor. [] Cardiovascular:Heart rate regular rhythm, no murmur [] Lungs & Thorax: Bilateral breath sounds clear to auscultation [] Abdomen: Bowel sounds normal, soft, tenderness to palpation x4 quadrants SLGHTLY MORE IN THE RLQ, BUT BETTER ON REEVALUATION no masses, no pulsatile masses. [] Skin: Warm, dry, no erythema, no rash. [] Back: No tenderness, no CVA tenderness. [] Extremities: No tenderness, no cyanosis, no clubbing, ROM intact, no edema. [] Neurologic: Alert and oriented X 3, normal motor function, normal sensory function, no focal deficits noted. [] Psychologic: Affect normal, judgement normal, mood normal. [] Current Patient Data Vital Signs Vital Signs Date Time Temp Pulse Resp B/P (MAP) Pulse Ox O2 Delivery O2 Flow Rate FiO2 01/28/19 19:08 97.1 71 18 124/75 (91) 97 Room Air 97.1 Lab Values Laboratory Tests Test 01/28/19 19:06 01/28/19 21:01 Urine Collection Type Void Urine Color Yellow Urine Clarity Clear Urine pH 7.0 Urine Specific [place] 1.025 Urine Protein Negative mg/dL (NEG-TRACE) Urine Glucose (UA) Negative mg/dL (NEG) Urine Ketones (Stick) Negative mg/dL (NEG) Urine Blood Trace (NEG) Urine Nitrite Negative (NEG) Urine Bilirubin Negative (NEG) Urine Urobilinogen Dipstick 1.0 mg/dL (0.2 mg/dL) Urine Leukocyte Esterase Negative (NEG) Urine RBC Occ /HPF (0-2) Urine WBC Occ /HPF (0-4) Urine Squamous Epithelial Cells Mod /LPF Urine Amorphous Sediment Present /HPF Urine Bacteria Moderate /HPF (0-FEW) White Blood Count 8.1 x10^3/uL (4.0-11.0) Red Blood Count 4.73 x10^6/uL (3.50-5.40) Hemoglobin 14.5 g/dL (12.0-15.5) Hematocrit 43.6 % (36.0-47.0) Mean Corpuscular Volume 92 fL (79-100) Mean Corpuscular Hemoglobin 31 pg (25-35) Mean Corpuscular Hemoglobin Concent 33 g/dL (31-37) Red Cell Distribution Width 13.7 % (11.5-14.5) Platelet Count 227 x10^3/uL (140-400) Neutrophils (%) (Auto) 65 % (31-73) Lymphocytes (%) (Auto) 24 % (24-48) Monocytes (%) (Auto) 9 % (0-9) Eosinophils (%) (Auto) 2 % (0-3) Basophils (%) (Auto) 1 % (0-3) Neutrophils # (Auto) 5.3 x10^3uL (1.8-7.7) Lymphocytes # (Auto) 1.9 x10^3/uL (1.0-4.8) Monocytes # (Auto) 0.7 x10^3/uL (0.0-1.1) Eosinophils # (Auto) 0.1 x10^3/uL (0.0-0.7) Basophils # (Auto) 0.1 x10^3/uL (0.0-0.2) Sodium Level 141 mmol/L (136-145) Potassium Level 3.9 mmol/L (3.5-5.1) Chloride Level 104 mmol/L (98-107) Carbon Dioxide Level 28 mmol/L (21-32) Anion Gap 9 (6-14) Blood Urea Nitrogen 17 mg/dL (7-20) Creatinine 1.2 mg/dL (0.6-1.0) H Estimated GFR (Cockcroft-Gault) 50.6 BUN/Creatinine Ratio 14 (6-20) Glucose Level 92 mg/dL (70-99) Calcium Level 9.1 mg/dL (8.5-10.1) Total Bilirubin 0.4 mg/dL (0.2-1.0) Aspartate Amino Transferase (AST) 22 U/L (15-37) Alanine Aminotransferase (ALT) 35 U/L (14-59) Alkaline Phosphatase 78 U/L (46-116) Total Protein 7.5 g/dL (6.4-8.2) Albumin 3.6 g/dL (3.4-5.0) Albumin/Globulin Ratio 0.9 (1.0-1.7) L Lipase 246 U/L (73-393) Laboratory Tests 01/28/19 21:01 Laboratory Tests 01/28/19 21:01 EKG EKG [] Radiology/Procedures Radiology/Procedures [] Impressions: EXAM: Abdomen and pelvis CT without intravenous contrast. HISTORY: Right lower quadrant pain. TECHNIQUE: Computed tomographic images of the abdomen and pelvis were obtained without contrast. Multiplanar reformatting was performed. *One or more of the following individualized dose reduction techniques were utilized for this examination: 1. Automated exposure control. 2. Adjustment of the mA and/or kV according to patient size. 3. Use of iterative reconstruction technique. COMPARISON: 01/06/2019. FINDINGS: Evaluation of the lower thorax is unremarkable. There is hepatic steatosis. No focal hepatic lesion is seen. The gallbladder is surgically absent. The pancreas, spleen, adrenal glands and kidneys are unremarkable. There is an appendicolith within an otherwise unremarkable appendix. There is no evidence of appendicitis. There is no abnormal bowel wall thickening or bowel obstruction. There is sigmoid diverticulosis without diverticulitis. The bladder is empty. The uterus is surgically absent. There is no lymphadenopathy. There are degenerative changes involving the spine and both hips. There is no suspicious osseous lesion. There are mild superior endplate depressions at the lower thoracic and upper lumbar levels. IMPRESSION: 1. No acute abdominal or pelvic finding. 2. Sigmoid tuberculosis. 3. Appendicolith within an otherwise unremarkable appendix. 4. Hepatic steatosis. Electronically signed by: Kayla Sommers MD (01/28/2019 8:40 PM) [facility] DICTATED and SIGNED BY: KAYLA SOMMERS MD DATE: 01/28/192039 Course & Med Decision Making Course & Med Decision Making Pertinent Labs and Imaging studies reviewed. (See chart for details) []38-year-old female with nausea vomiting diarrhea and some abdominal pain did have some mild tenderness on initial examination CT scan showed no appendicitis there was an appendicolith I did advise the patient on the importance to come back within 24 hours should there be any return or worsening of pain or fever or persistent vomiting she understands she wants Zofran prescription which I provided she was understanding instructions No TEST he tells because she had a hysterectomy already Dragon Disclaimer Dragon Disclaimer This electronic medical record was generated, in whole or in part, using a voice recognition dictation system. Departure Departure Impression: Primary Impression: Abdominal pain Disposition: HOME, SELF-CARE Condition: STABLE Referrals: ALEX FUNEZ MD (PCP) Scripts Ondansetron Hcl (ZOFRAN) 4 Mg Tablet 4 MG PO PRN TID PRN for NAUSEA/VOMITING, #15 nausea/vomiting Prov: KARLI DANIELSON MD 01/28/19 KARLI DANIELSON MD January 28, 2019 20:08
[2019-01-28 20:29] LABS: BILIRUBIN,URINE NEGATIVE (NEG); CLARITY,URINE CLEAR; COLOR,URINE YELLOW; NITRITE,URINE NEGATIVE (NEG); PROTEIN,URINE NEGATIVE (NEG-TRACE)
[2019-01-28] MEDS ORDERED: ONDANSETRON PF 4 MG/2 ML VIAL. IV ONE (20:30)
[2019-01-28] MEDS ORDERED: IV NORMAL SALINE 1000ML BAG 1,000 ML IV ONE (20:30)
--- NOTE | 2019-01-28 20:43 | RAD ---
EXAM: Abdomen and pelvis CT without intravenous contrast. HISTORY: Right lower quadrant pain. TECHNIQUE: Computed tomographic images of the abdomen and pelvis were obtained without contrast. Multiplanar reformatting was performed. *One or more of the following individualized dose reduction techniques were utilized for this examination: 1. Automated exposure control. 2. Adjustment of the mA and/or kV according to patient size. 3. Use of iterative reconstruction technique. COMPARISON: 01/06/2019. FINDINGS: Evaluation of the lower thorax is unremarkable. There is hepatic steatosis. No focal hepatic lesion is seen. The gallbladder is surgically absent. The pancreas, spleen, adrenal glands and kidneys are unremarkable. There is an appendicolith within an otherwise unremarkable appendix. There is no evidence of appendicitis. There is no abnormal bowel wall thickening or bowel obstruction. There is sigmoid diverticulosis without diverticulitis. The bladder is empty. The uterus is surgically absent. There is no lymphadenopathy. There are degenerative changes involving the spine and both hips. There is no suspicious osseous lesion. There are mild superior endplate depressions at the lower thoracic and upper lumbar levels. IMPRESSION: 1. No acute abdominal or pelvic finding. 2. Sigmoid tuberculosis. 3. Appendicolith within an otherwise unremarkable appendix. 4. Hepatic steatosis. Electronically signed by: Kayla Sommers MD (01/28/2019 8:40 PM) [facility]
[2019-01-28 20:49] LABS: AMORPHOUS SEDIMENT,UR PRESENT /HPF; BACTERIA,URINE MODERATE /HPF (0-FEW); RBC,URINE OCC /HPF (0-2); SQUAMOUS EPITHELIAL CELL,UR MOD /LPF; WBC,URINE OCC /HPF (0-4)
[2019-01-28 21:13] LABS: BASO # 0.1 x10^3/uL (0.0-0.2); BASO % 1 % (0-3); EOS # 0.1 x10^3/uL (0.0-0.7); EOS % 2 % (0-3); HEMATOCRIT 43.6 % (36.0-47.0); HEMOGLOBIN 14.5 g/dL (12.0-15.5); LYMPH # 1.9 x10^3/uL (1.0-4.8); LYMPH % 24 % (24-48); MEAN CORPUSCULAR HEMOGLOBIN 31 pg (25-35); MEAN CORPUSCULAR HGB CONC 33 g/dL (31-37); MEAN CORPUSCULAR VOLUME 92 fL (79-100); MONO # 0.7 x10^3/uL (0.0-1.1); MONO % 9 % (0-9); NEUT # 5.3 x10^3uL (1.8-7.7); NEUT % 65 % (31-73); PLATELET COUNT 227 x10^3/uL (140-400); RED BLOOD COUNT 4.73 x10^6/uL (3.50-5.40); RED CELL DISTRIBUTION WIDTH 13.7 % (11.5-14.5); WHITE BLOOD COUNT 8.1 x10^3/uL (4.0-11.0)
[2019-01-28 21:28] LABS: CALCIUM 9.1 mg/dL (8.5-10.1); CREATININE 1.2 mg/dL (0.6-1.0); GFR 50.6; POTASSIUM 3.9 mmol/L (3.5-5.1)
[2019-01-28 21:48] LABS: ALBUMIN 3.6 g/dL (3.4-5.0); ALBUMIN/GLOBULIN RATIO 0.9 (1.0-1.7); TOTAL BILIRUBIN 0.4 mg/dL (0.2-1.0); TOTAL PROTEIN 7.5 g/dL (6.4-8.2)
[2019-01-28] MEDS ORDERED: ONDA4TAB7 PO (22:03)
== END 2019-01-28 22:40 | disposition home or self-care (01) ==
LOC: ER 18:56
DX: R10.31 Right lower quadrant pain (principal); K38.1 Appendicular concretions; A18.3 Tuberculosis of intestines, peritoneum and mesenteric glands; K76.0 Fatty (change of) liver, not elsewhere classified; Z90.49 Acquired absence of other specified parts of digestive tract; Z90.710 Acquired absence of both cervix and uterus
CPT/HCPCS: 36415; 74176; 80053; 81001; 83690; 85025; 87086; 96361; 96374; 99285; J2405; J7030

== ENCOUNTER 2019-03-01 15:24 | Emergency (ER) | payer OTHER, MEDICAID ==
[~2019-03-01] VITALS: Ht 180.3 cm; Wt 117.9 kg
[~2019-03-01 15:24] MED LIST changes: +ONDA4TAB7 PO
[2019-03-01 16:03] LABS: BILIRUBIN,URINE NEGATIVE (NEG); CLARITY,URINE CLOUDY; COLOR,URINE YELLOW; NITRITE,URINE NEGATIVE (NEG); PROTEIN,URINE NEGATIVE (NEG-TRACE)
[2019-03-01 16:10] LABS: AMORPHOUS SEDIMENT,UR PRESENT /HPF; BARBITURATES NEG (NEG); BENZODIAZEPINES NEG (NEG); CANNABINOIDS NEG (NEG); COCAINE NEG (NEG); METHADONE NEG (NEG); OPIATES NEG (NEG); PHENCYCLIDINE NEG (NEG); SQUAMOUS EPITHELIAL CELL,UR MANY /LPF
[2019-03-01 16:11] LABS: BACTERIA,URINE MOD /HPF (0-FEW); WBC,URINE OCC /HPF (0-4)
[2019-03-01 16:14] LABS: AMPHETAMINE/METHAMPHETAMINE NEG (NEG)
[2019-03-01 16:17] LABS: BASO # 0.1 x10^3/uL (0.0-0.2); BASO % 1 % (0-3); EOS # 0.1 x10^3/uL (0.0-0.7); EOS % 2 % (0-3); HEMATOCRIT 42.5 % (36.0-47.0); HEMOGLOBIN 14.3 g/dL (12.0-15.5); LYMPH # 1.7 x10^3/uL (1.0-4.8); LYMPH % 19 % (24-48); MEAN CORPUSCULAR HEMOGLOBIN 31 pg (25-35); MEAN CORPUSCULAR HGB CONC 34 g/dL (31-37); MEAN CORPUSCULAR VOLUME 92 fL (79-100); MONO # 0.8 x10^3/uL (0.0-1.1); MONO % 9 % (0-9); NEUT # 6.2 x10^3uL (1.8-7.7); NEUT % 69 % (31-73); PLATELET COUNT 218 x10^3/uL (140-400); RED BLOOD COUNT 4.62 x10^6/uL (3.50-5.40); RED CELL DISTRIBUTION WIDTH 13.4 % (11.5-14.5)
[2019-03-01 16:25] LABS: PROTHROMBIN TIME PATIENT 12.3 SEC (11.7-14.0)
[2019-03-01] MEDS ORDERED: IV NORMAL SALINE 1000ML BAG 1,000 ML IV ONE (16:30)
[2019-03-01] MEDS ORDERED: MECLIZINE HCL 12.5 MG TABLET. PO ONE (16:30)
[2019-03-01] MEDS ORDERED: ONDANSETRON PF 4 MG/2 ML VIAL. IV ONE (16:30)
[2019-03-01 16:36] LABS: CALCIUM 8.8 mg/dL (8.5-10.1); CREATININE 1.3 mg/dL (0.6-1.0); GFR 46.1; POTASSIUM 3.6 mmol/L (3.5-5.1)
[2019-03-01 16:42] LABS: ALBUMIN 3.5 g/dL (3.4-5.0); ALBUMIN/GLOBULIN RATIO 0.9 (1.0-1.7); MAGNESIUM 1.9 mg/dL (1.8-2.4); TOTAL BILIRUBIN 0.4 mg/dL (0.2-1.0); TOTAL PROTEIN 7.3 g/dL (6.4-8.2)
--- NOTE | 2019-03-01 16:48 | RAD ---
Abdominal ultrasound. HISTORY: Abdominal pain. Cholecystectomy in 2017. FINDINGS: Exam limited by patient body habitus. Pancreas is poorly visualized. Liver demonstrates increased echogenicity compatible with fatty infiltration. This results in poor liver penetration limiting the exam of the liver. The gallbladder has been surgically resected. Common bile duct is not visualized. Inferior vena cava is poorly seen. The proximal aorta is poorly seen. The middle and distal aorta appear nonaneurysmal. Right kidney measures 10.3 cm without hydronephrosis. Left kidney measures 11.0 cm without hydronephrosis. Spleen is not enlarged. IMPRESSION: 1. Exam limited by body habitus. 2. Hepatic steatosis. Electronically signed by: Brandon Alejandre MD (03/01/2019 4:45 PM) [facility]
--- NOTE | 2019-03-01 16:58 | RAD ---
EXAM: Chest, single view. HISTORY: Dizziness. COMPARISON: 01/06/2019 FINDINGS: A frontal view of the chest obtained. There is no infiltrate, pleural effusion or pneumothorax. The heart is normal in size. IMPRESSION: No acute pulmonary finding. Electronically signed by: Kayla Sommers MD (03/01/2019 4:56 PM) [facility]
[2019-03-01] MEDS ORDERED: ONDA4TAB12 PO (18:13)
[2019-03-01] MEDS ORDERED: MECL12.52 PO (18:13)
--- NOTE | 2019-03-01 18:14 | PHYS DOC ---
Past Medical History Past Medical History: No Pertinent History, Anxiety, Other Additional Past Medical Histor: OVARIAN CYST,MOOD SWINGS,CHRONIC PAIN Past Surgical History: Cholecystectomy, Hysterectomy Additional Past Surgical Histo: THYROIDECTOMY "with a pill" Alcohol Use: None Drug Use: Marijuana Adult General Chief Complaint Chief Complaint: DIZZY/LIGHT HEADED HPI HPI Patient is a 38 year old female with history of anxiety, who presents to the ED today complaining of dizziness and lightheadedness, symptoms have been going on for 2 days, patient is also complaining of chronic 6 out of 10 right upper quadrant abdominal pain, she is well known to this ED for dizziness, abdominal pain and many other symptoms. She is also complaining of nausea and vomiting. Denies anything specifically exacerbating or relieving her symptoms. Off note she states the has been incarcerated for the last 1 month, she is home alone and states she is under a lot of stress. Denies any suicidal or homicidal ideations. She states she follows up with [facility] [place]. She states she does not need any further help with mental illness. Review of Systems Review of Systems Constitutional: Denies fever or chills [] Eyes: Denies change in visual acuity, redness, or eye pain [] HENT: Denies nasal congestion or sore throat [] Respiratory: Denies cough or shortness of breath [] Cardiovascular: No additional information not addressed in HPI [] GI: Reports chronic abdominal pain, nausea vomiting. Denies, bloody stools or diarrhea [] : Denies dysuria or hematuria [] Musculoskeletal: Denies back pain or joint pain [] Integument: Denies rash or skin lesions [] Neurologic: Reports dizziness. Denies headache, focal weakness or sensory changes [] Pysch:reports stress All other systems were reviewed and found to be within normal limits, except as documented in this note. Current Medications Current Medications Current Medications Medications (Trade) Dose Ordered Sig/Shirley Start Time Stop Time Status Last Admin Dose Admin Meclizine HCl (Antivert) 25 mg 1X ONCE 03/01/19 16:30 03/01/19 16:31 DC 03/01/19 16:28 25 MG Ondansetron HCl (Zofran) 4 mg 1X ONCE 03/01/19 16:30 03/01/19 16:31 DC 03/01/19 16:28 4 MG Sodium Chloride 1,000 ml @ 1,000 mls/hr 1X ONCE 03/01/19 16:30 03/01/19 17:29 DC 03/01/19 16:29 1,000 MLS/HR Allergies Allergies Allergies Coded Allergies Type Severity Reaction Last Updated Verified No Known Drug Allergies 03/19/17 No Physical Exam Physical Exam Constitutional: Well developed, well nourished, no acute distress, non-toxic appearance. [] HENT: Normocephalic, atraumatic, bilateral external ears normal, oropharynx moist, no oral exudates, nose normal. [] Eyes: PERRLA, EOMI, conjunctiva normal, no discharge. [] Neck: Normal range of motion, no tenderness, supple, no stridor. [] Cardiovascular:Heart rate regular rhythm, no murmur [] Lungs & Thorax: Bilateral breath sounds clear to auscultation [] Abdomen: Bowel sounds normal, soft, no tenderness, no masses, no pulsatile masses. [] Skin: Warm, dry, no erythema, no rash. [] Back: No tenderness, no CVA tenderness. [] Extremities: No tenderness, no cyanosis, no clubbing, ROM intact, no edema. [] Neurologic: Alert and oriented X 3, normal motor function, normal sensory function, no focal deficits noted. Cranial nerves II through XII intact Psychologic: Affect normal, judgement normal, mood normal. [] Current Patient Data Vital Signs Vital Signs Date Time Temp Pulse Resp B/P (MAP) Pulse Ox O2 Delivery O2 Flow Rate FiO2 03/01/19 15:41 98.5 83 20 129/79 (96) 99 Room Air 98.5 Lab Values Laboratory Tests Test 03/01/19 15:36 03/01/19 15:42 03/01/19 16:11 Urine Collection Type Unknown Urine Color Yellow Urine Clarity Cloudy Urine pH 7.0 Urine Specific [place] 1.025 Urine Protein Negative mg/dL (NEG-TRACE) Urine Glucose (UA) Negative mg/dL (NEG) Urine Ketones (Stick) Negative mg/dL (NEG) Urine Blood Negative (NEG) Urine Nitrite Negative (NEG) Urine Bilirubin Negative (NEG) Urine Urobilinogen Dipstick 1.0 mg/dL (0.2 mg/dL) Urine Leukocyte Esterase Trace (NEG) Urine RBC 3-5 /HPF (0-2) Urine WBC Occ /HPF (0-4) Urine Squamous Epithelial Cells Many /LPF Urine Amorphous Sediment Present /HPF Urine Bacteria Mod /HPF (0-FEW) Urine Mucus Marked /LPF Urine Opiates Screen Neg (NEG) Urine Methadone Screen Neg (NEG) Urine Barbiturates Neg (NEG) Urine Phencyclidine Screen Neg (NEG) Urine Amphetamine/Methamphetamine Neg (NEG) Urine Benzodiazepines Screen Neg (NEG) Urine Cocaine Screen Neg (NEG) Urine Cannabinoids Screen Neg (NEG) Urine Ethyl Alcohol Neg (NEG) POC Urine HCG, Qualitative Hcg negative (Negative) White Blood Count 9.0 x10^3/uL (4.0-11.0) Red Blood Count 4.62 x10^6/uL (3.50-5.40) Hemoglobin 14.3 g/dL (12.0-15.5) Hematocrit 42.5 % (36.0-47.0) Mean Corpuscular Volume 92 fL (79-100) Mean Corpuscular Hemoglobin 31 pg (25-35) Mean Corpuscular Hemoglobin Concent 34 g/dL (31-37) Red Cell Distribution Width 13.4 % (11.5-14.5) Platelet Count 218 x10^3/uL (140-400) Neutrophils (%) (Auto) 69 % (31-73) Lymphocytes (%) (Auto) 19 % (24-48) L Monocytes (%) (Auto) 9 % (0-9) Eosinophils (%) (Auto) 2 % (0-3) Basophils (%) (Auto) 1 % (0-3) Neutrophils # (Auto) 6.2 x10^3uL (1.8-7.7) Lymphocytes # (Auto) 1.7 x10^3/uL (1.0-4.8) Monocytes # (Auto) 0.8 x10^3/uL (0.0-1.1) Eosinophils # (Auto) 0.1 x10^3/uL (0.0-0.7) Basophils # (Auto) 0.1 x10^3/uL (0.0-0.2) Prothrombin Time 12.3 SEC (11.7-14.0) Prothrombin Time INR 0.9 (0.8-1.1) Sodium Level 142 mmol/L (136-145) Potassium Level 3.6 mmol/L (3.5-5.1) Chloride Level 105 mmol/L (98-107) Carbon Dioxide Level 26 mmol/L (21-32) Anion Gap 11 (6-14) Blood Urea Nitrogen 17 mg/dL (7-20) Creatinine 1.3 mg/dL (0.6-1.0) H Estimated GFR (Cockcroft-Gault) 46.1 BUN/Creatinine Ratio 13 (6-20) Glucose Level 118 mg/dL (70-99) H Calcium Level 8.8 mg/dL (8.5-10.1) Magnesium Level 1.9 mg/dL (1.8-2.4) Total Bilirubin 0.4 mg/dL (0.2-1.0) Aspartate Amino Transferase (AST) 21 U/L (15-37) Alanine Aminotransferase (ALT) 30 U/L (14-59) Alkaline Phosphatase 75 U/L (46-116) Creatine Kinase 108 U/L (26-192) Creatine Kinase MB (Mass) 0.9 ng/mL (0.0-3.6) Creatine Kinase MB Relative Index 0.8 % (0-4) Troponin I Quantitative < 0.017 ng/mL (0.000-0.055) ND-Tpj-N-Type Natriuretic Peptide 42 pg/mL (0-124) Total Protein 7.3 g/dL (6.4-8.2) Albumin 3.5 g/dL (3.4-5.0) Albumin/Globulin Ratio 0.9 (1.0-1.7) L Lipase 310 U/L (73-393) Thyroid Stimulating Hormone (TSH) 1.634 uIU/mL (0.358-3.74) Laboratory Tests 03/01/19 16:11 Laboratory Tests 03/01/19 16:11 EKG EKG Interpreted by Dr. Ugarte and sinus rhythm heart rate 79 no STEMI[] Radiology/Procedures Radiology/Procedures []PROCEDURE: ABDOMEN COMPLETE Abdominal ultrasound. HISTORY: Abdominal pain. Cholecystectomy in 2017. FINDINGS: Exam limited by patient body habitus. Pancreas is poorly visualized. Liver demonstrates increased echogenicity compatible with fatty infiltration. This results in poor liver penetration limiting the exam of the liver. The gallbladder has been surgically resected. Common bile duct is not visualized. Inferior vena cava is poorly seen. The proximal aorta is poorly seen. The middle and distal aorta appear nonaneurysmal. Right kidney measures 10.3 cm without hydronephrosis. Left kidney measures 11.0 cm without hydronephrosis. Spleen is not enlarged. IMPRESSION: 1. Exam limited by body habitus. 2. Hepatic steatosis. Electronically signed by: Brandon Alejandre MD (03/01/2019 4:45 PM) [facility] DICTATED and SIGNED BY: BRANDON ALEJANDRE MD DATE: 03/01/19 1644 PROCEDURE: PORTABLE CHEST 1V EXAM: Chest, single view. HISTORY: Dizziness. COMPARISON: 01/06/2019 FINDINGS: A frontal view of the chest obtained. There is no infiltrate, pleural effusion or pneumothorax. The heart is normal in size. IMPRESSION: No acute pulmonary finding. Electronically signed by: Kayla Brian MD (03/01/2019 4:56 PM) [facility] DICTATED and SIGNED BY: KAYLA BRIAN MD DATE: 03/01/19 1656 Course & Med Decision Making Course & Med Decision Making Pertinent Labs and Imaging studies reviewed. (See chart for details) This is a 38-year-old female patient presenting to the ED today complaining of dizziness, nausea, vomiting, right upper quadrant abdominal pain, symptoms began yesterday. Patient is well-known to this ED for similar symptoms and multiple other symptoms. See history of present illness. EKG was negative, chest x-ray negative, abdominal ultrasound no acute findings. Labs are negative. Patient was reassured and discharged to home. Encouraged to follow up with [facility] [place] for stress. Encouraged to follow up with her PCP Dr. Funez for the rest of her chronic symptoms. Dragon Disclaimer Dragon Disclaimer This electronic medical record was generated, in whole or in part, using a voice recognition dictation system. Departure Departure Impression: Primary Impression: Nausea & vomiting Additional Impressions: Dizziness Abdominal pain Stress Disposition: 01 HOME, SELF-CARE Condition: STABLE Referrals: ALEX FUNEZ MD (PCP) follow up as soon as you can Patient Instructions: Abdominal Pain (Nonspecific), Dizziness, [id number] Additional Instructions: You were evaluated in the emergency room for abdominal pain, nausea, vomiting, dizziness, and stress. Your workup was negative for any acute findings. We currently recommend you get help for the stress going on in your life. You can follow-up with [facility] [place] for this. Please follow-up with your primary care doctor as soon as he can. Scripts Ondansetron (ONDANSETRON ODT) 4 Mg Tab.rapdis 1 TAB PO PRN Q6-8HRS, #16 TAB Prov: ALEKSANDR HAWTHORNE APRN 03/01/19 Meclizine Hcl (MECLIZINE HCL) 12.5 Mg Tablet 1 TAB PO TID, #20 TAB 0 Refills Prov: ALEKSANDR HAWTHORNE APRN 03/01/19 Problem Qualifiers Primary Impression: Nausea & vomiting Vomiting type: unspecified Vomiting Intractability: non-intractable Qualified Codes: R11.2 - Nausea with vomiting, unspecified Additional Impressions: Abdominal pain Abdominal location: right upper quadrant Qualified Codes: R10.11 - Right upper quadrant pain ALEKSANDR HAWTHORNE APRN Mar 01, 2019 18:14
[2019-03-01 18:30] VITALS: BP 91/58
--- NOTE | 2019-03-02 02:53 | EKG ---
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
== END 2019-03-01 18:43 | disposition home or self-care (01) ==
LOC: ER 15:24
DX: R42 Dizziness and giddiness (principal); G89.29 Other chronic pain; R10.11 Right upper quadrant pain; R11.2 Nausea with vomiting, unspecified; F43.9 Reaction to severe stress, unspecified; K76.0 Fatty (change of) liver, not elsewhere classified; F41.9 Anxiety disorder, unspecified; Z90.49 Acquired absence of other specified parts of digestive tract; Z90.710 Acquired absence of both cervix and uterus
CPT/HCPCS: 36415; 71045; 76700; 80053; 80307; 81001; 81025; 82553; 83690; 83735; 83880; 84443; 84484; 85025; 85610; 93005; 96361; 96374; 99285; J2405; J7030; J8597

== ENCOUNTER 2019-04-08 11:10 | Emergency (ER) | payer OTHER, MEDICAID ==
[~2019-04-08] VITALS: Ht 180.3 cm; Wt 124.3 kg
[~2019-04-08 11:10] MED LIST changes: +LIDO700A21 TP; -LIDO700A39 TP; +MECL12.52 PO
[2019-04-08 11:20] VITALS: BP 124/76
[2019-04-08] MEDS ORDERED: IPRATRPIUM/ALBUTEROL 0.5/2.5MG 3 ML NEBU. NEB ONE (11:30)
[2019-04-08] MEDS ORDERED: METH4TAB2 PO (11:47)
--- NOTE | 2019-04-08 11:47 | PHYS DOC ---
Past Medical History Past Medical History: Anxiety, Other Additional Past Medical Histor: OVARIAN CYST,MOOD SWINGS,CHRONIC PAIN Past Surgical History: Cholecystectomy, Hysterectomy Additional Past Surgical Histo: THYROIDECTOMY "with a pill" Alcohol Use: None Drug Use: Marijuana Adult General Chief Complaint Chief Complaint: SHORTNESS OF BREATH [facility] HPI Patient is a 38 year old female who presents with complaining of shortness of breath. Patient complaining of intermittent episodes of shortness of breath for the last or 2 or 3 days during talking without cough, chest pain, fever and chills, nausea and vomiting. Patient complaining of mild dizziness. Patient states she had the same episode previously without diagnosis of asthma and denies smoking cigarettes and . Patient states she used her home inhaler without improvement of her condition. Review of Systems Review of Systems Constitutional: Denies fever or chills [] Eyes: Denies change in visual acuity, redness, or eye pain [] HENT: Denies nasal congestion or sore throat [] Respiratory: Denies cough, reports shortness of breath [] Cardiovascular: No additional information not addressed in HPI [] GI: Denies abdominal pain, nausea, vomiting, bloody stools or diarrhea [] : Denies dysuria or hematuria [] Musculoskeletal: Denies back pain or joint pain [] Integument: Denies rash or skin lesions [] Neurologic: Denies headache, focal weakness or sensory changes [] Endocrine: Denies polyuria or polydipsia [] All other systems were reviewed and found to be within normal limits, except as documented in this note. Current Medications Current Medications Current Medications Medications (Trade) Dose Ordered Sig/Shirley Start Time Stop Time Status Last Admin Dose Admin Albuterol/ Ipratropium (Duoneb) 3 ml 1X ONCE 04/08/19 11:30 04/08/19 11:31 DC 04/08/19 11:37 3 ML Allergies Allergies Allergies Coded Allergies Type Severity Reaction Last Updated Verified No Known Drug Allergies 03/19/17 No Physical Exam Physical Exam Constitutional: Well nourished, no acute distress, non-toxic appearance. [] HENT: Normocephalic, atraumatic, oropharynx moist. Eyes: PERRLA, EOMI, conjunctiva normal, no discharge. [] Neck: Normal range of motion, no tenderness, supple, no stridor. [] Cardiovascular:Heart rate regular rhythm, no murmur [] Lungs & Thorax: No respiratory distress, bilateral breath sounds clear to auscultation [] Skin: Warm, dry, no erythema, no rash. [] Back: No tenderness, no CVA tenderness. [] Extremities: No tenderness, no cyanosis, no clubbing, ROM intact, no edema. [] Neurologic: Alert and oriented X 3, normal motor function, normal sensory function, no focal deficits noted. [] Current Patient Data Vital Signs Vital Signs Date Time Temp Pulse Resp B/P (MAP) Pulse Ox O2 Delivery O2 Flow Rate FiO2 04/08/19 11:20 97.9 88 20 124/76 (92) 98 Room Air 97.9 EKG EKG [] Radiology/Procedures Radiology/Procedures [] Course & Med Decision Making Course & Med Decision Making Evaluation of patient in ER showed 38-year-old female patient with history of frequent emergency room visits with complaining of shortness of breath with talking for the last or 2 days. Patient had unremarkable physical exam. Patient treated with nebulizers treatment and was advised to continue her home inhaler. Dragon Disclaimer Dragon Disclaimer This electronic medical record was generated, in whole or in part, using a voice recognition dictation system. Departure Departure Impression: Primary Impression: Dyspnea Additional Impression: Allergic asthma Disposition: HOME, SELF-CARE (at 1145) Condition: IMPROVED Referrals: ALEX FUNEZ MD (PCP) Patient Instructions: Shortness of Breath Additional Instructions: Drink plenty of liquids Follow-up with your primary care physician in 3-5 days Return to ER if not getting better Continue home inhaler Scripts Methylprednisolone (MEDROL) 4 Mg Tab.ds.pk 1 PKG PO UD for inflammation, #1 PKG Prov: NICKOLAS MATTHEWS MD 04/08/19 Problem Qualifiers Primary Impression: Dyspnea Dyspnea type: unspecified Qualified Codes: R06.00 - Dyspnea, unspecified Additional Impression: Allergic asthma Asthma severity: mild Asthma persistence: intermittent Asthma complication type: uncomplicated Qualified Codes: J45.20 - Mild intermittent asthma, uncomplicated NICKOLAS MATTHEWS MD Apr 08, 2019 11:47
== END 2019-04-08 12:05 | disposition home or self-care (01) ==
LOC: ER 11:10
DX: J45.20 Mild intermittent asthma, uncomplicated (principal); R42 Dizziness and giddiness
CPT/HCPCS: 94640; 99283; J7620

== ENCOUNTER 2019-04-10 14:14 | Emergency (ER) | payer OTHER, MEDICAID ==
[~2019-04-10] VITALS: Ht 180.3 cm; Wt 124.3 kg
[~2019-04-10 14:14] MED LIST changes: +METH4TAB2 PO
[2019-04-10 14:30] VITALS: BP 117/78
[2019-04-10 14:40] LABS: BILIRUBIN,URINE NEGATIVE (NEG); CLARITY,URINE CLOUDY; COLOR,URINE YELLOW; NITRITE,URINE NEGATIVE (NEG); PROTEIN,URINE NEGATIVE (NEG-TRACE); UROBILINOGEN,URINE 0.2 mg/dL (0.2 mg/dL)
[2019-04-10 14:56] LABS: BASO # 0.1 x10^3/uL (0.0-0.2); BASO % 1 % (0-3); EOS # 0.1 x10^3/uL (0.0-0.7); EOS % 1 % (0-3); HEMATOCRIT 42.9 % (36.0-47.0); HEMOGLOBIN 14.3 g/dL (12.0-15.5); LYMPH # 2.4 x10^3/uL (1.0-4.8); LYMPH % 23 % (24-48); MEAN CORPUSCULAR HEMOGLOBIN 31 pg (25-35); MEAN CORPUSCULAR HGB CONC 33 g/dL (31-37); MEAN CORPUSCULAR VOLUME 93 fL (79-100); MONO # 0.9 x10^3/uL (0.0-1.1); MONO % 8 % (0-9); NEUT # 7.1 x10^3/uL (1.8-7.7); NEUT % 67 % (31-73); PLATELET COUNT 209 x10^3/uL (140-400); RED BLOOD COUNT 4.61 x10^6/uL (3.50-5.40); RED CELL DISTRIBUTION WIDTH 13.2 % (11.5-14.5); WHITE BLOOD COUNT 10.6 x10^3/uL (4.0-11.0)
--- NOTE | 2019-04-10 14:56 | PHYS DOC ---
Past Medical History Past Medical History: Anxiety, Other Additional Past Medical Histor: OVARIAN CYST,MOOD SWINGS,CHRONIC PAIN Past Surgical History: Cholecystectomy, Hysterectomy, Tonsillectomy Additional Past Surgical Histo: THYROIDECTOMY "with a pill" Alcohol Use: None Drug Use: Marijuana Adult General Chief Complaint Chief Complaint: ABDOMINAL PAIN HPI HPI Patient is a 38 year old female, accompanied by her , with complaints of right lower abdominal pain that wraps around her back for the last 2-3 days. Patient states she has had increased urinary frequency, she denies any dysuria, hematuria, or difficulty voiding. She states she has had some nausea and vomited once in the last 24 hours. She denies any diarrhea, bloody stools, constipation, or irregular bowel movements she states that her last bowel movement was earlier today and was normal. She denies any fever, cough, shortness breath, or sore throat. Currently she rates her pain a 9 out of 10 on the pain scale, there are no alleviating factors. Review of Systems Review of Systems Constitutional: Denies fever or chills [] Eyes: Denies redness, or eye pain [] HENT: Denies nasal congestion or sore throat [] Respiratory: Denies cough or shortness of breath [] Cardiovascular: No additional information not addressed in HPI [] GI: see history of present illness : Denies dysuria or hematuria; see history of present illness [] Musculoskeletal: Denies joint pain [] Integument: Denies rash or skin lesions [] Neurologic: Denies headache, focal weakness or sensory changes [] Complete systems were reviewed and found to be within normal limits, except as documented in this note. Current Medications Current Medications Current Medications Medications (Trade) Dose Ordered Sig/Shirley Start Time Stop Time Status Last Admin Dose Admin Info (CONTRAST GIVEN -- Rx MONITORING) 1 each PRN DAILY PRN 04/10/19 15:30 04/10/19 16:39 DC Iohexol (Omnipaque 300 Mg/ml) 60 ml 1X ONCE 04/10/19 15:30 04/10/19 15:31 DC 04/10/19 15:49 60 ML Ketorolac Tromethamine (Toradol 15mg Vial) 15 mg 1X ONCE 04/10/19 15:00 04/10/19 15:01 DC 04/10/19 15:23 15 MG Ondansetron HCl (Zofran) 4 mg 1X ONCE 04/10/19 15:00 04/10/19 15:01 DC 04/10/19 15:23 4 MG Sodium Chloride 1,000 ml @ 1,000 mls/hr 1X ONCE 04/10/19 15:00 04/10/19 15:59 DC 04/10/19 15:23 1,000 MLS/HR Allergies Allergies Allergies Coded Allergies Type Severity Reaction Last Updated Verified No Known Drug Allergies 03/19/17 No Physical Exam Physical Exam Constitutional: Well developed, well nourished, no acute distress, non-toxic appearance, obese. [] HENT: Normocephalic, atraumatic, bilateral external ears normal, nose normal. [] Eyes: PERRLA, conjunctiva normal, no discharge. [] Neck: Normal range of motion, no stridor. [] Cardiovascular:Heart rate regular rhythm, no murmur [] Lungs & Thorax: Bilateral breath sounds clear to auscultation [] Abdomen: Bowel sounds normal, soft, no masses, no pulsatile masses; RLQ TTP no guarding or rebound tenderness Skin: Warm, dry, no erythema, no rash. [] Back: R CVA tenderness. [] Extremities: No cyanosis, ROM intact Neurologic: Alert and oriented X 3, no focal deficits noted. [] Psychologic: Affect normal, judgement normal, mood normal. [] Current Patient Data Vital Signs Vital Signs Date Time Temp Pulse Resp B/P (MAP) Pulse Ox O2 Delivery O2 Flow Rate FiO2 04/10/19 14:30 98.2 83 16 117/78 (91) 97 Room Air 98.2 Lab Values Laboratory Tests Test 04/10/19 14:30 04/10/19 14:43 Urine Collection Type Unknown Urine Color Yellow Urine Clarity Cloudy Urine pH 5.0 Urine Specific [place] 1.025 Urine Protein Negative mg/dL (NEG-TRACE) Urine Glucose (UA) Negative mg/dL (NEG) Urine Ketones (Stick) Negative mg/dL (NEG) Urine Blood Moderate (NEG) Urine Nitrite Negative (NEG) Urine Bilirubin Negative (NEG) Urine Urobilinogen Dipstick 0.2 mg/dL (0.2 mg/dL) Urine Leukocyte Esterase Negative (NEG) Urine RBC Occ /HPF (0-2) Urine WBC 1-4 /HPF (0-4) Urine Squamous Epithelial Cells Many /LPF Urine Bacteria Many /HPF (0-FEW) Urine Mucus Marked /LPF White Blood Count 10.6 x10^3/uL (4.0-11.0) Red Blood Count 4.61 x10^6/uL (3.50-5.40) Hemoglobin 14.3 g/dL (12.0-15.5) Hematocrit 42.9 % (36.0-47.0) Mean Corpuscular Volume 93 fL (79-100) Mean Corpuscular Hemoglobin 31 pg (25-35) Mean Corpuscular Hemoglobin Concent 33 g/dL (31-37) Red Cell Distribution Width 13.2 % (11.5-14.5) Platelet Count 209 x10^3/uL (140-400) Neutrophils (%) (Auto) 67 % (31-73) Lymphocytes (%) (Auto) 23 % (24-48) L Monocytes (%) (Auto) 8 % (0-9) Eosinophils (%) (Auto) 1 % (0-3) Basophils (%) (Auto) 1 % (0-3) Neutrophils # (Auto) 7.1 x10^3/uL (1.8-7.7) Lymphocytes # (Auto) 2.4 x10^3/uL (1.0-4.8) Monocytes # (Auto) 0.9 x10^3/uL (0.0-1.1) Eosinophils # (Auto) 0.1 x10^3/uL (0.0-0.7) Basophils # (Auto) 0.1 x10^3/uL (0.0-0.2) Sodium Level 141 mmol/L (136-145) Potassium Level 3.8 mmol/L (3.5-5.1) Chloride Level 103 mmol/L (98-107) Carbon Dioxide Level 28 mmol/L (21-32) Anion Gap 10 (6-14) Blood Urea Nitrogen 20 mg/dL (7-20) Creatinine 1.2 mg/dL (0.6-1.0) H Estimated GFR (Cockcroft-Gault) 50.6 BUN/Creatinine Ratio 17 (6-20) Glucose Level 95 mg/dL (70-99) Calcium Level 8.6 mg/dL (8.5-10.1) Magnesium Level 1.8 mg/dL (1.8-2.4) Total Bilirubin 0.3 mg/dL (0.2-1.0) Aspartate Amino Transferase (AST) 21 U/L (15-37) Alanine Aminotransferase (ALT) 29 U/L (14-59) Alkaline Phosphatase 73 U/L (46-116) Total Protein 7.4 g/dL (6.4-8.2) Albumin 3.4 g/dL (3.4-5.0) Albumin/Globulin Ratio 0.9 (1.0-1.7) L Laboratory Tests 04/10/19 14:43 Laboratory Tests 04/10/19 14:43 EKG EKG [] Radiology/Procedures Radiology/Procedures PROCEDURE: CT ABD PELV W/ IV CONTRST ONLY PQRS Compliance statement: One or more of the following individualized dose reduction techniques were utilized for this examination: 1. Automated exposure control. 2. Adjustment of the mA and/or kV according to patient size. 3. Use of iterative reconstruction technique. Indication:Lower abdominal pain, vomiting. Right flank pain for 2 to 3 days. TECHNIQUE: CT abdomen and pelvis with IV contrast with multiplanar reformats. COMPARISON: 01/28/2019. FINDINGS: Heart is normal in size. No pericardial or pleural effusion. Clear lung bases. Hepatic steatosis. No focal hepatic lesion. Status post cholecystectomy. Spleen, gallbladder, pancreas, kidneys within normal limits. No free pelvic fluid or ascites. No enlarged retroperitoneal or pelvic adenopathy. No bowel obstruction. Normal appendix. Status post hysterectomy. Urinary bladder demonstrates no radiopaque stone. No pneumoperitoneum. No suspicious bony lesion. IMPRESSION: No acute findings. [] Course & Med Decision Making Course & Med Decision Making Pertinent Labs and Imaging studies reviewed. (See chart for details) dx: RLQ abdominal pain, nausea/vomiting DDx; UTI, pyelonephritis, kidney stone, appendicitis, diverticulitis CBC unremarkable, CMP: hospital ward clerk 1.2 otherwise unremarkable, UA negative for UTI CT abd/pel negative for acute findings Pt was given 1L NS, 4 mg of zofran and 15 mg of toradol in the ER. She reported mild improvement in pain. Advised pt of negative test results, encouraged pt to follow up with OBGyn or PCP for further evaluation of chronic abdominal pain. Return to the ER if symptoms worsen. Prescription written for zofran prn n/v Patient verbalized an understanding of home care, medications, follow-up, and return to ED instructions and was in agreement with the plan of care. [] Dragon Disclaimer Dragon Disclaimer This electronic medical record was generated, in whole or in part, using a voice recognition dictation system. Departure Departure Impression: Primary Impression: Abdominal pain Disposition: HOME, SELF-CARE Condition: STABLE Referrals: ALEX FUNEZ MD (PCP) Patient Instructions: Abdominal Pain (Nonspecific) Additional Instructions: Fill the prescription and take as directed. Follow up with your primary care doctor or your OBGyn for further evaluation of your abdominal pain. Return to the ER if symptoms worsen. Scripts Ondansetron (ONDANSETRON ODT) 4 Mg Tab.rapdis 1 TAB PO PRN Q6-8HRS PRN for NAUSEA/VOMITING, #16 TAB 0 Refills Prov: VÍCTOR COLEMAN [employer] CONTROLS OPERATOR 04/10/19 Problem Qualifiers Primary Impression: Abdominal pain Abdominal location: right lower quadrant Qualified Codes: R10.31 - Right lower quadrant pain VÍCTOR COLEMAN [employer] CONTROLS OPERATOR Apr 10, 2019 14:56
[2019-04-10] MEDS ORDERED: IV NORMAL SALINE 1000ML BAG 1,000 ML IV ONE (15:00)
[2019-04-10] MEDS ORDERED: ONDANSETRON PF 4 MG/2 ML VIAL. IV ONE (15:00)
[2019-04-10] MEDS ORDERED: KETOROLAC 15 MG/ML VIAL. IV ONE (15:00)
[2019-04-10 15:03] LABS: CALCIUM 8.6 mg/dL (8.5-10.1); CREATININE 1.2 mg/dL (0.6-1.0); GFR 50.6; POTASSIUM 3.8 mmol/L (3.5-5.1)
[2019-04-10 15:09] LABS: ALBUMIN 3.4 g/dL (3.4-5.0); ALBUMIN/GLOBULIN RATIO 0.9 (1.0-1.7); MAGNESIUM 1.8 mg/dL (1.8-2.4); TOTAL BILIRUBIN 0.3 mg/dL (0.2-1.0); TOTAL PROTEIN 7.4 g/dL (6.4-8.2)
[2019-04-10 15:09] LABS: BACTERIA,URINE MANY /HPF (0-FEW); RBC,URINE OCC /HPF (0-2); SQUAMOUS EPITHELIAL CELL,UR MANY /LPF
[2019-04-10] MEDS ORDERED: CONTRAST GIVEN. MC PRN (15:30)
[2019-04-10] MEDS ORDERED: IOHEXOL 300 MG/ML 100ML VIAL. IV ONE (15:30)
--- NOTE | 2019-04-10 15:57 | RAD ---
PQRS Compliance statement: One or more of the following individualized dose reduction techniques were utilized for this examination: 1. Automated exposure control. 2. Adjustment of the mA and/or kV according to patient size. 3. Use of iterative reconstruction technique. Indication:Lower abdominal pain, vomiting. Right flank pain for 2 to 3 days. TECHNIQUE: CT abdomen and pelvis with IV contrast with multiplanar reformats. COMPARISON: 01/28/2019. FINDINGS: Heart is normal in size. No pericardial or pleural effusion. Clear lung bases. Hepatic steatosis. No focal hepatic lesion. Status post cholecystectomy. Spleen, gallbladder, pancreas, kidneys within normal limits. No free pelvic fluid or ascites. No enlarged retroperitoneal or pelvic adenopathy. No bowel obstruction. Normal appendix. Status post hysterectomy. Urinary bladder demonstrates no radiopaque stone. No pneumoperitoneum. No suspicious bony lesion. IMPRESSION: No acute findings. Electronically signed by: Michele Benitez DO (04/10/2019 3:54 PM) [facility]
[2019-04-10] MEDS ORDERED: ONDA4TAB12 PO (16:11)
== END 2019-04-10 16:39 | disposition home or self-care (01) ==
LOC: ER 14:14
DX: R10.31 Right lower quadrant pain (principal); R35.0 Frequency of micturition; R11.2 Nausea with vomiting, unspecified; G89.29 Other chronic pain; Z90.49 Acquired absence of other specified parts of digestive tract; Z90.710 Acquired absence of both cervix and uterus
CPT/HCPCS: 36415; 74177; 80053; 81001; 83735; 85025; 87086; 96361; 96374; 96375; 99285; J1885; J2405; J7030; Q9967

== ENCOUNTER 2019-04-25 09:00 | Emergency (ER) | payer OTHER, MEDICAID ==
[~2019-04-25] VITALS: Ht 177.8 cm; Wt 127.0 kg
[2019-04-25 09:11] VITALS: BP 120/75
[2019-04-25] MEDS ORDERED: ONDANSETRON ODT 4 MG TAB.RAPDIS. PO ONE (09:30)
--- NOTE | 2019-04-25 09:30 | PHYS DOC ---
Past Medical History Past Medical History: Anxiety, Other Additional Past Medical Histor: OVARIAN CYST,MOOD SWINGS,CHRONIC PAIN Past Surgical History: Cholecystectomy, Hysterectomy, Tonsillectomy Additional Past Surgical Histo: THYROIDECTOMY "with a pill" Alcohol Use: None Drug Use: Marijuana Adult General Chief Complaint Chief Complaint: BLOOD IN URINE [facility] HPI 38-year-old female presents to ER via POV for complaints of ongoing right lower abdominal pain with blood in her urine. Patient was seen on 04/10 for same complaint and states she has had follow-up with her LEISURE STUDIES PROFESSOR. Patient had labs and CT done during that ER visit. Patient states she googled her symptoms and it was reported she could have kidney issues so she came to the ER although her symptoms are the same when she was evaluated in the ER on 04/10. Review of Systems Review of Systems Constitutional: Denies fever or chills [] Eyes: Denies change in visual acuity, redness, or eye pain [] HENT: Denies nasal congestion or sore throat [] Respiratory: Denies cough or shortness of breath [] Cardiovascular: No additional information not addressed in HPI [] GI: Denies vomiting, bloody stools or diarrhea. Reports RLQ pain similar to ER visit on 04/10. Reports intermittent nausea : Denies dysuria. Reports blood in urine. Hx hysterectomy Musculoskeletal: Denies back pain or joint pain [] Integument: Denies rash or skin lesions [] Neurologic: Denies headache, focal weakness or sensory changes [] Endocrine: Denies polyuria or polydipsia [] All other systems were reviewed and found to be within normal limits, except as documented in this note. Current Medications Current Medications Current Medications Medications (Trade) Dose Ordered Sig/[facility] Start Time Stop Time Status Last Admin Dose Admin Ondansetron HCl (Zofran Odt) 4 mg 1X ONCE 04/25/19 09:30 04/25/19 09:32 DC Allergies Allergies Allergies Coded Allergies Type Severity Reaction Last Updated Verified No Known Drug Allergies 03/19/17 No Physical Exam Physical Exam Constitutional: Well developed, well nourished, no acute distress, non-toxic appearance. [] HENT: Normocephalic, atraumatic, oropharynx moist, no oral exudates, nose normal. [] Eyes: Pupils equal, conjunctiva normal, no discharge. [] Neck: Normal range of motion, no tenderness, supple, no stridor. [] Cardiovascular: Heart rate regular rhythm, no murmur [] Lungs & Thorax: Bilateral breath sounds clear to auscultation- resp. equal/nonlabored Abdomen: Bowel sounds normal, soft/obese, diffuse across rt lower abd, no masses, no pulsatile masses. [] Skin: Warm, dry, no erythema, no rash. [] Back: No tenderness, no CVA tenderness. [] Extremities: No tenderness, no cyanosis, no clubbing, ROM intact, no edema. [] Neurologic: Alert and oriented X 3, normal motor function, normal sensory function, no focal deficits noted. [] Psychologic: Affect normal, judgement normal, mood normal. [] Current Patient Data Lab Values Laboratory Tests Test 04/25/19 09:11 Urine Collection Type Unknown Urine Color Yellow Urine Clarity Cloudy Urine pH 7.0 Urine Specific [place] 1.025 Urine Protein Negative mg/dL (NEG-TRACE) Urine Glucose (UA) Negative mg/dL (NEG) Urine Ketones (Stick) Negative mg/dL (NEG) Urine Blood Trace (NEG) Urine Nitrite Negative (NEG) Urine Bilirubin Negative (NEG) Urine Urobilinogen Dipstick 1.0 mg/dL (0.2 mg/dL) Urine Leukocyte Esterase Negative (NEG) Urine RBC 3-5 /HPF (0-2) Urine WBC 1-4 /HPF (0-4) Urine Squamous Epithelial Cells Mod /LPF Urine Amorphous Sediment Present /HPF Urine Bacteria Few /HPF (0-FEW) EKG EKG [] Radiology/Procedures Radiology/Procedures [] Course & Med Decision Making Course & Med Decision Making Pertinent Labs reviewed. (See chart for details) Patient was evaluated in the ER for complaints of concerns she had blood in her urine. Patient was evaluated in the urgency room 2 weeks ago for similar symptoms as she presented with today. Patient's UA had trace of blood as UA on 04/10 had moderate blood. Discussed her labs from 04/10 ER visit with WBCs/renal function NL. Patient's UA results were discussed with her as well as need for reevaluation and further care with her primary care physician, GI doctor, and urologist. Patient has prescribed Zofran ODT at home for her complaints of intermittent nausea. She reports she has been eating small meals. Patient is nontoxic in appearance and in no visible distress during discharge discussion. Following discussion she is comfortable with home discharge plan. Education provided on signs and symptoms to return to ER. Discharge instructions were discussed. Patient to follow-up with primary care physician if symptoms persist or with any concerns. Dragon Disclaimer Dragon Disclaimer This electronic medical record was generated, in whole or in part, using a voice recognition dictation system. Departure Departure Impression: Primary Impression: Abdominal pain Disposition: HOME, SELF-CARE Condition: STABLE Referrals: ALEX FUNEZ MD (PCP) RONY ROSS MD, SCOTT S MD Patient Instructions: Abdominal Pain, Hematuria, Adult Additional Instructions: You had concerns regarding blood in your urine. Your urinalysis has actually improved since the one you had 2 weeks ago in the emergency department. As discussed with your ongoing symptoms he should call and schedule an appointment for reevaluation and further care with a gastrointestinal doctor and urologist. He will have prescribed Zofran ODT at home for nausea use that as prescribed. Drink plenty of water daily avoiding sodas. JAYDE TANG APRN Apr 25, 2019 09:30
[2019-04-25 09:33] LABS: BILIRUBIN,URINE NEGATIVE (NEG); CLARITY,URINE CLOUDY; COLOR,URINE YELLOW; NITRITE,URINE NEGATIVE (NEG); PROTEIN,URINE NEGATIVE (NEG-TRACE)
[2019-04-25 09:50] LABS: BACTERIA,URINE FEW /HPF (0-FEW); SQUAMOUS EPITHELIAL CELL,UR MOD /LPF
[2019-04-25 09:51] LABS: AMORPHOUS SEDIMENT,UR PRESENT /HPF
== END 2019-04-25 10:17 | disposition home or self-care (01) ==
LOC: ER 09:00
DX: R10.31 Right lower quadrant pain (principal); R31.9 Hematuria, unspecified; G89.29 Other chronic pain; F41.9 Anxiety disorder, unspecified; Z90.49 Acquired absence of other specified parts of digestive tract; Z90.710 Acquired absence of both cervix and uterus; Z90.89 Acquired absence of other organs; E89.0 Postprocedural hypothyroidism
CPT/HCPCS: 81001; 99283

== ENCOUNTER 2019-06-22 13:39 | Emergency (ER) | payer OTHER, MEDICAID ==
[~2019-06-22] VITALS: Ht 154.9 cm; Wt 117.9 kg
[2019-06-22 14:43] VITALS: BP 122/83
[2019-06-22] MEDS ORDERED: IPRATRPIUM/ALBUTEROL 0.5/2.5MG 3 ML NEBU. NEB ONE (15:00)
--- NOTE | 2019-06-22 15:22 | RAD ---
EXAM: Chest, 2 views. HISTORY: Cough and chest pain. COMPARISON: 03/01/2019 FINDINGS: 2 views of chest are obtained. There is no infiltrate, pleural effusion or pneumothorax. The heart is normal in size. IMPRESSION: No acute pulmonary finding. Electronically signed by: Kayla Sommers MD (06/22/2019 3:20 PM) [facility]
[2019-06-22 16:18] LABS: BILIRUBIN,URINE NEGATIVE (NEG); COLOR,URINE YELLOW; NITRITE,URINE NEGATIVE (NEG); PH,URINE 7.5; PROTEIN,URINE NEGATIVE (NEG-TRACE)
[2019-06-22 16:33] LABS: CLARITY,URINE CLEAR
[2019-06-22 16:36] LABS: BACTERIA,URINE MANY /HPF (0-FEW); SQUAMOUS EPITHELIAL CELL,UR MANY /LPF; WBC,URINE OCC /HPF (0-4)
[2019-06-22] MEDS ORDERED: VENTOLIN HFA18 GM INH (16:53)
--- NOTE | 2019-06-22 16:54 | PHYS DOC ---
Past Medical History Past Medical History: Anxiety, Other Additional Past Medical Histor: OVARIAN CYST,MOOD SWINGS,CHRONIC PAIN Past Surgical History: Cholecystectomy, Hysterectomy, Tonsillectomy Additional Past Surgical Histo: THYROIDECTOMY "with a pill" Alcohol Use: None Drug Use: Marijuana Adult General Chief Complaint Chief Complaint: MULTIPLE COMPLAINTS [facility] HPI Patient is a 39 year old female with history of anxiety who presents to the ED today complaining of chronic shortness of breath, not feeling well, foul smelling urine, all these symptoms are chronic. Denies any fever. Patient denies being on any control, denies any recent hospitalization, denies any recent surgery, denies any unilateral leg pain, denies any recent long air travel denies any chance she is . Review of Systems Review of Systems Constitutional: Reports not feeling well. Denies fever or chills [] Eyes: Denies change in visual acuity, redness, or eye pain [] HENT: Denies nasal congestion or sore throat [] Respiratory: Reports chronic shortness of breath. Denies cough or shortness of breath [] Cardiovascular: No additional information not addressed in HPI [] GI: Denies abdominal pain, nausea, vomiting, bloody stools or diarrhea [] : Reports foul-smelling urine. Denies dysuria or hematuria [] Musculoskeletal: Denies back pain or joint pain [] Integument: Denies rash or skin lesions [] Neurologic: Denies headache, focal weakness or sensory changes [] All other systems were reviewed and found to be within normal limits, except as documented in this note. Current Medications Current Medications Current Medications Medications (Trade) [place] [facility] [place] Start Time Stop Time Status Last Admin Dose Admin Albuterol/ Ipratropium (Duoneb) 3 ml 1X ONCE 06/22/19 15:00 06/22/19 15:01 DC 06/22/19 15:15 3 ML Allergies Allergies Allergies Coded Allergies Type Severity Reaction Last Updated Verified No Known Drug Allergies 03/19/17 No Physical Exam Physical Exam Constitutional: Well developed, well nourished, no acute distress, non-toxic appearance. [] HENT: Normocephalic, atraumatic, bilateral external ears normal, oropharynx moist, no oral exudates, nose normal. [] Eyes: PERRLA, EOMI, conjunctiva normal, no discharge. [] Neck: Normal range of motion, no tenderness, supple, no stridor. [] Cardiovascular:Heart rate regular rhythm, no murmur [] Lungs & Thorax: Bilateral breath sounds clear to auscultation [] Abdomen: Bowel sounds normal, soft, no tenderness, no masses, no pulsatile masses. [] Skin: Warm, dry, no erythema, no rash. [] Back: No tenderness, no CVA tenderness. [] Extremities: No tenderness, no cyanosis, no clubbing, ROM intact, no edema. [] Neurologic: Alert and oriented X 3, normal motor function, normal sensory function, no focal deficits noted. [] Psychologic: Flat affect, depressed mood Current Patient Data Vital Signs Vital Signs Date Time Temp Pulse Resp B/P (MAP) Pulse Ox O2 Delivery O2 Flow Rate FiO2 06/22/19 15:15 98 Room Air 06/22/19 14:43 98.4 75 16 122/83 (96) 98.4 Lab Values Laboratory Tests Test 06/22/19 16:00 Urine Collection Type Unknown Urine Color Yellow Urine Clarity Clear Urine pH 7.5 Urine Specific [place] 1.025 Urine Protein Negative mg/dL (NEG-TRACE) Urine Glucose (UA) Negative mg/dL (NEG) Urine Ketones (Stick) Negative mg/dL (NEG) Urine Blood Trace (NEG) Urine Nitrite Negative (NEG) Urine Bilirubin Negative (NEG) Urine Urobilinogen Dipstick 1.0 mg/dL (0.2 mg/dL) Urine Leukocyte Esterase Negative (NEG) Urine RBC 3-5 /HPF (0-2) Urine WBC Occ /HPF (0-4) Urine Squamous Epithelial Cells Many /LPF Urine Bacteria Many /HPF (0-FEW) Urine Mucus Slight /LPF EKG EKG [] Radiology/Procedures Radiology/Procedures [] Course & Med Decision Making Course & Med Decision Making Pertinent Labs and Imaging studies reviewed. (See chart for details) This is a 39-year-old female patient well known to this ED for multiple complaints presenting today complaining of chronic shortness of breath and foul- smelling urine and not feeling well. Patient has been worked up multiple times for this symptoms. Chest x-ray is negative, given a DuoNeb treatment. Urine analysis is negative for infection. Discharged with albuterol inhaler. Patient was discharged to home. Follow-up with the PCP. She claims her PCP has moved to a different office. I offered her a list of doctors, she refused. Moises Disclaimer Moises Disclaimer This electronic medical record was generated, in whole or in part, using a voice recognition dictation system. Departure Departure Impression: Primary Impression: Shortness of breath Disposition: 01 HOME, SELF-CARE Condition: STABLE Referrals: ALEX FUNEZ MD (PCP) follow up in 1 week Patient Instructions: Shortness of Breath, [id number] Additional Instructions: You were evaluated in the emergency room, your work, up in the ER was negative for any acute findings, please follow-up with the primary care doctor. Scripts Albuterol Sulfate (VENTOLIN HFA INHALER) 18 Gm Hfa.aer.ad 2 PUFF INH Q4HRS for FOR ASTHMA, #1 INHALER 0 Refills Prov: ALEKSANDR HAWTHORNE APRN 06/22/19 ALEKSANDR HAWTHORNE APRN Jun 22, 2019 16:54
== END 2019-06-22 16:57 | disposition home or self-care (01) ==
LOC: ER 13:39
DX: R06.02 Shortness of breath (principal)
CPT/HCPCS: 71046; 81001; 94640; 99285; J7620

== ENCOUNTER 2019-08-11 18:35 | Observation (INO) | payer OTHER, MEDICAID ==
[~2019-08-11] VITALS: Ht 177.8 cm; Wt 128.0 kg
[~2019-08-11 18:35] MED LIST changes: +VENTOLIN HFA18 GM INH
[2019-08-11 19:06] LABS: BASO # 0.1 x10^3/uL (0.0-0.2); BASO % 1 % (0-3); EOS # 0.1 x10^3/uL (0.0-0.7); EOS % 1 % (0-3); HEMATOCRIT 43.1 % (36.0-47.0); HEMOGLOBIN 14.4 g/dL (12.0-15.5); LYMPH # 2.5 x10^3/uL (1.0-4.8); LYMPH % 24 % (24-48); MEAN CORPUSCULAR HEMOGLOBIN 31 pg (25-35); MEAN CORPUSCULAR HGB CONC 34 g/dL (31-37); MEAN CORPUSCULAR VOLUME 93 fL (79-100); MONO # 0.9 x10^3/uL (0.0-1.1); MONO % 8 % (0-9); NEUT # 6.9 x10^3/uL (1.8-7.7); NEUT % 66 % (31-73); PLATELET COUNT 252 x10^3/uL (140-400); RED BLOOD COUNT 4.63 x10^6/uL (3.50-5.40); RED CELL DISTRIBUTION WIDTH 13.3 % (11.5-14.5); WHITE BLOOD COUNT 10.5 x10^3/uL (4.0-11.0)
[2019-08-11 19:14] LABS: CALCIUM 9.1 mg/dL (8.5-10.1); CREATININE 1.4 mg/dL (0.6-1.0); GFR 42.1; POTASSIUM 3.8 mmol/L (3.5-5.1)
[2019-08-11 19:17] LABS: PREG TEST PT QUAL NEGATIVE (NEG)
[2019-08-11 19:20] LABS: ALBUMIN 3.5 g/dL (3.4-5.0); ALBUMIN/GLOBULIN RATIO 0.9 (1.0-1.7); TOTAL BILIRUBIN 0.3 mg/dL (0.2-1.0); TOTAL PROTEIN 7.6 g/dL (6.4-8.2)
[2019-08-11] MEDS: NITROGLYCERIN SUBLINGUAL 0.4 MG BOTTLE OF 25. SL PRN ×3 (19:47→20:21)
--- NOTE | 2019-08-11 19:55 | PHYS DOC ---
Past Medical History Past Medical History: Anxiety, Other Additional Past Medical Histor: OVARIAN CYST,MOOD SWINGS,CHRONIC PAIN Past Surgical History: Cholecystectomy, Hysterectomy, Tonsillectomy Additional Past Surgical Histo: THYROIDECTOMY "with a pill" Alcohol Use: None Drug Use: Marijuana Adult General Chief Complaint Chief Complaint: CHEST PAIN HPI HPI Patient is a 39 year old female with history of chronic pain, anxiety, ovarian cysts who presents with left-sided chest pain intermittent 24 hours. Pain is described as sharp last up to an hour at a time. It is worse with deep breathing and palpation. It is not associated with cough, fever, sweats, abdominal pain. No leg pain or swelling. No recent respiratory illness. Smokes occasional marijuana but is not smoke tobacco cigarettes. No history of CAD, CHF, COPD, asthma. Denies history of early coronary disease. No history of DVT or PE. No other acute symptoms or complaints. [] Review of Systems Review of Systems Review symptoms as per history of present illness. All other review symptoms are negative. All other systems were reviewed and found to be within normal limits, except as documented in this note. Current Medications Current Medications Current Medications Medications (Trade) Dose Ordered Sig/Shirley Start Time Stop Time Status Last Admin Dose Admin Aspirin (Children'S Aspirin) 324 mg 1X ONCE 08/11/19 20:00 08/11/19 20:01 DC 08/11/19 19:48 324 MG Nitroglycerin (Nitrostat) 0.4 mg PRN Q5MIN PRN 08/11/19 19:45 08/11/19 20:21 0.4 MG Allergies Allergies Allergies Coded Allergies Type Severity Reaction Last Updated Verified No Known Drug Allergies 03/19/17 No Physical Exam Physical Exam Constitutional: Well developed, well nourished, no acute distress, anxious. [] HENT: Normocephalic, atraumatic, bilateral external ears normal, oropharynx moist, no oral exudates, nose normal. [] Eyes: PERRLA, EOMI, conjunctiva normal, no discharge. [] Neck: Normal range of motion, no tenderness, supple, no stridor. [] Cardiovascular:Heart rate regular rhythm, no murmur [] Lungs & Thorax: Bilateral breath sounds clear to auscultation [] Abdomen: Bowel sounds normal, soft, no tenderness. [] Skin: Warm, dry, no erythema, no rash. [] Back: No tenderness, no CVA tenderness. [] Extremities: No tenderness, no cyanosis, no clubbing, ROM intact, no edema. [] Neurologic: Alert and oriented X 3, normal motor function, normal sensory function, no focal deficits noted. [] Current Patient Data Vital Signs Vital Signs Date Time Temp Pulse Resp B/P (MAP) Pulse Ox O2 Delivery O2 Flow Rate FiO2 08/11/19 20:41 78 101/74 (83) 97 Room Air 08/11/19 19:57 15 08/11/19 18:40 98.9 98.9 Lab Values Laboratory Tests Test 08/11/19 18:49 White Blood Count 10.5 x10^3/uL (4.0-11.0) Red Blood Count 4.63 x10^6/uL (3.50-5.40) Hemoglobin 14.4 g/dL (12.0-15.5) Hematocrit 43.1 % (36.0-47.0) Mean Corpuscular Volume 93 fL (79-100) Mean Corpuscular Hemoglobin 31 pg (25-35) Mean Corpuscular Hemoglobin Concent 34 g/dL (31-37) Red Cell Distribution Width 13.3 % (11.5-14.5) Platelet Count 252 x10^3/uL (140-400) Neutrophils (%) (Auto) 66 % (31-73) Lymphocytes (%) (Auto) 24 % (24-48) Monocytes (%) (Auto) 8 % (0-9) Eosinophils (%) (Auto) 1 % (0-3) Basophils (%) (Auto) 1 % (0-3) Neutrophils # (Auto) 6.9 x10^3/uL (1.8-7.7) Lymphocytes # (Auto) 2.5 x10^3/uL (1.0-4.8) Monocytes # (Auto) 0.9 x10^3/uL (0.0-1.1) Eosinophils # (Auto) 0.1 x10^3/uL (0.0-0.7) Basophils # (Auto) 0.1 x10^3/uL (0.0-0.2) D-Dimer (Nany) 0.29 ug/mlFEU (0.00-0.50) Sodium Level 141 mmol/L (136-145) Potassium Level 3.8 mmol/L (3.5-5.1) Chloride Level 104 mmol/L (98-107) Carbon Dioxide Level 29 mmol/L (21-32) Anion Gap 8 (6-14) Blood Urea Nitrogen 17 mg/dL (7-20) Creatinine 1.4 mg/dL (0.6-1.0) H Estimated GFR (Cockcroft-Gault) 42.1 BUN/Creatinine Ratio 12 (6-20) Glucose Level 99 mg/dL (70-99) Calcium Level 9.1 mg/dL (8.5-10.1) Total Bilirubin 0.3 mg/dL (0.2-1.0) Aspartate Amino Transferase (AST) 28 U/L (15-37) Alanine Aminotransferase (ALT) 28 U/L (14-59) Alkaline Phosphatase 75 U/L (46-116) Troponin I Quantitative < 0.017 ng/mL (0.000-0.055) Total Protein 7.6 g/dL (6.4-8.2) Albumin 3.5 g/dL (3.4-5.0) Albumin/Globulin Ratio 0.9 (1.0-1.7) L Serum Test, Qualitative Negative (NEG) Laboratory Tests 08/11/19 18:49 Laboratory Tests 08/11/19 18:49 EKG EKG [EKG: Normal sinus rhythm, nonspecific ST depression in lateral leads. No acute ST elevation. QTC 410.] Radiology/Procedures Radiology/Procedures [Chest x-ray: Cardiomegaly without acute cardiopulmonary disease per radiology report] Course & Med Decision Making Course & Med Decision Making Pertinent Labs and Imaging studies reviewed. (See chart for details) [Gross exertional chest pain 24 hours. On further review of history, patient st ates chest pain occurred while moving furniture yesterday and that patient would have to stop relieved chest pain. Nitroglycerin and aspirin given. Pain resolved in the ED. Will admit to the hospital service for further evaluation and treatment.] Dragon Disclaimer Dragon Disclaimer This electronic medical record was generated, in whole or in part, using a voice recognition dictation system. Departure Departure Impression: Primary Impression: Chest pain Disposition: ADMITTED INPATIENT Condition: STABLE Referrals: NAT SHRESTHA MD (PCP) DANNA GALARZA DO Aug 11, 2019 19:55
[2019-08-11] MEDS ORDERED: ASPIRIN CHEWABLE 81 MG TABLET. PO ONE (20:00)
--- NOTE | 2019-08-11 20:01 | RAD ---
Exam: Chest one view INDICATION: Chest pain TECHNIQUE: Frontal view of the chest Comparisons: 06/22/2019 FINDINGS: Heart is enlarged. Pulmonary vessels are within normal limits. The lung and pleural spaces are clear. IMPRESSION: Cardiomegaly without acute pulmonary process. Electronically signed by: Wellington Alfred MD (08/11/2019 7:58 PM) [facility]
[2019-08-11] MEDS ORDERED: NITROGLYCERIN SUBLINGUAL 0.4 MG BOTTLE OF 25. SL PRN (23:30)
[2019-08-11] MEDS ORDERED: KETOROLAC 15 MG/ML VIAL. IVP ONE (23:45)
[2019-08-12] VITALS (7 sets, daily range): BP systolic 107–130; BP diastolic 62–96
[2019-08-12 02:43] LABS: BASO # 0.1 x10^3/uL (0.0-0.2); BASO % 1 % (0-3); EOS # 0.1 x10^3/uL (0.0-0.7); EOS % 2 % (0-3); HEMATOCRIT 41.3 % (36.0-47.0); HEMOGLOBIN 13.8 g/dL (12.0-15.5); LYMPH % 22 % (24-48); MEAN CORPUSCULAR HEMOGLOBIN 31 pg (25-35); MEAN CORPUSCULAR HGB CONC 33 g/dL (31-37); MEAN CORPUSCULAR VOLUME 94 fL (79-100); MONO # 0.8 x10^3/uL (0.0-1.1); MONO % 9 % (0-9); NEUT # 5.9 x10^3/uL (1.8-7.7); NEUT % 66 % (31-73); PLATELET COUNT 231 x10^3/uL (140-400); RED BLOOD COUNT 4.41 x10^6/uL (3.50-5.40); RED CELL DISTRIBUTION WIDTH 13.4 % (11.5-14.5); WHITE BLOOD COUNT 8.9 x10^3/uL (4.0-11.0)
[2019-08-12 03:08] LABS: ALBUMIN 3.2 g/dL (3.4-5.0); ALBUMIN/GLOBULIN RATIO 0.8 (1.0-1.7); CALCIUM 8.7 mg/dL (8.5-10.1); CREATININE 1.2 mg/dL (0.6-1.0); GFR 50.3; POTASSIUM 3.5 mmol/L (3.5-5.1); TOTAL BILIRUBIN 0.4 mg/dL (0.2-1.0); TOTAL PROTEIN 7.2 g/dL (6.4-8.2)
--- NOTE | 2019-08-12 09:25 | PDOC1 ---
History and Physical Date of Admission Date of Admission DATE: 08/12/19 TIME: 09:23 Identification/Chief Complaint Chief Complaint SEEN IN ER presented with left-sided chest pain intermittent 24 hours. Pain is described as sharp last up to an hour at a time. It is worse with deep breathing and palpation. It is not associated with cough, fever, sweats, abdominal pain. No leg pain or swelling. No recent respiratory illness. Smokes occasional marijuana but is not smoke tobacco cigarettes. No history of CAD, CHF, COPD, asthma. Denies history of early coronary disease. No history of DVT or PE. Past Medical History Past Medical History Past Medical History Past Medical History: Anxiety, Other Additional Past Medical Histor: OVARIAN CYST,MOOD SWINGS,CHRONIC PAIN Past Surgical History: Cholecystectomy, Hysterectomy, Tonsillectomy Additional Past Surgical Histo: THYROIDECTOMY "with a pill" Alcohol Use: None Drug Use: Marijuana FH OBESITY Cardiovascular: Hyperlipidemia Pulmonary: No pertinent hx, Other Hepatobiliary: No pertinent hx Musculoskeletal: low back pain Renal/: No pertinent hx Family History Family History: Hypertension, Other Social History ALCOHOL: none Drugs: None Current Problem List Problem List Problems Medical Problems: (1) Chest pain Status: Acute Current Medications Current Medications Current Medications Nitroglycerin (Nitrostat) 0.4 mg PRN Q5MIN PRN SL CHEST PAIN Last administered on 08/11/19at 20:21; Start 08/11/19 at 19:45; Stop 08/11/19 at 23:38; Status DC Aspirin (Children'S Aspirin) 324 mg 1X ONCE PO Last administered on 08/11/19at 19:48; Start 08/11/19 at 20:00; Stop 08/11/19 at 20:01; Status DC Ketorolac Tromethamine (Toradol 15mg Vial) 15 mg 1X ONCE IVP ; Start 08/11/19 at 23:45; Stop 08/11/19 at 23:46; Status DC Nitroglycerin (Nitrostat) 0.4 mg PRN Q5MIN PRN SL CHEST PAIN; Start 08/11/19 at 23:30; Stop 08/12/19 at 23:29 Buspirone HCl (Buspar) 5 mg DAILY PO ; Start 08/13/19 at 09:00; Status UNV Active Scripts Active Ventolin Hfa Inhaler (Albuterol Sulfate) 18 Gm Hfa.aer.ad 2 Puff INH Q4HRS Ondansetron Odt (Ondansetron) 4 Mg Tab.rapdis 1 Tab PO PRN Q6-8HRS PRN Medrol (Methylprednisolone) 4 Mg Tab.ds.pk 1 Pkg PO UD Ondansetron Odt (Ondansetron) 4 Mg Tab.rapdis 1 Tab PO PRN Q6-8HRS Meclizine Hcl 12.5 Mg Tablet 1 Tab PO TID Zofran (Ondansetron Hcl) 4 Mg Tablet 4 Mg PO PRN TID PRN nausea/vomiting Ondansetron Odt (Ondansetron) 4 Mg Tab.rapdis 1 Tab PO PRN Q6-8HRS Flomax (Tamsulosin Hcl) 0.4 Mg Cap.er.24h 1 Cap PO DAILY Meloxicam 7.5 Mg Tablet 7.5 Mg PO DAILY Levsin (Hyoscyamine Sulfate) 0.125 Mg Tablet 0.125 Mg PO QID Naproxen 500 Mg Tablet 1 Tab PO BID PRN Meclizine Hcl 25 Mg Tablet 1 Tab PO TID Zofran Odt (Ondansetron) 4 Mg Tab.rapdis 1 Tab SL Q8HRS Bactrim Ds Tablet (Sulfamethoxazole/Trimethoprim) 1 Each Tablet 1 Tab PO BID Macrobid 100 Mg Capsule (Nitrofurantoin Monohyd/M-Cryst) 100 Mg Capsule 1 Cap PO BID Orosi 5-325 Tablet (Acetaminophen/Hydrocodone Bitart) 1 Each Tablet 1-2 Each PO PRN Q6HRS PRN as needed for pain Ibuprofen 800 Mg Tablet 800 Mg PO PRN TID PRN take with food or milk to avoid upsetting stomach Lidocaine PATCH (Lidocaine) 1 Each Adh..patch 1 Each TP DAILY Tramadol Hcl 50 Mg Tablet 50 Mg PO PRN Q6HRS PRN Proair Respiclick (Albuterol Sulfate) 90 Mcg Aer.pow.ba 1 Puff IH PRN Q6HRS PRN Proair Hfa Inhaler (Albuterol Sulfate) 8.5 Gm Hfa.aer.ad 1 Puff INH PRN Q6HRS PRN Reported Levothyroxine Sodium 112 Mcg Tablet 1 Tab PO DAILY Celexa (Citalopram Hydrobromide) 40 Mg Tablet 1 Tab PO HS Topiramate 25 Mg Tablet 1 Tab PO BID Allergies Allergies: Coded Allergies: No Known Drug Allergies (Unverified , 03/19/17) ROS Review of System Review of Systems Review of Systems Review symptoms as per history of present illness. All other review symptoms are negative. 14 pt systems were reviewed and found to be within normal limits, except as documented Physical Exam Physical Exam Physical Exam Physical Exam Constitutional: Well developed, well nourished, no acute distress, anxious. [] HENT: Normocephalic, atraumatic, bilateral external ears normal, oropharynx moist, no oral exudates, nose normal. [] Eyes: PERRLA, EOMI, conjunctiva normal, no discharge. [] Neck: Normal range of motion, no tenderness, supple, no stridor. [] Cardiovascular:Heart rate regular rhythm, no murmur [] Lungs & Thorax: Bilateral breath sounds clear to auscultation [] Abdomen: Bowel sounds normal, soft, no tenderness. [] Skin: Warm, dry, no erythema, no rash. [] Back: No tenderness, no CVA tenderness. [] Extremities: No tenderness, no cyanosis, no clubbing, ROM intact, no edema. [] Neurologic: Alert and oriented X 3, normal motor function, normal sensory function, no focal deficits noted. [] Vitals Vitals Vital Signs Date Time Temp Pulse Resp B/P (MAP) Pulse Ox O2 Delivery O2 Flow Rate FiO2 08/12/19 07:00 97.5 79 16 118/86 (97) 96 Nasal Cannula 2.0 97.5 Labs Labs Laboratory Tests Test 08/11/19 18:49 08/12/19 00:05 08/12/19 02:30 White Blood Count 10.5 x10^3/uL (4.0-11.0) 8.9 x10^3/uL (4.0-11.0) Red Blood Count 4.63 x10^6/uL (3.50-5.40) 4.41 x10^6/uL (3.50-5.40) Hemoglobin 14.4 g/dL (12.0-15.5) 13.8 g/dL (12.0-15.5) Hematocrit 43.1 % (36.0-47.0) 41.3 % (36.0-47.0) Mean Corpuscular Volume 93 fL (79-100) 94 fL (79-100) Mean Corpuscular Hemoglobin 31 pg (25-35) 31 pg (25-35) Mean Corpuscular Hemoglobin Concent 34 g/dL (31-37) 33 g/dL (31-37) Red Cell Distribution Width 13.3 % (11.5-14.5) 13.4 % (11.5-14.5) Platelet Count 252 x10^3/uL (140-400) 231 x10^3/uL (140-400) Neutrophils (%) (Auto) 66 % (31-73) 66 % (31-73) Lymphocytes (%) (Auto) 24 % (24-48) 22 % (24-48) Monocytes (%) (Auto) 8 % (0-9) 9 % (0-9) Eosinophils (%) (Auto) 1 % (0-3) 2 % (0-3) Basophils (%) (Auto) 1 % (0-3) 1 % (0-3) Neutrophils # (Auto) 6.9 x10^3/uL (1.8-7.7) 5.9 x10^3/uL (1.8-7.7) Lymphocytes # (Auto) 2.5 x10^3/uL (1.0-4.8) 2.0 x10^3/uL (1.0-4.8) Monocytes # (Auto) 0.9 x10^3/uL (0.0-1.1) 0.8 x10^3/uL (0.0-1.1) Eosinophils # (Auto) 0.1 x10^3/uL (0.0-0.7) 0.1 x10^3/uL (0.0-0.7) Basophils # (Auto) 0.1 x10^3/uL (0.0-0.2) 0.1 x10^3/uL (0.0-0.2) D-Dimer (Nany) 0.29 ug/mlFEU (0.00-0.50) Sodium Level 141 mmol/L (136-145) 140 mmol/L (136-145) Potassium Level 3.8 mmol/L (3.5-5.1) 3.5 mmol/L (3.5-5.1) Chloride Level 104 mmol/L (98-107) 102 mmol/L (98-107) Carbon Dioxide Level 29 mmol/L (21-32) 27 mmol/L (21-32) Anion Gap 8 (6-14) 11 (6-14) Blood Urea Nitrogen 17 mg/dL (7-20) 20 mg/dL (7-20) Creatinine 1.4 mg/dL (0.6-1.0) 1.2 mg/dL (0.6-1.0) Estimated GFR (Cockcroft-Gault) 42.1 50.3 BUN/Creatinine Ratio 12 (6-20) 17 (6-20) Glucose Level 99 mg/dL (70-99) 84 mg/dL (70-99) Calcium Level 9.1 mg/dL (8.5-10.1) 8.7 mg/dL (8.5-10.1) Total Bilirubin 0.3 mg/dL (0.2-1.0) 0.4 mg/dL (0.2-1.0) Aspartate Amino Transf (AST/SGOT) 28 U/L (15-37) 21 U/L (15-37) Alanine Aminotransferase (ALT/SGPT) 28 U/L (14-59) 26 U/L (14-59) Alkaline Phosphatase 75 U/L (46-116) 69 U/L (46-116) Troponin I Quantitative < 0.017 ng/mL (0.000-0.055) < 0.017 ng/mL (0.000-0.055) Total Protein 7.6 g/dL (6.4-8.2) 7.2 g/dL (6.4-8.2) Albumin 3.5 g/dL (3.4-5.0) 3.2 g/dL (3.4-5.0) Albumin/Globulin Ratio 0.9 (1.0-1.7) 0.8 (1.0-1.7) Serum Test, Qualitative Negative (NEG) Lactic Acid Level 1.0 mmol/L (0.4-2.0) Laboratory Tests Test 08/11/19 18:49 08/12/19 00:05 08/12/19 02:30 White Blood Count 10.5 x10^3/uL (4.0-11.0) 8.9 x10^3/uL (4.0-11.0) Red Blood Count 4.63 x10^6/uL (3.50-5.40) 4.41 x10^6/uL (3.50-5.40) Hemoglobin 14.4 g/dL (12.0-15.5) 13.8 g/dL (12.0-15.5) Hematocrit 43.1 % (36.0-47.0) 41.3 % (36.0-47.0) Mean Corpuscular Volume 93 fL (79-100) 94 fL (79-100) Mean Corpuscular Hemoglobin 31 pg (25-35) 31 pg (25-35) Mean Corpuscular Hemoglobin Concent 34 g/dL (31-37) 33 g/dL (31-37) Red Cell Distribution Width 13.3 % (11.5-14.5) 13.4 % (11.5-14.5) Platelet Count 252 x10^3/uL (140-400) 231 x10^3/uL (140-400) Neutrophils (%) (Auto) 66 % (31-73) 66 % (31-73) Lymphocytes (%) (Auto) 24 % (24-48) 22 % (24-48) Monocytes (%) (Auto) 8 % (0-9) 9 % (0-9) Eosinophils (%) (Auto) 1 % (0-3) 2 % (0-3) Basophils (%) (Auto) 1 % (0-3) 1 % (0-3) Neutrophils # (Auto) 6.9 x10^3/uL (1.8-7.7) 5.9 x10^3/uL (1.8-7.7) Lymphocytes # (Auto) 2.5 x10^3/uL (1.0-4.8) 2.0 x10^3/uL (1.0-4.8) Monocytes # (Auto) 0.9 x10^3/uL (0.0-1.1) 0.8 x10^3/uL (0.0-1.1) Eosinophils # (Auto) 0.1 x10^3/uL (0.0-0.7) 0.1 x10^3/uL (0.0-0.7) Basophils # (Auto) 0.1 x10^3/uL (0.0-0.2) 0.1 x10^3/uL (0.0-0.2) D-Dimer (Nany) 0.29 ug/mlFEU (0.00-0.50) Sodium Level 141 mmol/L (136-145) 140 mmol/L (136-145) Potassium Level 3.8 mmol/L (3.5-5.1) 3.5 mmol/L (3.5-5.1) Chloride Level 104 mmol/L (98-107) 102 mmol/L (98-107) Carbon Dioxide Level 29 mmol/L (21-32) 27 mmol/L (21-32) Anion Gap 8 (6-14) 11 (6-14) Blood Urea Nitrogen 17 mg/dL (7-20) 20 mg/dL (7-20) Creatinine 1.4 mg/dL (0.6-1.0) 1.2 mg/dL (0.6-1.0) Estimated GFR (Cockcroft-Gault) 42.1 50.3 BUN/Creatinine Ratio 12 (6-20) 17 (6-20) Glucose Level 99 mg/dL (70-99) 84 mg/dL (70-99) Calcium Level 9.1 mg/dL (8.5-10.1) 8.7 mg/dL (8.5-10.1) Total Bilirubin 0.3 mg/dL (0.2-1.0) 0.4 mg/dL (0.2-1.0) Aspartate Amino Transf (AST/SGOT) 28 U/L (15-37) 21 U/L (15-37) Alanine Aminotransferase (ALT/SGPT) 28 U/L (14-59) 26 U/L (14-59) Alkaline Phosphatase 75 U/L (46-116) 69 U/L (46-116) Troponin I Quantitative < 0.017 ng/mL (0.000-0.055) < 0.017 ng/mL (0.000-0.055) Total Protein 7.6 g/dL (6.4-8.2) 7.2 g/dL (6.4-8.2) Albumin 3.5 g/dL (3.4-5.0) 3.2 g/dL (3.4-5.0) Albumin/Globulin Ratio 0.9 (1.0-1.7) 0.8 (1.0-1.7) Serum Test, Qualitative Negative (NEG) Lactic Acid Level 1.0 mmol/L (0.4-2.0) Images Images Aortic Valve AoV Peak Arias. 138.9cm/s AoV VTI 29.4cm AO Peak GR. 7.7mmHg LVOT Peak Arias. 125.9cm/s AO Mean GR. 5mmHg HANNAH (VMAX) 2.75cm2 HANNAH (VTI) 2.70cm2 Mitral Valve MV E Velocity 107.2cm/s MV DECEL TIME 193ms MV A Velocity 93.4cm/s E/A Ratio 1.1 Tricuspid Valve TR P. Velocity 186cm/s RAP ESTIMATE 3mmHg TR Peak Gr. 14mmHg RVSP 17mmHg Pulmonary Vein S1 Velocity 57.1cm/s D2 Velocity 64.0cm/s LEFT VENTRICLE The left ventricle is normal size. There is normal left ventricular wall thickness. The left ventricular systolic function is normal. The Ejection Fraction is 55-60%. There is normal LV segmental wall motion. RIGHT VENTRICLE The right ventricle is normal size. The right ventricular systolic function is normal. ATRIA The left atrium size is normal. The right atrium size is normal. The interatrial septum is intact with no evidence for an atrial septal defect or patent foramen ovale as noted on 2-D or Doppler imaging. AORTIC VALVE The aortic valve is normal in structure and function. Doppler and Color Flow revealed no significant aortic regurgitation. There is no significant aortic valvular stenosis. MITRAL VALVE The mitral valve is normal in structure and function. There is no evidence of mitral valve prolapse. There is no mitral valve stenosis. Doppler and Color Flow revealed no mitral valve regurgitation noted. TRICUSPID VALVE The tricuspid valve is normal in structure and function. Doppler and Color Flow revealed no tricuspid valve regurgitation noted. There is no tricuspid valve stenosis. PULMONIC VALVE The pulmonic valve is not well visualized. Doppler and Color Flow revealed no pulmonic valvular regurgitation. There is no pulmonic valvular stenosis. GREAT VESSELS The aortic root is normal in size. The ascending aorta is normal in size. The IVC is normal in size and collapses >50% with inspiration. PERICARDIAL EFFUSION There is no evidence of significant pericardial effusion. Critical Notification Critical Value: No <Conclusion> The left ventricular systolic function is normal. The Ejection Fraction is 55-60%. There is normal LV segmental wall motion. No significant valvular abnormalities. There is no evidence of significant pericardial effusion. Signed by : Evan Espana, Electronically Approved : 05/18/2018 15:35:13 Nurse/Tech Notes S1,S2 and lungs are clear to auscultation. Patient stated she had a sharp pain in her left chest this morning prior to coming down for the test. Consent: The procedure was explained to the patient in lay terms. Informed consent was witnessed. Timeout was entered into [employer] History and Stress Test performed by RT Milagros (Gracy) (N) Pharm. Details Pharmacologic stress testing was performed using 0.4mg per 5ml of regadenoson given intravenously over 7-10 seconds. Stress Symptoms Nausea and patient stated she felt "funny". POST EXERCISE Reason for Termination: Infusion complete Target HR: No Max HR: 137 bpm Max Blood Pressure: 148/88mmHg Blood Pressure response to exercise: Normal blood pressure response during stress. Heart Rate response to exercise: WNL Chest Pain: No. Arrhythmia: No. ST Change: No. INTERPRETATION Stress EKG Conclusion: No evidence of stress induced EKG changes. Imaging Protocol IMAGE PROTOCOL: Rest Tc-99m/stress Tc-99m 2 days Rest: Stress: Viability: Radiopharm. Tc99m Sestamibi Tc99m Sestamibi Dose 34.2mCi 34.6mCi Img Date 05/18/2018 05/19/2018 Inj-Img Time 60min. 60min. Rest Admin Site: IV - Right Hand Cdl B Driver: RT Milagros (Gracy)(N) Stress Admin Site: IV - Right Hand Cdl B Driver: RT Milagros (Gracy)(N) STRESS DATA End Diast. Vol. 89.0ml Av. Heart Rate 81.0bpm End Syst. Vol. 22.0ml CO Index BSA 0.0L/min Myocardial Mass 132.0g Eject. Fraction 75.0% Stress Rates Pk. Fill Rate 4.14EDV/sec LVtime Pk. Fill 210.96msec Pk. Empty Rate 4.85ESV/sec LVtime Pk. Eject 119.57msec /3 Pk. Fill 1.10EDV/sec Stress Scores Regional WT 0.00 Summed WT 0.00 Regional WM 0.00 Summed WM 0.00 The rest and stress images show normal perfusion, normal contraction and thickening. LV Perf. Quant 17 Seg. SSS 0.00 17 Seg. SRS 2.00 17 Seg. SDS 0.00 Stress Defect Extent (% LAD) 0.00 Rest Defect Extent (% LAD) 0.00 Rev. Defect Extent (% LAD) 0.00 Stress Defect Extent (% LCX) 0.00 Rest Defect Extent (% LCX) 17.50 Rev. Defect Extent (% LCX) 0.00 Stress Defect Extent (% RCA) 0.00 Rest Defect Extent (% RCA) 0.00 Rev. Defect Extent (% RCA) 0.00 Stress Defect Extent (% SMITH) 0.00 Rest Defect Extent (% SMITH) 4.10 Rev. Defect Extent (% SMITH) 0.00 Other Information Quality:Good Risk Assessment: Low Risk Conclusion 1. No evidence of EKG changes with stress testing. 2. Normal perfusion at stress/rest. 3. Low risk study. 4. EF > 60%. Signed by : Manny Marquez, Electronically Approved : 05/19/2018 11:19:36 DICTATED and SIGNED BY: MANNY MARQUEZ MD DATE: 05/19/18 1119 pROCEDURE: CT ABD PELV W/ IV CONTRST ONLY PQRS Compliance statement: One or more of the following individualized dose reduction techniques were utilized for this examination: 1. Automated exposure control. 2. Adjustment of the mA and/or kV according to patient size. 3. Use of iterative reconstruction technique. Indication:Lower abdominal pain, vomiting. Right flank pain for 2 to [address]. TECHNIQUE: CT abdomen and pelvis with IV contrast with multiplanar reformats. COMPARISON: 01/28/2019. FINDINGS: Heart is normal in size. No pericardial or pleural effusion. Clear lung bases. Hepatic steatosis. No focal hepatic lesion. Status post cholecystectomy. Spleen, gallbladder, pancreas, kidneys within normal limits. No free pelvic fluid or ascites. No enlarged retroperitoneal or pelvic adenopathy. No bowel obstruction. Normal appendix. Status post hysterectomy. Urinary bladder demonstrates no radiopaque stone. No pneumoperitoneum. No suspicious bony lesion. IMPRESSION: No acute findings. Electronically signed by: Michele Benitez DO (04/10/2019 3:54 PM) [facility] DICTATED and SIGNED BY: MICHELE BENITEZ DO DATE: 04/10/19 1554 : 1980 LOCATION: ER AGE: 39 SEX: F EXAM STATUS: REG ER ORD. PHYSICIAN: DANNA GALARZA DO REASON: CP PROCEDURE: CHEST AP ONLY Exam: Chest one view INDICATION: Chest pain TECHNIQUE: Frontal view of the chest Comparisons: 06/22/2019 FINDINGS: Heart is enlarged. Pulmonary vessels are within normal limits. The lung and pleural spaces are clear. IMPRESSION: Cardiomegaly without acute pulmonary process. Electronically signed by: Wellington Linton MD (08/11/2019 7:58 PM) [facility] DICTATED and SIGNED BY: WELLINGTON LINTON MD DATE: 08/11/191957 VTE Prophylaxis Ordered VTE Prophylaxis Devices: No VTE Pharmacological Prophylaxi: Yes Assessment/Plan Assessment/Plan Impression: Chest pain WITH RECENT NEG ischemic study 2018 morbid obesity 05/14 No evidence of EKG changes with stress testing.Normal perfusion at stress/rest.Low risk study.EF > 60%. GERD thc abuse ADMITTED tele bed serial troponin i neg x 2 CONSULT CARDIOLOGY home meds MANOJ JO MD Aug 12, 2019 09:25
--- NOTE | 2019-08-12 10:07 | EKG ---
[facility] [address] [place] [address] Test Date: 2019-08-11 Test Time: 18:44:16 Pat Name: ESTELITA CADENA Department: Room: Gender: F Mine Expert: : 1980 Requested By: DANNA GALARZA Order Number: [id number] Reading MD: Measurements Intervals Foster Rate: 83 P: -159 FL: 146 QRS: 16 QRSD: 88 T: 37 QT: 344 QTc: 409 Interpretive Statements SINUS RHYTHM NON SPECIFIC ST DEPRESSION BORDERLINE ECG No previous ECG available for comparison
[2019-08-12] MEDS ORDERED: IBUPROFEN 400 MG TABLET. PO PRN ×2 (11:30→12:30)
[2019-08-12] MEDS ORDERED: LIDO:MAALOX 1:1 20 ML SINGLE DOSE. SWSW ONE (11:30)
[2019-08-12] MEDS: busPIRone 5 MG TABLET. PO SCH (11:41)
[2019-08-12] MEDS ORDERED: HYDROcodone/APAP 5/325MG 1 TAB TABLET PO PRN ×2 (12:00→12:30)
[2019-08-12] MEDS ORDERED: ONDANSETRON ODT 4 MG TAB.RAPDIS. PO PRN (12:00)
[2019-08-12] MEDS ORDERED: NAPROXEN 500 MG TABLET PO PRN (12:00)
[2019-08-12] MEDS ORDERED: traMADol 50 MG TABLET PO PRN (12:00)
[2019-08-12] MEDS ORDERED: ALBUTEROL SULFATE 2.5 MG/3 ML NEBU. INH PRN (12:00)
[2019-08-12] MEDS ORDERED: NON FORMULARY ITEM (Albuterol Sulfate (Proair Respiclick) 1 PUFF) IH PRN (12:00)
[2019-08-12] MEDS ORDERED: NON FORMULARY ITEM (Albuterol Sulfate (Ventolin Hfa Inhaler) 2 PUFF) INH SCH (12:00)
[2019-08-12] MEDS: LIDOCAINE (700MG/PATCH) PATCH. TP SCH (13:00)
[2019-08-12] MEDS: LEVOTHYROXINE 112 MCG TABLET PO SCH (13:27)
[2019-08-12] MEDS: CITALOPRAM 20 MG TABLET. PO SCH (13:27)
[2019-08-12] MEDS: TOPIRAMATE 25 MG TABLET. PO SCH ×2 (13:28→21:00)
[2019-08-12] MEDS: MECLIZINE HCL 12.5 MG TABLET. PO SCH ×2 (13:28→21:00)
[2019-08-12] MEDS: TAMSULOSIN 0.4 MG CAP.ER.24H. PO SCH (13:28)
[2019-08-12] MEDS ORDERED: NON FORMULARY ITEM (Meclizine Hcl 1 TAB) PO SCH (14:00)
[2019-08-13 03:21] VITALS: BP 119/75
[2019-08-13] MEDS: LEVOTHYROXINE 112 MCG TABLET PO SCH (04:59)
[2019-08-13 07:50] VITALS: BP 113/85
[2019-08-13] MEDS: LIDOCAINE (700MG/PATCH) PATCH. TP SCH (09:00)
[2019-08-13] MEDS: TAMSULOSIN 0.4 MG CAP.ER.24H. PO SCH (09:39)
[2019-08-13] MEDS: CITALOPRAM 20 MG TABLET. PO SCH (09:39)
[2019-08-13] MEDS: TOPIRAMATE 25 MG TABLET. PO SCH (09:39)
[2019-08-13] MEDS: MECLIZINE HCL 12.5 MG TABLET. PO SCH ×2 (09:39→14:00)
--- NOTE | 2019-08-13 10:11 | PDOC ---
PROGRESS NOTES History of Present Illness History of Present Illness VTE Prophylaxis Ordered VTE Prophylaxis Devices: No VTE Pharmacological Prophylaxi: Yes DISCHARGE DX Assessment/Plan Impression: Chest pain WITH RECENT NEG ischemic study 2018 morbid obesity 05/14 No evidence of EKG changes with stress testing.Normal perfusion at stress/rest.Low risk study.EF > 60%. GERD thc abuse ADMITTED tele bed serial troponin i neg x 2 CONSULT CARDIOLOGY ok for D/C PER RN, DR HUI home meds D/C PLANNING 24 MIN Vitals Vitals Vital Signs Date Time Temp Pulse Resp B/P (MAP) Pulse Ox O2 Delivery O2 Flow Rate FiO2 08/13/19 07:50 98.3 94 18 113/85 (94) 99 Room Air 98.3 08/12/19 15:00 2.0 Physical Exam General: Alert, Oriented X3, Cooperative, No acute distress Heart: Regular rate, Normal S1, Normal S2 Lungs: Clear Abdomen: Normal bowel sounds, Soft, No tenderness Extremities: No cyanosis Skin: No significant lesion Labs LABS Mitral Valve MV E Velocity 107.2cm/s MV DECEL TIME 193ms MV A Velocity 93.4cm/s E/A Ratio 1.1 Tricuspid Valve TR P. Velocity 186cm/s RAP ESTIMATE 3mmHg TR Peak Gr. 14mmHg RVSP 17mmHg Pulmonary Vein S1 Velocity 57.1cm/s D2 Velocity 64.0cm/s LEFT VENTRICLE The left ventricle is normal size. There is normal left ventricular wall thickness. The left ventricular systolic function is normal. The Ejection Fraction is 55-60%. There is normal LV segmental wall motion. RIGHT VENTRICLE The right ventricle is normal size. The right ventricular systolic function is normal. ATRIA The left atrium size is normal. The right atrium size is normal. The interatrial septum is intact with no evidence for an atrial septal defect or patent foramen ovale as noted on 2-D or Doppler imaging. AORTIC VALVE The aortic valve is normal in structure and function. Doppler and Color Flow revealed no significant aortic regurgitation. There is no significant aortic valvular stenosis. MITRAL VALVE The mitral valve is normal in structure and function. There is no evidence of mitral valve prolapse. There is no mitral valve stenosis. Doppler and Color Flow revealed no mitral valve regurgitation noted. TRICUSPID VALVE The tricuspid valve is normal in structure and function. Doppler and Color Flow revealed no tricuspid valve regurgitation noted. There is no tricuspid valve stenosis. PULMONIC VALVE The pulmonic valve is not well visualized. Doppler and Color Flow revealed no pulmonic valvular regurgitation. There is no pulmonic valvular stenosis. GREAT VESSELS The aortic root is normal in size. The ascending aorta is normal in size. The IVC is normal in size and collapses >50% with inspiration. PERICARDIAL EFFUSION There is no evidence of significant pericardial effusion. Critical Notification Critical Value: No <Conclusion> The left ventricular systolic function is normal. The Ejection Fraction is 55-60%. There is normal LV segmental wall motion. No significant valvular abnormalities. There is no evidence of significant pericardial effusion. Signed by : Clara Oropeza, Electronically Approved : 05/18/2018 15:35:13 DICTATED and SIGNED BY: CLARA OROPEZA MD DATE: 05/18/18 1535 SEX: F EXAM STATUS: REG ER ORD. PHYSICIAN: VÍCTOR COLEMAN APRN REASON: LOWER ABDOMINAL PAIN, VOMITING, R flank pain x2-3 days PROCEDURE: CT ABD PELV W/ IV CONTRST ONLY PQRS Compliance statement: One or more of the following individualized dose reduction techniques were utilized for this examination: 1. Automated exposure control. 2. Adjustment of the mA and/or kV according to patient size. 3. Use of iterative reconstruction technique. Indication:Lower abdominal pain, vomiting. Right flank pain for 2 to 3 days. TECHNIQUE: CT abdomen and pelvis with IV contrast with multiplanar reformats. COMPARISON: 01/28/2019. FINDINGS: Heart is normal in size. No pericardial or pleural effusion. Clear lung bases. Hepatic steatosis. No focal hepatic lesion. Status post cholecystectomy. Spleen, gallbladder, pancreas, kidneys within normal limits. No free pelvic fluid or ascites. No enlarged retroperitoneal or pelvic adenopathy. No bowel obstruction. Normal appendix. Status post hysterectomy. Urinary bladder demonstrates no radiopaque stone. No pneumoperitoneum. No suspicious bony lesion. IMPRESSION: No acute findings. Electronically signed by: Michele Benitez DO (04/10/2019 3:54 PM) [facility] Assessment and Plan Assessmemt and Plan Problems Medical Problems: (1) Chest pain Status: Acute Comment Review of Relevant I have reviewed the following items kwaku (where applicable) has been applied. Labs Laboratory Tests Test 08/11/19 18:49 08/12/19 00:05 08/12/19 02:30 White Blood Count 10.5 x10^3/uL (4.0-11.0) 8.9 x10^3/uL (4.0-11.0) Red Blood Count 4.63 x10^6/uL (3.50-5.40) 4.41 x10^6/uL (3.50-5.40) Hemoglobin 14.4 g/dL (12.0-15.5) 13.8 g/dL (12.0-15.5) Hematocrit 43.1 % (36.0-47.0) 41.3 % (36.0-47.0) Mean Corpuscular Volume 93 fL (79-100) 94 fL (79-100) Mean Corpuscular Hemoglobin 31 pg (25-35) 31 pg (25-35) Mean Corpuscular Hemoglobin Concent 34 g/dL (31-37) 33 g/dL (31-37) Red Cell Distribution Width 13.3 % (11.5-14.5) 13.4 % (11.5-14.5) Platelet Count 252 x10^3/uL (140-400) 231 x10^3/uL (140-400) Neutrophils (%) (Auto) 66 % (31-73) 66 % (31-73) Lymphocytes (%) (Auto) 24 % (24-48) 22 % (24-48) Monocytes (%) (Auto) 8 % (0-9) 9 % (0-9) Eosinophils (%) (Auto) 1 % (0-3) 2 % (0-3) Basophils (%) (Auto) 1 % (0-3) 1 % (0-3) Neutrophils # (Auto) 6.9 x10^3/uL (1.8-7.7) 5.9 x10^3/uL (1.8-7.7) Lymphocytes # (Auto) 2.5 x10^3/uL (1.0-4.8) 2.0 x10^3/uL (1.0-4.8) Monocytes # (Auto) 0.9 x10^3/uL (0.0-1.1) 0.8 x10^3/uL (0.0-1.1) Eosinophils # (Auto) 0.1 x10^3/uL (0.0-0.7) 0.1 x10^3/uL (0.0-0.7) Basophils # (Auto) 0.1 x10^3/uL (0.0-0.2) 0.1 x10^3/uL (0.0-0.2) D-Dimer (Nany) 0.29 ug/mlFEU (0.00-0.50) Sodium Level 141 mmol/L (136-145) 140 mmol/L (136-145) Potassium Level 3.8 mmol/L (3.5-5.1) 3.5 mmol/L (3.5-5.1) Chloride Level 104 mmol/L (98-107) 102 mmol/L (98-107) Carbon Dioxide Level 29 mmol/L (21-32) 27 mmol/L (21-32) Anion Gap 8 (6-14) 11 (6-14) Blood Urea Nitrogen 17 mg/dL (7-20) 20 mg/dL (7-20) Creatinine 1.4 mg/dL (0.6-1.0) 1.2 mg/dL (0.6-1.0) Estimated GFR (Cockcroft-Gault) 42.1 50.3 BUN/Creatinine Ratio 12 (6-20) 17 (6-20) Glucose Level 99 mg/dL (70-99) 84 mg/dL (70-99) Calcium Level 9.1 mg/dL (8.5-10.1) 8.7 mg/dL (8.5-10.1) Total Bilirubin 0.3 mg/dL (0.2-1.0) 0.4 mg/dL (0.2-1.0) Aspartate Amino Transf (AST/SGOT) 28 U/L (15-37) 21 U/L (15-37) Alanine Aminotransferase (ALT/SGPT) 28 U/L (14-59) 26 U/L (14-59) Alkaline Phosphatase 75 U/L (46-116) 69 U/L (46-116) Troponin I Quantitative < 0.017 ng/mL (0.000-0.055) < 0.017 ng/mL (0.000-0.055) Total Protein 7.6 g/dL (6.4-8.2) 7.2 g/dL (6.4-8.2) Albumin 3.5 g/dL (3.4-5.0) 3.2 g/dL (3.4-5.0) Albumin/Globulin Ratio 0.9 (1.0-1.7) 0.8 (1.0-1.7) Serum Test, Qualitative Negative (NEG) Lactic Acid Level 1.0 mmol/L (0.4-2.0) Medications Current Medications Nitroglycerin (Nitrostat) 0.4 mg PRN Q5MIN PRN SL CHEST PAIN Last administered on 08/11/19at 20:21; Start 08/11/19 at 19:45; Stop 08/11/19 at 23:38; Status DC Aspirin (Children'S Aspirin) 324 mg 1X ONCE PO Last administered on 08/11/19at 19:48; Start 08/11/19 at 20:00; Stop 08/11/19 at 20:01; Status DC Ketorolac Tromethamine (Toradol 15mg Vial) 15 mg 1X ONCE IVP ; Start 08/11/19 at 23:45; Stop 08/11/19 at 23:46; Status DC Nitroglycerin (Nitrostat) 0.4 mg PRN Q5MIN PRN SL CHEST PAIN; Start 08/11/19 at 23:30; Stop 08/12/19 at 23:29; Status DC Buspirone HCl (Buspar) 5 mg DAILY PO Last administered on 08/12/19at 11:41; Start 08/12/19 at 10:00 Ibuprofen (Motrin) 400 mg PRN Q6HRS PRN PO INFLAMMATION Last administered on 08/12/19at 11:42; Start 08/12/19 at 11:30 Multi-Ingredient Mouthwash/Gargle (Gi Cocktail) 20 ml 1X ONCE SWSW Last administered on 08/12/19at 11:41; Start 08/12/19 at 11:30; Stop 08/12/19 at 11:31; Status DC Albuterol Sulfate (Ventolin Neb Soln) 2.5 mg PRN Q6HRS PRN INH SHORTNESS OF BREATH; Start 08/12/19 at 12:00 Acetaminophen/ Hydrocodone Bitart (Lortab 5/325) 1 tab PRN Q6HRS PRN PO severe pain Last administered on 08/12/19 13:29; Start 08/12/19 at 12:00 Levothyroxine Sodium (Synthroid) 112 mcg DAILY07 PO Last administered on 08/13/19at 04:59; Start 08/12/19 at 13:00 Lidocaine (Lidoderm) 1 patch DAILY TP ; Start 08/12/19 at 13:00 Meclizine HCl (Antivert) 12.5 mg TID PO Last administered on 08/13/19at 09:39; Start 08/12/19 at 14:00 Naproxen (Naprosyn) 500 mg PRN BID PRN PO MILD PAIN 1-3; Start 08/12/19 at 12:00 Ondansetron HCl (Zofran Odt) 4 mg PRN Q4HRS PRN PO NAUSEA Last administered on 08/12/19at 14:45; Start 08/12/19 at 12:00 Tamsulosin HCl (Flomax) 0.4 mg DAILY PO Last administered on 08/13/19at 09:39; Start 08/12/19 at 13:00 Topiramate (Topamax) 25 mg BID PO Last administered on 08/13/19at 09:39; Start 08/12/19 at 13:00 Tramadol HCl (Ultram) 50 mg PRN Q6HRS PRN PO MODERATE PAIN; Start 08/12/19 at 12:00 Non-Formulary Medication (Albuterol Sulfate (Proair Respiclick)) 1 puff PRN Q6HRS PRN IH SHORTNESS OF BREATH; Start 08/12/19 at 12:00; Status UNV Non-Formulary Medication (Albuterol Sulfate (Ventolin Hfa Inhaler)) 2 puff Q4HRS INH ; Start 08/12/19 at 12:00; Status UNV Citalopram Hydrobromide (CeleXA) 40 mg DAILY PO Last administered on 08/13/19at 09:39; Start 08/12/19 at 13:00 Ibuprofen (Motrin) 800 mg PRN TID PRN PO MILD PAIN 2ND CHOICE; Start 08/12/19 at 12:30 Non-Formulary Medication (Meclizine Hcl ) 1 tab TID PO ; Start 08/12/19 at 14:00; Status UNV Acetaminophen/ Hydrocodone Bitart (Lortab 5/325) 2 tab PRN Q6HRS PRN PO severe pain 2ND CHOICE; Start 08/12/19 at 12:30 Active Scripts Active Ventolin Hfa Inhaler (Albuterol Sulfate) 18 Gm Hfa.aer.ad 2 Puff INH Q4HRS Ondansetron Odt (Ondansetron) 4 Mg Tab.rapdis 1 Tab PO PRN Q6-8HRS PRN Medrol (Methylprednisolone) 4 Mg Tab.ds.pk 1 Pkg PO UD Ondansetron Odt (Ondansetron) 4 Mg Tab.rapdis 1 Tab PO PRN Q6-8HRS Meclizine Hcl 12.5 Mg Tablet 1 Tab PO TID Zofran (Ondansetron Hcl) 4 Mg Tablet 4 Mg PO PRN TID PRN nausea/vomiting Ondansetron Odt (Ondansetron) 4 Mg Tab.rapdis 1 Tab PO PRN Q6-8HRS Flomax (Tamsulosin Hcl) 0.4 Mg Cap.er.24h 1 Cap PO DAILY Meloxicam 7.5 Mg Tablet 7.5 Mg PO DAILY Levsin (Hyoscyamine Sulfate) 0.125 Mg Tablet 0.125 Mg PO QID Naproxen 500 Mg Tablet 1 Tab PO BID PRN Meclizine Hcl 25 Mg Tablet 1 Tab PO TID Zofran Odt (Ondansetron) 4 Mg Tab.rapdis 1 Tab SL Q8HRS Bactrim Ds Tablet (Sulfamethoxazole/Trimethoprim) 1 Each Tablet 1 Tab PO BID Macrobid 100 Mg Capsule (Nitrofurantoin Monohyd/M-Cryst) 100 Mg Capsule 1 Cap PO BID [place] 5-325 Tablet (Acetaminophen/Hydrocodone Bitart) 1 Each Tablet 1-2 Each PO PRN Q6HRS PRN as needed for pain Ibuprofen 800 Mg Tablet 800 Mg PO PRN TID PRN take with food or milk to avoid upsetting stomach Lidocaine PATCH (Lidocaine) 1 Each Adh..patch 1 Each TP DAILY Tramadol Hcl 50 Mg Tablet 50 Mg PO PRN Q6HRS PRN Proair Respiclick (Albuterol Sulfate) 90 Mcg Aer.pow.ba 1 Puff IH PRN Q6HRS PRN Proair Hfa Inhaler (Albuterol Sulfate) 8.5 Gm Hfa.aer.ad 1 Puff INH PRN Q6HRS PRN Reported Levothyroxine Sodium 112 Mcg Tablet 1 Tab PO DAILY Celexa (Citalopram Hydrobromide) 40 Mg Tablet 1 Tab PO HS Topiramate 25 Mg Tablet 1 Tab PO BID Vitals/I & O Vital Sign - Last 24 Hours 08/12/19 08/12/19 08/12/19 08/12/19 11:00 13:29 14:47 15:00 Temp 97.4 97.5 97.4 97.5 Pulse 77 65 Resp 16 14 B/P (MAP) 107/85 (92) 114/80 (91) Pulse Ox 99 99 99 98 O2 Delivery Nasal Cannula Room Air Nasal Cannula O2 Flow Rate 2.0 2.0 2.0 2.0 08/12/19 08/12/19 08/12/19 08/13/19 19:47 20:05 23:58 03:21 Temp 98.4 97.5 97.7 98.4 97.5 97.7 Pulse 87 79 83 Resp 18 18 20 B/P (MAP) 125/96 (106) 130/91 (104) 119/75 (90) Pulse Ox 97 96 98 O2 Delivery Room Air Room Air Room Air Room Air 08/13/19 07:50 Temp 98.3 98.3 Pulse 94 Resp 18 B/P (MAP) 113/85 (94) Pulse Ox 99 O2 Delivery Room Air Intake and Output 08/12/19 08/12/19 08/13/19 15:00 23:00 07:00 Intake Total 560 ml 240 ml 640 ml Balance 560 ml 240 ml 640 ml MANOJ JO MD Aug 13, 2019 10:11
[2019-08-13] MEDS: busPIRone 5 MG TABLET. PO SCH (10:40)
[2019-08-13 11:19] VITALS: BP 123/82
--- NOTE | 2019-08-13 14:37 | PDOC3 ---
Discharge Summary Date of Admission: Aug 11, 2019 Date of Discharge: Aug 13, 2019 Follow-Up: 3-5 days Admitting Diagnosis comment: DISCHARGE DX Assessment/Plan Impression: Chest pain WITH RECENT NEG ischemic study 2017 morbid obesity 05/14 No evidence of EKG changes with stress testing.Normal perfusion at stress/rest.Low risk study.EF > 60%. GERD thc abuse ADMITTED tele bed serial troponin i neg x 2 CONSULT CARDIOLOGY ok for D/C PER RNDR HUI [place] meds D/C PLANNING 24 MIN Vitals Vitals Vital Signs Date Time Temp Pulse Resp B/P (MAP) Pulse Ox O2 Delivery O2 Flow Rate FiO2 08/13/19 07:50 98.3 94 18 113/85 (94) 99 Room Air 98.3 08/12/19 15:00 2.0 Physical Exam General: Alert, Oriented X3, Cooperative, No acute distress Heart: Regular rate, Normal S1, Normal S2 Lungs: Clear Abdomen: Normal bowel sounds, Soft, No tenderness Extremities: No cyanosis Skin: No significant lesion Labs LABS Mitral Valve MV E Velocity 107.2cm/s MV DECEL TIME 193ms MV A Velocity 93.4cm/s E/A Ratio 1.1 Tricuspid Valve TR P. Velocity 186cm/s RAP ESTIMATE 3mmHg TR Peak Gr. 14mmHg RVSP 17mmHg Pulmonary Vein S1 Velocity 57.1cm/s D2 Velocity 64.0cm/s LEFT VENTRICLE The left ventricle is normal size. There is normal left ventricular wall t hickness. The left ventricular systolic function is normal. The Ejection Fraction is 55-60%. There is normal LV segmental wall motion. RIGHT VENTRICLE The right ventricle is normal size. The right ventricular systolic function is normal. ATRIA The left atrium size is normal. The right atrium size is normal. The interatrial septum is intact with no evidence for an atrial septal defect or patent foramen ovale as noted on 2-D or Doppler imaging. AORTIC VALVE The aortic valve is normal in structure and function. Doppler and Color Flow revealed no significant aortic regurgitation. There is no significant aortic valvular stenosis. MITRAL VALVE The mitral valve is normal in structure and function. There is no evidence of mitral valve prolapse. There is no mitral valve stenosis. Doppler and Color Flow revealed no mitral valve regurgitation noted. TRICUSPID VALVE The tricuspid valve is normal in structure and function. Doppler and Color Flow revealed no tricuspid valve regurgitation noted. There is no tricuspid valve stenosis. PULMONIC VALVE The pulmonic valve is not well visualized. Doppler and Color Flow revealed no pulmonic valvular regurgitation. There is no pulmonic valvular stenosis. GREAT VESSELS The aortic root is normal in size. The ascending aorta is normal in size. The IVC is normal in size and collapses >50% with inspiration. PERICARDIAL EFFUSION There is no evidence of significant pericardial effusion. Critical Notification Critical Value: No <Conclusion> The left ventricular systolic function is normal. The Ejection Fraction is 55-60%. There is normal LV segmental wall motion. No significant valvular abnormalities. There is no evidence of significant pericardial effusion. Signed by : Clara Oropeza, Electronically Approved : 05/18/2018 15:35:13 DICTATED and SIGNED BY: CLARA OROPEZA MD DATE: 05/18/18 1535 SEX: F EXAM STATUS: REG ER ORD. PHYSICIAN: VÍCTRO COLEMAN APRN REASON: LOWER ABDOMINAL PAIN, VOMITING, R flank pain x2-3 days PROCEDURE: CT ABD PELV W/ IV CONTRST ONLY PQRS Compliance statement: One or more of the following individualized dose reduction techniques were utilized for this examination: 1. Automated exposure control. 2. Adjustment of the mA and/or kV according to patient size. 3. Use of iterative reconstruction technique. Indication:Lower abdominal pain, vomiting. Right flank pain for 2 to 3 days. TECHNIQUE: CT abdomen and pelvis with IV contrast with multiplanar reformats. COMPARISON: 01/28/2019. FINDINGS: Heart is normal in size. No pericardial or pleural effusion. Clear lung bases. Hepatic steatosis. No focal hepatic lesion. Status post cholecystectomy. Spleen, gallbladder, pancreas, kidneys within normal limits. No free pelvic fluid or ascites. No enlarged retroperitoneal or pelvic adenopathy. No bowel obstruction. Normal appendix. Status post hysterectomy. Urinary bladder demonstrates no radiopaque stone. No pneumoperitoneum. No suspicious bony lesion. IMPRESSION: No acute findings. Electronically signed by: Michele Benitez DO (04/10/2019 3:54 PM) [facility] Assessment and Plan Assessmemt and Plan Problems Medical Problems: (1) Chest pain Status: Acute FINAL DIAGNOSIS Problems Medical Problems: (1) Chest pain Status: Acute Brief Hospital Course Ms. Radford is a 39 old [FEMALE ] who presented with [CHEST PAIN, GERD ] CONDITION AT DISCHARGE: Improved Discharge Medications Current Medications Nitroglycerin (Nitrostat) 0.4 mg PRN Q5MIN PRN SL CHEST PAIN Last administered on 08/11/19at 20:21; Start 08/11/19 at 19:45; Stop 08/11/19 at 23:38; Status DC Aspirin (Children'S Aspirin) 324 mg 1X ONCE PO Last administered on 08/11/19at 19:48; Start 08/11/19 at 20:00; Stop 08/11/19 at 20:01; Status DC Ketorolac Tromethamine (Toradol 15mg Vial) 15 mg 1X ONCE IVP ; Start 08/11/19 at 23:45; Stop 08/11/19 at 23:46; Status DC Nitroglycerin (Nitrostat) 0.4 mg PRN Q5MIN PRN SL CHEST PAIN; Start 08/11/19 at 23:30; Stop 08/12/19 at 23:29; Status DC Buspirone HCl (Buspar) 5 mg DAILY PO Last administered on 08/13/19at 10:40; Start 08/12/19 at 10:00 Ibuprofen (Motrin) 400 mg PRN Q6HRS PRN PO INFLAMMATION Last administered on 08/12/19at 11:42; Start 08/12/19 at 11:30; Stop 08/13/19 at 14:25; Status DC Multi-Ingredient Mouthwash/Gargle (Gi Cocktail) 20 ml 1X ONCE SWSW Last administered on 08/12/19at 11:41; Start 08/12/19 at 11:30; Stop 08/12/19 at 11:31; Status DC Albuterol Sulfate (Ventolin Neb Soln) 2.5 mg PRN Q6HRS PRN INH SHORTNESS OF B REATH; Start 08/12/19 at 12:00 Acetaminophen/ Hydrocodone Bitart (Lortab 5/325) 1 tab PRN Q6HRS PRN PO severe pain Last administered on 08/12/19at 13:29; Start 08/12/19 at 12:00 Levothyroxine Sodium (Synthroid) 112 mcg DAILY07 PO Last administered on 10/13/18at 04:59; Start 08/12/19 at 13:00 Lidocaine (Lidoderm) 1 patch DAILY TP ; Start 08/12/19 at 13:00 Meclizine HCl (Antivert) 12.5 mg TID PO Last administered on 08/13/19 09:39; Start 08/12/19 at 14:00 Naproxen (Naprosyn) 500 mg PRN BID PRN PO MILD PAIN 1-3; Start 08/12/19 at 12:00; Stop 08/13/19 at 14:25; Status DC Ondansetron HCl (Zofran Odt) 4 mg PRN Q4HRS PRN PO NAUSEA Last administered on 08/12/19 14:45; Start 08/12/19 at 12:00 Tamsulosin HCl (Flomax) 0.4 mg DAILY PO Last administered on 08/13/19at 09:39; Start 08/12/19 at 13:00 Topiramate (Topamax) 25 mg BID PO Last administered on 08/13/19 09:39; Start 08/12/19 at 13:00 Tramadol HCl (Ultram) 50 mg PRN Q6HRS PRN PO MODERATE PAIN; Start 08/12/19 at 12:00 Non-Formulary Medication (Albuterol Sulfate (Proair Respiclick)) 1 puff PRN Q6HRS PRN IH SHORTNESS OF BREATH; Start 08/12/19 at 12:00; Status UNV Non-Formulary Medication (Albuterol Sulfate (Ventolin Hfa Inhaler)) 2 puff Q4HRS INH ; Start 08/12/19 at 12:00; Status UNV Citalopram Hydrobromide (CeleXA) 40 mg DAILY PO Last administered on 08/13/19at 09:39; Start 08/12/19 at 13:00 Ibuprofen (Motrin) 800 mg PRN TID PRN PO MILD PAIN 2ND CHOICE; Start 08/12/19 at 12:30 Non-Formulary Medication (Meclizine Hcl ) 1 tab TID PO ; Start 08/12/19 at 14:00; Status UNV Acetaminophen/ Hydrocodone Bitart (Lortab 5/325) 2 tab PRN Q6HRS PRN PO severe pain 2ND CHOICE Last administered on 08/13/19at 10:41; Start 08/12/19 at 12:30 Active Scripts Active Ventolin Hfa Inhaler (Albuterol Sulfate) 18 Gm Hfa.aer.ad 2 Puff INH Q4HRS Ondansetron Odt (Ondansetron) 4 Mg Tab.rapdis 1 Tab PO PRN Q6-8HRS PRN Medrol (Methylprednisolone) 4 Mg Tab.ds.pk 1 Pkg PO UD Ondansetron Odt (Ondansetron) 4 Mg Tab.rapdis 1 Tab PO PRN Q6-8HRS Meclizine Hcl 12.5 Mg Tablet 1 Tab PO TID Zofran (Ondansetron Hcl) 4 Mg Tablet 4 Mg PO PRN TID PRN nausea/vomiting Ondansetron Odt (Ondansetron) 4 Mg Tab.rapdis 1 Tab PO PRN Q6-8HRS Flomax (Tamsulosin Hcl) 0.4 Mg Cap.er.24h 1 Cap PO DAILY Meloxicam 7.5 Mg Tablet 7.5 Mg PO DAILY Levsin (Hyoscyamine Sulfate) 0.125 Mg Tablet 0.125 Mg PO QID Naproxen 500 Mg Tablet 1 Tab PO BID PRN Meclizine Hcl 25 Mg Tablet 1 Tab PO TID Zofran Odt (Ondansetron) 4 Mg Tab.rapdis 1 Tab SL Q8HRS Bactrim Ds Tablet (Sulfamethoxazole/Trimethoprim) 1 Each Tablet 1 Tab PO BID Macrobid 100 Mg Capsule (Nitrofurantoin Monohyd/M-Cryst) 100 Mg Capsule 1 Cap PO BID [place] 5-325 Tablet (Acetaminophen/Hydrocodone Bitart) 1 Each Tablet 1-2 Each PO PRN Q6HRS PRN as needed for pain Ibuprofen 800 Mg Tablet 800 Mg PO PRN TID PRN take with food or milk to avoid upsetting stomach Lidocaine PATCH (Lidocaine) 1 Each Adh..patch 1 Each TP DAILY Tramadol Hcl 50 Mg Tablet 50 Mg PO PRN Q6HRS PRN Proair Respiclick (Albuterol Sulfate) 90 Mcg Aer.pow.ba 1 Puff IH PRN Q6HRS PRN Proair Hfa Inhaler (Albuterol Sulfate) 8.5 Gm Hfa.aer.ad 1 Puff INH PRN Q6HRS PRN Reported Levothyroxine Sodium 112 Mcg Tablet 1 Tab PO DAILY Celexa (Citalopram Hydrobromide) 40 Mg Tablet 1 Tab PO HS Topiramate 25 Mg Tablet 1 Tab PO BID Vital Signs Vital Signs Date Time Temp Pulse Resp B/P (MAP) Pulse Ox O2 Delivery O2 Flow Rate FiO2 08/13/19 12:09 96 Room Air 2.0 08/13/19 11:19 98.6 93 18 123/82 (96) 98.6 Labs Laboratory Tests Test 08/11/19 18:49 08/12/19 00:05 08/12/19 02:30 White Blood Count 10.5 x10^3/uL (4.0-11.0) 8.9 x10^3/uL (4.0-11.0) Red Blood Count 4.63 x10^6/uL (3.50-5.40) 4.41 x10^6/uL (3.50-5.40) Hemoglobin 14.4 g/dL (12.0-15.5) 13.8 g/dL (12.0-15.5) Hematocrit 43.1 % (36.0-47.0) 41.3 % (36.0-47.0) Mean Corpuscular Volume 93 fL (79-100) 94 fL (79-100) Mean Corpuscular Hemoglobin 31 pg (25-35) 31 pg (25-35) Mean Corpuscular Hemoglobin Concent 34 g/dL (31-37) 33 g/dL (31-37) Red Cell Distribution Width 13.3 % (11.5-14.5) 13.4 % (11.5-14.5) Platelet Count 252 x10^3/uL (140-400) 231 x10^3/uL (140-400) Neutrophils (%) (Auto) 66 % (31-73) 66 % (31-73) Lymphocytes (%) (Auto) 24 % (24-48) 22 % (24-48) Monocytes (%) (Auto) 8 % (0-9) 9 % (0-9) Eosinophils (%) (Auto) 1 % (0-3) 2 % (0-3) Basophils (%) (Auto) 1 % (0-3) 1 % (0-3) Neutrophils # (Auto) 6.9 x10^3/uL (1.8-7.7) 5.9 x10^3/uL (1.8-7.7) Lymphocytes # (Auto) 2.5 x10^3/uL (1.0-4.8) 2.0 x10^3/uL (1.0-4.8) Monocytes # (Auto) 0.9 x10^3/uL (0.0-1.1) 0.8 x10^3/uL (0.0-1.1) Eosinophils # (Auto) 0.1 x10^3/uL (0.0-0.7) 0.1 x10^3/uL (0.0-0.7) Basophils # (Auto) 0.1 x10^3/uL (0.0-0.2) 0.1 x10^3/uL (0.0-0.2) D-Dimer (Nany) 0.29 ug/mlFEU (0.00-0.50) Sodium Level 141 mmol/L (136-145) 140 mmol/L (136-145) Potassium Level 3.8 mmol/L (3.5-5.1) 3.5 mmol/L (3.5-5.1) Chloride Level 104 mmol/L (98-107) 102 mmol/L (98-107) Carbon Dioxide Level 29 mmol/L (21-32) 27 mmol/L (21-32) Anion Gap 8 (6-14) 11 (6-14) Blood Urea Nitrogen 17 mg/dL (7-20) 20 mg/dL (7-20) Creatinine 1.4 mg/dL (0.6-1.0) 1.2 mg/dL (0.6-1.0) Estimated GFR (Cockcroft-Gault) 42.1 50.3 BUN/Creatinine Ratio 12 (6-20) 17 (6-20) Glucose Level 99 mg/dL (70-99) 84 mg/dL (70-99) Calcium Level 9.1 mg/dL (8.5-10.1) 8.7 mg/dL (8.5-10.1) Total Bilirubin 0.3 mg/dL (0.2-1.0) 0.4 mg/dL (0.2-1.0) Aspartate Amino Transf (AST/SGOT) 28 U/L (15-37) 21 U/L (15-37) Alanine Aminotransferase (ALT/SGPT) 28 U/L (14-59) 26 U/L (14-59) Alkaline Phosphatase 75 U/L (46-116) 69 U/L (46-116) Troponin I Quantitative < 0.017 ng/mL (0.000-0.055) < 0.017 ng/mL (0.000-0.055) Total Protein 7.6 g/dL (6.4-8.2) 7.2 g/dL (6.4-8.2) Albumin 3.5 g/dL (3.4-5.0) 3.2 g/dL (3.4-5.0) Albumin/Globulin Ratio 0.9 (1.0-1.7) 0.8 (1.0-1.7) Serum Test, Qualitative Negative (NEG) Lactic Acid Level 1.0 mmol/L (0.4-2.0) Allergies Allergies Coded Allergies Type Severity Reaction Last Updated Verified No Known Drug Allergies 03/19/17 No Disposition/Orders: D/C to Home MANOJ JO MD Aug 13, 2019 14:37
[2019-08-13] MEDS ORDERED: PANT40TA77 PO (14:39)
--- NOTE | 2019-08-13 14:41 | DISCH ---
DISCHARGE INSTRUCTIONS Condition on Discharge Condition on Discharge: Stable Activity After Discharge Activity Instructions for Disc: Activity as tolerated Lifting Instructions after Dis: No heavy lifting, No pulling or pushing Exercise Instruction after Dis: Progress as tolerated Driving Instructions after Dis: Do not drive today Weight Bearing Status after Di: No restrictions Diet after Discharge Diet after Discharge: Cardiac Diet Texture: Regular Liquid Texture: Thin Liquid Swallowing Supervision: None needed Contacting the DR. after DC Call your doctor for: If your condition worsens MANOJ JO MD Aug 13, 2019 14:41
[2019-08-13 14:59] VITALS: BP 113/79
--- NOTE | 2019-08-13 17:17 | PDOC2 ---
CONSULT Date of Consult Date of Consult DATE: 08/13/19 TIME: 17:12 Reason for Consult Reason for Consult: Chest pain Referring Physician Referring Physician: Dr. Overton Identification/Chief Complaint Chief Complaint Chest pain Source Source: Chart review, Patient History of Present Illness Reason for Visit: Patient is a 39-year-old female who presented to the emergency room with episodes of chest discomfort. Patient's initial EKG showed a sinus rhythm with no ischemic changes. She reports her pain was present for approximately a day and did increase with deep inspiration. The patient has a history of chronic pain. She was admitted for observation and rule out. Today she is feeling better. Her pain has largely resolved. Troponins 2 have been normal. Patient had a previous cardiac workup with a normal echocardiogram on 05/18/18 and a normal MPI stress test on 05/19/18 Past Medical History Cardiovascular: Hyperlipidemia Pulmonary: No pertinent hx, Other Hepatobiliary: No pertinent hx Psych: Other (chronic pain) Musculoskeletal: low back pain Renal/: No pertinent hx Past Surgical History Past Surgical History: Cholecystectomy, Tonsillectomy, Hysterectomy Family History Family History: Hypertension, Other Social History No ALCOHOL: none Drugs: Marijuana Current Problem List Problem List Problems Medical Problems: (1) Chest pain Status: Acute Current Medications Current Medications Current Medications Nitroglycerin (Nitrostat) 0.4 mg PRN Q5MIN PRN SL CHEST PAIN Last administered on 08/11/19at 20:21; Start 08/11/19 at 19:45; Stop 08/11/19 at 23:38; Status DC Aspirin (Children'S Aspirin) 324 mg 1X ONCE PO Last administered on 08/11/19at 19:48; Start 08/11/19 at 20:00; Stop 08/11/19 at 20:01; Status DC Ketorolac Tromethamine (Toradol 15mg Vial) 15 mg 1X ONCE IVP ; Start 08/11/19 at 23:45; Stop 08/11/19 at 23:46; Status DC Nitroglycerin (Nitrostat) 0.4 mg PRN Q5MIN PRN SL CHEST PAIN; Start 08/11/19 at 23:30; Stop 08/12/19 at 23:29; Status DC Buspirone HCl (Buspar) 5 mg DAILY PO Last administered on 08/13/19at 10:40; Start 08/12/19 at 10:00 Ibuprofen (Motrin) 400 mg PRN Q6HRS PRN PO INFLAMMATION Last administered on 08/12/19 11:42; Start 08/12/19 at 11:30; Stop 08/13/19 at 14:25; Status DC Multi-Ingredient Mouthwash/Gargle (Gi Cocktail) 20 ml 1X ONCE SWSW Last administered on 08/12/19at 11:41; Start 08/12/19 at 11:30; Stop 08/12/19 at 11:31; Status DC Albuterol Sulfate (Ventolin Neb Soln) 2.5 mg PRN Q6HRS PRN INH SHORTNESS OF BREATH; Start 08/12/19 at 12:00 Acetaminophen/ Hydrocodone Bitart (Lortab 5/325) 1 tab PRN Q6HRS PRN PO severe pain Last administered on 08/12/19at 13:29; Start 08/12/19 at 12:00 Levothyroxine Sodium (Synthroid) 112 mcg DAILY07 PO Last administered on 08/13/19at 04:59; Start 08/12/19 at 13:00 Lidocaine (Lidoderm) 1 patch DAILY TP ; Start 08/12/19 at 13:00 Meclizine HCl (Antivert) 12.5 mg TID PO Last administered on 08/13/19at 09:39; Start 08/12/19 at 14:00 Naproxen (Naprosyn) 500 mg PRN BID PRN PO MILD PAIN 1-3; Start 08/12/19 at 12:00; Stop 08/13/19 at 14:25; Status DC Ondansetron HCl (Zofran Odt) 4 mg PRN Q4HRS PRN PO NAUSEA Last administered on 08/12/19at 14:45; Start 08/12/19 at 12:00 Tamsulosin HCl (Flomax) 0.4 mg DAILY PO Last administered on 08/13/19at 09:39; Start 08/12/19 at 13:00 Topiramate (Topamax) 25 mg BID PO Last administered on 08/13/19 09:39; Start 08/12/19 at 13:00 Tramadol HCl (Ultram) 50 mg PRN Q6HRS PRN PO MODERATE PAIN; Start 08/12/19 at 12:00 Non-Formulary Medication (Albuterol Sulfate (Proair Respiclick)) 1 puff PRN Q6H RS PRN IH SHORTNESS OF BREATH; Start 08/12/19 at 12:00; Status UNV Non-Formulary Medication (Albuterol Sulfate (Ventolin Hfa Inhaler)) 2 puff Q4HRS INH ; Start 08/12/19 at 12:00; Status UNV Citalopram Hydrobromide (CeleXA) 40 mg DAILY PO Last administered on 08/13/19at 09:39; Start 08/12/19 at 13:00 Ibuprofen (Motrin) 800 mg PRN TID PRN PO MILD PAIN 2ND CHOICE; Start 08/12/19 at 12:30 Non-Formulary Medication (Meclizine Hcl ) 1 tab TID PO ; Start 08/12/19 at 14:00; Status UNV Acetaminophen/ Hydrocodone Bitart (Lortab 5/325) 2 tab PRN Q6HRS PRN PO severe pain 2ND CHOICE Last administered on 08/13/19at 10:41; Start 08/12/19 at 12:30 Active Scripts Active Protonix (Pantoprazole Sodium) 40 Mg Tablet.dr 40 Mg PO DAILYAC 30 Days Ventolin Hfa Inhaler (Albuterol Sulfate) 18 Gm Hfa.aer.ad 2 Puff INH Q4HRS Meclizine Hcl 12.5 Mg Tablet 1 Tab PO TID Ondansetron Odt (Ondansetron) 4 Mg Tab.rapdis 1 Tab PO PRN Q6-8HRS Flomax (Tamsulosin Hcl) 0.4 Mg Cap.er.24h 1 Cap PO DAILY Ibuprofen 800 Mg Tablet 800 Mg PO PRN TID PRN take with food or milk to avoid upsetting stomach Lidocaine PATCH (Lidocaine) 1 Each Adh..patch 1 Each TP DAILY Tramadol Hcl 50 Mg Tablet 50 Mg PO PRN Q6HRS PRN Proair Hfa Inhaler (Albuterol Sulfate) 8.5 Gm Hfa.aer.ad 1 Puff INH PRN Q6HRS PRN Reported Levothyroxine Sodium 112 Mcg Tablet 1 Tab PO DAILY Celexa (Citalopram Hydrobromide) 40 Mg Tablet 1 Tab PO HS Topiramate 25 Mg Tablet 1 Tab PO BID Allergies Allergies: Coded Allergies: No Known Drug Allergies (Unverified , 6/23/17) ROS General: YES: Fatigue Cardiovascular: yes Chest Pain Physical Exam General: No acute distress HEENT: Atraumatic Lungs: Clear to auscultation Heart: Regular rate Abdomen: Normal bowel sounds Vitals VITALS Vital Signs Date Time Temp Pulse Resp B/P (MAP) Pulse Ox O2 Delivery O2 Flow Rate FiO2 08/13/19 14:59 97.6 90 18 113/79 (90) 96 Room Air 97.6 08/13/19 12:09 2.0 Labs Labs Laboratory Tests Test 08/11/19 18:49 08/12/19 00:05 08/12/19 02:30 White Blood Count 10.5 x10^3/uL (4.0-11.0) 8.9 x10^3/uL (4.0-11.0) Red Blood Count 4.63 x10^6/uL (3.50-5.40) 4.41 x10^6/uL (3.50-5.40) Hemoglobin 14.4 g/dL (12.0-15.5) 13.8 g/dL (12.0-15.5) Hematocrit 43.1 % (36.0-47.0) 41.3 % (36.0-47.0) Mean Corpuscular Volume 93 fL (79-100) 94 fL (79-100) Mean Corpuscular Hemoglobin 31 pg (25-35) 31 pg (25-35) Mean Corpuscular Hemoglobin Concent 34 g/dL (31-37) 33 g/dL (31-37) Red Cell Distribution Width 13.3 % (11.5-14.5) 13.4 % (11.5-14.5) Platelet Count 252 x10^3/uL (140-400) 231 x10^3/uL (140-400) Neutrophils (%) (Auto) 66 % (31-73) 66 % (31-73) Lymphocytes (%) (Auto) 24 % (24-48) 22 % (24-48) Monocytes (%) (Auto) 8 % (0-9) 9 % (0-9) Eosinophils (%) (Auto) 1 % (0-3) 2 % (0-3) Basophils (%) (Auto) 1 % (0-3) 1 % (0-3) Neutrophils # (Auto) 6.9 x10^3/uL (1.8-7.7) 5.9 x10^3/uL (1.8-7.7) Lymphocytes # (Auto) 2.5 x10^3/uL (1.0-4.8) 2.0 x10^3/uL (1.0-4.8) Monocytes # (Auto) 0.9 x10^3/uL (0.0-1.1) 0.8 x10^3/uL (0.0-1.1) Eosinophils # (Auto) 0.1 x10^3/uL (0.0-0.7) 0.1 x10^3/uL (0.0-0.7) Basophils # (Auto) 0.1 x10^3/uL (0.0-0.2) 0.1 x10^3/uL (0.0-0.2) D-Dimer (Nany) 0.29 ug/mlFEU (0.00-0.50) Sodium Level 141 mmol/L (136-145) 140 mmol/L (136-145) Potassium Level 3.8 mmol/L (3.5-5.1) 3.5 mmol/L (3.5-5.1) Chloride Level 104 mmol/L (98-107) 102 mmol/L (98-107) Carbon Dioxide Level 29 mmol/L (21-32) 27 mmol/L (21-32) Anion Gap 8 (6-14) 11 (6-14) Blood Urea Nitrogen 17 mg/dL (7-20) 20 mg/dL (7-20) Creatinine 1.4 mg/dL (0.6-1.0) 1.2 mg/dL (0.6-1.0) Estimated GFR (Cockcroft-Gault) 42.1 50.3 BUN/Creatinine Ratio 12 (6-20) 17 (6-20) Glucose Level 99 mg/dL (70-99) 84 mg/dL (70-99) Calcium Level 9.1 mg/dL (8.5-10.1) 8.7 mg/dL (8.5-10.1) Total Bilirubin 0.3 mg/dL (0.2-1.0) 0.4 mg/dL (0.2-1.0) Aspartate Amino Transf (AST/SGOT) 28 U/L (15-37) 21 U/L (15-37) Alanine Aminotransferase (ALT/SGPT) 28 U/L (14-59) 26 U/L (14-59) Alkaline Phosphatase 75 U/L (46-116) 69 U/L (46-116) Troponin I Quantitative < 0.017 ng/mL (0.000-0.055) < 0.017 ng/mL (0.000-0.055) Total Protein 7.6 g/dL (6.4-8.2) 7.2 g/dL (6.4-8.2) Albumin 3.5 g/dL (3.4-5.0) 3.2 g/dL (3.4-5.0) Albumin/Globulin Ratio 0.9 (1.0-1.7) 0.8 (1.0-1.7) Serum Test, Qualitative Negative (NEG) Lactic Acid Level 1.0 mmol/L (0.4-2.0) Assessment/Plan Assessment/Plan 1. Chest pain. Pain increased with inspiration. She has ruled out for myocardial infarction. No acute EKG changes were present. Previous workup including a nuclear stress test and echo were normal in April 2018. The patient is feeling better. Would increase activities. The patient may be discharged later today from a cardiac viewpoint. We will follow-up in the office. 2. Chronic pain. Improving today. Continue baseline medications. Thank you for allowing us to participate in the care of your patient. NATE HOUGH MD Aug 13, 2019 17:17
--- NOTE | 2019-08-13 17:53 | NUR ---
pt was discharged home today with self car. she was given a cab pass and they picked her up at the main entrance at 17:45. a script for protonix was electronically sent into the pt's pharm of [address] Shon Casas RN
== END 2019-08-13 18:12 | disposition home or self-care (01) ==
LOC: ER 18:35 → 6 SOUTH 22:00
PROVIDERS: ADMIT Family Medicine; ATTEND Family Medicine
DX: R07.89 Other chest pain (principal); E66.01 Morbid (severe) obesity due to excess calories; K21.9 Gastro-esophageal reflux disease without esophagitis; F41.9 Anxiety disorder, unspecified; Z68.41 Body mass index [BMI] 40.0-44.9, adult; Z90.49 Acquired absence of other specified parts of digestive tract; Z90.710 Acquired absence of both cervix and uterus
CPT/HCPCS: 36415; 71045; 80053; 83605; 84484; 84703; 85025; 85379; 93005; 94760; 99284; G0378; J8597; Q0162; G0379

== ENCOUNTER 2019-09-04 13:11 | Emergency (ER) | payer OTHER, MEDICAID ==
[~2019-09-04] VITALS: Ht 177.8 cm; Wt 122.5 kg
[~2019-09-04 13:11] MED LIST changes: +PANT40TA77 PO
--- NOTE | 2019-09-04 13:27 | PHYS DOC ---
Past Medical History Past Medical History: Anxiety, Other Additional Past Medical Histor: OVARIAN CYST,MOOD SWINGS,CHRONIC PAIN Past Surgical History: Cholecystectomy, Hysterectomy, Tonsillectomy Additional Past Surgical Histo: THYROIDECTOMY "with a pill" Alcohol Use: None Drug Use: Marijuana Adult General Chief Complaint Chief Complaint: CHEST PAIN HPI HPI Patient is a 39 year old left handed female patient with history of anxiety, mood swings, chronic pain presented with complaining of chest pain. Patient complaining of left-sided chest pain since yesterday as a constant pain that getting worse with movement and taking deep breaths and sneezing. Patient rated her pain 9/10 and complaining of shortness of breath, palpitation, dizziness, nausea, one episode of vomiting. Patient stated she had a cystectomy about 2 years ago and since then has constant nausea and vomiting. No change since yesterday. Review of Systems Review of Systems Constitutional: Denies fever or chills [] Eyes: Denies change in visual acuity, redness, or eye pain [] HENT: Denies nasal congestion or sore throat [] Respiratory: Denies cough, reports shortness of breath [] Cardiovascular: No additional information not addressed in HPI [] GI: Denies abdominal pain, bloody stools or diarrhea and reports nausea and vomiting [] : Denies dysuria or hematuria [] Musculoskeletal: Denies back pain or joint pain [] Integument: Denies rash or skin lesions [] Neurologic: Denies headache, focal weakness or sensory changes [] Endocrine: Denies polyuria or polydipsia [] All other systems were reviewed and found to be within normal limits, except as documented in this note. Current Medications Current Medications Current Medications Medications (Trade) Dose Ordered Sig/[facility] Start Time Stop Time Status Last Admin Dose Admin Ketorolac Tromethamine (Toradol 30mg Vial) 30 mg 1X ONCE 09/04/19 13:30 09/04/19 13:43 DC 09/04/19 14:06 30 MG Allergies Allergies Allergies Coded Allergies Type Severity Reaction Last Updated Verified No Known Drug Allergies 03/19/17 No Physical Exam Physical Exam Constitutional: Well nourished, mild distress, non-toxic appearance. [] HENT: Normocephalic, atraumatic. Eyes: PERRLA, EOMI, conjunctiva normal, no discharge. [] Neck: Normal range of motion, no tenderness, supple, no stridor. [] Cardiovascular:Heart rate regular rhythm, no murmur [] Lungs & Thorax: Bilateral breath sounds clear to auscultation, reproducible left chest wall pain.[] Abdomen: Bowel sounds normal, soft, no tenderness, no masses, no pulsatile masses. [] Skin: Warm, dry, no erythema, no rash. [] Back: No tenderness, no CVA tenderness. [] Extremities: No tenderness, no cyanosis, no clubbing, ROM intact, no edema. [] Neurologic: Alert and oriented X 3, no focal deficits noted. [] Psychologic: Affect anxious, judgement normal, mood normal. [] Current Patient Data Vital Signs Vital Signs Date Time Temp Pulse Resp B/P (MAP) Pulse Ox O2 Delivery O2 Flow Rate FiO2 09/04/19 13:11 98.1 90 17 134/92 (106) 97 Room Air 98.1 Lab Values Laboratory Tests Test 09/04/19 13:30 White Blood Count 7.6 x10^3/uL (4.0-11.0) Red Blood Count 4.44 x10^6/uL (3.50-5.40) Hemoglobin 13.9 g/dL (12.0-15.5) Hematocrit 41.5 % (36.0-47.0) Mean Corpuscular Volume 93 fL (79-100) Mean Corpuscular Hemoglobin 31 pg (25-35) Mean Corpuscular Hemoglobin Concent 34 g/dL (31-37) Red Cell Distribution Width 13.1 % (11.5-14.5) Platelet Count 221 x10^3/uL (140-400) Neutrophils (%) (Auto) 61 % (31-73) Lymphocytes (%) (Auto) 25 % (24-48) Monocytes (%) (Auto) 11 % (0-9) H Eosinophils (%) (Auto) 3 % (0-3) Basophils (%) (Auto) 0 % (0-3) Neutrophils # (Auto) 4.6 x10^3/uL (1.8-7.7) Lymphocytes # (Auto) 1.9 x10^3/uL (1.0-4.8) Monocytes # (Auto) 0.8 x10^3/uL (0.0-1.1) Eosinophils # (Auto) 0.2 x10^3/uL (0.0-0.7) Basophils # (Auto) 0.0 x10^3/uL (0.0-0.2) Sodium Level 141 mmol/L (136-145) Potassium Level 4.0 mmol/L (3.5-5.1) Chloride Level 103 mmol/L (98-107) Carbon Dioxide Level 29 mmol/L (21-32) Anion Gap 9 (6-14) Blood Urea Nitrogen 16 mg/dL (7-20) Creatinine 1.2 mg/dL (0.6-1.0) H Estimated GFR (Cockcroft-Gault) 50.3 BUN/Creatinine Ratio 13 (6-20) Glucose Level 92 mg/dL (70-99) Calcium Level 8.7 mg/dL (8.5-10.1) Total Bilirubin 0.2 mg/dL (0.2-1.0) Aspartate Amino Transferase (AST) 23 U/L (15-37) Alanine Aminotransferase (ALT) 28 U/L (14-59) Alkaline Phosphatase 69 U/L (46-116) Creatine Kinase 63 U/L (26-192) Troponin I Quantitative < 0.017 ng/mL (0.000-0.055) Total Protein 7.4 g/dL (6.4-8.2) Albumin 3.5 g/dL (3.4-5.0) Albumin/Globulin Ratio 0.9 (1.0-1.7) L Lipase 303 U/L (73-393) Laboratory Tests 09/04/19 13:30 Laboratory Tests 09/04/19 13:30 EKG EKG EKG interpreted by me. EKG at 1320 showed normal sinus rhythm at rate of 77, nonspecific T-wave abnormality, no acute ST and T-wave elevation. Radiology/Procedures Radiology/Procedures [] Course & Med Decision Making Course & Med Decision Making Pertinent Labs and Imaging studies reviewed. (See chart for details) Evaluation of patient in ER showed 39-year-old female patient with extensive psychiatric problem with hard score of 2 presented to ER with complaining of left-sided chest wall for 2 days that getting worse with movement. Patient had reproducible chest wall pain with unremarkable EKG and labs. Patient refused to give urine sample. Patient rated her pain 9/10 but looked very comfortably in ER. Plan discharge patient home with diagnose of musculoskeletal chest pain. Dragon Disclaimer Dragon Disclaimer This electronic medical record was generated, in whole or in part, using a voice recognition dictation system. Departure Departure Impression: Primary Impression: Musculoskeletal chest pain Additional Impression: Nausea & vomiting Disposition: 01 HOME, SELF-CARE (at 1459) Condition: STABLE Referrals: NAT SHRESTHA MD (PCP) Patient Instructions: Chest Wall Pain, Nausea and Vomiting Additional Instructions: Drink plenty of liquids Follow-up with your primary care physician in 2-3 days regarding chronic nausea and vomiting Return to ER if not getting better Scripts [Percogesic] No Conflict Check 1 TAB PO QID PRN for PAIN, #14 Prov: NICKOLAS MATTHEWS MD 09/04/19 Cyclobenzaprine Hcl (CYCLOBENZAPRINE HCL) 10 Mg Tablet 1 TAB PO TID, #21 TAB Prov: NICKOLAS MATTHEWS MD 09/04/19 The HEART Score for CP Pts HEART Score for Chest Pain: HEART Score for Chest Pain Response (Comments) Value History Slighlty/Non-Suspicious 0 ECG Nonspecific Repolarizatio 1 Age < 45 0 Risk Factors 1 or 2 Risk Factors 1 Troponin < Normal Limit 0 Total 2 Risk Factors: Risk Factors: DM, Current or recent (<one month) smoker, HTN, HLP, family hi story of CAD, obesity. Risk Scores: Score 0 - 3: 2.5% MACE over next 6 weeks - Discharge Home Score 4 - 6: 20.3% MACE over next 6 weeks - Admit for Clinical Observation Score 7 - 10: 72.7% MACE over next 6 weeks - Early Invasive Strategies Problem Qualifiers Additional Impression: Nausea & vomiting Vomiting type: unspecified Vomiting Intractability: non-intractable Qualified Codes: R11.2 - Nausea with vomiting, unspecified NICKOLAS MATTHEWS MD Sep 04, 2019 13:27
[2019-09-04] MEDS ORDERED: KETOROLAC 30 MG/ML VIAL. IVP ONE (13:30)
[2019-09-04 13:39] LABS: BASO % 0 % (0-3); EOS # 0.2 x10^3/uL (0.0-0.7); EOS % 3 % (0-3); HEMATOCRIT 41.5 % (36.0-47.0); HEMOGLOBIN 13.9 g/dL (12.0-15.5); LYMPH # 1.9 x10^3/uL (1.0-4.8); LYMPH % 25 % (24-48); MEAN CORPUSCULAR HEMOGLOBIN 31 pg (25-35); MEAN CORPUSCULAR HGB CONC 34 g/dL (31-37); MEAN CORPUSCULAR VOLUME 93 fL (79-100); MONO # 0.8 x10^3/uL (0.0-1.1); MONO % 11 % (0-9); NEUT # 4.6 x10^3/uL (1.8-7.7); NEUT % 61 % (31-73); PLATELET COUNT 221 x10^3/uL (140-400); RED BLOOD COUNT 4.44 x10^6/uL (3.50-5.40); RED CELL DISTRIBUTION WIDTH 13.1 % (11.5-14.5); WHITE BLOOD COUNT 7.6 x10^3/uL (4.0-11.0)
--- NOTE | 2019-09-04 13:54 | EKG ---
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
[2019-09-04 13:56] LABS: CALCIUM 8.7 mg/dL (8.5-10.1); CREATININE 1.2 mg/dL (0.6-1.0); GFR 50.3
[2019-09-04 14:02] LABS: ALBUMIN 3.5 g/dL (3.4-5.0); ALBUMIN/GLOBULIN RATIO 0.9 (1.0-1.7); TOTAL BILIRUBIN 0.2 mg/dL (0.2-1.0); TOTAL PROTEIN 7.4 g/dL (6.4-8.2)
[2019-09-04 14:47] VITALS: BP 147/96
[2019-09-04] MEDS ORDERED: CYCL10TA2 PO (15:03)
[2019-09-04] MEDS ORDERED: Percogesic PO (15:03)
== END 2019-09-04 15:29 | disposition home or self-care (01) ==
LOC: ER 13:11
DX: R07.89 Other chest pain (principal); R11.2 Nausea with vomiting, unspecified; F41.9 Anxiety disorder, unspecified; G89.29 Other chronic pain; R42 Dizziness and giddiness; Z90.49 Acquired absence of other specified parts of digestive tract; Z90.710 Acquired absence of both cervix and uterus
CPT/HCPCS: 36415; 80053; 82550; 83690; 84484; 85025; 93005; 96374; 99285; J1885

== ENCOUNTER 2019-10-20 13:37 | Emergency (ER) | payer MEDICARE, MEDICAID ==
[~2019-10-20] VITALS: Ht 180.3 cm; Wt 123.0 kg
[~2019-10-20 13:37] MED LIST changes: -CETI10TA22 PO; +CETI10TA24 PO; +CYCL10TA2 PO; +MECL-75 PO; -MECL12.52 PO; +MECL12.573 PO; -MECL25TA3 PO; +Percogesic PO
[2019-10-20 13:41] VITALS: BP 142/82
--- NOTE | 2019-10-20 14:57 | RAD ---
CHEST PA LATERAL History: Cough Comparison: None. Findings: Right midlung masslike consolidation. No pleural effusion. No pneumothorax. Normal heart size. Surgical clips right upper quadrant. Abnormal alignment of the right glenohumeral joint. Impression: 1. Right midlung masslike consolidation, may represent pneumonia. Recommend follow-up to ensure resolution. 2. Abnormal alignment of the right glenohumeral joint, may relate to projection. If persistent clinical concern, dedicated right shoulder radiographs can further assess. Electronically signed by: Devaughn Ashley DO (10/20/2019 2:54 PM) [id number]
[2019-10-20] MEDS ORDERED: SUMAtriptan SUCCINATE 25 MG TABLET PO ONE (15:15)
[2019-10-20] MEDS ORDERED: ONDANSETRON ODT 4 MG TAB.RAPDIS. PO ONE (15:15)
--- NOTE | 2019-10-20 15:28 | PHYS DOC ---
Past Medical History Past Medical History: Anxiety, Other Additional Past Medical Histor: OVARIAN CYST,MOOD SWINGS,CHRONIC PAIN Past Surgical History: Cholecystectomy, Hysterectomy, Tonsillectomy Additional Past Surgical Histo: THYROIDECTOMY "with a pill" Alcohol Use: None Drug Use: Marijuana Adult General Chief Complaint Chief Complaint: COUGH HPI HPI Patient is a 39 year old female who presents to the ED today stating "I have pneumonia need to be admitted. " On further inquiry, I asked patient who diagnosed her with pneumonia she states she just knows she has pneumonia because she has had a cough for three days and has previous hx of pneumonia. Patient is very insistent on admission. Informed patient we will get a chest x- ray. She is also complaining of a migraine headache and vomiting. She states the headache began today. She describes the headache as throbbing and intermittent and generalized. Since abated or relieving factors. She reports she's had similar migraines before. Review of Systems Review of Systems Constitutional: Denies fever or chills [] Eyes: Denies change in visual acuity, redness, or eye pain [] HENT: Denies nasal congestion or sore throat [] Respiratory: Reports cough, denies shortness of breath [] Cardiovascular: No additional information not addressed in HPI [] GI: Denies abdominal pain, nausea, vomiting, bloody stools or diarrhea [] : Denies dysuria or hematuria [] Musculoskeletal: Denies back pain or joint pain [] Integument: Denies rash or skin lesions [] Neurologic: Reports headache, denies focal weakness or sensory changes [] All other systems were reviewed and found to be within normal limits, except as documented in this note. Current Medications Current Medications Current Medications Medications (Trade) Dose Ordered Sig/[facility] Start Time Stop Time Status Last Admin Dose Admin Levofloxacin (Levaquin) 500 mg 1X ONCE 10/20/19 15:15 10/20/19 15:16 DC 10/20/19 15:29 500 MG Ondansetron HCl (Zofran Odt) 4 mg 1X ONCE 10/20/19 15:15 10/20/19 15:16 DC 10/20/19 15:23 4 MG Sumatriptan Succinate (Imitrex) 25 mg 1X ONCE 10/20/19 15:15 10/20/19 15:16 DC 10/20/19 15:23 25 MG Allergies Allergies Allergies Coded Allergies Type Severity Reaction Last Updated Verified No Known Drug Allergies 03/19/17 No Physical Exam Physical Exam Constitutional: Well developed, well nourished, no acute distress, non-toxic appearance. [] HENT: Normocephalic, atraumatic, bilateral external ears normal, oropharynx moist, no oral exudates, nose normal. [] Eyes: PERRLA, EOMI, conjunctiva normal, no discharge. [] Neck: Normal range of motion, no tenderness, supple, no stridor. [] Cardiovascular:Heart rate regular rhythm, no murmur [] Lungs & Thorax: Limited air movement to posterior lung bases. Abdomen: Bowel sounds normal, soft, no tenderness, no masses, no pulsatile masses. [] Skin: Warm, dry, no erythema, no rash. [] Back: No tenderness, no CVA tenderness. [] Extremities: No tenderness, no cyanosis, no clubbing, ROM intact, no edema. [] Neurologic: Alert and oriented X 3, normal motor function, normal sensory function, no focal deficits noted. [] Psychologic: Affect normal, judgement normal, mood normal. [] Current Patient Data Vital Signs Vital Signs Date Time Temp Pulse Resp B/P (MAP) Pulse Ox O2 Delivery O2 Flow Rate FiO2 10/20/19 13:41 98.3 89 16 142/82 (102) 98 98.3 EKG EKG [] Radiology/Procedures Radiology/Procedures []PROCEDURE: CHEST PA & LATERAL CHEST PA LATERAL History: Cough Comparison: None. Findings: Right midlung masslike consolidation. No pleural effusion. No pneumothorax. Normal heart size. Surgical clips right upper quadrant. Abnormal alignment of the right glenohumeral joint. Impression: 1. Right midlung masslike consolidation, may represent pneumonia. Recommend follow-up to ensure resolution. 2. Abnormal alignment of the right glenohumeral joint, may relate to projection. If persistent clinical concern, dedicated right shoulder radiographs can further assess. Electronically signed by: Rody Zimmerman DO (10/20/2019 2:54 PM) [id number] DICTATED and SIGNED BY: RODY ZIMMERMAN DO DATE: 10/20/19 1454 Course & Med Decision Making Course & Med Decision Making Pertinent Labs and Imaging studies reviewed. (See chart for details) This is a 39-year-old female well known to this ED presenting to the ED today stating she knows she has pneumonia and would like to be admitted. Patient denies being diagnosed somewhere else for pneumonia. Patient very insistent on being admitted right away. Denies any fever. Temperature 98.3 on arrival. Oxygen saturation 98% on room air. Chest x-ray interpreted by radiologist was noted for right midlung masslike consolidation, may represent pneumonia. Abnormal alignment of the right glenohumeral joint, may relate to projection. If persistent clinical concern, dedicated right shoulder radiographs can further assess. (Patient has no shoulde r pain) Informed patient she has pneumonia and we'll give her shot of Rocephin in the ED and discharged her on doxycycline. She immediately refused stating she does not want doxycycline, she states it makes her feel nauseated. Informed her I can give her doxycycline with Zofran and she can take it with food. She continued to refuse stating she does not want doxycycline. She continues to inquire why she cannot be admitted. Informed patient she is 39, her vitals are stable with normal O2 sats and normal temperature. She can be handled as an outpatient for pneumonia treatment. Informed patient she will get a shot of Rocephin and be discharged on Levaquin. She refused Rocephin shot. Informed patient we have seen her multiple times in the ED and she has had multiple IVs and shots. She states she does not want any shots today. She was given Imitrex for her headache, given Levaquin in the ED. She was discharged with Imitrex, Levaquin and Zofran. Instructed she needs to follow-up with her own PCP next week I wonder if this patient was seen somewhere else as out patient and dx with pneumonia sent home on doxycycline but because she was not admitted she presented to [facility] asking for admission for pneumonia. She was so certain of her diagnosis. Dragon Disclaimer Dragon Disclaimer This electronic medical record was generated, in whole or in part, using a voice recognition dictation system. Departure Departure Impression: Primary Impression: Right middle lobe pneumonia Additional Impression: Migraine headache Disposition: HOME, SELF-CARE Condition: STABLE Referrals: NAT SHRESTHA MD (PCP) follow up next week Patient Instructions: Pneumonia, Adult Additional Instructions: You have right middle lobe pneumonia. Please take the prescribed antibiotics until completed. Follow-up with your own doctor in the course of next week. You can take Imitrex as needed for your migraine headaches. Scripts Ondansetron (ONDANSETRON ODT) 4 Mg Tab.rapdis 1 TAB PO PRN Q6-8HRS, #16 TAB Prov: ALEKSANDR HAWTHORNE APRN 10/20/19 Sumatriptan Succinate (IMITREX) 50 Mg Tablet 1 TAB PO UD, #9 TAB 1 Refill Take 1 tablet at the onset of the headache, repeat in 2 hours if symptoms persist, do not take more than 2 tablets in 24 hrs Prov: ALEKSANDR HAWTHORNE APRN 10/20/19 Benzonatate (TESSALON PERLE) 100 Mg Capsule 1 CAP PO TID, #30 CAP Prov: ALEKSANDR HAWTHORNE APRN 10/20/19 Levofloxacin (LEVAQUIN) 500 Mg Tablet 1 TAB PO DAILY for 6 Days, #6 TAB 0 Refills Prov: ALEKSANDR HAWTHORNE APRN 10/20/19 Problem Qualifiers Primary Impression: Right middle lobe pneumonia Pneumonia type: due to unspecified organism Qualified Codes: J18.9 - Pneumonia, unspecified organism Additional Impression: Migraine headache Migraine type: unspecified Status migrainosus presence: without status migrainosus Intractability: not intractable Qualified Codes: G43.909 - Migraine, unspecified, not intractable, without status migrainosus ALEKSANDR HAWTHORNE APRN Oct 20, 2019 15:28
[2019-10-20] MEDS ORDERED: LEVO500T59 PO (15:45)
[2019-10-20] MEDS ORDERED: BENZ100C PO (15:45)
[2019-10-20] MEDS ORDERED: SUMA50TA3 PO (15:45)
[2019-10-20] MEDS ORDERED: ONDA4TAB12 PO (15:45)
== END 2019-10-20 16:05 | disposition home or self-care (01) ==
LOC: ER 13:37
DX: J18.9 Pneumonia, unspecified organism (principal); G43.909 Migraine, unspecified, not intractable, without status migrainosus; R11.10 Vomiting, unspecified; F41.9 Anxiety disorder, unspecified; F12.90 Cannabis use, unspecified, uncomplicated; G89.29 Other chronic pain; Z90.49 Acquired absence of other specified parts of digestive tract; Z90.89 Acquired absence of other organs; Z90.710 Acquired absence of both cervix and uterus; Z98.890 Other specified postprocedural states; Z79.899 Other long term (current) drug therapy
CPT/HCPCS: 71046; 99284; Q0162

== ENCOUNTER 2020-03-02 16:05 | Emergency (ER) | payer MEDICARE, MEDICAID ==
[~2020-03-02] VITALS: Ht 177.8 cm; Wt 122.7 kg
[~2020-03-02 16:05] MED LIST changes: +BENZ100C PO; -LEVO112T4 PO; +LEVO112T49 PO; +LEVO500T59 PO; +SUMA50TA3 PO
[2020-03-02] MEDS ORDERED: ASPIRIN 325 MG TABLET PO ONE (16:45)
[2020-03-02 16:56] LABS: BILIRUBIN,URINE SMALL (NEG); CLARITY,URINE CLEAR; COLOR,URINE AMBER; NITRITE,URINE NEGATIVE (NEG); PH,URINE 6.5 (<5.0-8.0); PROTEIN,URINE 30 mg/dL (NEG-TRACE)
[2020-03-02 16:58] LABS: BASO % 0 % (0-3); EOS # 0.1 x10^3/uL (0.0-0.7); EOS % 1 % (0-3); HEMATOCRIT 42.7 % (36.0-47.0); HEMOGLOBIN 14.6 g/dL (12.0-15.5); LYMPH # 1.9 x10^3/uL (1.0-4.8); LYMPH % 21 % (24-48); MEAN CORPUSCULAR HEMOGLOBIN 32 pg (25-35); MEAN CORPUSCULAR HGB CONC 34 g/dL (31-37); MEAN CORPUSCULAR VOLUME 94 fL (79-100); MONO # 0.7 x10^3/uL (0.0-1.1); MONO % 8 % (0-9); NEUT # 6.4 x10^3/uL (1.8-7.7); NEUT % 70 % (31-73); PLATELET COUNT 239 x10^3/uL (140-400); RED BLOOD COUNT 4.57 x10^6/uL (3.50-5.40); RED CELL DISTRIBUTION WIDTH 13.2 % (11.5-14.5); WHITE BLOOD COUNT 9.2 x10^3/uL (4.0-11.0)
[2020-03-02 17:07] LABS: CALCIUM 8.8 mg/dL (8.5-10.1); CREATININE 1.4 mg/dL (0.6-1.0); GFR 42.1
[2020-03-02 17:09] LABS: SQUAMOUS EPITHELIAL CELL,UR MANY /LPF
[2020-03-02 17:10] LABS: BACTERIA,URINE MANY /HPF (0-FEW)
[2020-03-02 17:12] LABS: BARBITURATES NEG (NEG); BENZODIAZEPINES NEG (NEG); CANNABINOIDS POS (NEG); COCAINE NEG (NEG); METHADONE NEG (NEG); OPIATES NEG (NEG); PHENCYCLIDINE NEG (NEG)
[2020-03-02 17:13] LABS: ALBUMIN 3.6 g/dL (3.4-5.0); ALBUMIN/GLOBULIN RATIO 0.9 (1.0-1.7); MAGNESIUM 1.9 mg/dL (1.8-2.4); TOTAL BILIRUBIN 0.3 mg/dL (0.2-1.0); TOTAL PROTEIN 7.5 g/dL (6.4-8.2)
[2020-03-02 17:17] LABS: AMPHETAMINE/METHAMPHETAMINE NEG (NEG)
[2020-03-02 17:27] LABS: CREATINE KINASE 74 U/L (26-192)
--- NOTE | 2020-03-02 17:45 | RAD ---
PORTABLE CHEST 1V Clinical Indication: Reason: chest pain / Spl. Instructions: / History: Comparison: AP chest October 20, 2019. Findings: The cardiomediastinal silhouette is normal.. Previously seen right midlung opacity has resolved. Lungs are clear. There is no pneumothorax. No pleural effusion is appreciated. No acute bone abnormality. IMPRESSION: No acute cardiopulmonary process. Electronically signed by: Antony Moreno MD (03/02/2020 5:43 PM) [facility]
--- NOTE | 2020-03-02 19:14 | PHYS DOC ---
Past Medical History Past Medical History: Anxiety, Hypothyroid, Other Additional Past Medical Histor: OVARIAN CYST,MOOD SWINGS,CHRONIC PAIN, PRE DIABETES Past Surgical History: Cholecystectomy, Hysterectomy, Tonsillectomy Additional Past Surgical Histo: THYROIDECTOMY "with a pill" Smoking Status: Never Smoker Alcohol Use: Occasionally Drug Use: Marijuana General Adult EDM: Chief Complaint: DIZZY/LIGHT HEADED HPI: HPI: Patient is a 39 year old female with a history of anxiety, hypothyroidism, who presents to the ED today with multiple complaints. Patient is complaining of 9 out of 10 left-sided chest pain intermittently for 1 month. Denies any specific exacerbation or relieving factors. She is also complaining of intermittent lightheadedness for a month as well as urgency frequency and dysuria. Denies any abdominal pain. Denies any nausea vomiting. Patient has been worked up for most of her symptoms including chest pain and dizziness multiple times with no acute findings. Review of Systems: Review of Systems: Constitutional: Denies fever or chills. [] Eyes: Denies change in visual acuity. [] HENT: Denies nasal congestion or sore throat. [] Respiratory: Denies cough or shortness of breath. [] Cardiovascular: Reports left-sided chest pain GI: Denies abdominal pain, nausea, vomiting, bloody stools or diarrhea. [] : Reports dysuria Musculoskeletal: Denies back pain or joint pain. [] Integument: Denies rash. [] Neurologic: Reports lightheadedness. Denies headache, focal weakness or sensory changes. [] Psychiatric: Reports history of anxiety Heart Score: HEART Score for Chest Pain: HEART Score for Chest Pain Response (Comments) Value History Slighlty/Non-Suspicious 0 ECG Normal 0 Age < 45 0 Risk Factors No Risk Factors 0 Troponin < Normal Limit 0 Total 0 Risk Factors: Risk Factors: DM, Current or recent (<one month) smoker, HTN, HLP, family history of CAD, obesity. Risk Scores: Score 0 - 3: 2.5% MACE over next 6 weeks - Discharge Home Score 4 - 6: 20.3% MACE over next 6 weeks - Admit for Clinical Observation Score 7 - 10: 72.7% MACE over next 6 weeks - Early Invasive Strategies Current Medications: Current Medications Medications (Trade) Dose Ordered Sig/[facility] Start Time Stop Time Status Last Admin Dose Admin Aspirin (Sebastián Aspirin) 325 mg 1X ONCE 03/02/20 16:45 03/02/20 16:46 DC 03/02/20 16:55 325 MG Allergies: Allergies: Allergies Coded Allergies Type Severity Reaction Last Updated Verified No Known Drug Allergies 03/19/17 No Physical Exam: PE: Constitutional: Well developed, well nourished, no acute distress, non-toxic appearance. [] HENT: Normocephalic, atraumatic, bilateral external ears normal, oropharynx moist, no oral exudates, nose normal. [] Eyes: PERRLA, EOMI, conjunctiva normal, no discharge. [] Neck: Normal range of motion, no tenderness, supple, no stridor. [] Cardiovascular:Heart rate regular rhythm, no murmur [] Lungs & Thorax: Bilateral breath sounds clear to auscultation [] Abdomen: Bowel sounds normal, soft, no tenderness, no masses, no pulsatile masses. [] Skin: Warm, dry, no erythema, no rash. [] Back: No tenderness, no CVA tenderness. [] Extremities: No tenderness, no cyanosis, no clubbing, ROM intact, no edema. [] Neurologic: Alert and oriented X 3, normal motor function, normal sensory funct ion, no focal deficits noted. [] Psychologic: Affect normal, judgement normal, mood normal. [] Current Patient Data: Labs: Laboratory Tests Test 03/02/20 16:10 03/02/20 16:16 03/02/20 16:25 Urine Collection Type Unknown Urine Color Claudette Urine Clarity Clear Urine pH 6.5 (<5.0-8.0) Urine Specific [place] >=1.030 (1.000-1.030) Urine Protein 30 mg/dL (NEG-TRACE) Urine Glucose (UA) Negative mg/dL (NEG) Urine Ketones (Stick) Trace mg/dL (NEG) Urine Blood Negative (NEG) Urine Nitrite Negative (NEG) Urine Bilirubin Small (NEG) Urine Urobilinogen Dipstick 1.0 mg/dL (0.2 mg/dL) Urine Leukocyte Esterase Trace (NEG) Urine RBC 11-20 /HPF (0-2) Urine WBC 1-4 /HPF (0-4) Urine Squamous Epithelial Cells Many /LPF Urine Bacteria Many /HPF (0-FEW) Urine Mucus Marked /LPF Urine Opiates Screen Neg (NEG) Urine Methadone Screen Neg (NEG) Urine Barbiturates Neg (NEG) Urine Phencyclidine Screen Neg (NEG) Urine Amphetamine/Methamphetamine Neg (NEG) Urine Benzodiazepines Screen Neg (NEG) Urine Cocaine Screen Neg (NEG) Urine Cannabinoids Screen Pos (NEG) Urine Ethyl Alcohol Neg (NEG) POC Urine HCG, Qualitative Hcg negative (Negative) White Blood Count 9.2 x10^3/uL (4.0-11.0) Red Blood Count 4.57 x10^6/uL (3.50-5.40) Hemoglobin 14.6 g/dL (12.0-15.5) Hematocrit 42.7 % (36.0-47.0) Mean Corpuscular Volume 94 fL (79-100) Mean Corpuscular Hemoglobin 32 pg (25-35) Mean Corpuscular Hemoglobin Concent 34 g/dL (31-37) Red Cell Distribution Width 13.2 % (11.5-14.5) Platelet Count 239 x10^3/uL (140-400) Neutrophils (%) (Auto) 70 % (31-73) Lymphocytes (%) (Auto) 21 % (24-48) L Monocytes (%) (Auto) 8 % (0-9) Eosinophils (%) (Auto) 1 % (0-3) Basophils (%) (Auto) 0 % (0-3) Neutrophils # (Auto) 6.4 x10^3/uL (1.8-7.7) Lymphocytes # (Auto) 1.9 x10^3/uL (1.0-4.8) Monocytes # (Auto) 0.7 x10^3/uL (0.0-1.1) Eosinophils # (Auto) 0.1 x10^3/uL (0.0-0.7) Basophils # (Auto) 0.0 x10^3/uL (0.0-0.2) Sodium Level 142 mmol/L (136-145) Potassium Level 4.0 mmol/L (3.5-5.1) Chloride Level 105 mmol/L (98-107) Carbon Dioxide Level 26 mmol/L (21-32) Anion Gap 11 (6-14) Blood Urea Nitrogen 20 mg/dL (7-20) Creatinine 1.4 mg/dL (0.6-1.0) H Estimated GFR (Cockcroft-Gault) 42.1 BUN/Creatinine Ratio 14 (6-20) Glucose Level 92 mg/dL (70-99) Calcium Level 8.8 mg/dL (8.5-10.1) Magnesium Level 1.9 mg/dL (1.8-2.4) Total Bilirubin 0.3 mg/dL (0.2-1.0) Aspartate Amino Transferase (AST) 22 U/L (15-37) Alanine Aminotransferase (ALT) 25 U/L (14-59) Alkaline Phosphatase 73 U/L (46-116) Creatine Kinase 74 U/L (26-192) Creatine Kinase MB (Mass) < 0.5 ng/mL (0.0-3.6) Creatine Kinase MB Relative Index % (0-4) Troponin I Quantitative < 0.017 ng/mL (0.000-0.055) CK-Tmu-K-Type Natriuretic Peptide 24 pg/mL (0-124) Total Protein 7.5 g/dL (6.4-8.2) Albumin 3.6 g/dL (3.4-5.0) Albumin/Globulin Ratio 0.9 (1.0-1.7) L Lipase 287 U/L (73-393) Thyroid Stimulating Hormone (TSH) 1.660 uIU/mL (0.358-3.74) Laboratory Tests 03/02/20 16:25 Laboratory Tests 03/02/20 16:25 Vital Signs: Vital Signs Date Time Temp Pulse Resp B/P (MAP) Pulse Ox O2 Delivery O2 Flow Rate FiO2 03/02/20 16:47 77 15 97 03/02/20 16:05 99.2 135/76 (95) Room Air 99.2 EKG: EKG: [] Radiology/Procedures: Radiology/Procedures: []PROCEDURE: PORTABLE CHEST 1V PORTABLE CHEST 1V Clinical Indication: Reason: chest pain / Spl. Instructions: / History: Comparison: AP chest October 20, 2019. Findings: The cardiomediastinal silhouette is normal.. Previously seen right midlung opacity has resolved. Lungs are clear. There is no pneumothorax. No pleural effusion is appreciated. No acute bone abnormality. IMPRESSION: No acute cardiopulmonary process. Electronically signed by: Antony Torre MD (03/02/2020 5:43 PM) [facility] DICTATED and SIGNED BY: ANTONY TORRE MD DATE: 03/02/20 1743 Course & Med Decision Making: Course & Med Decision Making Pertinent Labs and Imaging studies reviewed. (See chart for details) This is a 39-year-old female patient well-known to this ED presenting today with multiple complaints including dizziness, chest pain, urgency, frequency, dysuria, symptoms for a month. EKG is negative, labs are negative, chest x-ray is negative. Patient was disch arged to home. Follow-up with PCP in 1 to 2 weeks. Moises Disclaimer: Moises Disclaimer: This electronic medical record was generated, in whole or in part, using a voice recognition dictation system. Departure Departure Impression: Primary Impression: Dizziness Additional Impression: Chest pain Qualified Codes: R07.9 - Chest pain, unspecified Disposition: 01 HOME, SELF-CARE Condition: STABLE Referrals: NAT SHRESTHA MD (PCP) Follow-up in 1 to 2 weeks Patient Instructions: Chest Pain (Nonspecific), Dizziness, [id number] Additional Instructions: You were evaluated in the emergency room. Your work-up including chest x-ray and labs are negative. Follow-up with your doctor next week Justicifation of Admission Dx: Justifications for Admission: Justification of Admission Dx: N/A ALEKSANDR HAWTHORNE [employer] Mar 02, 2020 19:14
[2020-03-02 19:17] VITALS: BP 108/68
--- NOTE | 2020-03-03 04:24 | EKG ---
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
== END 2020-03-02 19:25 | disposition home or self-care (01) ==
LOC: ER 16:05
DX: R42 Dizziness and giddiness (principal); R07.89 Other chest pain; R35.0 Frequency of micturition; R30.0 Dysuria; F41.9 Anxiety disorder, unspecified; E03.9 Hypothyroidism, unspecified; G89.29 Other chronic pain; F12.90 Cannabis use, unspecified, uncomplicated; Z90.49 Acquired absence of other specified parts of digestive tract; Z90.710 Acquired absence of both cervix and uterus; Z90.89 Acquired absence of other organs
CPT/HCPCS: 36415; 71045; 80053; 80307; 81001; 81025; 82553; 83690; 83735; 83880; 84443; 84484; 85025; 93005; 99285

== ENCOUNTER 2020-05-26 14:57 | Emergency (ER) | payer MEDICARE, MEDICAID ==
[~2020-05-26] VITALS: Ht 177.8 cm; Wt 136.0 kg
[~2020-05-26 14:57] MED LIST changes: -CETI10TA24 PO; +CETI10TA74 PO
[2020-05-26 15:53] LABS: BILIRUBIN,URINE NEGATIVE (NEG); CLARITY,URINE CLOUDY; COLOR,URINE YELLOW; NITRITE,URINE NEGATIVE (NEG); PH,URINE 7.5 (<5.0-8.0); PROTEIN,URINE NEGATIVE (NEG-TRACE); UROBILINOGEN,URINE 0.2 mg/dL (0.2 mg/dL)
[2020-05-26 16:00] LABS: BACTERIA,URINE MODERATE /HPF (0-FEW); SQUAMOUS EPITHELIAL CELL,UR MANY /LPF
[2020-05-26] MEDS ORDERED: HYDROcodone/APAP 5/325MG 1 TAB TABLET PO ONE (16:00)
[2020-05-26 16:03] LABS: YEAST,URINE PRESENT /HPF
[2020-05-26 16:03] LABS: BASO # 0.1 x10^3/uL (0.0-0.2); BASO % 1 % (0-3); EOS # 0.2 x10^3/uL (0.0-0.7); EOS % 2 % (0-3); HEMATOCRIT 42.6 % (36.0-47.0); HEMOGLOBIN 14.7 g/dL (12.0-15.5); LYMPH # 1.9 x10^3/uL (1.0-4.8); LYMPH % 22 % (24-48); MEAN CORPUSCULAR HEMOGLOBIN 33 pg (25-35); MEAN CORPUSCULAR HGB CONC 34 g/dL (31-37); MEAN CORPUSCULAR VOLUME 95 fL (79-100); MONO # 0.8 x10^3/uL (0.0-1.1); MONO % 9 % (0-9); NEUT # 5.9 x10^3/uL (1.8-7.7); NEUT % 66 % (31-73); PLATELET COUNT 186 x10^3/uL (140-400); RED BLOOD COUNT 4.51 x10^6/uL (3.50-5.40); RED CELL DISTRIBUTION WIDTH 12.7 % (11.5-14.5); WHITE BLOOD COUNT 8.9 x10^3/uL (4.0-11.0)
--- NOTE | 2020-05-26 16:03 | PHYS DOC ---
Past Medical History Past Medical History: Anxiety, Hypothyroid, Other Additional Past Medical Histor: OVARIAN CYST,MOOD SWINGS,CHRONIC PAIN, PRE DIABETES Past Surgical History: Cholecystectomy, Hysterectomy, Tonsillectomy Additional Past Surgical Histo: THYROIDECTOMY "with a pill" Smoking Status: Never Smoker Alcohol Use: Occasionally Drug Use: Marijuana General Adult EDM: Chief Complaint: FLANK PAIN HPI: HPI: 39-year-old female past medical history significant for obesity and hypothyroidism presents to the ED with complaints of intermittent episodes of right upper quadrant pain with associated nausea after eating greasy foods "one of those thick cheeseburgers does it," for the past 2 months. Smokes marijuana daily, no daily alcohol abuse. Also complains of left hip pain described as stabbing that hurts when she walks and states it cade when she sits down for the past 2 weeks. No relief with Tylenol or Advil. States she cannot take Motrin because it has caused her kidney disease (it not aware advil and motrin are the same drug). No history of GI bleeds or blood transfusions. Last bowel movement was yesterday-is green in color. PSH-hysterectomy. ROS: Denies associated fever, chills, cough, sore throat, diarrhea, melena, hematochezia, hematemesis, hemoptysis, sore throat, cough, chest pain or pressure, dyspnea, leg swelling, joint pain, rash, stearrhea, dysuria, hematuria, flank pain, vaginal bleeding or neuro deficits. Heart Score: Risk Factors: Risk Factors: DM, Current or recent (<one month) smoker, HTN, HLP, family history of CAD, obesity. Risk Scores: Score 0 - 3: 2.5% MACE over next 6 weeks - Discharge Home Score 4 - 6: 20.3% MACE over next 6 weeks - Admit for Clinical Observation Score 7 - 10: 72.7% MACE over next 6 weeks - Early Invasive Strategies Allergies: Allergies: Allergies Coded Allergies Type Severity Reaction Last Updated Verified No Known Drug Allergies 03/19/17 No Physical Exam: PE: Constitutional: Well developed, well nourished, no acute distress, non-toxic appearance, obese HENT: Normocephalic, atraumatic, bilateral external ears normal, oropharynx moist, no oral exudates, nose normal. [] Eyes: EOMI, conjunctiva normal, no discharge. [] Neck: Normal range of motion, no tenderness, supple, no stridor. [] Cardiovascular:Heart rate regular rhythm, no murmur [] Lungs & Thorax: Bilateral breath sounds clear to auscultation [] Abdomen: Bowel sounds normal, soft, +murphys sign positive, no masses, no pulsatile masses, +left hip pain but not reproducible - left inguinal pain, no hernias or bulges Skin: Warm, dry, no erythema, no rash. [] Back: No tenderness, no CVA tenderness. [] Extremities: No tenderness, no cyanosis, no clubbing, ROM intact, no edema. [] Neurologic: Alert and oriented X 3, normal motor function, normal sensory function, no focal deficits noted. [] Psychologic: Affect normal, judgement normal, mood normal. [] Current Patient Data: Vital Signs: Vital Signs Date Time Temp Pulse Resp B/P (MAP) Pulse Ox O2 Delivery O2 Flow Rate FiO2 05/26/20 15:20 98.7 77 16 116/78 (91) 98 Room Air 98.7 EKG: EKG: [] Radiology/Procedures: Radiology/Procedures: IMAGING REPORT Signed PATIENT: ESTELITA CADENAACCOUNT: [id number] : 1980 LOCATION: ER AGE: 39 SEX: F EXAM STATUS: REG ER ORD. PHYSICIAN: JAYDE GUNDERSON DO REASON: left hip pain. no known injury PROCEDURE: HIP LEFT 2V WITH PELVIS Examination: 2 views of the left hip with frontal view the pelvis HISTORY: History of left hip pain COMPARISON: None available FINDINGS: Bilateral femoral heads are within the acetabulum. There is no acute fracture or dislocation identified. IMPRESSION: No acute osseous findings. Electronically signed by: José Burris MD (05/26/2020 4:44 PM) [id number] DICTATED and SIGNED BY: JOSÉ BURRSI MD DATE: 05/26/20 1644 IMAGING REPORT Signed PATIENT: ESTELITA CADENAACCOUNT: [id number] : 1980 LOCATION: ER AGE: 39 SEX: F EXAM STATUS: REG ER ORD. PHYSICIAN: JAYDE GUNDERSON DO REASON: ruq pain PROCEDURE: ABDOMEN LTD Examination: Ultrasound abdomen limited HISTORY: History of right upper quadrant pain COMPARISON: None available FINDINGS: The pancreas, aorta, IVC are not well-visualized due to bowel gas. The gallbladder could not be identified due to bowel gas. The right kidney measures 11.0 x 4.2 x 4.3 cm. The liver is not well-visualized due to bowel gas. IMPRESSION: Very limited examination due to bowel gas. Recommend CT for further evaluation. Electronically signed by: José Burris MD (05/26/2020 4:41 PM) [id number] DICTATED and SIGNED BY: JOSÉ BURRIS MD DATE: 05/26/201640 Course & Med Decision Making: Course & Med Decision Making Pertinent Labs and Imaging studies reviewed. (See chart for details) RUQ pain in a well appearing female who was not aware she does not have a gallbladder (CT a/p from 2018 dictated report states s/p cholecystectomy). N/V could be marijuana related. Will DC home with capsaicin prescription, and to av oid marijuana use. Suspect left hip pain is likely musculoskeletal versus bursitis (worsened with walking and sitting). Patient with no neurologic deficits. Will prescribe muscle relaxers and recommend otc apap. Strict ED return precautions were given for neurologic deficits or severe abdominal pain. Encouraged urgent outpatient follow-up with PMD. Life-threatening processes were considered but are low suspicion at this time, given history and physical exam. Pt was educated on all prescription medications and adverse effects. All patient's questions were answered and pt was stable at time of discharge. Differential includes aortic dissection, aortic aneurysm, acute coronary syndrome, surgical abdomen (appendicitis, cholecystitis, ischemic bowel, stra ngulated hernia, etc), bowel obstruction or volvulus, bladder outlet obstruction, gastrointestinal bleeding, inflammatory bowel disease, peptic ulcer disease, sepsis, diverticular disease, ureterolithiasis, nephrolithiasis, ovarian or testicular torsion, ectopic I spoken with the patient and her caregivers. I explained the patient's condition, diagnoses and treatment plan based on the information available to me at this time. I have answered the patient and her caregiver's questions and addressed any concerns. The patient and her caregivers have a good understanding of patient's diagnosis, condition and treatment plan as can be expected at this point. Vital signs have been stable. Patient's condition is stable and appropriate for discharge from the emergency department. Patient will pursue further outpatient evaluation with primary care physician or other designated or consulting physician as outlined in the discharge instructions. The patient and/or caregivers are agreeable to this plan of care and follow-up instructions have been explained in detail. The patient and/or caregivers have received these instructions in written form and have expressed an understanding of the discharge instructions. The patient and/or caregivers are aware that any significant change of condition or worsening of symptoms should prompt immediate return to this or the closest emergency department or call to 911. FooPets Disclaimer: FooPets Disclaimer: This electronic medical record was generated, in whole or in part, using a voice recognition dictation system. Departure Departure Impression: Primary Impression: Nausea & vomiting Additional Impressions: RUQ pain Left hip pain Disposition: HOME, SELF-CARE Condition: STABLE Referrals: NAT SHRESTAH MD (PCP) Patient Instructions: Abdominal Pain, Hip Bursitis Scripts Capsaicin (CAPSAICIN) 42.5 Gm Cream..g. 1 KARL TP TID PRN for NAUSEA MDD 3 applications, #42.5 GM 0 Refills Prov: JAYDE GUNDERSON DO 05/26/20 Cyclobenzaprine Hcl (CYCLOBENZAPRINE HCL) 10 Mg Tablet 1 TAB PO TID, #21 TAB Prov: JAYDE GUNDERSON DO 05/26/20 Justicifation of Admission Dx: Justifications for Admission: Justification of Admission Dx: N/A JAYDE GUNDERSON DO May 26, 2020 16:03
[2020-05-26 16:11] LABS: CALCIUM 8.8 mg/dL (8.5-10.1); CREATININE 1.1 mg/dL (0.6-1.0); GFR 55.6; POTASSIUM 3.9 mmol/L (3.5-5.1)
[2020-05-26 16:17] LABS: ALBUMIN 3.2 g/dL (3.4-5.0); ALBUMIN/GLOBULIN RATIO 0.8 (1.0-1.7); TOTAL BILIRUBIN 0.2 mg/dL (0.2-1.0); TOTAL PROTEIN 7.1 g/dL (6.4-8.2)
--- NOTE | 2020-05-26 16:44 | RAD ---
Examination: Ultrasound abdomen limited HISTORY: History of right upper quadrant pain COMPARISON: None available FINDINGS: The pancreas, aorta, IVC are not well-visualized due to bowel gas. The gallbladder could not be identified due to bowel gas. The right kidney measures 11.0 x 4.2 x 4.3 cm. The liver is not well-visualized due to bowel gas. IMPRESSION: Very limited examination due to bowel gas. Recommend CT for further evaluation. Electronically signed by: José Burris MD (05/26/2020 4:41 PM) [id number]
--- NOTE | 2020-05-26 16:46 | RAD ---
Examination: 2 views of the left hip with frontal view the pelvis HISTORY: History of left hip pain COMPARISON: None available FINDINGS: Bilateral femoral heads are within the acetabulum. There is no acute fracture or dislocation identified. IMPRESSION: No acute osseous findings. Electronically signed by: José Burris MD (05/26/2020 4:44 PM) [id number]
[2020-05-26 16:57] VITALS: BP 101/64
[2020-05-26] MEDS ORDERED: CAPS42.514 TP (17:15)
[2020-05-26] MEDS ORDERED: LIDO:MAALOX 1:1 20 ML SINGLE DOSE. SWSW ONE (17:15)
[2020-05-26] MEDS ORDERED: CYCL10TA2 PO (17:15)
== END 2020-05-26 17:40 | disposition home or self-care (01) ==
LOC: ER 14:57
DX: R10.11 Right upper quadrant pain (principal); R11.2 Nausea with vomiting, unspecified; M25.552 Pain in left hip; F41.9 Anxiety disorder, unspecified; E03.9 Hypothyroidism, unspecified; F12.90 Cannabis use, unspecified, uncomplicated; G89.29 Other chronic pain; Z90.49 Acquired absence of other specified parts of digestive tract; Z90.710 Acquired absence of both cervix and uterus; Z98.890 Other specified postprocedural states; Z90.89 Acquired absence of other organs
CPT/HCPCS: 36415; 73502; 76705; 80053; 81001; 85025; 87086; 99285

== ENCOUNTER 2020-08-10 12:25 | Emergency (ER) | payer MEDICARE, MEDICAID ==
[~2020-08-10] VITALS: Ht 177.8 cm; Wt 105.0 kg
[~2020-08-10 12:25] MED LIST changes: +CAPS42.514 TP
[2020-08-10 12:30] VITALS: BP 125/84
[2020-08-10 13:37] LABS: BASO # 0.1 x10^3/uL (0.0-0.2); BASO % 1 % (0-3); EOS # 0.2 x10^3/uL (0.0-0.7); EOS % 2 % (0-3); HEMATOCRIT 42.2 % (36.0-47.0); HEMOGLOBIN 14.5 g/dL (12.0-15.5); LYMPH # 1.9 x10^3/uL (1.0-4.8); LYMPH % 20 % (24-48); MEAN CORPUSCULAR HEMOGLOBIN 33 pg (25-35); MEAN CORPUSCULAR HGB CONC 34 g/dL (31-37); MEAN CORPUSCULAR VOLUME 95 fL (79-100); MONO # 0.9 x10^3/uL (0.0-1.1); MONO % 9 % (0-9); NEUT # 6.6 x10^3/uL (1.8-7.7); NEUT % 69 % (31-73); PLATELET COUNT 186 x10^3/uL (140-400); RED BLOOD COUNT 4.47 x10^6/uL (3.50-5.40); RED CELL DISTRIBUTION WIDTH 13.2 % (11.5-14.5); WHITE BLOOD COUNT 9.7 x10^3/uL (4.0-11.0)
[2020-08-10 13:39] LABS: BILIRUBIN,URINE NEGATIVE (NEG); CLARITY,URINE CLEAR; COLOR,URINE YELLOW; NITRITE,URINE NEGATIVE (NEG); PROTEIN,URINE NEGATIVE (NEG-TRACE); UROBILINOGEN,URINE 0.2 mg/dL (0.2 mg/dL)
[2020-08-10 13:44] LABS: BARBITURATES NEG (NEG); BENZODIAZEPINES NEG (NEG); CANNABINOIDS POS (NEG); COCAINE NEG (NEG); METHADONE NEG (NEG); OPIATES NEG (NEG); PHENCYCLIDINE NEG (NEG)
[2020-08-10 13:46] LABS: AMPHETAMINE/METHAMPHETAMINE NEG (NEG)
[2020-08-10 13:48] LABS: CALCIUM 8.5 mg/dL (8.5-10.1); CREATININE 1.2 mg/dL (0.6-1.0); POTASSIUM 4.4 mmol/L (3.5-5.1)
[2020-08-10 13:56] LABS: ALBUMIN 3.2 g/dL (3.4-5.0); ALBUMIN/GLOBULIN RATIO 0.8 (1.0-1.7); TOTAL BILIRUBIN 0.3 mg/dL (0.2-1.0); TOTAL PROTEIN 7.1 g/dL (6.4-8.2)
[2020-08-10 13:57] LABS: BACTERIA,URINE FEW /HPF (0-FEW); WBC,URINE RARE /HPF (0-4)
--- NOTE | 2020-08-10 14:20 | PHYS DOC ---
Past Medical History Past Medical History: Anxiety, Hypothyroid, Other Additional Past Medical Histor: OVARIAN CYST,MOOD SWINGS,CHRONIC PAIN, PRE DIABETES Past Surgical History: Cholecystectomy, Hysterectomy, Tonsillectomy Additional Past Surgical Histo: THYROIDECTOMY "with a pill" Smoking Status: Never Smoker Alcohol Use: Occasionally Drug Use: Marijuana General Adult EDM: Chief Complaint: TREMORS HPI: HPI: Patient is a 40 year old female with a history of hypothyroidism, anxiety, who presents to the ED today complaining of tremors to bilateral upper extremities that has been going on for months. Patient denies anything specifically exacerbating or relieving the tremors. She states she came to the ED today because the wanted that checked out. Denies any chest pain, shortness of breath, headache. Review of Systems: Review of Systems: Constitutional: Denies fever or chills. [] Eyes: Denies change in visual acuity. [] HENT: Denies nasal congestion or sore throat. [] Respiratory: Denies cough or shortness of breath. [] Cardiovascular: Denies chest pain or edema. [] GI: Denies abdominal pain, nausea, vomiting, bloody stools or diarrhea. [] : Denies dysuria. [] Musculoskeletal: Denies back pain or joint pain. [] Integument: Denies rash. [] Neurologic: Reports tremors to bilateral upper extremities. Denies headache, focal weakness or sensory changes. [] Psychiatric: Denies depression or anxiety. [] Heart Score: Risk Factors: Risk Factors: DM, Current or recent (<one month) smoker, HTN, HLP, family hist ory of CAD, obesity. Risk Scores: Score 0 - 3: 2.5% MACE over next 6 weeks - Discharge Home Score 4 - 6: 20.3% MACE over next 6 weeks - Admit for Clinical Observation Score 7 - 10: 72.7% MACE over next 6 weeks - Early Invasive Strategies Allergies: Allergies: Allergies Coded Allergies Type Severity Reaction Last Updated Verified No Known Drug Allergies 03/19/17 No Physical Exam: PE: Constitutional: Well developed, well nourished, no acute distress, non-toxic appearance. [] HENT: Normocephalic, atraumatic, bilateral external ears normal, oropharynx moist, no oral exudates, nose normal. [] Eyes: PERRLA, EOMI, conjunctiva normal, no discharge. [] Neck: Normal range of motion, no tenderness, supple, no stridor. [] Cardiovascular:Heart rate regular rhythm, no murmur [] Lungs & Thorax: Bilateral breath sounds clear to auscultation [] Abdomen: Bowel sounds normal, soft, no tenderness, no masses, no pulsatile masses. [] Skin: Warm, dry, no erythema, no rash. [] Back: No tenderness, no CVA tenderness. [] Extremities: No tenderness, no cyanosis, no clubbing, ROM intact, no edema. [] Neurologic: Alert and oriented X 3, normal motor function, normal sensory function, no focal deficits noted. Cranial nerves II through XII intact. No tremors noted on exam. Psychologic: Flat affect. Current Patient Data: Labs: Laboratory Tests Test 08/10/20 13:20 White Blood Count 9.7 x10^3/uL (4.0-11.0) Red Blood Count 4.47 x10^6/uL (3.50-5.40) Hemoglobin 14.5 g/dL (12.0-15.5) Hematocrit 42.2 % (36.0-47.0) Mean Corpuscular Volume 95 fL (79-100) Mean Corpuscular Hemoglobin 33 pg (25-35) Mean Corpuscular Hemoglobin Concent 34 g/dL (31-37) Red Cell Distribution Width 13.2 % (11.5-14.5) Platelet Count 186 x10^3/uL (140-400) Neutrophils (%) (Auto) 69 % (31-73) Lymphocytes (%) (Auto) 20 % (24-48) L Monocytes (%) (Auto) 9 % (0-9) Eosinophils (%) (Auto) 2 % (0-3) Basophils (%) (Auto) 1 % (0-3) Neutrophils # (Auto) 6.6 x10^3/uL (1.8-7.7) Lymphocytes # (Auto) 1.9 x10^3/uL (1.0-4.8) Monocytes # (Auto) 0.9 x10^3/uL (0.0-1.1) Eosinophils # (Auto) 0.2 x10^3/uL (0.0-0.7) Basophils # (Auto) 0.1 x10^3/uL (0.0-0.2) Urine Collection Type Unknown Urine Color Yellow Urine Clarity Clear Urine pH 8.0 (<5.0-8.0) Urine Specific Moore 1.015 (1.000-1.030) Urine Protein Negative mg/dL (NEG-TRACE) Urine Glucose (UA) Negative mg/dL (NEG) Urine Ketones (Stick) Negative mg/dL (NEG) Urine Blood Moderate (NEG) Urine Nitrite Negative (NEG) Urine Bilirubin Negative (NEG) Urine Urobilinogen Dipstick 0.2 mg/dL (0.2 mg/dL) Urine Leukocyte Esterase Negative (NEG) Urine RBC 11-20 /HPF (0-2) Urine WBC Rare /HPF (0-4) Urine Squamous Epithelial Cells Many /LPF Urine Bacteria Few /HPF (0-FEW) Sodium Level 134 mmol/L (136-145) L Potassium Level 4.4 mmol/L (3.5-5.1) Chloride Level 99 mmol/L (98-107) Carbon Dioxide Level 28 mmol/L (21-32) Anion Gap 7 (6-14) Blood Urea Nitrogen 18 mg/dL (7-20) Creatinine 1.2 mg/dL (0.6-1.0) H Estimated GFR (Cockcroft-Gault) 50.0 BUN/Creatinine Ratio 15 (6-20) Glucose Level 88 mg/dL (70-99) Calcium Level 8.5 mg/dL (8.5-10.1) Total Bilirubin 0.3 mg/dL (0.2-1.0) Aspartate Amino Transferase (AST) 19 U/L (15-37) Alanine Aminotransferase (ALT) 22 U/L (14-59) Alkaline Phosphatase 60 U/L (46-116) Total Protein 7.1 g/dL (6.4-8.2) Albumin 3.2 g/dL (3.4-5.0) L Albumin/Globulin Ratio 0.8 (1.0-1.7) L Urine Opiates Screen Neg (NEG) Urine Methadone Screen Neg (NEG) Urine Barbiturates Neg (NEG) Urine Phencyclidine Screen Neg (NEG) Urine Amphetamine/Methamphetamine Neg (NEG) Urine Benzodiazepines Screen Neg (NEG) Urine Cocaine Screen Neg (NEG) Urine Cannabinoids Screen Pos (NEG) Ethyl Alcohol Level < 10 mg/dL (0-10) Urine Ethyl Alcohol Neg (NEG) Laboratory Tests 08/10/20 13:20 Laboratory Tests 08/10/20 13:20 Vital Signs: Vital Signs Date Time Temp Pulse Resp B/P (MAP) Pulse Ox O2 Delivery O2 Flow Rate FiO2 08/10/20 12:30 98.6 82 16 125/84 (98) 97 Room Air 98.6 EKG: EKG: [] Radiology/Procedures: Radiology/Procedures: [] Course & Med Decision Making: Course & Med Decision Making Pertinent Labs and Imaging studies reviewed. (See chart for details) This is a 40-year-old female patient well-known to this ED presenting today complaining of tremors to bilateral upper extremity that has been going on for months. No obvious tremors noted in the ED. When asked patient to show me the tremors she appears to shake her hands purposefully. Her labs are normal. Request that she follows up with a neurologist Moises Disclaimer: Moises Disclaimer: This electronic medical record was generated, in whole or in part, using a voice recognition dictation system. Departure Departure Impression: Primary Impression: Tremor of left hand Additional Impression: Tremor of right hand Disposition: 01 DC HOME SELF CARE/HOMELESS Condition: STABLE Referrals: NAT SHRESTHA MD (PCP) AVA COBB MD follow up next week Patient Instructions: Tremor Additional Instructions: You were evaluated in the emergency room for tremors. Please follow-up with the provided neurologist in the course of next week. ALEKSANDR HAWTHORNE APRN Aug 10, 2020 14:20
== END 2020-08-10 14:30 | disposition home or self-care (01) ==
LOC: ER 12:25
DX: R25.1 Tremor, unspecified (principal); G89.29 Other chronic pain; E03.9 Hypothyroidism, unspecified
CPT/HCPCS: 36415; 80053; 80307; 81001; 85025; 99283; G0480

== ENCOUNTER 2020-11-03 11:11 | Emergency (ER) | payer MEDICARE, MEDICAID ==
[~2020-11-03] VITALS: Ht 172.7 cm; Wt 118.2 kg
[~2020-11-03 11:11] MED LIST changes: -MECL12.573 PO; +MECL12.582 PO
[2020-11-03 11:42] LABS: BASO # 0.1 x10^3/uL (0.0-0.2); BASO % 1 % (0-3); EOS # 0.1 x10^3/uL (0.0-0.7); EOS % 1 % (0-3); HEMATOCRIT 40.8 % (36.0-47.0); HEMOGLOBIN 13.8 g/dL (12.0-15.5); LYMPH # 1.8 x10^3/uL (1.0-4.8); LYMPH % 21 % (24-48); MEAN CORPUSCULAR HEMOGLOBIN 32 pg (25-35); MEAN CORPUSCULAR HGB CONC 34 g/dL (31-37); MEAN CORPUSCULAR VOLUME 96 fL (79-100); MONO # 0.9 x10^3/uL (0.0-1.1); MONO % 10 % (0-9); NEUT # 5.8 x10^3/uL (1.8-7.7); NEUT % 67 % (31-73); PLATELET COUNT 178 x10^3/uL (140-400); RED BLOOD COUNT 4.25 x10^6/uL (3.50-5.40); RED CELL DISTRIBUTION WIDTH 12.7 % (11.5-14.5); WHITE BLOOD COUNT 8.7 x10^3/uL (4.0-11.0)
--- NOTE | 2020-11-03 11:42 | PHYS DOC ---
Past Medical History Past Medical History: Anxiety, Hypothyroid, Other Additional Past Medical Histor: OVARIAN CYST,MOOD SWINGS,CHRONIC PAIN, PRE DIABETES Past Surgical History: Cholecystectomy, Hysterectomy, Tonsillectomy Additional Past Surgical Histo: THYROIDECTOMY "with a pill" Smoking Status: Never Smoker Alcohol Use: Occasionally Drug Use: Marijuana General Adult EDM: Chief Complaint: ABDOMINAL PAIN HPI: HPI: Patient is a 40 year old female who presented to ER for evaluation of left lower abdominal pain started yesterday. Patient denies any nausea vomiting, no fever, no cough, no vaginal bleeding or discharge. Patient has history of hysterectomy in the past. Review of Systems: Review of Systems: Constitutional: Denies fever or chills. [] Eyes: Denies change in visual acuity. [] HENT: Denies nasal congestion or sore throat. [] Respiratory: Denies cough or shortness of breath. [] Cardiovascular: Denies chest pain or edema. [] GI: Positive for left side abdominal pain, NO nausea, vomiting, bloody stools or diarrhea. [] : Denies dysuria. [] Musculoskeletal: Denies back pain or joint pain. [] Integument: Denies rash. [] Neurologic: Denies headache, focal weakness or sensory changes. [] Endocrine: Denies polyuria or polydipsia. [] Lymphatic: Denies swollen glands. [] Psychiatric: Denies depression or anxiety. [] Heart Score: Risk Factors: Risk Factors: DM, Current or recent (<one month) smoker, HTN, HLP, family history of CAD, obesity. Risk Scores: Score 0 - 3: 2.5% MACE over next 6 weeks - Discharge Home Score 4 - 6: 20.3% MACE over next 6 weeks - Admit for Clinical Observation Score 7 - 10: 72.7% MACE over next 6 weeks - Early Invasive Strategies Allergies: Allergies: Allergies Coded Allergies Type Severity Reaction Last Updated Verified No Known Drug Allergies 03/19/17 No Physical Exam: PE: Constitutional: Well developed, well nourished, no acute distress, non-toxic appearance. [] HENT: Normocephalic, atraumatic, bilateral external ears normal, oropharynx moist, no oral exudates, nose normal. [] Eyes: PERRLA, EOMI, conjunctiva normal, no discharge. [] Neck: Normal range of motion, no tenderness, supple, no stridor. [] Cardiovascular:Heart rate regular rhythm, no murmur [] Lungs & Thorax: Bilateral breath sounds clear to auscultation [] Abdomen: Bowel sounds normal, soft, LLQ tenderness TO PALPATION, no masses, no pulsatile masses. [] Skin: Warm, dry, no erythema, no rash. [] Back: No tenderness, no CVA tenderness. [] Extremities: No tenderness, no cyanosis, no clubbing, ROM intact, no edema. [] Neurologic: Alert and oriented X 3, normal motor function, normal sensory function, no focal deficits noted. [] Psychologic: Affect normal, judgement normal, mood normal. [] Current Patient Data: Labs: Laboratory Tests Test 11/03/20 11:33 POC Urine HCG, Qualitative Hcg negative (Negative) Vital Signs: Vital Signs Date Time Temp Pulse Resp B/P (MAP) Pulse Ox O2 Delivery O2 Flow Rate FiO2 11/03/20 11:33 98.2 69 14 137/84 (101) 97 Room Air 98.2 EKG: EKG: [] Radiology/Procedures: Radiology/Procedures: [facility] [address] [place] [address] IMAGING REPORT Signed PATIENT: ESTELITA CADENAACCOUNT: [id number] : 1980 LOCATION: ER AGE: 40 SEX: F EXAM STATUS: REG ER ORD. PHYSICIAN: LINDA CHEUNG DO REASON: lower abdominal pain x a couple of days PROCEDURE: CT ABDOMEN PELVIS WO CONTRAST Exam: CT abdomen/pelvis without intravenous contrast Indication: Lower abdominal pain for couple of days Comparison: CT abdomen pelvis 04/10/2019 Technique: Helical CT imaging performed of the abdomen and pelvis without the use of intravenous contrast. Sagittal and coronal reformats were obtained. One or more of the following individualized dose reduction techniques were utilized for this examination: 1. Automated exposure control 2. Adjustment of the mA and/or kV according to patient size 3. Use of iterative reconstruction technique. Findings: Inherently limited evaluation without intravenous contrast. Lower chest: Normal. Liver: Liver is mildly enlarged measuring 20 cm and markedly low in attenuation, unchanged. No focal liver lesion. Gallbladder/Biliary Tree: Post cholecystectomy. Bile ducts are normal. Pancreas: Normal. Spleen: Normal. Adrenal Glands: Normal. Kidneys/Ureters/Bladder: Normal. No hydronephrosis. No urolithiasis. Reproductive Organs: Uterus is surgically absent. There are clips near the vaginal cuff. Stomach, small bowel, and colon: Stomach and small bowel are normal. Appendix is normal. There is an inflamed diverticulum in the sigmoid colon with mild wall thickening and surrounding fat stranding, consistent with acute diverticulitis. No evidence of perforation. No abscess. Vasculature: Abdominal aorta is normal in caliber. Lymph Nodes: No lymphadenopathy. Peritoneum and retroperitoneum: No free fluid or free air. Bones: No acute osseous abnormality. There is slight leftward curvature of the lumbar spine. Impression: 1. Uncomplicated acute sigmoid diverticulitis. 2. Hepatomegaly and severe hepatic steatosis. Electronically signed by: Abigail Clay MD (11/03/2020 12:57 PM) [id number] DICTATED and SIGNED BY: ABIGAIL CLAY MD DATE: 11/03/20 [id number] 0 Course & Med Decision Making: Course & Med Decision Making Pertinent Labs and Imaging studies reviewed. (See chart for details) Patient is a 40-year-old female who presented to ER with left lower abdominal pain, CT scan of her abdomen and pelvic show uncomplicated diverticulitis. Patient lab work was normal, she had no nausea vomiting. Patient pain was under control, she is comfortable to go home with outpatient treatment with antibiotic. Patient was given the name of the GI specialist for outpatient fol low-up. Moises Disclaimer: Moises Disclaimer: This electronic medical record was generated, in whole or in part, using a voice recognition dictation system. Departure Departure Impression: Primary Impression: Diverticulitis Disposition: 01 DC HOME SELF CARE/HOMELESS Condition: IMPROVED Referrals: NAT SHRESTHA MD (PCP) PRADIP REDDY MD Follow up with the GI doctor for outpatient follow up next week Patient Instructions: Diverticulitis Additional Instructions: Thank you for visiting our Emergency Department. We appreciate you trusting us with your care. If any additional problems come up don't hesitate to return to visit us. Please follow up with your primary care provider so they can plan additional care if needed and know about the problem that you had. If symptoms worsen come back to the Emergency Department. Any concerning symptoms that start such as chest pain, shortness of air, weakness or numbness on one side of the body, running high fevers or any other concerning symptoms return to the ER. Scripts Hydrocodone/Acetaminophen (Hydrocodone-Acetamin 5-325 mg) 1 Each Tablet 1 EACH PO Q6HRS PRN for PAIN, #15 TAB Prov: LINDA CHEUNG DO 11/03/20 Ciprofloxacin Hcl (CIPRO) 500 Mg Tablet 1 TAB PO BID for 10 Days, #20 TAB 0 Refills Prov: LINDA CHEUNG DO 11/03/20 Metronidazole (FLAGYL) 500 Mg Tablet 500 MG PO TID for 10 Days, #30 TAB Prov: LINDA CHEUNG DO 11/03/20 LINDA CHEUNG DO Nov 03, 2020 11:42
[2020-11-03 11:51] LABS: CALCIUM 8.7 mg/dL (8.5-10.1); CREATININE 1.4 mg/dL (0.6-1.0); GFR 41.9; POTASSIUM 4.1 mmol/L (3.5-5.1)
[2020-11-03 11:55] LABS: BILIRUBIN,URINE SMALL (NEG); CLARITY,URINE CLOUDY; COLOR,URINE AMBER; NITRITE,URINE NEGATIVE (NEG); PROTEIN,URINE 30 mg/dL (NEG-TRACE)
[2020-11-03 11:57] LABS: ALBUMIN 3.3 g/dL (3.4-5.0); ALBUMIN/GLOBULIN RATIO 0.8 (1.0-1.7); TOTAL BILIRUBIN 0.5 mg/dL (0.2-1.0); TOTAL PROTEIN 7.3 g/dL (6.4-8.2)
[2020-11-03 12:10] LABS: BACTERIA,URINE MANY /HPF (0-FEW)
[2020-11-03] MEDS ORDERED: KETOROLAC 30 MG/ML VIAL. IVP ONE (12:30)
--- NOTE | 2020-11-03 12:59 | RAD ---
Exam: CT abdomen/pelvis without intravenous contrast Indication: Lower abdominal pain for couple of days Comparison: CT abdomen pelvis 04/10/2019 Technique: Helical CT imaging performed of the abdomen and pelvis without the use of intravenous cont rast. Sagittal and coronal reformats were obtained. One or more of the following individualized dose reduction techniques were utilized for this examinat ion: 1. Automated exposure control 2. Adjustment of the mA and/or kV according to patient size 3. Use of iterative reconstruction technique. Findings: Inherently limited evaluation without intravenous contrast. Lower chest: Normal. Liver: Liver is mildly enlarged measuring 20 cm and markedly low in attenuation, unchanged. No focal liver lesion. Gallbladder/Biliary Tree: Post cholecystectomy. Bile ducts are normal. Pancreas: Normal. Spleen: Normal. Adrenal Glands: Normal. Kidneys/Ureters/Bladder: Normal. No hydronephrosis. No urolithiasis. Reproductive Organs: Uterus is surgically absent. There are clips near the vaginal cuff. Stomach, small bowel, and colon: Stomach and small bowel are normal. Appendix is normal. There is an inflamed diverticulum in the sigmoid colon with mild wall thickening and surrounding fat stranding, c onsistent with acute diverticulitis. No evidence of perforation. No abscess. Vasculature: Abdominal aorta is normal in caliber. Lymph Nodes: No lymphadenopathy. Peritoneum and retroperitoneum: No free fluid or free air. Bones: No acute osseous abnormality. There is slight leftward curvature of the lumbar spine. Impression: 1. Uncomplicated acute sigmoid diverticulitis. 2. Hepatomegaly and severe hepatic steatosis. Electronically signed by: Abigail Clay MD (11/03/2020 12:57 PM) [id number]
[2020-11-03] MEDS ORDERED: AMOXICILLIN/K CLAV 875/125MG TABLET. PO ONE (13:30)
[2020-11-03] MEDS ORDERED: metroNIDAZOLE 500 MG TABLET PO ONE (13:30)
[2020-11-03 13:44] VITALS: BP 121/77
[2020-11-03] MEDS ORDERED: METR500T PO (14:07)
[2020-11-03] MEDS ORDERED: CIPR500T94 PO (14:07)
[2020-11-03] MEDS ORDERED: HYDR-2759 PO (14:08)
== END 2020-11-03 14:31 | disposition home or self-care (01) ==
LOC: ER 11:11
DX: K57.32 Diverticulitis of large intestine without perforation or abscess without bleeding (principal); R10.32 Left lower quadrant pain; F41.9 Anxiety disorder, unspecified; E03.9 Hypothyroidism, unspecified; G89.29 Other chronic pain; F12.90 Cannabis use, unspecified, uncomplicated; Z90.49 Acquired absence of other specified parts of digestive tract; Z90.710 Acquired absence of both cervix and uterus; Z90.89 Acquired absence of other organs
CPT/HCPCS: 36415; 74176; 80053; 81001; 81025; 83690; 85025; 87086; 96374; 99284; J1885

== ENCOUNTER 2020-11-07 16:24 | Emergency (ER) | payer MEDICARE, MEDICAID ==
[~2020-11-07] VITALS: Ht 180.3 cm; Wt 127.0 kg
[~2020-11-07 16:24] MED LIST changes: +CIPR500T94 PO; +HYDR-2759 PO; +MECL12.574 PO; -MECL12.582 PO; +METR500T PO
--- NOTE | 2020-11-07 17:06 | PHYS DOC ---
Past Medical History Past Medical History: Anxiety, Hypothyroid, Other Additional Past Medical Histor: OVARIAN CYST,MOOD SWINGS,CHRONIC PAIN, PRE DIABETES Past Surgical History: Cholecystectomy, Hysterectomy, Tonsillectomy Additional Past Surgical Histo: THYROIDECTOMY "with a pill" Smoking Status: Never Smoker Alcohol Use: Occasionally Drug Use: Marijuana General Adult EDM: Chief Complaint: ABDOMINAL PAIN HPI: HPI: 40-year-old female with significant history of hypothyroidism, anxiety, chronic pain, p/w ongoing dull and colicky lower abd pain, with more recent development of nausea and nonbloody emesis. Patient was seen on 11/03/2020 for left-sided abdominal pain, found to have diverticulitis on CT. Discharged on 10 days of cipro/flagyl. The patient states that she has had some difficulty keeping her antibiotics down due to nausea and vomiting. No fevers or chills. Prior abdominal surgeries include cholecystectomy and hysterectomy. Review of Systems: Review of Systems: Gen: No fever, chills. CV: No CP, palpitations. Resp. No SOB, cough. GI: No hematemesis or hematochezia. Reports abd pain, N/V. : No dysuria, hematuria. Neuro: No THURSTON, dizziness, weakness. Remainder of systems reviewed and negative unless otherwise specified. Heart Score: Risk Factors: Risk Factors: DM, Current or recent (<one month) smoker, HTN, HLP, family history of CAD, obesity. Risk Scores: Score 0 - 3: 2.5% MACE over next 6 weeks - Discharge Home Score 4 - 6: 20.3% MACE over next 6 weeks - Admit for Clinical Observation Score 7 - 10: 72.7% MACE over next 6 weeks - Early Invasive Strategies Allergies: Allergies: Allergies Coded Allergies Type Severity Reaction Last Updated Verified No Known Drug Allergies 03/19/17 No Physical Exam: PE: Gen: NAD. Well nourished. Head: NC/AT. Eyes: No scleral icterus. No conjunctival injection. ENT: MMM. Posterior OP clear. Neck: Supple. CV: RRR. Peripheral pulses intact. Resp: CTAB. Abd: Soft. Nondistended. Mild nonfocal lower abdominal tenderness. No rebound, guarding, rigidity. No flank percussion tenderness. MSK: No peripheral cyanosis. No edema. Neuro: Awake and alert. Skin. Warm. Dry. Psych: Appropriate mood & affect. EKG: EKG: [] Radiology/Procedures: Radiology/Procedures: [] Course & Med Decision Making: Course & Med Decision Making Pertinent Labs and Imaging studies reviewed. (See chart for details) In summary, 40F p/w N/V and ongoing lower abd pain, Dx with divertic on CTAP a few days ago. Was discharged on cipro/flagyl but reportedly has difficulty keeping meds down 2/2 N/V. Benign abd exam. HDS. No fever. Will obtain repeat basics lab and administer IV abx/zofran. If labs unrevealing and Sx controlled, anticipate DC home with reassurance. Signed out to Dr. Alfredo pending remainder of labs and reevaluation. Moises Disclaimer: Moises Disclaimer: This electronic medical record was generated, in whole or in part, using a voice recognition dictation system. Departure Departure Impression: Primary Impression: Diverticulitis Additional Impression: Nausea and vomiting Referrals: NAT SHRESTHA MD (PCP) Patient Instructions: Diverticulitis, Pudu-sk-Xuos Scripts Hydrocodone Bit/Acetaminophen (HYDROCODONE-APAP 5-325 ) 1 Tab Tablet 1 TAB PO PRN Q8HRS PRN for PAIN, #12 TAB 0 Refills Prov: LE,LYDIA H DO 11/07/20 Ondansetron (ONDANSETRON ODT) 4 Mg Tab.rapdis 1 TAB PO PRN Q6-8HRS, #16 TAB Prov: LE,LYDIA H DO 11/07/20 LE,LYDIA H DO Nov 07, 2020 17:06
[2020-11-07] MEDS ORDERED: MORPHINE SULFATE 4 MG/ML VIAL. IV ONE (17:15)
[2020-11-07] MEDS ORDERED: cefTRIAXone IV Push 1 GM VIAL. IVP ONE (17:15)
[2020-11-07] MEDS ORDERED: IV NORMAL SALINE 1000ML BAG 1,000 ML IV ONE (17:15)
[2020-11-07] MEDS ORDERED: ONDANSETRON PF 4 MG/2 ML VIAL. IVP ONE (17:15)
[2020-11-07] MEDS ORDERED: ONDA4TAB12 PO (17:37)
[2020-11-07] MEDS ORDERED: HYDR-2761 PO (17:37)
[2020-11-07 17:54] LABS: BASO # 0.1 x10^3/uL (0.0-0.2); BASO % 1 % (0-3); EOS % 1 % (0-3); HEMATOCRIT 41.8 % (36.0-47.0); HEMOGLOBIN 14.4 g/dL (12.0-15.5); LYMPH # 2.5 x10^3/uL (1.0-4.8); LYMPH % 25 % (24-48); MEAN CORPUSCULAR HEMOGLOBIN 33 pg (25-35); MEAN CORPUSCULAR HGB CONC 34 g/dL (31-37); MEAN CORPUSCULAR VOLUME 95 fL (79-100); MONO % 10 % (0-9); NEUT # 6.2 x10^3/uL (1.8-7.7); NEUT % 63 % (31-73); PLATELET COUNT 236 x10^3/uL (140-400); RED BLOOD COUNT 4.39 x10^6/uL (3.50-5.40); RED CELL DISTRIBUTION WIDTH 12.8 % (11.5-14.5); WHITE BLOOD COUNT 9.9 x10^3/uL (4.0-11.0)
[2020-11-07 18:09] LABS: CALCIUM 9.1 mg/dL (8.5-10.1); CREATININE 1.2 mg/dL (0.6-1.0); POTASSIUM 3.4 mmol/L (3.5-5.1)
[2020-11-07 18:15] LABS: ALBUMIN 3.6 g/dL (3.4-5.0); ALBUMIN/GLOBULIN RATIO 0.9 (1.0-1.7); TOTAL BILIRUBIN 0.4 mg/dL (0.2-1.0); TOTAL PROTEIN 7.6 g/dL (6.4-8.2)
[2020-11-07] MEDS ORDERED: METOCLOPRAMIDE HCL 10 MG/2 ML VIAL. IVP ONE (18:15)
[2020-11-07 20:26] VITALS: BP 117/72
== END 2020-11-07 20:26 | disposition home or self-care (01) ==
LOC: ER 16:24
DX: K57.92 Diverticulitis of intestine, part unspecified, without perforation or abscess without bleeding (principal); E03.9 Hypothyroidism, unspecified; G89.29 Other chronic pain
CPT/HCPCS: 36415; 80053; 83690; 83735; 85025; 96361; 96365; 96375; 99284; J0696; J2270; J2405; J3490; J7030

== ENCOUNTER 2020-11-10 14:45 | Emergency (ER) | payer MEDICARE, MEDICAID ==
[~2020-11-10] VITALS: Ht 177.8 cm; Wt 130.0 kg
[~2020-11-10 14:45] MED LIST changes: +HYDR-2761 PO
[2020-11-10] MEDS ORDERED: DEXAMETHASONE 4 MG TABLET PO ONE (15:15)
--- NOTE | 2020-11-10 15:24 | PHYS DOC ---
Past Medical History Past Medical History: Anxiety, Diverticulitis, Diverticulosis, Hypothyroid, Other Additional Past Medical Histor: OVARIAN CYST,MOOD SWINGS,CHRONIC PAIN, PRE DIABETES Past Surgical History: Cholecystectomy, Hysterectomy, Tonsillectomy Additional Past Surgical Histo: THYROIDECTOMY "with a pill" Smoking Status: Never Smoker Alcohol Use: None Drug Use: Marijuana General Adult EDM: Chief Complaint: ALLERGIC REACTION HPI: HPI: Patient is a 40 year old female who presenting with symptoms she is attributing to an allergic reaction over the last 2 days. She states she began taking ciprofloxacin and metronidazole 7 days ago for diverticulitis when her symptoms began including chest tightness, a sensation of her throat closing and anxiety. She denies any SOB, rash, new N/V/D. She states her symptoms have worsened today prompting her visit to the ED. She denies any history of allergic reactions to medications, food, or environmental. Denies . Reports upon arrival to ED now with some chest pain. Review of Systems: Review of Systems: Constitutional: Denies fever or chills Eyes: Denies redness or eye pain HENT: Endorses throat tightness; denies nasal congestion or sore throat Respiratory: Denies cough or shortness of breath Cardiovascular: Endorses chest tightness and palpitations GI: Denies abdominal pain, nausea, or vomiting : Denies dysuria or hematuria Musculoskeletal: Denies back pain or joint pain Integument: Denies rash or skin lesions Neurologic: Denies headache, focal weakness or sensory changes Complete systems were reviewed and found to be within normal limits, except as documented in this note. Current Medications: Current Medications Medications (Trade) Dose Ordered Sig/Shirley Start Time Stop Time Status Last Admin Dose Admin Dexamethasone (Decadron) 10 mg 1X ONCE 11/10/20 15:15 11/10/20 15:16 Allergies: Allergies: Allergies Coded Allergies Type Severity Reaction Last Updated Verified No Known Drug Allergies 03/19/17 No Physical Exam: PE: Constitutional: Well developed, well nourished, anxious, non-toxic appearance HENT: Normocephalic, atraumatic, no tongue swelling, no stridor Eyes: Conjunctiva normal, no discharge Neck: Normal range of motion, no tenderness, supple Lungs & Thorax: No respiratory distress, equal chest rise and fall Abdomen: Soft, no tenderness Skin: Warm, dry, no erythema, no rash Extremities: No tenderness, ROM intact, no edema Neurologic: Alert and oriented X 3, no focal deficits noted Psychologic: Anxious affect, tearful, judgment normal Current Patient Data: Vital Signs: Vital Signs Date Time Temp Pulse Resp B/P (MAP) Pulse Ox O2 Delivery O2 Flow Rate FiO2 11/10/20 14:47 98.1 79 18 141/95 (110) 99 Room Air 98.1 EKG: EKG: Normal sinus rhythm rate of 65. Normal axis. No ST segment elevations or depressions. No T wave changes. QRS interval 90 ms. QTQTc 402 ms - 419 ms. Radiology/Procedures: Radiology/Procedures: [] Course & Med Decision Making: Course & Med Decision Making Patient is a 40-year-old female presenting to the emergency department with anxiety and concern for possible allergic reaction. NO clinical signs of respiratory distress. Patient handling own secretions. Sats stable. . She was instructed to discontinue her ciprofloxacin and metronidazole and follow-up with outpatient GI. Symptomatic Decadron provided. Patient received a scr eening EKG due to chest discomfort. Her symptoms are likely attributable to anxiety. Patient stable for discharge with outpatient follow-up with PCP/GI. GI referral provided. Discussed findings and plan with patient, who acknowledges understanding and agreement. Moises Disclaimer: Moises Disclaimer: This electronic medical record was generated, in whole or in part, using a voice recognition dictation system. Departure Departure Impression: Primary Impression: Allergic reaction Qualified Codes: T78.40XA - Allergy, unspecified, initial encounter Additional Impressions: Anxiety History of diverticulitis Disposition: 01 [facility] HOME SELF CARE/HOMELESS Condition: STABLE Referrals: NAT SHRESTHA MD (PCP) PRADIP REDDY MD Patient Instructions: Anxiety and Panic Attacks, [id number], Diverticulitis, [id number] Additional Instructions: Discontinue previously prescribed antibiotics Scripts Prednisone (PREDNISONE) 20 Mg Tablet 2 TAB PO DAILY, #8 TAB Start this prescription tomorrow, Wednesday11/11/20 Prov: CHRISSY NARANJO DO 11/10/20 CHRISSY NARANJO DO Nov 10, 2020 15:24
[2020-11-10] MEDS ORDERED: PRED20TA PO (15:30)
[2020-11-10 16:16] VITALS: BP 137/89
--- NOTE | 2020-11-11 09:32 | EKG ---
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
== END 2020-11-10 16:26 | disposition home or self-care (01) ==
LOC: ER 14:45
DX: T78.49XA Other allergy, initial encounter (principal); R07.89 Other chest pain; R20.2 Paresthesia of skin; F41.9 Anxiety disorder, unspecified; E03.9 Hypothyroidism, unspecified; G89.29 Other chronic pain; F12.90 Cannabis use, unspecified, uncomplicated; Z90.710 Acquired absence of both cervix and uterus; Z90.49 Acquired absence of other specified parts of digestive tract; Z90.89 Acquired absence of other organs; Z98.890 Other specified postprocedural states; Y92.89 Other specified places as the place of occurrence of the external cause
CPT/HCPCS: 93005; 99283

== ENCOUNTER 2020-12-25 14:53 | Emergency (ER) | payer MEDICARE, MEDICAID ==
[~2020-12-25] VITALS: Ht 152.4 cm; Wt 118.0 kg
[~2020-12-25 14:53] MED LIST changes: -MECL12.574 PO; +MECL12.582 PO
[2020-12-25] MEDS ORDERED: ONDANSETRON PF 4 MG/2 ML VIAL. IV ONE (17:00)
[2020-12-25] MEDS ORDERED: IV NORMAL SALINE 1000ML BAG 1,000 ML IV ONE (17:00)
[2020-12-25 17:23] LABS: BILIRUBIN,URINE NEGATIVE (NEG); CLARITY,URINE CLEAR; COLOR,URINE YELLOW; NITRITE,URINE NEGATIVE (NEG); PH,URINE 7.5 (<5.0-8.0); PROTEIN,URINE NEGATIVE (NEG-TRACE)
[2020-12-25 17:25] LABS: BASO # 0.1 x10^3/uL (0.0-0.2); BASO % 1 % (0-3); EOS # 0.1 x10^3/uL (0.0-0.7); EOS % 1 % (0-3); HEMOGLOBIN 14.4 g/dL (12.0-15.5); LYMPH # 1.4 x10^3/uL (1.0-4.8); LYMPH % 15 % (24-48); MEAN CORPUSCULAR HEMOGLOBIN 32 pg (25-35); MEAN CORPUSCULAR HGB CONC 34 g/dL (31-37); MEAN CORPUSCULAR VOLUME 95 fL (79-100); MONO # 0.7 x10^3/uL (0.0-1.1); MONO % 8 % (0-9); NEUT # 6.7 x10^3/uL (1.8-7.7); NEUT % 75 % (31-73); PLATELET COUNT 196 x10^3/uL (140-400); RED BLOOD COUNT 4.53 x10^6/uL (3.50-5.40); RED CELL DISTRIBUTION WIDTH 12.6 % (11.5-14.5)
[2020-12-25 17:29] LABS: WBC,URINE OCC /HPF (0-4)
[2020-12-25 17:30] LABS: BACTERIA,URINE MODERATE /HPF (0-FEW)
[2020-12-25 17:39] LABS: CALCIUM 8.3 mg/dL (8.5-10.1); CREATININE 1.1 mg/dL (0.6-1.0); GFR 55.3; POTASSIUM 4.1 mmol/L (3.5-5.1)
[2020-12-25 17:42] LABS: ALBUMIN 3.6 g/dL (3.4-5.0); MAGNESIUM 1.9 mg/dL (1.8-2.4); TOTAL BILIRUBIN 0.5 mg/dL (0.2-1.0); TOTAL PROTEIN 7.1 g/dL (6.4-8.2)
[2020-12-25] MEDS ORDERED: DICYCLOMINE 20 MG/2 ML VIAL. IM ONE (18:00)
[2020-12-25] MEDS ORDERED: CONTRAST GIVEN. MC PRN (18:15)
[2020-12-25] MEDS ORDERED: IOHEXOL 300 MG/ML 100ML VIAL. IV ONE (18:15)
--- NOTE | 2020-12-25 18:42 | RAD ---
CT abdomen pelvis with contrast dated 12/25/2020. No comparison available. Clinical data indication: Abdominal pain history of diverticulitis. TECHNIQUE: Contiguous axial imaging the M pelvis performed after the administration of 60 cc Omnipaque 300. One or more of the following individualized dose reduction techniques were utilized for this examinat ion: 1. Automated exposure control 2. Adjustment of the mA and/or kV according to patient size 3. Use of iterative reconstruction technique. FINDINGS: Limited images of lung bases are clear. Heart size within normal limits. No pleural or pericardial ef fusion. Liver is of diffuse low density compatible with fatty infiltration. No apparent mass. Biliary tree no rmal in caliber. Gallbladder surgically absent. Spleen is normal in size. Pancreas, adrenal glands and kidneys are unremarkable. No hydronephrosis. Unopacified GI tract normal in caliber and contour. No focal bowel wall thickening. No inflammatory s tranding in the mesentery. Appendix is normal in caliber. There is a prominent appendicolith at the a ppendiceal base. No periappendiceal inflammatory stranding. No free fluid or lymphadenopathy. Abdomin al aorta normal in caliber. There are a few scattered diverticula within the colon. Images of pelvis show nondistended urinary bladder. Prostate gland normal in size. No free fluid or l ymphadenopathy. Bone windows show no acute findings. Mild lower lumbar spondylosis. IMPRESSION: 1. No acute abnormality of abdomen or pelvis. Normal appendix. 2. Fatty infiltration of the liver. 3. Diverticulosis with no evidence of acute diverticulitis. 4. Status post cholecystectomy and hysterectomy. Electronically signed by: Brandon Robldeo MD (12/25/2020 6:40 PM) [facility]
--- NOTE | 2020-12-25 19:07 | ED.ADGEN ---
Past Medical History Past Medical History: Anxiety, Diverticulitis, Diverticulosis, Hypothyroid, Other Additional Past Medical Histor: OVARIAN CYST,MOOD SWINGS,CHRONIC PAIN, PRE DIABETES Past Surgical History: Cholecystectomy, Hysterectomy, Tonsillectomy Additional Past Surgical Histo: THYROIDECTOMY "with a pill" Smoking Status: Never Smoker Alcohol Use: None Drug Use: Marijuana General Adult EDM: Chief Complaint: ABDOMINAL PAIN HPI: HPI: Patient is a 40 year old female, accompanied by her significant other, who presents emergency department with complaints of diffuse abdominal pain that has been intermittent for the last month. She also complains of a decreased appetite for the last month. She states that her abdominal pain is increased since last night. She reports that she had 2 episodes of nausea and vomiting but denies any blood in her vomit. Patient reports that she had a bowel movement this morning and it was normal. She denies any blood in her stools. Patient denies any fever, cough, shortness of breath, chest pain, fatigue, body aches, dysuria, hematuria, or low back pain. She states she has had some increase in urinary frequency. The patient currently rates her pain a 10 out of 10 on pain scale, she denies any alleviating or exacerbating factors. Patient reports that she was seen here for the same symptoms 2 weeks ago and then again 3 days ago. Review of Systems: Review of Systems: Complete ROS is negative unless otherwise noted in HPI. Current Medications: Current Medications Medications (Trade) Dose Ordered Sig/Shirley Start Time Stop Time Status Last Admin Dose Admin Dicyclomine HCl (Bentyl) 10 mg STK-MED ONCE 12/25/20 19:56 12/25/20 19:57 DC Info (CONTRAST GIVEN -- Rx MONITORING) 1 each PRN DAILY PRN 12/25/20 18:15 12/25/20 20:43 DC Iohexol (Omnipaque 300 Mg/ml) 60 ml 1X ONCE 12/25/20 18:15 12/25/20 18:16 DC 12/25/20 18:23 60 ML Ondansetron HCl (Zofran) 4 mg 1X ONCE 12/25/20 17:00 12/25/20 17:01 DC 12/25/20 17:22 4 MG Sodium Chloride 1,000 ml @ 1,000 mls/hr 1X ONCE 12/25/20 17:00 12/25/20 17:59 DC 12/25/20 17:22 1,000 MLS/HR Allergies: Allergies: Allergies Coded Allergies Type Severity Reaction Last Updated Verified No Known Drug Allergies 03/19/17 No Physical Exam: PE: See Above Constitutional: Well developed, well nourished, no acute distress, non-toxic appearance, obese. [] HENT: Normocephalic, atraumatic, bilateral external ears normal, nose normal. [] Eyes: PERRLA, EOMI, conjunctiva normal, no discharge. [] Neck: Normal range of motion, no stridor. [] Cardiovascular:Heart rate regular rhythm Lungs & Thorax: Respirations even and unlabored, no retractions, no respiratory distress Abdomen: soft, diffuse tenderness to palpation, no rebound tenderness, no guarding, no palpable mass, no pulsatile masses Skin: Warm, dry, no erythema, no rash. [] Extremities: No cyanosis, ROM intact, no edema. [] Neurologic: Alert and oriented X 3, normal motor, normal sensory, no focal deficits noted. [] Psychologic: Affect normal, judgement normal, mood normal. [] Current Patient Data: Labs: Laboratory Tests Test 12/25/20 17:10 12/25/20 17:15 White Blood Count 9.0 x10^3/uL (4.0-11.0) Red Blood Count 4.53 x10^6/uL (3.50-5.40) Hemoglobin 14.4 g/dL (12.0-15.5) Hematocrit 43.0 % (36.0-47.0) Mean Corpuscular Volume 95 fL (79-100) Mean Corpuscular Hemoglobin 32 pg (25-35) Mean Corpuscular Hemoglobin Concent 34 g/dL (31-37) Red Cell Distribution Width 12.6 % (11.5-14.5) Platelet Count 196 x10^3/uL (140-400) Neutrophils (%) (Auto) 75 % (31-73) H Lymphocytes (%) (Auto) 15 % (24-48) L Monocytes (%) (Auto) 8 % (0-9) Eosinophils (%) (Auto) 1 % (0-3) Basophils (%) (Auto) 1 % (0-3) Neutrophils # (Auto) 6.7 x10^3/uL (1.8-7.7) Lymphocytes # (Auto) 1.4 x10^3/uL (1.0-4.8) Monocytes # (Auto) 0.7 x10^3/uL (0.0-1.1) Eosinophils # (Auto) 0.1 x10^3/uL (0.0-0.7) Basophils # (Auto) 0.1 x10^3/uL (0.0-0.2) Urine Collection Type Unknown Urine Color Yellow Urine Clarity Clear Urine pH 7.5 (<5.0-8.0) Urine Specific [place] 1.015 (1.000-1.030) Urine Protein Negative mg/dL (NEG-TRACE) Urine Glucose (UA) Negative mg/dL (NEG) Urine Ketones (Stick) Trace mg/dL (NEG) Urine Blood Moderate (NEG) Urine Nitrite Negative (NEG) Urine Bilirubin Negative (NEG) Urine Urobilinogen Dipstick 1.0 mg/dL (0.2 mg/dL) Urine Leukocyte Esterase Negative (NEG) Urine RBC 6-10 /HPF (0-2) Urine WBC Occ /HPF (0-4) Urine Squamous Epithelial Cells Mod /LPF Urine Bacteria Moderate /HPF (0-FEW) Urine Mucus Mod /LPF Sodium Level 142 mmol/L (136-145) Potassium Level 4.1 mmol/L (3.5-5.1) Chloride Level 104 mmol/L (98-107) Carbon Dioxide Level 28 mmol/L (21-32) Anion Gap 10 (6-14) Blood Urea Nitrogen 14 mg/dL (7-20) Creatinine 1.1 mg/dL (0.6-1.0) H Estimated GFR (Cockcroft-Gault) 55.3 BUN/Creatinine Ratio 13 (6-20) Glucose Level 87 mg/dL (70-99) Calcium Level 8.3 mg/dL (8.5-10.1) L Magnesium Level 1.9 mg/dL (1.8-2.4) Total Bilirubin 0.5 mg/dL (0.2-1.0) Aspartate Amino Transferase (AST) 29 U/L (15-37) Alanine Aminotransferase (ALT) 41 U/L (14-59) Alkaline Phosphatase 52 U/L (46-116) Total Protein 7.1 g/dL (6.4-8.2) Albumin 3.6 g/dL (3.4-5.0) Albumin/Globulin Ratio 1.0 (1.0-1.7) Lipase 253 U/L (73-393) POC Urine HCG, Qualitative Hcg negative (Negative) Laboratory Tests 12/25/20 17:10 Laboratory Tests 12/25/20 17:10 Vital Signs: Vital Signs Date Time Temp Pulse Resp B/P (MAP) Pulse Ox O2 Delivery O2 Flow Rate FiO2 12/25/20 20:00 65 124/67 (86) 99 12/25/20 16:35 98.4 16 Room Air 98.4 EKG: EKG: [] Heart Score: C/O Chest Pain: No Risk Scores: Score 0 - 3: 2.5% MACE over next 6 weeks - Discharge Home Score 4 - 6: 20.3% MACE over next 6 weeks - Admit for Clinical Observation Score 7 - 10: 72.7% MACE over next 6 weeks - Early Invasive Strategies Radiology/Procedures: Radiology/Procedures: PROCEDURE: CT ABD PELV W/ IV CONTRST ONLY CT abdomen pelvis with contrast dated 12/25/2020. No comparison available. Clinical data indication: Abdominal pain history of diverticulitis. TECHNIQUE: Contiguous axial imaging the M pelvis performed after the administration of 60 cc Omnipaque 300. One or more of the following individualized dose reduction techniques were utilized for this examination: 1. Automated exposure control 2. Adjustment of the mA and/or kV according to patient size 3. Use of iterative reconstruction technique. FINDINGS: Limited images of lung bases are clear. Heart size within normal limits. No pleural or pericardial effusion. Liver is of diffuse low density compatible with fatty infiltration. No apparent mass. Biliary tree normal in caliber. Gallbladder surgically absent. Spleen is normal in size. Pancreas, adrenal glands and kidneys are unremarkable. No hydronephrosis. Unopacified GI tract normal in caliber and contour. No focal bowel wall thickening. No inflammatory stranding in the mesentery. Appendix is normal in caliber. There is a prominent appendicolith at the appendiceal base. No periappendiceal inflammatory stranding. No free fluid or lymphadenopathy. Abdo ander aorta normal in caliber. There are a few scattered diverticula within the colon. Images of pelvis show nondistended urinary bladder. Prostate gland normal in size. No free fluid or lymphadenopathy. Bone windows show no acute findings. Mild lower lumbar spondylosis. IMPRESSION: 1. No acute abnormality of abdomen or pelvis. Normal appendix. 2. Fatty infiltration of the liver. 3. Diverticulosis with no evidence of acute diverticulitis. 4. Status post cholecystectomy and hysterectomy. [] Course & Med Decision Making: Course & Med Decision Making Pertinent Labs and Imaging studies reviewed. (See chart for details) 40-year-old female presents emergency department with complaints of ongoing abdominal pain that has gotten worse since last night CBC was unremarkable, CMP revealed a creatinine of 1.1, calcium of 8.3, otherwise unremarkable: UA revealed 6-10 red blood cells with moderate squamous cells likely contaminated Advised the patient that she has had multiple CT scans and I discussed the risk associated between radiation and cancer. Patient stated that her abdominal pain was not like her previous abdominal pain and chose to continue with a CT of her abdomen. I reviewed the patient's K-tracs risk score, the patient was prescribed to 120 hydrocodone on December 03. Her score was a 750 for risk. I had a nemo conversation with the patient about opiate abuse and informed her of the risk of overdose resulting in . I advised the patient to only take her medications as prescribed, I informed her that she should have a total of 28 tablets left for this month. The patient thanked me for addressing the issue as her mother recently from opiate overdose, she reassured me that she she has not been taking the pain medication more frequently than prescribed. The patient was given a dose of Bentyl in the emergency department for the pain. I encouraged her to follow-up with a automobile spring repairer. I provided her with Dr. Miner's information and instructed the patient to return to the ER if fever develops or symptoms worsen. Patient verbalized an understanding of home care, medications, follow-up, and return to ED instructions and was in agreement with the plan of care. [] Dragon Disclaimer: Dragon Disclaimer: This electronic medical record was generated, in whole or in part, using a voice recognition dictation system. Departure Departure Impression: Primary Impression: Abdominal pain, chronic, generalized Disposition: 01 DC HOME SELF CARE/HOMELESS Condition: STABLE Referrals: CHRISSY MINER MD Patient Instructions: Abdominal Pain (Nonspecific) Additional Instructions: Continue taking your medications as prescribed by your primary care doctor. Follow-up with a automobile spring repairer for further evaluation and treatment of your chronic abdominal pain.. Return to the emergency room if your symptoms worsen or if fever develops. VÍCTOR COLEMAN APRN Dec 25, 2020 19:07
[2020-12-25] MEDS ORDERED: DICYCLOMINE HCL 10 MG CAPSULE ONE (19:56)
[2020-12-25 20:00] VITALS: BP 124/67
[2020-12-25] MEDS ORDERED: DICYCLOMINE HCL 10 MG CAPSULE PO ONE (20:00)
== END 2020-12-25 20:00 | disposition home or self-care (01) ==
LOC: ER 14:53
DX: G89.29 Other chronic pain (principal); R10.84 Generalized abdominal pain; R11.2 Nausea with vomiting, unspecified; F41.9 Anxiety disorder, unspecified; E03.9 Hypothyroidism, unspecified; F12.90 Cannabis use, unspecified, uncomplicated; Z90.49 Acquired absence of other specified parts of digestive tract; Z90.710 Acquired absence of both cervix and uterus; Z98.890 Other specified postprocedural states; Z90.89 Acquired absence of other organs
CPT/HCPCS: 36415; 74177; 80053; 81001; 81025; 83690; 83735; 85025; 87086; 96361; 96374; 99285; J2405; J7030; Q9967

== ENCOUNTER 2021-06-09 10:53 | Emergency (ER) | payer MEDICARE, MEDICAID | END 2021-06-09 12:28 | disposition left against medical advice (07) | LOC: ER 10:53 | DX: R10.9 Unspecified abdominal pain (principal); Z53.21 Procedure and treatment not carried out due to patient leaving prior to being seen by health care provider ==

== ENCOUNTER 2021-06-20 15:27 | Emergency (ER) | payer MEDICARE, MEDICAID ==
[~2021-06-20] VITALS: Ht 180.3 cm; Wt 122.0 kg
--- NOTE | 2021-06-20 15:33 | PHYS DOC ---
Past Medical History Past Medical History: Anxiety, Diverticulitis, Diverticulosis, Hypothyroid, Other Additional Past Medical Histor: OVARIAN CYST,MOOD SWINGS,CHRONIC PAIN, PRE DIABETES Past Surgical History: Cholecystectomy, Hysterectomy, Tonsillectomy Additional Past Surgical Histo: THYROIDECTOMY "with a pill" Smoking Status: Never Smoker Alcohol Use: None Drug Use: Marijuana Adult General Chief Complaint Chief Complaint: CHEST PAIN HPI HPI Patient is a 41 year old female who presents with chest pain. She had onset of symptoms around 1700 yesterday. She complains of sternal and upper chest pain. Pain is intermittent and described to be sharp. No aggravating or alleviating factors. She has not had a fever or cough. No prior history of coronary artery disease. She has not had no viral symptoms lately. She does endorse some associated nausea with vomiting. She states she vomits every time she attempts to eat food. She denies abdominal pain today although does endorse a prior history of known diverticulitis. Is having normal bowel movements. No diarrhea. Does not smoke tobacco. No known family history of coronary artery disease. Review of Systems Review of Systems Constitutional: Denies fever or chills Eyes: Denies change in visual acuity, redness, or eye pain HENT: Denies nasal congestion or sore throat Respiratory: Denies cough or shortness of breath Cardiovascular: see HPI GI: Denies abdominal pain, nausea, vomiting, bloody stools or diarrhea : Denies dysuria or hematuria Musculoskeletal: Denies back pain or joint pain Integument: Denies rash or skin lesions Neurologic: Denies headache, focal weakness or sensory changes Endocrine: Denies polyuria or polydipsia All other systems were reviewed and found to be within normal limits, except as documented in this note. Current Medications Current Medications Current Medications Medications (Trade) Dose Ordered Sig/Shirley Start Time Stop Time Status Last Admin Dose Admin Ondansetron HCl (Zofran) 4 mg 1X ONCE 06/20/21 15:45 06/20/21 15:49 DC 06/20/21 16:49 4 MG Sodium Chloride 1,000 ml @ 1,000 mls/hr 1X ONCE 06/20/21 16:30 06/20/21 17:29 DC 06/20/21 16:49 1,000 MLS/HR Allergies Allergies Allergies Coded Allergies Type Severity Reaction Last Updated Verified No Known Drug Allergies 03/19/17 No Physical Exam Physical Exam Constitutional: Well developed, well nourished, no acute distress, non-toxic appearance. HENT: Normocephalic, atraumatic, bilateral external ears normal, oropharynx moist Eyes: PERRLA, EOMI, conjunctiva normal Neck: Normal range of motion, no tenderness Cardiovascular:Heart rate regular rhythm, no murmur Lungs & Thorax: Bilateral breath sounds clear to auscultation Abdomen: Bowel sounds normal, soft, no tenderness Skin: Warm, dry, no erythema Back: No tenderness, no CVA tenderness Extremities: No tenderness, no edema Neurologic: Alert and oriented X 3, normal motor function Psychologic: Affect normal Current Patient Data Vital Signs Vital Signs Date Time Temp Pulse Resp B/P (MAP) Pulse Ox O2 Delivery O2 Flow Rate FiO2 06/20/21 15:40 97.9 110 16 130/80 (97) 100 Room Air 97.9 Lab Values Laboratory Tests Test 06/20/21 16:11 06/20/21 16:45 White Blood Count 11.1 x10^3/uL (4.0-11.0) H Red Blood Count 4.43 x10^6/uL (3.50-5.40) Hemoglobin 14.0 g/dL (12.0-15.5) Hematocrit 41.6 % (36.0-47.0) Mean Corpuscular Volume 94 fL (79-100) Mean Corpuscular Hemoglobin 32 pg (25-35) Mean Corpuscular Hemoglobin Concent 34 g/dL (31-37) Red Cell Distribution Width 12.7 % (11.5-14.5) Platelet Count 254 x10^3/uL (140-400) Neutrophils (%) (Auto) 65 % (31-73) Lymphocytes (%) (Auto) 24 % (24-48) Monocytes (%) (Auto) 9 % (0-9) Eosinophils (%) (Auto) 2 % (0-3) Basophils (%) (Auto) 1 % (0-3) Neutrophils # (Auto) 7.2 x10^3/uL (1.8-7.7) Lymphocytes # (Auto) 2.6 x10^3/uL (1.0-4.8) Monocytes # (Auto) 1.0 x10^3/uL (0.0-1.1) Eosinophils # (Auto) 0.2 x10^3/uL (0.0-0.7) Basophils # (Auto) 0.1 x10^3/uL (0.0-0.2) Sodium Level 138 mmol/L (136-145) Potassium Level 4.7 mmol/L (3.5-5.1) Chloride Level 101 mmol/L (98-107) Carbon Dioxide Level 31 mmol/L (21-32) Anion Gap 6 (6-14) Blood Urea Nitrogen 18 mg/dL (7-20) Creatinine 1.2 mg/dL (0.6-1.0) H Estimated GFR (Cockcroft-Gault) 49.8 Glucose Level 94 mg/dL (70-99) Calcium Level 9.1 mg/dL (8.5-10.1) Troponin I Quantitative < 0.017 ng/mL (0.000-0.055) D-Dimer (Nany) < 0.27 ug/mlFEU Laboratory Tests 06/20/21 16:11 Laboratory Tests 06/20/21 16:11 EKG EKG 15:45: Sinus tachycardia with rate of 116. Otherwise normal EKG. No ST changes to suggest ischemia Radiology/Procedures Radiology/Procedures [] Course & Med Decision Making Course & Med Decision Making Pertinent Labs and Imaging studies reviewed. (See chart for details) Patient is evaluated on arrival to her room. Has been having pain for over 20 hours. No trauma. Her physical examination is normal including abdominal exam. She is noted however have mild tachycardia. Will give IV fluids and check dimer. 17:30: All results are reviewed and discussed with the patient. All of her questions were answered. D-dimer was not elevated. She was noted to have very mildly elevated creatinine. She was given IV fluids in the ER. The rest of her work-up was unremarkable including chest x-ray and EKG. Stable for discharge home. Recommended she aggressively hydrate at home. She is given Zofran to help with her nausea symptoms. Follow-up with primary care doctor or come back to the ER for any new or worsening symptoms. Dragon Disclaimer Dragon Disclaimer This electronic medical record was generated, in whole or in part, using a voice recognition dictation system. Departure Departure Impression: Primary Impression: Other chest pain Additional Impression: Dehydration Disposition: HOME / SELF CARE / HOMELESS Condition: IMPROVED Referrals: NAT SHRESTHA MD (PCP) Patient Instructions: Chest Pain (Nonspecific) Scripts Ondansetron Hcl (ZOFRAN) 4 Mg Tablet 1 TAB PO Q6HRS PRN for NAUSEA, #20 TAB Prov: MARYCARMEN BARRERA DO 06/20/21 Problem Qualifiers MARYCARMEN BARRERA DO Jun 20, 2021 15:33
[2021-06-20] MEDS ORDERED: ONDANSETRON PF 4 MG/2 ML VIAL. IV ONE (15:45)
--- NOTE | 2021-06-20 16:11 | RAD ---
XR CHEST 1V History: Chest pain Comparison: 03/02/2020 Technique: AP radiograph of the chest. Findings: The lungs are adequately and symmetrically inflated. No airspace consolidation, pleural effusion or p neumothorax. The cardiomediastinal silhouette and pulmonary vasculature are within normal limits. No acute osseous abnormality. Soft tissues are unremarkable. Impression: 1. No acute cardiopulmonary process. Electronically signed by: Frederic Jones MD (06/20/2021 4:09 PM) [id number]
[2021-06-20 16:17] LABS: BASO # 0.1 x10^3/uL (0.0-0.2); BASO % 1 % (0-3); EOS # 0.2 x10^3/uL (0.0-0.7); EOS % 2 % (0-3); HEMATOCRIT 41.6 % (36.0-47.0); LYMPH # 2.6 x10^3/uL (1.0-4.8); LYMPH % 24 % (24-48); MEAN CORPUSCULAR HEMOGLOBIN 32 pg (25-35); MEAN CORPUSCULAR HGB CONC 34 g/dL (31-37); MEAN CORPUSCULAR VOLUME 94 fL (79-100); MONO % 9 % (0-9); NEUT # 7.2 x10^3/uL (1.8-7.7); NEUT % 65 % (31-73); PLATELET COUNT 254 x10^3/uL (140-400); RED BLOOD COUNT 4.43 x10^6/uL (3.50-5.40); RED CELL DISTRIBUTION WIDTH 12.7 % (11.5-14.5); WHITE BLOOD COUNT 11.1 x10^3/uL (4.0-11.0)
[2021-06-20 16:28] LABS: CALCIUM 9.1 mg/dL (8.5-10.1); CREATININE 1.2 mg/dL (0.6-1.0); GFR 49.8; POTASSIUM 4.7 mmol/L (3.5-5.1)
[2021-06-20] MEDS ORDERED: IV NORMAL SALINE 1000ML BAG 1,000 ML IV ONE (16:30)
[2021-06-20 17:30] VITALS: BP 111/71
[2021-06-20] MEDS ORDERED: ONDA4TAB7 PO (17:34)
== END 2021-06-20 17:58 | disposition home or self-care (01) ==
LOC: ER 15:27
DX: R07.2 Precordial pain (principal); G89.29 Other chronic pain; E03.9 Hypothyroidism, unspecified; F41.9 Anxiety disorder, unspecified
CPT/HCPCS: 36415; 71045; 80048; 84484; 85025; 85379; 96361; 96374; 99285; J2405; J7030

== ENCOUNTER 2021-07-24 10:23 | Emergency (ER) | payer MEDICARE, MEDICAID ==
[~2021-07-24] VITALS: Ht 180.3 cm; Wt 134.0 kg
[~2021-07-24 10:23] MED LIST changes: +CYCL10TA19 PO; -CYCL10TA2 PO
[2021-07-24] MEDS ORDERED: MECLIZINE HCL 12.5 MG TABLET. PO ONE (11:00)
[2021-07-24] MEDS ORDERED: ONDANSETRON ODT 4 MG TAB.RAPDIS. PO ONE (11:00)
[2021-07-24 11:05] LABS: BASO # 0.1 x10^3/uL (0.0-0.2); BASO % 1 % (0-3); EOS # 0.2 x10^3/uL (0.0-0.7); EOS % 2 % (0-3); HEMATOCRIT 39.7 % (36.0-47.0); HEMOGLOBIN 13.6 g/dL (12.0-15.5); LYMPH # 1.8 x10^3/uL (1.0-4.8); LYMPH % 21 % (24-48); MEAN CORPUSCULAR HEMOGLOBIN 32 pg (25-35); MEAN CORPUSCULAR HGB CONC 34 g/dL (31-37); MEAN CORPUSCULAR VOLUME 93 fL (79-100); MONO # 0.7 x10^3/uL (0.0-1.1); MONO % 8 % (0-9); NEUT # 5.9 x10^3/uL (1.8-7.7); NEUT % 68 % (31-73); PLATELET COUNT 252 x10^3/uL (140-400); RED BLOOD COUNT 4.28 x10^6/uL (3.50-5.40); RED CELL DISTRIBUTION WIDTH 12.8 % (11.5-14.5); WHITE BLOOD COUNT 8.7 x10^3/uL (4.0-11.0)
--- NOTE | 2021-07-24 11:09 | RAD ---
EXAM: Chest, single view. HISTORY: Dizziness. COMPARISON: 06/20/2021 FINDINGS: A frontal view of the chest is obtained. There is no consolidation, pleural effusion or pne umothorax. There is a stable prominent cardiac silhouette. IMPRESSION: No acute pulmonary finding. Electronically signed by: Kalya Sommers MD (07/24/2021 11:06 AM) [id number]
--- NOTE | 2021-07-24 11:15 | RAD ---
Exam Date: 07/24/2021 10:[address] HEAD/BRAIN WO Indication: Reason: dizziness / Spl. Instructions: / History: . TECHNIQUE: Head CT was performed without intravenous contrast. One or more of the following dose re duction techniques were utilized: *Automated exposure control (AEC) *Adjustment of mA and/or kV according to patient size *Use of iterative reconstruction technique *CT scan done according to ALARA, or ALARA/IMAGE GENTLY COMPARISON: October 25, 2017 FINDINGS: The ventricles and sulci are normal for the patient's stated age. There is no evidence of acute int racranial hemorrhage, extra-axial collection, mass effect, midline shift, or acute territorial infarc t. No lesion of the skull base or the calvarium is seen. The visualized paranasal sinuses, mastoid ai r cells and orbits are normal in appearance. IMPRESSION: No evidence for acute intracranial abnormality. Electronically signed by: Scott Martini MD (07/24/2021 11:12 AM) [id number]
[2021-07-24 11:17] LABS: CALCIUM 8.3 mg/dL (8.5-10.1); GFR 61.4; POTASSIUM 4.6 mmol/L (3.5-5.1)
[2021-07-24 11:23] LABS: ALBUMIN 3.2 g/dL (3.4-5.0); ALBUMIN/GLOBULIN RATIO 0.9 (1.0-1.7); TOTAL BILIRUBIN 0.2 mg/dL (0.2-1.0); TOTAL PROTEIN 6.9 g/dL (6.4-8.2)
--- NOTE | 2021-07-24 11:23 | EKG ---
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
[2021-07-24 12:00] VITALS: BP 152/68
[2021-07-24] MEDS ORDERED: ONDA4TAB12 PO (12:27)
[2021-07-24] MEDS ORDERED: MECL12.582 PO (12:27)
--- NOTE | 2021-07-24 12:28 | PHYS DOC ---
Past Medical History Past Medical History: Anxiety, Diverticulitis, Diverticulosis, Hypothyroid, Other Additional Past Medical Histor: OVARIAN CYST,MOOD SWINGS,CHRONIC PAIN, PRE DIABETES (ALEKSANDR HAWTHORNE BUSINESS STRATEGIST) Past Surgical History: Cholecystectomy, Hysterectomy, Tonsillectomy Additional Past Surgical Histo: THYROIDECTOMY "with a pill" (ALEKSANDR HAWTHORNE BUSINESS STRATEGIST) Smoking Status: Never Smoker Alcohol Use: None Drug Use: Marijuana (ALEKSANDR HAWTHORNE BUSINESS STRATEGIST) General Adult EDM: Chief Complaint: DIZZY/LIGHT HEADED HPI: HPI: Patient is a 41 year old female with a history of anxiety, hypothyroidism, who presents to the ED today complaining of dizziness and nausea, patient states dizziness and nausea are chronic but have gotten worse in the last 5 days. Denies any vomiting. Denies any fever, coughing or congestion. Denies any injuries. Denies any chest pain or shortness of breath. She states she was not able to get into her PCPs office and she decided to come to the ED. patient denies anything specifically exacerbating or relieving her dizziness (ALEKSANDR HAWTHORNE BUSINESS STRATEGIST) Review of Systems: Review of Systems: Constitutional: Denies fever or chills. [] Eyes: Denies change in visual acuity. [] HENT: Denies nasal congestion or sore throat. [] Respiratory: Denies cough or shortness of breath. [] Cardiovascular: Denies chest pain or edema. [] GI: Reports nausea denies abdominal pain, vomiting, bloody stools or diarrhea. [] : Denies dysuria. [] Musculoskeletal: Denies back pain or joint pain. [] Integument: Denies rash. [] Neurologic: Reports dizziness. Denies headache, focal weakness or sensory changes. [] Psychiatric: Denies depression or anxiety. [] (ALEKSANDR HAWTHORNE BUSINESS STRATEGIST) Heart Score: C/O Chest Pain: N/A Risk Factors: Risk Factors: DM, Current or recent (<one month) smoker, HTN, HLP, family history of CAD, obesity. Risk Scores: Score 0 - 3: 2.5% MACE over next 6 weeks - Discharge Home Score 4 - 6: 20.3% MACE over next 6 weeks - Admit for Clinical Observation Score 7 - 10: 72.7% MACE over next 6 weeks - Early Invasive Strategies (ALEKSANDR HAWTHORNE BUSINESS STRATEGIST) Current Medications: Current Medications Medications (Trade) Dose Ordered Sig/Shirley Start Time Stop Time Status Last Admin Dose Admin Meclizine HCl (Antivert) 12.5 mg 1X ONCE 07/24/21 11:00 07/24/21 11:01 DC 07/24/21 11:28 12.5 MG Ondansetron HCl (Zofran Odt) 4 mg 1X ONCE 07/24/21 11:00 07/24/21 11:01 DC 07/24/21 11:28 4 MG (ALEKSANDR HAWTHORNE M BUSINESS STRATEGIST) Allergies: Allergies: Allergies Coded Allergies Type Severity Reaction Last Updated Verified No Known Drug Allergies 03/19/17 No (ALEKSANDR HAWTHORNE M BUSINESS STRATEGIST) Physical Exam: PE: Constitutional: Well developed, well nourished, no acute distress, non-toxic appearance. [] HENT: Normocephalic, atraumatic, bilateral external ears normal, oropharynx moist, no oral exudates, nose normal. [] Eyes: PERRLA, EOMI, conjunctiva normal, no discharge. [] Neck: Normal range of motion, no tenderness, supple, no stridor. [] Cardiovascular:Heart rate regular rhythm, no murmur [] Lungs & Thorax: Bilateral breath sounds clear to auscultation [] Abdomen: Bowel sounds normal, soft, no tenderness, no masses, no pulsatile masses. [] Skin: Warm, dry, no erythema, no rash. [] Back: No tenderness, no CVA tenderness. [] Extremities: No tenderness, no cyanosis, no clubbing, ROM intact, no edema. [] Neurologic: Alert and oriented X 3, normal motor function, normal sensory function, no focal deficits noted. Cranial nerves II through XII intact Psychologic: Flat affect, depressed mood (ALEKSANDR HAWTHORNE M BUSINESS STRATEGIST) Current Patient Data: Labs: Laboratory Tests Test 07/24/21 10:57 White Blood Count 8.7 x10^3/uL (4.0-11.0) Red Blood Count 4.28 x10^6/uL (3.50-5.40) Hemoglobin 13.6 g/dL (12.0-15.5) Hematocrit 39.7 % (36.0-47.0) Mean Corpuscular Volume 93 fL (79-100) Mean Corpuscular Hemoglobin 32 pg (25-35) Mean Corpuscular Hemoglobin Concent 34 g/dL (31-37) Red Cell Distribution Width 12.8 % (11.5-14.5) Platelet Count 252 x10^3/uL (140-400) Neutrophils (%) (Auto) 68 % (31-73) Lymphocytes (%) (Auto) 21 % (24-48) L Monocytes (%) (Auto) 8 % (0-9) Eosinophils (%) (Auto) 2 % (0-3) Basophils (%) (Auto) 1 % (0-3) Neutrophils # (Auto) 5.9 x10^3/uL (1.8-7.7) Lymphocytes # (Auto) 1.8 x10^3/uL (1.0-4.8) Monocytes # (Auto) 0.7 x10^3/uL (0.0-1.1) Eosinophils # (Auto) 0.2 x10^3/uL (0.0-0.7) Basophils # (Auto) 0.1 x10^3/uL (0.0-0.2) Sodium Level 139 mmol/L (136-145) Potassium Level 4.6 mmol/L (3.5-5.1) Chloride Level 103 mmol/L (98-107) Carbon Dioxide Level 30 mmol/L (21-32) Anion Gap 6 (6-14) Blood Urea Nitrogen 9 mg/dL (7-20) Creatinine 1.0 mg/dL (0.6-1.0) Estimated GFR (Cockcroft-Gault) 61.4 BUN/Creatinine Ratio 9 (6-20) Glucose Level 98 mg/dL (70-99) Calcium Level 8.3 mg/dL (8.5-10.1) L Total Bilirubin 0.2 mg/dL (0.2-1.0) Aspartate Amino Transferase (AST) 27 U/L (15-37) Alanine Aminotransferase (ALT) 46 U/L (14-59) Alkaline Phosphatase 78 U/L (46-116) Troponin I High Sensitivity < 4 ng/L (4-50) L Total Protein 6.9 g/dL (6.4-8.2) Albumin 3.2 g/dL (3.4-5.0) L Albumin/Globulin Ratio 0.9 (1.0-1.7) L Laboratory Tests 07/24/21 10:57 Laboratory Tests 07/24/21 10:57 Vital Signs: Vital Signs Date Time Temp Pulse Resp B/P (MAP) Pulse Ox O2 Delivery O2 Flow Rate FiO2 07/24/21 10:43 84 18 166/98 (120) 98 Room Air (ALEKSANDR HAWTHORNE BUSINESS STRATEGIST) EKG: EK interpreted by Dr. Hogue sinus rhythm heart rate 85 no STEMI [] (ALEKSANDR HAWTHORNE BUSINESS STRATEGIST) Radiology/Procedures: Radiology/Procedures: []PROCEDURE: CT HEAD WO CONTRAST Exam Date: 07/24/2021 10:[address] HEAD/BRAIN WO Indication: Reason: dizziness / Spl. Instructions: / History: . TECHNIQUE: Head CT was performed without intravenous contrast. One or more of the following dose reduction techniques were utilized: *Automated exposure control (AEC) *Adjustment of mA and/or kV according to patient size *Use of iterative reconstruction technique *CT scan done according to ALARA, or ALARA/IMAGE GENTLY COMPARISON: October 25, 2017 FINDINGS: The ventricles and sulci are normal for the patient's stated age. There is no evidence of acute intracranial hemorrhage, extra-axial collection, mass effect, midline shift, or acute territorial infarct. No lesion of the skull base or the calvarium is seen. The visualized paranasal sinuses, mastoid air cells and orbits are normal in appearance. IMPRESSION: No evidence for acute intracranial abnormality. Electronically signed by: Sisi Martini MD (07/24/2021 11:12 AM) [id number] DICTATED and SIGNED BY: SISI MARTINI MD DATE: 07/24/21 [id number] PROCEDURE: PORTABLE CHEST 1V EXAM: Chest, single view. HISTORY: Dizziness. COMPARISON: 06/20/2021 FINDINGS: A frontal view of the chest is obtained. There is no consolidation, pleural effusion or pneumothorax. There is a stable prominent cardiac silhouette. IMPRESSION: No acute pulmonary finding. Electronically signed by: Kayla Brian MD (07/24/2021 11:06 AM) [id number] DICTATED and SIGNED BY: KAYLA BRIAN MD DATE: 07/24/21 [id number] (ALEKSANDR HAWTHORNE BUSINESS STRATEGIST) Course & Med Decision Making: Course & Med Decision Making Pertinent Labs and Imaging studies reviewed. (See chart for details) This a 41-year-old female patient presenting to the ED today with chronic dizziness with nausea. Patient has been seen in the emergency room multiple times for her symptoms. CT of the head is negative, chest x-ray is negative, EKG is negative, labs are negative for any acute findings. Patient was reassured. Instructed to follow-up with her PCP. Recommended seeing a neurologist, she refused, discharged on zofran and meclizine (ALEKSANDR HAWTHORNE APRN) Course & Med Decision Making I was the Attending physician on the above date of service of this patient. This patient was evaluated, examined, treated, and dispositioned from the emergency department by the mid-level practitioner. Although I was working at the time , no assistance was requested. Electronically signed, Agustín Hogue DO (AGUSTÍN HOGUE DO) Moises Disclaimer: Dragankit Disclaimer: This electronic medical record was generated, in whole or in part, using a voice recognition dictation system. (ALEKSANDR HAWTHORNE APRN) Departure Departure Impression: Primary Impression: Dizziness Additional Impression: Nausea alone Disposition: HOME / SELF CARE / HOMELESS Condition: IMPROVED Referrals: NAT SHRESTHA MD (PCP) follow up next week Patient Instructions: Dizziness, [id number] Additional Instructions: You were evaluated in the emergency room for dizziness, your CT of the head is negative for any acute findings, your chest x-ray and EKG are negative, your lab work is negative for any acute findings. Please follow-up with your primary care doctor Scripts Ondansetron (ONDANSETRON ODT) 4 Mg Tab.rapdis 1 TAB PO PRN Q6-8HRS, #16 TAB Prov: ALEKSANDR HAWTHORNE APRN 07/24/21 Meclizine Hcl (MECLIZINE HCL) 12.5 Mg Tablet 1 TAB PO TID, #30 TAB Prov: ALEKSANDR HAWTHORNE APRN 07/24/21 ALEKSANDR HAWTHORNE APRN Jul 24, 2021 12:28 AGUSTÍN HOGUE DO Jul 25, 2021 16:04
== END 2021-07-24 12:52 | disposition home or self-care (01) ==
LOC: ER 10:23
DX: R42 Dizziness and giddiness (principal); R11.0 Nausea; F41.9 Anxiety disorder, unspecified; E03.9 Hypothyroidism, unspecified; G89.29 Other chronic pain; Z90.49 Acquired absence of other specified parts of digestive tract; Z90.710 Acquired absence of both cervix and uterus
CPT/HCPCS: 36415; 70450; 71045; 80053; 84484; 85025; 93005; 99285; J8597

== ENCOUNTER 2022-02-04 16:42 | Emergency (ER) | payer MEDICARE, MEDICAID ==
[~2022-02-04] VITALS: Ht 180.3 cm; Wt 133.8 kg
[2022-02-04 17:51] LABS: BASO # 0.1 x10^3/uL (0.0-0.2); BASO % 1 % (0-3); EOS # 0.2 x10^3/uL (0.0-0.7); EOS % 3 % (0-3); HEMOGLOBIN 14.1 g/dL (12.0-15.5); LYMPH # 2.1 x10^3/uL (1.0-4.8); LYMPH % 24 % (24-48); MEAN CORPUSCULAR HEMOGLOBIN 32 pg (25-35); MEAN CORPUSCULAR HGB CONC 34 g/dL (31-37); MEAN CORPUSCULAR VOLUME 93 fL (79-100); MONO % 11 % (0-9); NEUT # 5.3 x10^3/uL (1.8-7.7); NEUT % 61 % (31-73); PLATELET COUNT 258 x10^3/uL (140-400); RED CELL DISTRIBUTION WIDTH 13.3 % (11.5-14.5); WHITE BLOOD COUNT 8.6 x10^3/uL (4.0-11.0)
[2022-02-04 18:00] LABS: CALCIUM 8.7 mg/dL (8.5-10.1); CREATININE 1.1 mg/dL (0.6-1.0); POTASSIUM 3.9 mmol/L (3.5-5.1)
[2022-02-04] MEDS ORDERED: IV NORMAL SALINE 1000ML BAG 1,000 ML IV ONE (18:00)
[2022-02-04 18:06] LABS: ALBUMIN 3.5 g/dL (3.4-5.0); ALBUMIN/GLOBULIN RATIO 0.8 (1.0-1.7); TOTAL BILIRUBIN 0.3 mg/dL (0.2-1.0); TOTAL PROTEIN 7.8 g/dL (6.4-8.2)
[2022-02-04] MEDS ORDERED: MORPHINE SULFATE 4 MG/ML INJ. IV PRN (18:45)
[2022-02-04] MEDS ORDERED: ONDANSETRON PF 4 MG/2 ML VIAL. IVP ONE (18:45)
--- NOTE | 2022-02-04 19:15 | PHYS DOC ---
Past Medical History Past Medical History: Anxiety, Diverticulitis, Diverticulosis, Hypothyroid, Other Additional Past Medical Histor: OVARIAN CYST,MOOD SWINGS,CHRONIC PAIN Past Surgical History: Cholecystectomy, Hysterectomy, Tonsillectomy Additional Past Surgical Histo: THYROIDECTOMY "with a pill" Smoking Status: Never Smoker Alcohol Use: None Drug Use: Marijuana Adult General Chief Complaint Chief Complaint: ABDOMINAL PAIN HPI HPI Patient is a 41 year old female presenting to the emergency department for evaluation of multiple medical complaints including abdominal pain nausea vomiting right leg pain vaginal discharge. Patient says that the abdominal pain is diffuse throughout her entire abdomen and crampy and gets worse with eating and drinking as she has nonbloody nonbilious emesis some of the time after eating food and drinking fluids but not every time. Patient says that she has been told she is prediabetic. She says she has had a gallbladder and hysterectomy but no other abdominal surgeries. She also says that she has pain behind her right knee and she had a bruise there but she does not think that she had any trauma but she feels that her right leg is more swollen. She denies prior history of DVT or PE. Patient says that she is also had thick white discharge but says that she is only sexual activity with her partner and she believes her partner is monogamous as well. She denies any vaginal pain rather the discharge is bothering her. Review of Systems Review of Systems Constitutional: Denies fever or chills [] Eyes: Denies change in visual acuity, redness, or eye pain [] HENT: Denies nasal congestion or sore throat [] Respiratory: Denies cough or shortness of breath [] Cardiovascular: No additional information not addressed in HPI [] GI: + abdominal pain, nausea, vomiting. No bloody stools or diarrhea [] : Denies dysuria or hematuria [] Musculoskeletal: Denies back pain. + joint pain [] Integument: Denies rash or skin lesions [] Neurologic: Denies headache, focal weakness or sensory changes [] All other systems were reviewed and found to be within normal limits, except as documented in this note. Current Medications Current Medications Current Medications Medications (Trade) Dose Ordered Sig/Shirley Start Time Stop Time Status Last Admin Dose Admin Morphine Sulfate (Morphine Sulfate) 4 mg 1X PRN 02/04/22 18:45 02/04/22 19:17 4 MG Ondansetron HCl (Zofran) 4 mg 1X ONCE 02/04/22 18:45 02/04/22 18:47 DC 02/04/22 18:45 4 MG Sodium Chloride 1,000 ml @ 1,000 mls/hr 1X ONCE 02/04/22 18:00 02/04/22 18:59 DC 02/04/22 18:35 1,000 MLS/HR Allergies Allergies Allergies Coded Allergies Type Severity Reaction Last Updated Verified No Known Drug Allergies 03/19/17 No Physical Exam Physical Exam Constitutional: Well developed, well nourished, no acute distress, non-toxic appearance. [] HENT: Normocephalic, atraumatic, bilateral external ears normal, oropharynx moist, no oral exudates, nose normal. [] Eyes: PERRLA, EOMI, conjunctiva normal, no discharge. [] Neck: Normal range of motion, no tenderness, supple, no stridor. [] Cardiovascular:Heart rate regular rhythm, no murmur [] Lungs & Thorax: Bilateral breath sounds clear to auscultation [] Abdomen: Bowel sounds normal, soft, diffuse abdominal tenderness to palpation with no rebound or guarding. Skin: Warm, dry, no erythema, no rash. [] Back: No tenderness, no CVA tenderness. [] Extremities: Patient able to fully extend and flex her knee with no decrease in range of motion or strength but she has pain to palpation in the popliteal fossa. 1+ pitting edema bilateral lower extremities. Neurologic: Alert and oriented X 3, normal motor function, normal sensory func tion, no focal deficits noted. [] Current Patient Data Vital Signs Vital Signs Date Time Temp Pulse Resp B/P (MAP) Pulse Ox O2 Delivery O2 Flow Rate FiO2 02/04/22 19:17 18 02/04/22 16:56 99.4 100 136/89 (105) 96 Room Air 99.4 Lab Values Laboratory Tests Test 02/04/22 17:25 02/04/22 17:38 02/04/22 22:15 Troponin I High Sensitivity 5 ng/L (4-50) Lipase 248 U/L (73-393) White Blood Count 8.6 x10^3/uL (4.0-11.0) Red Blood Count 4.40 x10^6/uL (3.50-5.40) Hemoglobin 14.1 g/dL (12.0-15.5) Hematocrit 41.0 % (36.0-47.0) Mean Corpuscular Volume 93 fL (79-100) Mean Corpuscular Hemoglobin 32 pg (25-35) Mean Corpuscular Hemoglobin Concent 34 g/dL (31-37) Red Cell Distribution Width 13.3 % (11.5-14.5) Platelet Count 258 x10^3/uL (140-400) Neutrophils (%) (Auto) 61 % (31-73) Lymphocytes (%) (Auto) 24 % (24-48) Monocytes (%) (Auto) 11 % (0-9) H Eosinophils (%) (Auto) 3 % (0-3) Basophils (%) (Auto) 1 % (0-3) Neutrophils # (Auto) 5.3 x10^3/uL (1.8-7.7) Lymphocytes # (Auto) 2.1 x10^3/uL (1.0-4.8) Monocytes # (Auto) 1.0 x10^3/uL (0.0-1.1) Eosinophils # (Auto) 0.2 x10^3/uL (0.0-0.7) Basophils # (Auto) 0.1 x10^3/uL (0.0-0.2) Sodium Level 143 mmol/L (136-145) Potassium Level 3.9 mmol/L (3.5-5.1) Chloride Level 103 mmol/L (98-107) Carbon Dioxide Level 27 mmol/L (21-32) Anion Gap 13 (6-14) Blood Urea Nitrogen 15 mg/dL (7-20) Creatinine 1.1 mg/dL (0.6-1.0) H Estimated GFR (Cockcroft-Gault) 55.0 BUN/Creatinine Ratio 14 (6-20) Glucose Level 93 mg/dL (70-99) Calcium Level 8.7 mg/dL (8.5-10.1) Total Bilirubin 0.3 mg/dL (0.2-1.0) Aspartate Amino Transferase (AST) 25 U/L (15-37) Alanine Aminotransferase (ALT) 29 U/L (14-59) Alkaline Phosphatase 80 U/L (46-116) Total Protein 7.8 g/dL (6.4-8.2) Albumin 3.5 g/dL (3.4-5.0) Albumin/Globulin Ratio 0.8 (1.0-1.7) L Urine Collection Type Unknown Urine Color (Auto) Yellow Urine Turbidity Hazy Urine pH (Auto) 6.0 (<5.0-8.0) Urine Specific [place] 1.027 (1.000-1.030) Urine Protein (Auto) Negative mg/dL (Negative) Urine Glucose (Auto)(UA) Negative mg/dL (Negative) Urine Ketones (Auto) Negative mg/dL (Negative) Urine Blood (Auto) Moderate (Negative) Urine Nitrite Negative (Negative) Urine Bilirubin (Auto) Negative (Negative) Urine Urobilinogen (Auto) Normal mg/dL (Normal) Urine Leukocyte Esterase (Auto) Moderate (Negative) Urine RBC 6-10 /HPF (0-2) Urine WBC 5-10 /HPF (0-4) Urine Squamous Epithelial Cells Mod /LPF Urine Bacteria Moderate /HPF (0-FEW) Urine Mucus Mod /LPF Laboratory Tests 02/04/22 17:38 Laboratory Tests 02/04/22 17:38 Microbiology 02/04/22 Wet Prep - Final, Complete EKG EKG [] Radiology/Procedures Radiology/Procedures [] Course & Med Decision Making Course & Med Decision Making I will check labs and imaging treat symptoms and reassess. A CT using radiopaque IV contrast would be the preferred radiologic imaging for this patient however due to an unprecedented worldwide shortage of I denied IV contrast agent hospital protocols have been adjusted to conserve remaining and available contrast doses. Patient's CT shows no acute surgical pathology. Her ultrasound is negative and her x-ray shows no acute fracture but she does have an effusion. Her labs are unremarkable for acute process but did discuss all incidental findings on labs and imaging. She does have a yeast infection in addition to bacterial vaginosis. Patient says that she does feel better here in the emergency department and she has repeat benign abdominal exam and she was able to tolerate fluids by mouth with no difficulty. I will prescribe her Diflucan to take after she finishes the Flagyl and told her to use [id number] Monistat for her yeast infection. I recommended following with her primary care provider within 2 to 3 days for recheck and come back to emergency department sooner with worsening pain fevers vomiting or other general concerns. Patient aware and agreeable with plan and verbalized understanding of the above instructions. Dragon Disclaimer Dragon Disclaimer This electronic medical record was generated, in whole or in part, using a voice recognition dictation system. Departure Departure Impression: Primary Impression: Bacterial vaginosis Additional Impressions: Vulvovaginal candidiasis Effusion, right knee Right knee pain Nausea & vomiting Abdominal pain Disposition: HOME / SELF CARE / HOMELESS Condition: STABLE Referrals: NAT SHRESTHA MD (PCP) Patient Instructions: Candidal Vulvovaginitis, [id number] Additional Instructions: Take another dose of Diflucan after you finish the Flagyl. Use [id number] yeast medication such as Monistat. Follow-up with your primary care provider within 2 to 3 days for recheck. Scripts Ondansetron (ONDANSETRON ODT) 4 Mg Tab.rapdis 1 TAB PO PRN Q6-8HRS, #16 TAB Prov: ELISE GOODMAN DO 02/04/22 Fluconazole (DIFLUCAN) 150 Mg Tablet 1 TAB PO ONCE, #1 TAB 0 Refills Take in 1 week after finishing the flagyl Prov: ELISE GOODMAN DO 02/04/22 Metronidazole (METRONIDAZOLE) 500 Mg Tablet 1 TAB PO BID for 7 Days, #14 TAB 0 Refills Prov: ELISE GOODMAN DO 02/04/22 Problem Qualifiers Additional Impressions: Right knee pain Chronicity: acute Qualified Codes: M25.561 - Pain in right knee Nausea & vomiting Vomiting type: unspecified Qualified Codes: R11.2 - Nausea with vomiting, unspecified Abdominal pain Abdominal location: generalized Qualified Codes: R10.84 - Generalized abdominal pain ELISE GOODMAN DO February 04, 2022 19:15
--- NOTE | 2022-02-04 19:46 | RAD ---
EXAM: CT Abdomen and Pelvis without IV contrast CLINICAL HISTORY: Reason: abd pain, n,v COMPARISON: none TECHNIQUE: Helical CT of the abdomen and pelvis without intravenous contrast. Axial, coronal and sagi ttal reformatted images were generated. PQRS compliance statement - One or more of the following individualized dose reduction techniques wer e utilized for this study: 1. Automated exposure control 2. Adjustment of the mA and/or kV according to patient size 3. Use of iterative reconstruction technique FINDINGS: Lack of intravenous contrast limits evaluation of solid organs, vasculature, and lymph nodes. Lower chest: Lung bases are clear. Abdomen and Pelvis: Hepatic hypoattenuation, fatty liver. Cholecystectomy clips are seen. No biliary ductal dilatation. P ancreas, spleen, adrenal glands are unremarkable. No focal renal lesion. No hydronephrosis. No hydrou reter. Bladder is unremarkable. Appendix is normal. Moderate colonic stool content is seen. No small or large bowel dilatation. No flora wel obstruction. Colonic diverticula are seen. No evidence for acute diverticulitis. Trace fat-containing periumbilical hernia. No abdominal or pelvic ascites. No abdominal or pelvic lym phadenopathy. Bones: Bilateral L5 pars defects are seen. No aggressive osseous lesion. Mild leftward curvature of the lumb ar spine. IMPRESSION: 1. Hepatic hypoattenuation with fatty liver 2. Accounting for postcholecystectomy change, no biliary ductal dilatation. 3. Moderate colonic stool content. No bowel obstruction. 4. Colonic diverticula are seen. No evidence for acute diverticulitis. Electronically signed by: Mason Roberson MD (02/04/2022 7:44 PM) LEEANN
--- NOTE | 2022-02-04 20:01 | RAD ---
EXAM: AP, lateral and oblique views of the right knee DATE: 02/04/2022 7:17 PM INDICATION: Reason: R knee pain / Spl. Instructions: / History: COMPARISON: No Prior FINDINGS: No acute fracture or dislocation. Moderate joint effusion. Mild medial compartment joint space narrow ing with small triquetral osteophytes. IMPRESSION: 1. No acute fracture or dislocation. 2. Moderate knee joint effusion. 3. Moderate right knee joint osteoarthritis. Electronically signed by: Mason Roberson MD (02/04/2022 7:58 PM) LEEANN
--- NOTE | 2022-02-04 20:42 | RAD ---
EXAMINATION: US DPLX VENOUS EXTREMITY LOWER RT (LOWER EXTREMITY VENOUS ULTRASOUND) CLINICAL HISTORY: Right lower extremity pain and swelling. TECHNIQUE: Sonographic grayscale images obtained of the right lower extremity deep venous system with color flow Doppler, compression, and augmentation techniques as indicated. Images obtained and stor ed in a permanent archive. COMPARISON: None FINDINGS: No evidence of absent flow or incompressibility within the common femoral vein, femoral vein, or popl iteal vein. Visualized calf veins appear patent on limited evaluation. IMPRESSION: No evidence of right lower extremity DVT. Electronically signed by: Good Guzmán DO (02/04/2022 8:40 PM) [facility]
[2022-02-04 22:50] LABS: BACTERIA,URINE MODERATE /HPF (0-FEW)
[2022-02-04] MEDS ORDERED: ONDA4TAB12 PO (23:43)
[2022-02-04] MEDS ORDERED: FLUC150T PO (23:43)
[2022-02-04] MEDS ORDERED: METR-34 PO (23:43)
[2022-02-04] MEDS ORDERED: HYDROcodone/APAP 5/325MG 1 TAB TABLET PO ONE (23:45)
[2022-02-04] MEDS ORDERED: KETOROLAC 15 MG/ML VIAL. IVP ONE (23:45)
[2022-02-04] MEDS ORDERED: FLUCONAZOLE 100 MG TABLET. PO ONE (23:45)
[2022-02-05 00:29] VITALS: BP 105/70
[2022-02-06 18:26] LABS: GC PROBE Negative (Negative)
== END 2022-02-05 00:51 | disposition home or self-care (01) ==
LOC: ER 16:42
DX: N76.0 Acute vaginitis (principal); B96.89 Other specified bacterial agents as the cause of diseases classified elsewhere; B37.3 Candidiasis of vulva and vagina; M25.461 Effusion, right knee; M25.561 Pain in right knee; R11.2 Nausea with vomiting, unspecified; R10.84 Generalized abdominal pain; G89.29 Other chronic pain; E03.9 Hypothyroidism, unspecified; Z90.49 Acquired absence of other specified parts of digestive tract; Z90.710 Acquired absence of both cervix and uterus
CPT/HCPCS: 36415; 73562; 74176; 80053; 81001; 83690; 84484; 85025; 87077; 87086; 87147; 87186; 87491; 87591; 93971; 96361; 96374; 96375; 99285; J1885; J2270; J2405; J7030; Q0111